=== PATIENT | female | born 1935 | race Caucasian/White ===

== ENCOUNTER → 2016-07-19 | Outpatient (CLI) | payer OTHER ==
[~2016-07-19] MED LIST: ACET-1311 PO; APIX1TAB3 PO; CARV12.52 PO; CARV6.252 PO; CRG625 PO; DIAZ-165 PO; DTRSR4 PO; FLUO0.01 TOP; GABA-112 PO; LEVO50TA PO; LEVO50TA6 PO; NITR1CAP16 PO; TOLT1CAP3 PO; TRML160 TOP
--- NOTE | 2016-07-20 13:14 | MAMMOGRAPHY REPORT ---
BILATERAL DIGITAL SCREENING MAMMOGRAM WITH CAD: 07/19/2016 CLINICAL HISTORY: Routine screening examination. TECHNIQUE: Bilateral CC and MLO views were obtained. Current study was also evaluated with a Compute r Aided Detection (CAD) system. COMPARISON: Comparison is made to exams dated: 07/17/2015 mammogram, 07/15/2014 mammogram, 07/10/2013 shaye mogram, 06/25/2012 mammogram, 07/08/2011 mammogram, and 06/24/2011 mammogram - [facility]. BREAST COMPOSITION: The tissue of both breasts is heterogeneously dense, which may obscure small mas ses. FINDINGS: There are moderate vascular calcifications in the breasts. Scattered bilateral benign rou nd and coarse calcifications. No developing mass, architectural distortion or cluster of suspicious m icrocalcifications is seen in either breast. IMPRESSION: ACR BI-RADS CATEGORY 2: BENIGN There is no mammographic evidence of malignancy. A 1 year screening mammogram is recommended. The pa tient will receive written notification of the results. Approximately 10% of breast cancers are not detected with mammography. A negative mammographic report should not delay biopsy if a clinically suggestive mass is present. Leda Chavira M.D. ay/:07/19/2016 16:21:51 Development Consultant: Gabriella TRUJILLO(R)(M), [facility] letter sent: Normal 1/2 BI-RADS Code: ACR BI-RADS Category 2: Benign
== END | disposition home or self-care (01) ==
LOC: C.MAMM 10:58
PROVIDERS: ATTEND Internal Medicine
DX: Z12.31 Encounter for screening mammogram for malignant neoplasm of breast (principal)

== ENCOUNTER → 2016-10-31 | Outpatient (CLI) | payer OTHER ==
[~2016-10-31] MED LIST changes: -CARV12.52 PO; -CARV6.252 PO; -DIAZ-165 PO; -DTRSR4 PO; -FLUO0.01 TOP; -GABA-112 PO; -LEVO50TA6 PO; -NITR1CAP16 PO; -TRML160 TOP
[2016-10-31 17:14] LABS: URINE APPEARANCE TURBID (CLEAR); URINE BILIRUBIN NEG (NEG); URINE COLOR YELLOW; URINE NITRITE POS (NEG); URINE PH 6.5 (4.5-7.5); URINE SPECIFIC GRAVITY 1.013 (1.000-1.030); UROBILINOGEN NEG (NEG)
[2016-10-31 17:16] LABS: MANUAL MICROSCOPIC REQUIRED? NO; REVIEW REQ? YES
== END | disposition home or self-care (01) ==
LOC: C.LAB 16:23
PROVIDERS: ATTEND Internal Medicine
DX: R35.0 Frequency of micturition (principal); R39.15 Urgency of urination

== ENCOUNTER → 2016-11-18 | Outpatient (CLI) | payer OTHER ==
[2016-11-18 17:17] LABS: BLOOD UREA NITROGEN 15 mg/dl (7-18)
== END | disposition home or self-care (01) ==
LOC: C.LABBC 14:20
PROVIDERS: ATTEND Physician Assistant Medical
DX: M54.16 Radiculopathy, lumbar region (principal); Z98.1 Arthrodesis status

== ENCOUNTER → 2016-11-25 | Outpatient (CLI) | payer OTHER ==
[~2016-11-25] MED LIST changes: +GADAVIST IV PRN
--- NOTE | 2016-11-25 11:59 | DIAGNOSTIC IMAGING REPORT ---
LUMBAR SPINE MRI WITH AND WITHOUT CONTRAST HISTORY: LUMBAR RADICULOPATHY TECHNIQUE: Multiplanar multisequence MRI of the lumbar spine was performed both before and after the intravenous administration of contrast. COMPARISON: Lumbar spine MRI 07/23/2010. FINDINGS: For the purpose of the report the L5-S1 disc space will be located on axial image 23 of 25. 2 mm of anterolisthesis of L3 on L4 which has developed in the interval. Stable grade I anterolisthesis of L4 and L5. The L4-L5 and L5-S1 disc spaces are partially fused. The patient is status post L4-S1 posterior decompression and fusion with pedicle screws and rods. Moderate disc space narrowing at L3-L4 has progressed. Mild disc space narrowing at L2-L3 remains unchanged. The conus terminates at the L1-L2 disc space level. No fractures within the lumbar spine. Increased T2 signal within the L4-5 disc space without enhancement. This could be due to postoperative/degenerative change. Paraspinal soft tissues are unremarkable. The central disc protrusions at T11-T12 and T12-L1 remains unchanged. The T11-T12 disc protrusion results in mild central canal narrowing. No abnormal enhancement. Expected areas of enhancement at the laminectomy site. L1-L2: Tiny broad-based posterior disc bulge with facet hypertrophy. No significant central canal narrowing. Mild bilateral neural foraminal narrowing. L2-L3: Broad-based posterior disc bulge with facet hypertrophy resulting in mild central canal and mild bilateral neural foraminal narrowing. L3-L4: Broad-based posterior disc bulge with advanced facet hypertrophy resulting in severe central canal narrowing. The central canal measures 5 mm in diameter. There is severe left and moderate right neural foraminal narrowing. L4-L5: Prior posterior decompression with mild central canal and mild bilateral neural foraminal narrowing remaining. L5-S1: Prior posterior decompression. No significant central canal narrowing. Mild bilateral neural foraminal narrowing. IMPRESSION: 1. Progressive disc bulge and facet hypertrophy at L3-L4 resulting in severe central canal narrowing. 2. Interval posterior decompression and fusion from L4 through S1 with pedicle screws and rods. 3. Multilevel bilateral neural foraminal narrowing as described above. 4. Small broad-based posterior disc bulge with facet hypertrophy at L2-L3 resulting in mild central canal narrowing. Electronically signed by: Michelet Snowden M.D. 11/25/2016 11:58 AM Dictated Date/Time: 11/25/2016 11:48 AM
== END | disposition home or self-care (01) ==
LOC: C.MRIBC 10:11
PROVIDERS: ATTEND Physician Assistant Medical
DX: M54.16 Radiculopathy, lumbar region (principal)

== ENCOUNTER 2017-01-18 09:48 | Inpatient (IN) | payer OTHER ==
[~2017-01-18] VITALS: Ht 162.6 cm; Wt 68.7 kg
[~2017-01-18 09:48] MED LIST changes: -GADAVIST IV PRN
--- NOTE | 2017-01-18 10:21 | DIAGNOSTIC IMAGING REPORT ---
HEAD WITHOUT CONTRAST (CT) CLINICAL HISTORY: 81 years-old Female with AMS. Acute altered mental status TECHNIQUE: Multiple axial CT images of the head were obtained without contrast. A dose lowering technique was utilized adhering to the principles of ALARA. CT DOSE: 537.48 mGy.cm COMPARISON: Head CT 02/06/2016. FINDINGS: No acute intracranial hemorrhage, midline shift, intracranial mass, hydrocephalus, territorial ischemia or abnormal extra-axial collection. There is moderate brain atrophy. Moderate to extensive chronic microvascular ischemic changes redemonstrated. Remote lacunar infarction of the left thalamus redemonstrated. Vascular calcifications are seen at the level of the skull base. The calvarium is intact. The paranasal sinuses, mastoid air cells, and middle ear cavities are clear. There are postsurgical changes of the bilateral globes. IMPRESSION: No acute intracranial abnormality. The above report was generated using voice recognition software. It may contain grammatical, syntax or spelling errors. Electronically signed by: Ed Canales M.D. 01/18/2017 10:20 AM Dictated Date/Time: 01/18/2017 10:17 AM
--- NOTE | 2017-01-18 10:28 | DIAGNOSTIC IMAGING REPORT ---
CHEST ONE VIEW PORTABLE HISTORY: 81 years-old Female AMS acute altered mental status COMPARISON: Chest radiograph 02/06/2016 TECHNIQUE: Portable upright AP view of the chest FINDINGS: Cardiomediastinal and hilar silhouettes are within normal limits. There is atherosclerosis of the aorta. Mild biapical pleural-parenchymal scarring and pleural thickening without pneumothorax, pleural effusion or focal airspace consolidation. There is a 1.1 cm nodular opacity projecting over the left heart. No overt pulmonary edema. Bones of the chest appear grossly intact. IMPRESSION: 1. No acute cardiopulmonary process. 2. 1.1 cm nodular opacity projects over the heart which may reflect composite density artifact or pulmonary nodule. The above report was generated using voice recognition software. It may contain grammatical, syntax or spelling errors. Electronically signed by: Ed Canales M.D. 01/18/2017 10:27 AM Dictated Date/Time: 01/18/2017 10:22 AM
[2017-01-18 10:42] LABS: BASO % 0.3 %; BASO ABS # 0.02 K/uL (0-0.2); EOS % 1.1 %; EOS ABS # 0.08 K/uL (0-0.5); HEMATOCRIT 33.4 % (37-47); HEMOGLOBIN 11.6 g/dL (12.0-16.0); IG# 0.02 K/uL (0.00-0.02); LYMPH % 18.4 %; LYMPH ABS # 1.35 K/uL (1.2-3.4); MEAN CORPUSCULAR HGB CONC 34.7 g/dl (32-36); MONO % 9.4 %; MONO ABS # 0.69 K/uL (0.11-0.59); NEUT % 70.5 %; NEUT ABS # 5.17 K/uL (1.4-6.5); PLATELET COUNT 263 K/uL (130-400); RED CELL DISTRIBUTION WIDTH CV 12.7 % (11.5-14.5); RED CELL DISTRIBUTION WIDTH SD 42.8 fL (36.4-46.3); WHITE BLOOD COUNT 7.33 K/uL (4.8-10.8)
[2017-01-18 10:53] LABS: PTT PATIENT 27.8 SECONDS (21.0-31.0)
[2017-01-18] MEDS ORDERED: DTRSR4 PO (11:02)
[2017-01-18] MEDS ORDERED: CARV12.52 PO (11:02)
[2017-01-18] MEDS ORDERED: GABA-112 PO (11:02)
[2017-01-18] MEDS ORDERED: APIX1TAB3 PO (11:02)
[2017-01-18] MEDS ORDERED: FLUO0.01 TOP (11:02)
[2017-01-18] MEDS ORDERED: DIAZ-165 PO (11:02)
[2017-01-18] MEDS ORDERED: NITR1CAP16 PO (11:02)
[2017-01-18] MEDS ORDERED: TRML160 TOP (11:02)
[2017-01-18] MEDS ORDERED: LEVO50TA6 PO (11:02)
[2017-01-18] MEDS ORDERED: CARV6.252 PO (11:02)
[2017-01-18 11:06] LABS: ALBUMIN 3.6 gm/dl (3.4-5.0); ALT/SGPT 19 U/L (12-78); AST/SGOT 17 U/L (15-37); BLOOD UREA NITROGEN 17 mg/dl (7-18); CALCIUM 8.7 mg/dl (8.5-10.1); CARBON DIOXIDE 24 mmol/L (21-32); CREATININE 0.94 mg/dl (0.60-1.20); GLUCOSE 97 mg/dl (70-99); POTASSIUM 4.1 mmol/L (3.5-5.1); SODIUM 126 mmol/L (136-145)
[2017-01-18 11:11] LABS: ALKALINE PHOSPHATASE 55 U/L (45-117); TOTAL PROTEIN 7.5 gm/dl (6.4-8.2)
[2017-01-18] MEDS ORDERED: SODIUM CHLORIDE 0.9% 500ML 500 ML IV STA (12:35)
[2017-01-18] MEDS ORDERED: SODIUM CHLORIDE 0.9% 1000ML 1,000 ML IV SCH (12:51)
[2017-01-18] MEDS ORDERED: PHARMACIST DISCHARGE MED REC CONSULT PRN (13:00)
[2017-01-18] MEDS ORDERED: ALUMINUM/MAGNESIUM/SIMETH (MAALOX MAX) 30 ML UDC PO PRN (13:00)
[2017-01-18 13:09] VITALS: O2SAT 98; Ht 162.6 cm; Wt 68.7 kg
--- NOTE | 2017-01-18 13:21 | History and Physical ---
History & Physical Date & Time of Service: Jan 18, 2017 at 12:26 Chief Complaint: [facility] Primary Care Physician: Aleksandar Beckman M.D. History of Present Illness Ms. Mace passed out this morning around 0800. She did not feel symptoms before hand and had some confusion after but overall does not remember the event. She doesn't know if she lost control of bowel or bladder. She was with her at the time who is not bedside. They live at home with just the two of them in the house. She had a similar episode a few years ago which was called a TIA at the hospital but her primary care did not think was accurate. She had a stomach ache last night so she didn't eat dinner but before that she had been eating and drinking normally. No diarrhea, no vomiting. She doesn't know if she had any slurred speech or vision changes at the time, but she hasn' t had any since. 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 Past Medical/Surgical History Medical Problems: (1) History of - hypertension Status: Chronic Social History Smoking Status: Former Smoker (quit 22 years ago) Smokeless Tobacco Use: No Alcohol Use: one glass or two at the most every day Marital Status: Housing status: lives with significant other Occupational Status: retired (nursing secretary) Immunizations History of Influenza Vaccine: Yes History of Tetanus Vaccine?: Unknown Tetanus Immunization Date: Dec 30, 2009 History of Pneumococcal: Yes Pneumococcal Date: Dec 30, 2006 History of Hepatitis B Vaccine: Unknown Multi-Drug Resistant Organisms History of MDRO: No Allergies Coded Allergies: Amoxicillin (Verified Allergy, Intermediate, VERY SICK TO HER STOMACH, 01/18/17) Atorvastatin (Verified Allergy, Intermediate, RASH, 01/18/17) and rash Clavulanic Acid (Verified Allergy, Intermediate, VERY SICK TO HER STOMACH , 01/18/17) Tetracycline (Verified Allergy, Intermediate, ARMS SWELLED UP, 01/18/17) Tramadol (Verified Allergy, Intermediate, MAKES HER DIZZY AND CRAZEY, 01/18) SHANTEL Inhibitors (Verified Allergy, Mild, NOT SURE OF REACTIONS, 01/18/17) Rivaroxaban (Verified Allergy, Unknown, RASH, 01/18/17) Zolpidem (Verified Allergy, Unknown, ., 01/18/17) Uncoded Allergies: ERYTHROMYCN (Allergy, Intermediate, SICK TO HER STOMACH, 11/22/12) Home Medications Scheduled Apixaban (Eliquis), 5 MG PO BID Carvedilol (Coreg), 12.5 MG PO QAM Carvedilol (Coreg), 6.25 MG PO QPM Fluocinolone Acetonide (Fluocinolone Acetonide), 1 APPLN TOP BID Gabapentin (Neurontin), 100 MG PO TID Levothyroxine Sodium (Levothyroxine Sodium), 75 MCG PO DAILY Tolterodine Tartrate (Detrol LA), 4 MG PO DAILY Triamcinolone (Triamcinolone Acetonide), 1 APPLN TOP QPM Review of Systems Constitutional: No fever, No chills Respiratory: No cough, No shortness of breath Cardiovascular: No chest pain Abdomen: + pain (see HPI), No nausea, No vomiting, No diarrhea Genitourinary - Female: No dysuria Neurologic: + memory loss (a little foggy with some recall difficulty), + weakness Integumentary: + rash (itchy skin back of head for many years) Allergic / Immunologic: + seasonal allergies Physical Exam Vital Signs Date Time Temp Pulse Resp B/P (MAP) Pulse Ox O2 Delivery O2 Flow Rate FiO2 01/18/17 11:31 77 20 106/68 93 Room Air 01/18/17 10:19 81 01/18/17 10:00 36.5 87 20 142/67 97 Room Air General: no distress Eyes: normal inspection, PERLL Respiratory: chest non tender, clear to auscultation, normal breath sounds, no respiratory distress, no accessory muscle use Cardiac: regular rate and rhythm, no rub or gallop, no murmur, no edema, no jvd GI/: active bowel sounds, no abd pain or tenderness, soft, non distended Extremities: left leg too weak to lift off of bed which patient states is chronic, decreased sensation in left leg which patient states is chronic Neuro/Psych: alert and oriented x 3, normal mood and affect, some forgetfulness , Cranial nerves intact Skin: normal color, dry, rash upper right back/shoulder with small scabs from scratching Diagnostics Laboratory Results Results Past 24 Hours Test 01/18/17 10:28 01/18/17 10:37 Range/Units White Blood Count 7.33 4.8-10.8 K/uL Red Blood Count 3.63 4.2-5.4 M/uL Hemoglobin 11.6 12.0-16.0 g/dL Hematocrit 33.4 37-47 % Mean Corpuscular Volume 92.0 80-100 fL Mean Corpuscular Hemoglobin 32.0 25-34 pg Mean Corpuscular Hemoglobin Concent 34.7 32-36 g/dl Platelet Count 263 130-400 K/uL Mean Platelet Volume 8.0 7.4-10.4 fL Neutrophils (%) (Auto) 70.5 % Lymphocytes (%) (Auto) 18.4 % Monocytes (%) (Auto) 9.4 % Eosinophils (%) (Auto) 1.1 % Basophils (%) (Auto) 0.3 % Neutrophils # (Auto) 5.17 1.4-6.5 K/uL Lymphocytes # (Auto) 1.35 1.2-3.4 K/uL Monocytes # (Auto) 0.69 0.11-0.59 K/uL Eosinophils # (Auto) 0.08 0-0.5 K/uL Basophils # (Auto) 0.02 0-0.2 K/uL RDW Standard Deviation 42.8 36.4-46.3 fL RDW Coefficient of Variation 12.7 11.5-14.5 % Immature Granulocyte % (Auto) 0.3 % Immature Granulocyte # (Auto) 0.02 0.00-0.02 K/uL Prothrombin Time 10.8 9.0-12.0 SECONDS Prothromb Time International Ratio 1.0 0.9-1.1 Activated Partial Thromboplast Time 27.8 21.0-31.0 SECONDS Partial Thromboplastin Ratio 1.1 Sodium Level 126 136-145 mmol/L Potassium Level 4.1 3.5-5.1 mmol/L Chloride Level 96 98-107 mmol/L Carbon Dioxide Level 24 21-32 mmol/L Anion Gap 6.0 3-11 mmol/L Blood Urea Nitrogen 17 7-18 mg/dl Creatinine 0.94 0.60-1.20 mg/dl Estimated GFR () 65.0 Estimated GFR (Non- 56.1 BUN/Creatinine Ratio 18.5 10-20 Random Glucose 97 70-99 mg/dl Calcium Level 8.7 8.5-10.1 mg/dl Total Bilirubin 0.8 0.2-1 mg/dl Direct Bilirubin 0.2 0-0.2 mg/dl Aspartate Amino Transf (AST/SGOT) 17 15-37 U/L Alanine Aminotransferase (ALT/SGPT) 19 12-78 U/L Alkaline Phosphatase 55 45-117 U/L Troponin I < 0.015 0-0.045 ng/ml Total Protein 7.5 6.4-8.2 gm/dl Albumin 3.6 3.4-5.0 gm/dl Urine Color YELLOW Urine Appearance CLOUDY CLEAR Urine pH 7.0 4.5-7.5 Urine Specific Bandy 1.018 1.000-1.030 Urine Protein 2+ NEG Urine Glucose (UA) NEG NEG Urine Ketones NEG NEG Urine Occult Blood NEG NEG Urine Nitrite NEG NEG Urine Bilirubin NEG NEG Urine Urobilinogen NEG NEG Urine Leukocyte Esterase NEG NEG Urine WBC (Auto) 1-5 0-5 /hpf Urine RBC (Auto) 0-4 0-4 /hpf Urine Hyaline Casts (Auto) 5-10 0-5 /lpf Urine Epithelial Cells (Auto) >30 0-5 /lpf Urine Bacteria (Auto) NEG NEG Urine Renal Epithelial Cells 0-5 /lpf Impression Assessment and Plan Ms. Mace is an 81 year old woman here for syncope and collapse. 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 Discussed with Nighat Beckman NP and agree with findings and plan as documented in the note. Any exceptions or clarifications are listed here: None Patient arrives with an apparent syncopal episode at home the story does vary. Her states that she had syncope while sitting in a chair her having a typical normal morning for her. The patient notes some presyncopal symptoms but not many. The patient recently has been cared for for significant back pain she does have spinal stenosis at the L3 level just above her previous L4- S1 decompression and fusion. The patient has a history of A. fib, is currently in sinus rhythm, and is back to her normal state. The patient's vital signs at this point time are normal her exam is regular with a systolic murmur at the left upper sternal border her lungs are clear neurologically although slightly forgetful is alert and oriented and cranial nerves are intact although she has significant leg weakness just barely able to lift her legs off the bed and I cannot evoke patellar reflexes although they may be extinguished. Syncopal episode at home with a history of the same, this patient most recently underwent a tilt table test in 2016. This patient having symptoms at rest makes me can be concern for arrhythmia. We'll observe the patient on telemetry unit check an echocardiogram image her brain and carotids and follow up in the morning based upon results of the same next We discussed her back pain she wishes not to have any significant medications for this and is planning on following through with pain management although may wish a second opinion from Dr. Hancock as he did her previous surgery Documented By: Vladislav Jimenez Advanced Directives Existing Advance Directive: Yes Existing Living Will: Yes Existing Power of Vending Machine Attendant: Yes Existing Health Care Proxy: No (daughter Yashira Harrison) Resuscitation Status DO NOT RESUSCITATE
[2017-01-18 13:45] LABS: HEMOGLOBIN A1C 5.1 % (4.5-5.6)
--- NOTE | 2017-01-18 15:01 | DIAGNOSTIC IMAGING REPORT ---
MRI OF THE BRAIN WITHOUT CONTRAST CLINICAL HISTORY: Stroke SYNCOPE, HEADACHE. COMPARISON STUDY: Noncontrast head CT dated 01/18/2017, MRI the brain dated 07/01/2013 FINDINGS: Sagittal T1, axial diffusion, proton density and T2 weighted axial, coronal FLAIR, and axial T1-weighted images were acquired. No intra or extra-axial mass lesions are visualized Axial diffusion-weighted images reveal no evidence of acute or subacute infarction. There is stable ventricular dilatation, likely secondary to volume loss. Proton density T2-weighted and FLAIR images reveal there are extensive foci of increased T2 and FLAIR signal within the white matter, likely on a small vessel basis. These remain similar to the preceding examination. There are no abnormal flow voids. There are foci of increased T2 signal within the mastoids, likely inflammatory. IMPRESSION: 1. No evidence of acute or subacute infarction 2. No evidence of intracranial mass in this noncontrast study 3. Extensive foci of increased T2 signal within the white matter likely a small vessel basis 4. Stable ventricular prominence likely secondary to volume loss 5. Foci of increased T2 signal within the mastoids, likely inflammatory Electronically signed by: Art Rizzo M.D. 01/18/2017 3:00 PM Dictated Date/Time: 01/18/2017 2:56 PM
[2017-01-18 16:00] VITALS: BP 158/81; PULSE 82; TEMP 36.5; O2SAT 97
--- NOTE | 2017-01-18 16:06 | EMERGENCY ROOM VISIT NOTE ---
History Report prepared by Galo: Sheldon Jauregui Under the Supervision of: Dr. Kelvin Espinoza D.O. First contact with patient: 09:53 Stated Complaint: AMS History of Present Illness The patient is a 81 year old female who presents to the Emergency Room with complaints of persistent altered mental status since this morning around 0830. Per the EMS, the patient was last known to be awake, alert, and oriented around 0830. Prior to arrival, the patient was found unresponsive, and she was having a left sided facial droop while unresponsive which is resolving while awake. The patient has a history of TIAs in the past. The patient does not have any known open wounds or sores. Source of History: patient Onset: 0830 Position: other (global) Quality: other (altered mental status) Timing: other (persistent) Note: Associated symptoms: Left sided facial droop and unresponsive Review of Systems See HPI for pertinent positives & negatives. A total of 10 systems reviewed and were otherwise negative. Past Medical & Surgical Medical Problems: (1) History of - hypertension Social History Smoking Status: Former Smoker Marital Status: Housing Status: lives with family Occupation Status: retired Current/Historical Medications Scheduled Apixaban (Eliquis), 5 MG PO BID Carvedilol (Coreg), 12.5 MG PO QAM Carvedilol (Coreg), 6.25 MG PO QPM Fluocinolone Acetonide (Fluocinolone Acetonide), 1 APPLN TOP BID Gabapentin (Neurontin), 100 MG PO TID Levothyroxine Sodium (Levothyroxine Sodium), 75 MCG PO DAILY Tolterodine Tartrate (Detrol LA), 4 MG PO DAILY Triamcinolone (Triamcinolone Acetonide), 1 APPLN TOP QPM Allergies Coded Allergies: Amoxicillin (Verified Allergy, Intermediate, VERY SICK TO HER STOMACH, 01/18/17) Atorvastatin (Verified Allergy, Intermediate, RASH, 01/18/17) and rash Clavulanic Acid (Verified Allergy, Intermediate, VERY SICK TO HER STOMACH , 01/18/17) Tetracycline (Verified Allergy, Intermediate, ARMS SWELLED UP, 01/18/17) Tramadol (Verified Allergy, Intermediate, MAKES HER DIZZY AND CRAZEY, 01/18) SHANTEL Inhibitors (Verified Allergy, Mild, NOT SURE OF REACTIONS, 01/18/17) Rivaroxaban (Verified Allergy, Unknown, RASH, 01/18/17) Zolpidem (Verified Allergy, Unknown, ., 01/18/17) Uncoded Allergies: ERYTHROMYCN (Allergy, Intermediate, SICK TO HER STOMACH, 11/22/12) Physical Exam Vital Signs Date Time Temp Pulse Resp B/P (MAP) Pulse Ox O2 Delivery O2 Flow Rate FiO2 01/18/17 13:11 77 01/18/17 13:09 98 Room Air 01/18/17 12:59 87 18 136/70 98 Room Air 01/18/17 11:31 77 20 106/68 93 Room Air 01/18/17 10:19 81 01/18/17 10:00 36.5 87 20 142/67 97 Room Air Physical Exam GENERAL: Sitting up in bed, disheveled, non-toxic EYE EXAM: normal conjunctiva. PERRL and EOM's intact. OROPHARYNX: no exudate, no erythema, lips, buccal mucosa, and tongue normal and mucous membranes are moist NECK: supple, no nuchal rigidity, no adenopathy, non-tender LUNGS: Clear to auscultation. Normal chest wall mechanics HEART: no murmurs, S1 normal and S2 normal ABDOMEN: abdomen soft, non-tender, normo-active bowel sounds, no masses, no rebound or guarding. BACK: Back is symmetrical on inspection and there is no deformity, no midline tenderness, no CVA tenderness. SKIN: no rashes and no bruising UPPER EXTREMITIES: upper extremities are grossly normal. LOWER EXTREMITIES: No pitting edema. NEURO EXAM: Alert, not oriented to person, place, or time. Able to state words. No focal deficits in upper or lower extremities. No obvious drift. Unable to perform finger to nose. Medical Decision & Procedures ER Provider Diagnostic Interpretation: Radiology results as stated below per my review and the radiologist's interpretation: HEAD WITHOUT CONTRAST (CT) CLINICAL HISTORY: 81 years-old Female with AMS. Acute altered mental status TECHNIQUE: Multiple axial CT images of the head were obtained without contrast. A dose lowering technique was utilized adhering to the principles of ALARA. CT DOSE: 537.48 mGy.cm COMPARISON: Head CT 02/06/2016. FINDINGS: No acute intracranial hemorrhage, midline shift, intracranial mass, hydrocephalus, territorial ischemia or abnormal extra-axial collection. There is moderate brain atrophy. Moderate to extensive chronic microvascular ischemic changes redemonstrated. Remote lacunar infarction of the left thalamus redemonstrated. Vascular calcifications are seen at the level of the skull base. The calvarium is intact. The paranasal sinuses, mastoid air cells, and middle ear cavities are clear. There are postsurgical changes of the bilateral globes. IMPRESSION: No acute intracranial abnormality. The above report was generated using voice recognition software. It may contain grammatical, syntax or spelling errors. Electronically signed by: Ed Canales M.D. 01/18/2017 10:20 AM Dictated Date/Time: 01/18/2017 10:17 AM CHEST ONE VIEW PORTABLE HISTORY: 81 years-old Female AMS acute altered mental status COMPARISON: Chest radiograph 02/06/2016 TECHNIQUE: Portable upright AP view of the chest FINDINGS: Cardiomediastinal and hilar silhouettes are within normal limits. There is atherosclerosis of the aorta. Mild biapical pleural-parenchymal scarring and pleural thickening without pneumothorax, pleural effusion or focal airspace consolidation. There is a 1.1 cm nodular opacity projecting over the left heart. No overt pulmonary edema. Bones of the chest appear grossly intact. IMPRESSION: 1. No acute cardiopulmonary process. 2. 1.1 cm nodular opacity projects over the heart which may reflect composite density artifact or pulmonary nodule. The above report was generated using voice recognition software. It may contain grammatical, syntax or spelling errors. Electronically signed by: Ed Canales M.D. 01/18/2017 10:27 AM Dictated Date/Time: 01/18/2017 10:22 AM Laboratory Results 01/18/17 10:28 Red Blood Count 3.63, Mean Corpuscular Volume 92.0, Mean Corpuscular Hemoglobin 32.0, Mean Corpuscular Hemoglobin Concent 34.7, Mean Platelet Volume 8.0, Neutrophils (%) (Auto) 70.5, Lymphocytes (%) (Auto) 18.4, Monocytes (%) (Auto) 9.4, Eosinophils (%) (Auto) 1.1, Basophils (%) (Auto) 0.3, Neutrophils # (Auto) 5.17, Lymphocytes # (Auto) 1.35, Monocytes # (Auto) 0.69, Eosinophils # (Auto) 0.08, Basophils # (Auto) 0.02 01/18/17 10:28 Test 01/18/17 10:28 01/18/17 10:37 White Blood Count 7.33 K/uL (4.8-10.8) Red Blood Count 3.63 M/uL (4.2-5.4) Hemoglobin 11.6 g/dL (12.0-16.0) Hematocrit 33.4 % (37-47) Mean Corpuscular Volume 92.0 fL (80-100) Mean Corpuscular Hemoglobin 32.0 pg (25-34) Mean Corpuscular Hemoglobin Concent 34.7 g/dl (32-36) Platelet Count 263 K/uL (130-400) Mean Platelet Volume 8.0 fL (7.4-10.4) Neutrophils (%) (Auto) 70.5 % Lymphocytes (%) (Auto) 18.4 % Monocytes (%) (Auto) 9.4 % Eosinophils (%) (Auto) 1.1 % Basophils (%) (Auto) 0.3 % Neutrophils # (Auto) 5.17 K/uL (1.4-6.5) Lymphocytes # (Auto) 1.35 K/uL (1.2-3.4) Monocytes # (Auto) 0.69 K/uL (0.11-0.59) Eosinophils # (Auto) 0.08 K/uL (0-0.5) Basophils # (Auto) 0.02 K/uL (0-0.2) RDW Standard Deviation 42.8 fL (36.4-46.3) RDW Coefficient of Variation 12.7 % (11.5-14.5) Immature Granulocyte % (Auto) 0.3 % Immature Granulocyte # (Auto) 0.02 K/uL (0.00-0.02) Prothrombin Time 10.8 SECONDS (9.0-12.0) Prothromb Time International Ratio 1.0 (0.9-1.1) Activated Partial Thromboplast Time 27.8 SECONDS (21.0-31.0) Partial Thromboplastin Ratio 1.1 Anion Gap 6.0 mmol/L (3-11) Estimated GFR () 65.0 Estimated GFR (Non- 56.1 BUN/Creatinine Ratio 18.5 (10-20) Estimated Average Glucose 100 mg/dl Hemoglobin A1c 5.1 % (4.5-5.6) Calcium Level 8.7 mg/dl (8.5-10.1) Total Bilirubin 0.8 mg/dl (0.2-1) Direct Bilirubin 0.2 mg/dl (0-0.2) Aspartate Amino Transf (AST/SGOT) 17 U/L (15-37) Alanine Aminotransferase (ALT/SGPT) 19 U/L (12-78) Alkaline Phosphatase 55 U/L (45-117) Troponin I < 0.015 ng/ml (0-0.045) Total Protein 7.5 gm/dl (6.4-8.2) Albumin 3.6 gm/dl (3.4-5.0) Thyroid Stimulating Hormone (TSH) 3.210 uIu/ml (0.300-4.500) Urine Color YELLOW Urine Appearance CLOUDY (CLEAR) Urine pH 7.0 (4.5-7.5) Urine Specific Allen 1.018 (1.000-1.030) Urine Protein 2+ (NEG) Urine Glucose (UA) NEG (NEG) Urine Ketones NEG (NEG) Urine Occult Blood NEG (NEG) Urine Nitrite NEG (NEG) Urine Bilirubin NEG (NEG) Urine Urobilinogen NEG (NEG) Urine Leukocyte Esterase NEG (NEG) Urine WBC (Auto) 1-5 /hpf (0-5) Urine RBC (Auto) 0-4 /hpf (0-4) Urine Hyaline Casts (Auto) 5-10 /lpf (0-5) Urine Epithelial Cells (Auto) >30 /lpf (0-5) Urine Bacteria (Auto) NEG (NEG) Urine Renal Epithelial Cells /lpf (0-5) Laboratory results per my review. Medications Administered Medications (Trade) Dose Ordered Sig/Dereje Route Start Time Stop Time Status Last Admin Dose Admin Sodium Chloride 500 ml @ 999 mls/hr Q31M STAT IV 01/18/17 12:35 01/18/17 13:05 DC 01/18/17 13:02 999 MLS/HR ECG Indication: altered mental status Rate (beats per minute): 84 Rhythm: sinus rhythm Findings: Q waves (Septal), no ectopy, other (normal axis) Comparison ECG Date: 02/06/16 Change: no significant change ED Course ED COURSE: Vital signs were reviewed and showed hypertension The patients medical record was reviewed The above diagnostic studies were performed and reviewed. ED treatments and interventions as stated above. 0953: The patient was evaluated in room B4. A complete history and physical examination was performed. 1101: I reevaluated the patient, and she was completely oriented to person place and time. She is at baseline per her . I discussed my findings with the patient and she understands and agrees with the treatment plan. Based on the patients age, coexisting illnesses, exam and lab findings the decision to treat as an inpatient was made. The patient remained stable while under my care. The patient will be evaluated for further management. 1151: I reviewed the patient's case with LEI Norman. He will evaluate the patient for further management. 1235: Sodium Chloride 500 ml @ 999 mls/hr IV Medical Decision Differential diagnoses includes but is not limited to toxic, metabolic, infectious, traumatic, cardiac, neurologic, hematologic, psychiatric and inflammatory etiologies. Medication Reconcilliation Current Medication List: was personally reviewed by me Blood Pressure Screening Patient's blood pressure: Elevated blood pressure Monitored by the hospitalist Consults Time Called: 1127 Consulting Physician: SPIKE Norman Returned Call: 1151 I reviewed the patient's case with LEI Norman. He will evaluate the patient for further management. Impression Primary Impression: Altered mental status Additional Impression: Syncope Scribe Attestation The scribe's documentation has been prepared under my direction and personally reviewed by me in its entirety. I confirm that the note above accurately reflects all work, treatment, procedures, and medical decision making performed by me. Departure Information Dispostion Being Evaluated By Hospitalist Referrals Aleksandar Beckman M.D. (PCP) Stroke History Time Last Known Well 0830 Stroke t-PA Criteria Reviewed Does NOT meet criteria for t-PA Reason t-PA Not Given Treatment not indicated Problem Qualifiers
[2017-01-18 19:22] LABS: CKMB 2.9 ng/ml (0.5-3.6)
[2017-01-18 19:51] VITALS: BP 131/82; PULSE 84; TEMP 36.6; O2SAT 94
[2017-01-18 20:00] VITALS: O2SAT 94
[2017-01-18] MEDS: ACETAMINOPHEN 325 MG TAB PO PRN (20:05)
--- NOTE | 2017-01-18 21:13 | DIAGNOSTIC IMAGING REPORT ---
ULTRASOUND OF THE CAROTID ARTERIES CLINICAL HISTORY: Strokelike symptoms. Syncope. COMPARISON STUDY: Carotid artery ultrasound dated 06/23/2013. TECHNIQUE: Real-time, grayscale, and color Doppler sonography of the carotid arteries is performed. Images are reviewed in the transverse and longitudinal planes. FINDINGS: Blood pressure in the right arm measures 140/77 and blood pressure in the left arm measures 137/71. The carotid arteries are patent bilaterally and demonstrate antegrade flow. There is moderate to advanced echogenic shadowing atherosclerotic plaque seen in the carotid bulbs bilaterally. Normal doppler arterial waveforms are seen throughout. Velocity measurements are listed below. Common carotid peak systolic velocity (cm/sec): RIGHT: 123 LEFT: 62 ICA proximal peak systolic velocity (cm/sec): RIGHT: 123 LEFT: 178 ICA mid peak systolic velocity (cm/sec): RIGHT: 112 LEFT: 118 ICA distal peak systolic velocity (cm/sec): RIGHT: 87 LEFT: 58 ICA/CC peak systolic ratio: RIGHT: 1.0 LEFT: 2.9 Antegrade flow was shown in the vertebral arteries. The external carotid arteries are patent. The subclavian arteries are patent bilaterally. IMPRESSION: 1. Atherosclerotic plaque with evidence of 50-69% stenosis at the origin of the left internal carotid artery. This is similar to the 2013 examination. 2. There is no sonographic evidence of hemodynamically significant stenosis in the right carotid arterial system. 3. Antegrade flow is shown in the vertebral arteries. Electronically signed by: Sherif Groves M.D. 01/18/2017 9:12 PM Dictated Date/Time: 01/18/2017 9:09 PM
[2017-01-18] MEDS: GABAPENTIN 100 MG CAP PO SCH (21:17)
[2017-01-18] MEDS: APIXABAN 2.5 MG TAB PO SCH (21:17)
[2017-01-18] MEDS: ALPRAZOLAM 0.25 MG TAB PO PRN (21:17)
[2017-01-18] MEDS: CARVEDILOL 6.25 MG TAB PO SCH (21:17)
[2017-01-18 23:20] VITALS: BP 132/75; PULSE 87; TEMP 36.5; O2SAT 97
[2017-01-19] VITALS (9 sets, daily range): BP systolic 112–161; BP diastolic 67–92; PULSE 69–89; TEMP 36.4–36.9; O2SAT 93–96
[2017-01-19 02:58] LABS: BASO % 0.4 %; BASO ABS # 0.02 K/uL (0-0.2); EOS % 1.8 %; EOS ABS # 0.09 K/uL (0-0.5); HEMATOCRIT 29.6 % (37-47); HEMOGLOBIN 10.4 g/dL (12.0-16.0); IG# 0.01 K/uL (0.00-0.02); LYMPH % 31.3 %; LYMPH ABS # 1.55 K/uL (1.2-3.4); MEAN CELL VOLUME 91.4 fL (80-100); MEAN CORPUSCULAR HEMOGLOBIN 32.1 pg (25-34); MEAN CORPUSCULAR HGB CONC 35.1 g/dl (32-36); MEAN PLATELET VOLUME 7.9 fL (7.4-10.4); MONO % 11.9 %; MONO ABS # 0.59 K/uL (0.11-0.59); NEUT % 54.4 %; NEUT ABS # 2.69 K/uL (1.4-6.5); PLATELET COUNT 218 K/uL (130-400); RED CELL DISTRIBUTION WIDTH CV 12.5 % (11.5-14.5); RED CELL DISTRIBUTION WIDTH SD 42.2 fL (36.4-46.3); WHITE BLOOD COUNT 4.95 K/uL (4.8-10.8)
[2017-01-19 03:15] LABS: CALCIUM 8.1 mg/dl (8.5-10.1); CREATININE 0.72 mg/dl (0.60-1.20); POTASSIUM 3.5 mmol/L (3.5-5.1)
[2017-01-19 03:20] LABS: CKMB 2.6 ng/ml (0.5-3.6)
[2017-01-19] MEDS: LEVOTHYROXINE 75 MCG TAB PO SCH (05:50)
[2017-01-19] MEDS: TOLTERODINE TARTRATE LA 4 MG CAPCR PO SCH (08:06)
[2017-01-19] MEDS: APIXABAN 2.5 MG TAB PO SCH ×2 (08:06→21:39)
[2017-01-19] MEDS: ASPIRIN 81 MG ECTAB PO SCH (08:06)
[2017-01-19] MEDS: CARVEDILOL 12.5 MG TAB PO SCH (08:06)
[2017-01-19] MEDS: GABAPENTIN 100 MG CAP PO SCH ×3 (08:06→21:39)
--- NOTE | 2017-01-19 12:30 | Cardiology Consultation ---
Cardiology Consultation Date of Consultation: Jan 19, 2017. Requesting Physician: Nighat PALMER Attending Physician: Dr. Umana Reason for Consultation: Syncope at rest, 14 beat run of VT Pt evaluation today including: conversation w/ patient, physical exam, chart review, lab review, review of studies, review of inpatient medication list, conversation w/ attending History of Present Illness Mrs. Mace is an 81-year-old female with a past medical history significant for paroxysmal atrial fibrillation, hypertension, carotid artery stenosis, hx of possible TIA, and dementia who presented to the ED yesterday via EMS due to an episode of unresponsiveness. The patient does not recall the events surrounding her hospitalization, therefore, the majority of the history was provided by the patient's son-in-law who is present in her hospital room. The patient reportedly arose yesterday morning, and her found her confused standing in the middle of the room. He led her to her chair in the living room and got her a cup of coffee. He then was on the phone with their daughter, and when he walked back into the living room, the patient was unresponsive in the chair. She was drooling and slumped to her side. He noted a "vibration of her cheek." They are not sure as to how long she was unconscious, and the patient's called for EMS at that time. The patient has reportedly had a several year history of "syncopal" episodes, however, the exact details surrounding these events are unclear. Her events can occur when seated or standing. She has never sustained an injury due to the loss of consciousness. The patient denies any symptoms of palpitations, lightheadedness, dizziness, chest pain, or shortness of breath. She denies orthopnea, PND, or edema. She denies abnormal bleeding such as melena, hematochezia, or hematuria. She denies numbness/tingling, weakness, or change in vision. She denies fevers or chills. Review of Systems: As noted in HPI. All other ROS reviewed and otherwise negative. Past Medical/Surgical History 1. Paroxysmal atrial fibrillation 2. Hypertension 3. Carotid artery artery stenosis 4. Chronic SIADH 5. Hx Possible TIA 6. Hypothyroidism 7. Chronic back pain 8. Osteoarthritis 9. S/P Appendectomy 10. S/P Hysterectomy 11. S/P Lumbar laminectomy 12. Dementia Family History Mother of CHF age 64. Father in his 80s, but the cause of is unknown. Social History Smoking Status: Former Smoker History of Alcohol Use: Yes (1 to 2 glasses wine a day) She is with 3 daughters and 10 grandchildren. She lives at home with her . Her daughters live out of state. She has remote history of smoking but quit 20 years ago. She drinks 2 glasses wine daily. She denies illicit drug use. Allergies Coded Allergies: Amoxicillin (Verified Allergy, Intermediate, VERY SICK TO HER STOMACH, 01/18/17) Atorvastatin (Verified Allergy, Intermediate, RASH, 01/18/17) and rash Clavulanic Acid (Verified Allergy, Intermediate, VERY SICK TO HER STOMACH , 01/18/17) Tetracycline (Verified Allergy, Intermediate, ARMS SWELLED UP, 01/18/17) Tramadol (Verified Allergy, Intermediate, MAKES HER DIZZY AND CRAZEY, 01/18) SHANTEL Inhibitors (Verified Allergy, Mild, NOT SURE OF REACTIONS, 01/18/17) Rivaroxaban (Verified Allergy, Unknown, RASH, 01/18/17) Zolpidem (Verified Allergy, Unknown, ., 01/18/17) Uncoded Allergies: ERYTHROMYCN (Allergy, Intermediate, SICK TO HER STOMACH, 11/22/12) Medications Current Inpatient Medications Medications (Trade) Dose Ordered Sig/Dereje Route Start Time Stop Time Status Last Admin Dose Admin Acetaminophen (Tylenol Tab) 650 mg Q4H PRN PO 01/18/17 13:00 02/17/17 12:59 01/18/17 20:05 650 MG Al Hydrox/Mg Hydrox/Simethicone (Maalox Max Susp) 15 ml Q4H PRN PO 01/18/17 13:00 02/17/17 12:59 Aspirin (Ecotrin Tab) 81 mg QAM PO 01/19/17 09:00 02/18/17 08:59 01/19/17 08:06 81 MG Miscellaneous Information (Pharmacist Discharge Med Rec Consult) 1 ea UD PRN N/A 01/18/17 13:00 02/17/17 12:59 Carvedilol (Coreg Tab) 6.25 mg QPM PO 01/18/17 21:00 02/17/17 20:59 01/18/17 21:17 6.25 MG Carvedilol (Coreg Tab) 12.5 mg QAM PO 01/19/17 09:00 02/18/17 08:59 01/19/17 08:06 12.5 MG Gabapentin (Neurontin Cap) 100 mg TID PO 01/18/17 21:00 02/17/17 20:59 01/19/17 08:06 100 MG Levothyroxine Sodium (Synthroid Tab) 75 mcg DAILYBB PO 01/19/17 06:30 02/18/17 06:59 01/19/17 05:50 75 MCG Tolterodine Tartrate (Detrol LA Cap) 4 mg DAILY PO 01/19/17 09:00 02/18/17 08:59 01/19/17 08:06 4 MG Apixaban (Eliquis Tab) 5 mg BID PO 01/18/17 21:00 02/17/17 20:59 01/19/17 08:06 5 MG Miscellaneous Information (Order Awaiting Action) 1 ea QS N/A 01/18/17 16:00 02/17/17 15:59 Miscellaneous Information (Order Awaiting Action) 1 ea QS N/A 01/18/17 16:00 02/17/17 15:59 Alprazolam (Xanax Tab) 0.25 mg Q6H PRN PO 01/18/17 18:15 02/17/17 18:14 01/18/17 21:17 0.25 MG Physical Exam Vital Signs Past 12 Hours Date Time Temp Pulse Resp B/P (MAP) Pulse Ox O2 Delivery O2 Flow Rate FiO2 01/19/17 08:00 Room Air 01/19/17 07:32 36.7 69 18 147/92 (110) 93 Room Air 01/19/17 04:00 Room Air 01/19/17 03:45 36.7 77 18 126/77 (93) 96 Room Air 01/19/17 00:00 Room Air 01/18/17 23:20 36.5 87 18 132/75 (94) 97 Room Air Constitutional: Alert, in no acute distress HEENT: Head is atraumatic and normocephalic. EOMs intact. Sclera anicteric. Face is symmetric. No perioral cyanosis. Mucous membranes moist. Neck: Supple, no JVD Pulmonary: Normal respiratory effort, clear to auscultation bilaterally Cardiac: Regular rate and rhythm, normal S1 and S2, no gallops, no rubs, no murmurs Extremities: No clubbing, cyanosis, or edema. Pulses intact Abdomen: Normal bowel sounds, soft, non-tender, no abdominal mass palpated Skin: Normal skin color, turgor, and pigmentation, no rash, no skin lesions Neurological: Oriented to person, place, and time Data Laboratory Results: Last 24 Hours Test 01/18/17 10:28 01/18/17 10:37 01/18/17 18:40 01/19/17 02:41 White Blood Count 7.33 K/uL 4.95 K/uL Red Blood Count 3.63 M/uL 3.24 M/uL Hemoglobin 11.6 g/dL 10.4 g/dL Hematocrit 33.4 % 29.6 % Mean Corpuscular Volume 92.0 fL 91.4 fL Mean Corpuscular Hemoglobin 32.0 pg 32.1 pg Mean Corpuscular Hemoglobin Concent 34.7 g/dl 35.1 g/dl Platelet Count 263 K/uL 218 K/uL Mean Platelet Volume 8.0 fL 7.9 fL Neutrophils (%) (Auto) 70.5 % 54.4 % Lymphocytes (%) (Auto) 18.4 % 31.3 % Monocytes (%) (Auto) 9.4 % 11.9 % Eosinophils (%) (Auto) 1.1 % 1.8 % Basophils (%) (Auto) 0.3 % 0.4 % Neutrophils # (Auto) 5.17 K/uL 2.69 K/uL Lymphocytes # (Auto) 1.35 K/uL 1.55 K/uL Monocytes # (Auto) 0.69 K/uL 0.59 K/uL Eosinophils # (Auto) 0.08 K/uL 0.09 K/uL Basophils # (Auto) 0.02 K/uL 0.02 K/uL RDW Standard Deviation 42.8 fL 42.2 fL RDW Coefficient of Variation 12.7 % 12.5 % Immature Granulocyte % (Auto) 0.3 % 0.2 % Immature Granulocyte # (Auto) 0.02 K/uL 0.01 K/uL Prothrombin Time 10.8 SECONDS Prothromb Time International Ratio 1.0 Activated Partial Thromboplast Time 27.8 SECONDS Partial Thromboplastin Ratio 1.1 Sodium Level 126 mmol/L 127 mmol/L Potassium Level 4.1 mmol/L 3.5 mmol/L Chloride Level 96 mmol/L 97 mmol/L Carbon Dioxide Level 24 mmol/L 25 mmol/L Anion Gap 6.0 mmol/L 5.0 mmol/L Blood Urea Nitrogen 17 mg/dl 15 mg/dl Creatinine 0.94 mg/dl 0.72 mg/dl Estimated GFR () 65.0 89.8 Estimated GFR (Non- 56.1 77.4 BUN/Creatinine Ratio 18.5 21.4 Random Glucose 97 mg/dl 89 mg/dl Estimated Average Glucose 100 mg/dl Hemoglobin A1c 5.1 % Calcium Level 8.7 mg/dl 8.1 mg/dl Total Bilirubin 0.8 mg/dl Direct Bilirubin 0.2 mg/dl Aspartate Amino Transf (AST/SGOT) 17 U/L Alanine Aminotransferase (ALT/SGPT) 19 U/L Alkaline Phosphatase 55 U/L Troponin I < 0.015 ng/ml 0.056 ng/ml 0.036 ng/ml Total Protein 7.5 gm/dl Albumin 3.6 gm/dl Thyroid Stimulating Hormone (TSH) 3.210 uIu/ml Urine Color YELLOW Urine Appearance CLOUDY Urine pH 7.0 Urine Specific [place] 1.018 Urine Protein 2+ Urine Glucose (UA) NEG Urine Ketones NEG Urine Occult Blood NEG Urine Nitrite NEG Urine Bilirubin NEG Urine Urobilinogen NEG Urine Leukocyte Esterase NEG Urine WBC (Auto) 1-5 /hpf Urine RBC (Auto) 0-4 /hpf Urine Hyaline Casts (Auto) 5-10 /lpf Urine Epithelial Cells (Auto) >30 /lpf Urine Bacteria (Auto) NEG Urine Renal Epithelial Cells /lpf Total Creatine Kinase 165 U/L 156 U/L Creatine Kinase MB 2.9 ng/ml 2.6 ng/ml Creatine Kinase MB Ratio 1.8 1.7 Est Creatinine Clear Calc Drug Dose 56.5 ml/min Magnesium Level 2.1 mg/dl Triglycerides Level 94 mg/dl Cholesterol Level 165 mg/dl HDL Cholesterol 65 mg/dl LDL Cholesterol, Calculated 81 mg/dl VLDL Cholesterol, Calculated 19 mg/dl Cholesterol/HDL Ratio 2.[address]: No acute intracranial abnormality. CXR: 1. No acute cardiopulmonary process. 2. 1.1 cm nodular opacity projects over the heart which may reflect composite density artifact or pulmonary nodule. Carotid ultrasound: 1. Atherosclerotic plaque with evidence of 50-69% stenosis at the origin of the left internal carotid artery. This is similar to the 2014 examination. 2. There is no sonographic evidence of hemodynamically significant stenosis in the right carotid arterial system. 3. Antegrade flow is shown in the vertebral arteries. Brain MRI: 1. No evidence of acute or subacute infarction 2. No evidence of intracranial mass in this noncontrast study 3. Extensive foci of increased T2 signal within the white matter likely a small vessel basis 4. Stable ventricular prominence likely secondary to volume loss 5. Foci of increased T2 signal within the mastoids, likely inflammatory EKG done by EMS prior to arrival showed atrial fibrillation with a ventricular response rate of 82 bpm. ECG in the ED showed normal sinus rhythm at 84 bpm. Possible septal infarct. Telemetry reviewed: Sinus rhythm with a short run of ventricular arrhythmia ( 14 beats) overnight. Assessment & Plan ASSESSMENT/PLAN: 1. Syncope: The etiology of the syncope is unclear. It could possibly have been related to an arrhythmia given her paroxysms of atrial fibrillation as well as ventricular arrhythmia documented during this hospitalization. Further monitoring is therefore warranted. A loop recorder could potentially be placed for longer duration of monitoring since a 30 day event monitor may not be long enough to capture another event. Will tentatively plan device implantation tomorrow if the patient and her family are agreeable. The patient is also to have an echocardiogram to further the structure and function of her heart. 2. Paroxysmal atrial fibrillation: She has no complaints of palpitations, and her rate was well controlled when in atrial fibrillation. It is unclear if she has any significant pauses when spontaneously converting to sinus rhythm, which could potentially explain her syncope. Will consider loop recorder implantation as noted above. Continue beta carlyle at current dose. Continue anticoagulation therapy for thromboembolic prophylaxis. 3. Hypertension: Her blood pressure is adequately controlled. Thank you for allowing us to see this patient in consultation. The patient was discussed with Dr. Tyson who will also be in to see the patient later today. I reviewed the patient's chart and history, examined the patient and discussed things with her and her son-in-law who was present. I agree with above. I had talked to her earlier about a loop recorder to identify the cause of her symptoms, she was going to talk to her but has not as yet. I reviewed again the indications, procedure, risks and alternatives with her and her son-in -law and they are in agreement pending approval her . I have tentatively arranged to have the procedure performed on the morning of 01/20/2017 at around 8:30. I [address] orders the chart. Ronny Tyson MD
--- NOTE | 2017-01-19 12:53 | Hospitalist Progress Note ---
Hospitalist Progress Note Date of Service Jan 19, 2017. (Nighat Beckman CRNP) Subjective Pt evaluation today including: conversation w/ patient, physical exam, chart review, lab review, review of inpatient medication list Ms. Mace reports continued lower back pain. She has not had any chest pain or sob or palpitations. She did feel a bit dizzy when she stood up this morning but had taken a Xanax before bed which she is not used to. She had a 14 beat run of V tach over the night. ROS Constitutional: no chills, aches, sweats or fever Respiratory: no sob,cough, sputum, or wheezing Cardiac: no chest pain, palpitations, edema, orthopnea or lightheadedness GI: no abdominal pain, nausea, vomiting, diarrhea or constipation : no dysuria or hesitancy Extremities: see HPI Skin: no rash All Other Systems: Reviewed and Negative (Nighat Beckman CRNP) Medications Medications Administered Medications (Trade) Dose Ordered Sig/Dereje Route Start Time Stop Time Status Last Admin Dose Admin Sodium Chloride 500 ml @ 999 mls/hr Q31M STAT IV 01/18/17 12:35 01/18/17 13:05 DC 01/18/17 13:02 999 MLS/HR Acetaminophen (Tylenol Tab) 650 mg Q4H PRN PO 01/18/17 13:00 02/17/17 12:59 01/18/17 20:05 650 MG Aspirin (Ecotrin Tab) 81 mg QAM PO 01/19/17 09:00 02/18/17 08:59 01/19/17 08:06 81 MG Carvedilol (Coreg Tab) 6.25 mg QPM PO 01/18/17 21:00 02/17/17 20:59 01/18/17 21:17 6.25 MG Carvedilol (Coreg Tab) 12.5 mg QAM PO 01/19/17 09:00 02/18/17 08:59 01/19/17 08:06 12.5 MG Gabapentin (Neurontin Cap) 100 mg TID PO 01/18/17 21:00 02/17/17 20:59 01/19/17 08:06 100 MG Levothyroxine Sodium (Synthroid Tab) 75 mcg DAILYBB PO 01/19/17 06:30 02/18/17 06:59 01/19/17 05:50 75 MCG Tolterodine Tartrate (Detrol LA Cap) 4 mg DAILY PO 01/19/17 09:00 02/18/17 08:59 01/19/17 08:06 4 MG Apixaban (Eliquis Tab) 5 mg BID PO 01/18/17 21:00 02/17/17 20:59 01/19/17 08:06 5 MG Alprazolam (Xanax Tab) 0.25 mg Q6H PRN PO 01/18/17 18:15 02/17/17 18:14 01/18/17 21:17 0.25 MG (Nighat Beckman, MEMBERSHIP ADMINISTRATOR) Objective Vital Signs Date Time Temp Pulse Resp B/P (MAP) Pulse Ox O2 Delivery O2 Flow Rate FiO2 01/19/17 11:37 36.6 75 18 131/76 (94) 96 Room Air 01/19/17 08:00 Room Air 01/19/17 07:32 36.7 69 18 147/92 (110) 93 Room Air 01/19/17 04:00 Room Air 01/19/17 03:45 36.7 77 18 126/77 (93) 96 Room Air 01/19/17 00:00 Room Air 01/18/17 23:20 36.5 87 18 132/75 (94) 97 Room Air 01/18/17 20:00 94 Room Air 01/18/17 19:51 36.6 84 20 131/82 (98) 94 Room Air 01/18/17 16:00 97 Room Air 01/18/17 16:00 36.5 82 18 158/81 (106) 97 Room Air 01/18/17 13:11 77 01/18/17 13:09 98 Room Air 01/18/17 12:59 87 18 136/70 98 Room Air (Nighat Beckman, MEMBERSHIP ADMINISTRATOR) Physical Exam Notes: General: no distress Eyes: normal inspection, PERLL Respiratory: chest non tender, clear to auscultation, normal breath sounds, no respiratory distress, no accessory muscle use Cardiac: regular rate and rhythm, no rub or gallop, no murmur, no edema, no jvd GI/: active bowel sounds, no abd pain or tenderness, soft, non distended Extremities: normal range of motion, weak right leg, left leg numb below perez which patient states is baseline Neuro/Psych: alert and oriented x 3, normal mood and affect Skin: normal color, dry (Nighat Beckman CRNP) Laboratory Results Last 24 Hours Test 01/18/17 18:40 01/19/17 02:41 Total Creatine Kinase 165 U/L 156 U/L Creatine Kinase MB 2.9 ng/ml 2.6 ng/ml Creatine Kinase MB Ratio 1.8 1.7 Troponin I 0.056 ng/ml 0.036 ng/ml White Blood Count 4.95 K/uL Red Blood Count 3.24 M/uL Hemoglobin 10.4 g/dL Hematocrit 29.6 % Mean Corpuscular Volume 91.4 fL Mean Corpuscular Hemoglobin 32.1 pg Mean Corpuscular Hemoglobin Concent 35.1 g/dl Platelet Count 218 K/uL Mean Platelet Volume 7.9 fL Neutrophils (%) (Auto) 54.4 % Lymphocytes (%) (Auto) 31.3 % Monocytes (%) (Auto) 11.9 % Eosinophils (%) (Auto) 1.8 % Basophils (%) (Auto) 0.4 % Neutrophils # (Auto) 2.69 K/uL Lymphocytes # (Auto) 1.55 K/uL Monocytes # (Auto) 0.59 K/uL Eosinophils # (Auto) 0.09 K/uL Basophils # (Auto) 0.02 K/uL RDW Standard Deviation 42.2 fL RDW Coefficient of Variation 12.5 % Immature Granulocyte % (Auto) 0.2 % Immature Granulocyte # (Auto) 0.01 K/uL Sodium Level 127 mmol/L Potassium Level 3.5 mmol/L Chloride Level 97 mmol/L Carbon Dioxide Level 25 mmol/L Anion Gap 5.0 mmol/L Blood Urea Nitrogen 15 mg/dl Creatinine 0.72 mg/dl Est Creatinine Clear Calc Drug Dose 56.5 ml/min Estimated GFR () 89.8 Estimated GFR (Non- 77.4 BUN/Creatinine Ratio 21.4 Random Glucose 89 mg/dl Calcium Level 8.1 mg/dl Magnesium Level 2.1 mg/dl Triglycerides Level 94 mg/dl Cholesterol Level 165 mg/dl HDL Cholesterol 65 mg/dl LDL Cholesterol, Calculated 81 mg/dl VLDL Cholesterol, Calculated 19 mg/dl Cholesterol/HDL Ratio 2.5 (Nighat Beckman CRNP) Assessment and Plan Ms. Mace is an 81 year old woman here for syncope and collapse. 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 Syncope r/o TIA/CVA - admit tele - MRI brain and head CT negative for acute process - Echo - PT/OT - serial cardiac enzymes - initial trop normal, second had mild bump at .056 and then trended back down - ASA, patient allergic to statins - 14 run V-tach over the night - cardiology consulted - likely loop recorder placed tomorrow SIADH/hyponatremia - tsh, urine sodium normal, Na 127 today - continue 1500 ml fr A.fib/htn - continue home coreg - continue home Eliquis DNR DVT prophylaxis - SCDs, Eliquis (Nighat Beckman CRNP) SKOOG OPERATOR Physician Supervision Note: I interviewed and examined the patient. Discussed with Nighat Beckman NP and agree with findings and plan as documented in the note. Any exceptions or clarifications are listed here: None Ms. Mace presents with syncope while sitting but preceding really had a fall she fell is from tripping she does have a history of A.fib but was in sinus rhythm on presentation overnight 01/18- she had a short run of a wide-complex rhythm that was asymptomatic Vitals have been stable including blood pressure cardiac exam remains regular with a systolic murmur lungs are clear abdomen is benign neurologically she is intact and nonfocal Syncope - MRI brain and head CT negative for acute process carotid Dopplers without significant stenosis - Echo pending results Given aberrant rhythm electrophysiology consult was undertaken consideration for loop recorder since the patient has previously had a tilt table test and previous symptoms and admissions for syncope - ASA, patient allergic to statins SIADH/hyponatremia - tsh, urine sodium elevated suggesting lack of conservation slight improvement of Na to 127 01/19 - continue 1500 ml fr A.fib/htn coreg Eliquis DNR DVT prophylaxis - SCDs, Eliquis Son-in-law updated at bedside 01/19 Documented By: Vladislav Jimenez (Vladislav Jimenez M.D.)
[2017-01-19] MEDS ORDERED: PERFLUTREN LIPID MICROSPHERE (DEFINITY) IV ONE (13:23)
[2017-01-19] MEDS ORDERED: LACTATED RINGER'S 1000ML 1,000 ML IV ONE (17:10)
--- NOTE | 2017-01-19 17:11 | ECHOCARDIOGRAM REPORT ---
*NOTICE TO RECEIVING REPUBLICAN AGENCY This information is strictly Confidential and protected under [place] law. [place] law prohibits you from making any further disclosure of this information unless further disclosure is expressly permitted by the written consent of the person to whom it pertains or is authorized by law. A general authorization for the release of medical or other information is not sufficient for this purpose. Hospital accepts no responsibility if the information is made available to any other person, INCLUDING THE PATIENT. Interpretation Summary * Name: BALBIR MOTLEY Study Date: 01/19/2017 12:42 PM BP: 126/77 mmHg * Patient Location: [facility] HR: 77 * : 1935 (M/d/yyyy) Gender: Female Height: 63 in * Age: 81 yrs Ethnicity: [place] Weight: 152 lb * Ordering Physician: Nighat Beckman CRNP * Performed By: Tracie Young RDCS * * Reason For Study: Syncope * BSA: 1.7 m2 * -- Conclusions -- * 1. Small LV cavity. Borderline concentric LVH. * 2. Normal LV systolic function. LVEF 60-65%. No regional wall motion abnormalities. * 3. Normal RV size and function. * 4. No significant valvular pathology. * 5. Normal estimated PA and RA pressures. * 6. Compared with prior study on 06/23/2013: No significant changes noted. Procedure Details * A complete two-dimensional transthoracic echocardiogram was performed (2D, M-mode, Doppler and color flow Doppler). * The study was technically difficult. * The study was technically difficult, but visualization was adequate with the administration of Definity ultrasound contrast. * A contrast injection of Definity was performed to improve assessment of LV function. * Contrast was injected into an intravenous site in the right arm. * One vial of Definity ultrasound contrast was diluted in normal saline to a total volume of 10 ml. A total of '2' ml of solution was administered during imaging. * Lot # [id number] of Definity utilized for procedure. * Expiration date . * The attending nurse who injected the contrast agent was Angela Barrera RN. Left Ventricle * The left ventricular cavity is small. * The basal septum is thickened and angulated consistent with sigmoid septum. * There is borderline concentric left ventricular hypertrophy. * Ejection Fraction = 60-65%. * No regional wall motion abnormalities noted. Right Ventricle * The right ventricle is grossly normal size. * The right ventricular systolic function is normal as assessed by tricuspid annular plane systolic excursion (TAPSE) (normal >1.5 cm). Atria * The left atrial size is normal. * Borderline right atrial enlargement. * No ASD detected; PFO is not assessed. Mitral Valve * The mitral valve is grossly normal. * There is no mitral valve stenosis. * There is trace mitral regurgitation. Tricuspid Valve * The tricuspid valve is not well visualized, but is grossly normal. * There is trace tricuspid regurgitation. Aortic Valve * Aortic valve sclerosis mild, without significant aortic valvular stenosis. * No hemodynamically significant valvular aortic stenosis. * There is no significant aortic regurgitation. Pulmonic Valve * The pulmonary valve is inadequately visualized, but the Doppler data is adequate for interpretation. * Pulmonic stenosis is absent. * There is no significant pulmonary regurgitation. Great Vessels * The aortic root and proximal ascending aorta are normal sized. Pericardium/Pleural * There is no pericardial effusion. Great Vessels * There is no evidence of pulmonary hypertension. The PA systolic pressure is less than 36 mmHg. * Normal inferior vena cava size and collapsability with sniff indicates a normal right atrial pressure of 3 mmHg MMode 2D Measurements and Calculations IVSd 1.1 cm IVSs 1.1 cm LVIDd 3.6 cm LVIDs 2.0 cm LVPWd 0.84 cm LVPWs 1.3 cm IVS/LVPW 1.4 FS 43.1 % EDV(Teich) 53.0 ml ESV(Teich) 13.2 ml EF(Teich) 75.2 % EDV(cubed) 45.2 ml ESV(cubed) 8.3 ml EF(cubed) 81.6 % % IVS thick -0.78 % % LVPW thick 57.5 % LV mass(C)d 105.3 grams LV mass(C)dI 61.2 grams/m\S\2 LV mass(C)s 69.0 grams LV mass(C)sI 40.1 grams/m\S\2 SV(Teich) 39.9 ml SI(Teich) 23.2 ml/m\S\2 SV(cubed) 36.8 ml SI(cubed) 21.4 ml/m\S\2 Ao root diam 2.8 cm Ao root area 6.2 cm\S\2 ACS 1.7 cm LA dimension 2.8 cm LA/Ao 0.99 LVAd ap4 20.2 cm\S\2 LVLd ap4 6.9 cm EDV(MOD-sp4) 49.9 ml EDV(sp4-el) 50.2 ml LVAs ap4 11.8 cm\S\2 LVLs ap4 5.5 cm ESV(MOD-sp4) 23.1 ml ESV(sp4-el) 21.4 ml EF(MOD-sp4) 53.7 % EF(sp4-el) 57.3 % LVAd ap2 27.4 cm\S\2 LVLd ap2 7.7 cm EDV(MOD-sp2) 79.0 ml EDV(sp2-el) 82.9 ml LVAs ap2 14.1 cm\S\2 LVLs ap2 6.5 cm ESV(MOD-sp2) 26.5 ml ESV(sp2-el) 26.1 ml EF(MOD-sp2) 66.4 % EF(sp2-el) 68.5 % LVLd %diff 10.4 % EDV(MOD-bp) 65.7 ml LVLs %diff 15.2 % ESV(MOD-bp) 26.0 ml EF(MOD-bp) 60.5 % SV(MOD-sp4) 26.8 ml SI(MOD-sp4) 15.6 ml/m\S\2 SV(MOD-sp2) 52.4 ml SI(MOD-sp2) 30.5 ml/m\S\2 SV(MOD-bp) 39.7 ml SI(MOD-bp) 23.1 ml/m\S\2 SV(sp4-el) 28.8 ml SI(sp4-el) 16.7 ml/m\S\2 SV(sp2-el) 56.8 ml SI(sp2-el) 33.0 ml/m\S\2 Doppler Measurements and Calculations MV E max tamara 78.6 cm/sec MV A max tamara 101.4 cm/sec MV E/A 0.78 MV dec time 0.17 sec Ao V2 max 130.9 cm/sec Ao max PG 6.9 mmHg Ao max PG (full) 3.2 mmHg LV V1 max PG 3.7 mmHg LV V1 max 95.6 cm/sec PA V2 max 82.5 cm/sec PA max PG 2.7 mmHg TR max tamara 215.7 cm/sec
[2017-01-19] MEDS: ACETAMINOPHEN 325 MG TAB PO PRN (17:57)
[2017-01-19] MEDS: CARVEDILOL 6.25 MG TAB PO SCH (21:39)
[2017-01-20] VITALS (8 sets, daily range): BP systolic 98–171; BP diastolic 55–95; PULSE 70–85; TEMP 36.4–36.8; O2SAT 93–99
[2017-01-20 06:00] LABS: BASO % 0.6 %; BASO ABS # 0.03 K/uL (0-0.2); EOS % 2.8 %; EOS ABS # 0.14 K/uL (0-0.5); HEMATOCRIT 31.9 % (37-47); HEMOGLOBIN 10.6 g/dL (12.0-16.0); IG# 0.01 K/uL (0.00-0.02); LYMPH % 27.6 %; LYMPH ABS # 1.36 K/uL (1.2-3.4); MEAN CELL VOLUME 90.9 fL (80-100); MEAN CORPUSCULAR HEMOGLOBIN 30.2 pg (25-34); MEAN CORPUSCULAR HGB CONC 33.2 g/dl (32-36); MEAN PLATELET VOLUME 8.1 fL (7.4-10.4); MONO % 8.9 %; MONO ABS # 0.44 K/uL (0.11-0.59); NEUT % 59.9 %; NEUT ABS # 2.94 K/uL (1.4-6.5); PLATELET COUNT 249 K/uL (130-400); RED CELL DISTRIBUTION WIDTH CV 12.6 % (11.5-14.5); RED CELL DISTRIBUTION WIDTH SD 41.7 fL (36.4-46.3); WHITE BLOOD COUNT 4.92 K/uL (4.8-10.8)
[2017-01-20] MEDS: LEVOTHYROXINE 75 MCG TAB PO SCH (06:22)
[2017-01-20] MEDS: ACETAMINOPHEN 325 MG TAB PO PRN ×3 (06:23→20:05)
[2017-01-20 06:27] LABS: CALCIUM 8.4 mg/dl (8.5-10.1); CREATININE 0.69 mg/dl (0.60-1.20); POTASSIUM 3.7 mmol/L (3.5-5.1)
[2017-01-20] MEDS: GABAPENTIN 100 MG CAP PO SCH ×3 (07:25→19:59)
[2017-01-20] MEDS: TOLTERODINE TARTRATE LA 4 MG CAPCR PO SCH (07:25)
[2017-01-20] MEDS: ASPIRIN 81 MG ECTAB PO SCH ×2 (07:25→07:32)
[2017-01-20] MEDS: CARVEDILOL 12.5 MG TAB PO SCH (07:26)
[2017-01-20] MEDS: APIXABAN 2.5 MG TAB PO SCH ×2 (07:33→19:59)
--- NOTE | 2017-01-20 08:06 | Cardiology Follow-Up ---
Subjective Date of Service: Jan 20, 2017. Pt evaluation today including: conversation w/ patient, physical exam, lab review, review of studies, review of inpatient medication list History of Present Illness She feels well today, she has had no further lightheadedness or unresponsive spells. No cardiovascular complaints. Social History Smoking Status: Never Smoker History of Alcohol Use: Yes (1 to 2 glasses wine a day) Review of Systems Respiratory: No shortness of breath Cardiac: No chest pain Medications Cardiovascular: Item Value Date Time Aspirin 81 mg 01/19/17 0900 (Ecotrin Tab) QAM/PO Carvedilol 12.5 mg 01/19/17 0900 (Coreg Tab) QAM/PO 01/20/17 0726 Carvedilol 6.25 mg 01/18/17 2100 (Coreg Tab) QPM/PO 01/19/172138 Apixaban 5 mg 01/18/172099 (Eliquis Tab) BID/PO Objective Vital Signs Past 12 Hours Date Time Temp Pulse Resp B/P (MAP) Pulse Ox O2 Delivery O2 Flow Rate FiO2 01/20/17 07:48 36.4 85 18 153/83 (106) 93 01/20/17 07:37 Room Air 01/20/17 07:27 153/83 (106) 01/20/17 04:00 Room Air 01/20/17 03:51 36.8 81 18 162/80 (107) 98 Room Air 01/20/17 00:00 Room Air 01/19/17 23:57 36.6 79 20 112/74 (87) 95 Room Air 01/19/17 22:36 Room Air Last Recorded Weight-Kilograms: 69.100 Physical Exam Constitutional: General Apperance: heathly-appearing Level of Distress: NAD Lungs: Auscultation: breath sounds normal Cardiovascular: Heart Auscultation: irregular rate rhythm Extremities: no edema Constitutional: Alert, in no acute distress HEENT: Head is atraumatic and normocephalic. EOMs intact. Sclera anicteric. Face is symmetric. No perioral cyanosis. Mucous membranes moist. Neck: Supple, no JVD Pulmonary: Normal respiratory effort, clear to auscultation bilaterally Cardiac: Regular rate and rhythm, normal S1 and S2, no gallops, no rubs, no murmurs Extremities: No clubbing, cyanosis, or edema. Pulses intact Abdomen: Normal bowel sounds, soft, non-tender, no abdominal mass palpated Skin: Normal skin color, turgor, and pigmentation, no rash, no skin lesions Neurological: Oriented to person, place, and time Data Laboratory Results: Last 24 Hours Test 01/20/17 05:34 White Blood Count 4.92 K/uL Red Blood Count 3.51 M/uL Hemoglobin 10.6 g/dL Hematocrit 31.9 % Mean Corpuscular Volume 90.9 fL Mean Corpuscular Hemoglobin 30.2 pg Mean Corpuscular Hemoglobin Concent 33.2 g/dl Platelet Count 249 K/uL Mean Platelet Volume 8.1 fL Neutrophils (%) (Auto) 59.9 % Lymphocytes (%) (Auto) 27.6 % Monocytes (%) (Auto) 8.9 % Eosinophils (%) (Auto) 2.8 % Basophils (%) (Auto) 0.6 % Neutrophils # (Auto) 2.94 K/uL Lymphocytes # (Auto) 1.36 K/uL Monocytes # (Auto) 0.44 K/uL Eosinophils # (Auto) 0.14 K/uL Basophils # (Auto) 0.03 K/uL RDW Standard Deviation 41.7 fL RDW Coefficient of Variation 12.6 % Immature Granulocyte % (Auto) 0.2 % Immature Granulocyte # (Auto) 0.01 K/uL Sodium Level 130 mmol/L Potassium Level 3.7 mmol/L Chloride Level 97 mmol/L Carbon Dioxide Level 25 mmol/L Anion Gap 8.0 mmol/L Blood Urea Nitrogen 15 mg/dl Creatinine 0.69 mg/dl Est Creatinine Clear Calc Drug Dose 59.0 ml/min Estimated GFR () 93.3 Estimated GFR (Non- 80.5 BUN/Creatinine Ratio 20.9 Random Glucose 90 mg/dl Calcium Level 8.4 mg/dl Telemetry reviewed: Sinus rhythm with periods of paroxysmal atrial fibrillation , rate controlled. Assessment and Plan ASSESSMENT/PLAN: 1. Syncope: The cause of her unresponsiveness spells is uncertain therefore we will plan to implant a loop recorder this morning. They are probably hypotension but whether so she was an arrhythmia or not is not known. I discussed the indications, procedure, risks and alternatives of loop recorder implantation with her and she understands and agrees to proceed. Consent obtained. 2. Paroxysmal atrial fibrillation: She has no complaints of palpitations, and her rate is reasonably well controlled when in atrial fibrillation. It is unclear if she has any significant pauses when spontaneously converting to sinus rhythm, which could potentially explain her syncope. We have not observed that here however. Will plan loop recorder implantation as noted above. Continue beta carlyle at current dose. Continue anticoagulation therapy for thromboembolic prophylaxis. 3. Hypertension: Her blood pressure is adequately controlled. Thank you for allowing me to participate in her care.
[2017-01-20] MEDS ORDERED: LIDOCAINE HCL 1% 20 ML VIAL ONE (08:20)
[2017-01-20] MEDS ORDERED: BACITRACIN OINT 0.9 GM PKT ONE (08:44)
--- NOTE | 2017-01-20 08:50 | [facility] Operative Report ---
Operative Report Operative Date Jan 20, 2017. Pre-Operative Diagnosis Unresponsive spells Post-Operative Diagnosis same Procedure(s) Performed Loop recorder implantation Surgeon Dr. Tyson Polymer Specialist Surgeon(s) none Estimated Blood Loss 2 cc Findings Good position, good measurements Specimens None Anesthesia lidocaine local only Complication(s) None Disposition PCU Description of Procedure After obtaining informed consent for the procedure, the patient was brought to the laboratory having had nothing by mouth after midnight. The patient was prepped and draped in the standard sterile manner for a loop recorder implantation. An area at the fourth left intercostal space and 1 cm left of the left sternal border was infiltrated with 1% lidocaine local anesthetic and a 0.5 cm incision was made through the skin. Using the loop recorder insertion tool the loop recorder was inserted through the incision at a 45 downward and leftward angle. The incision was closed with a subcutaneous continuous closure of 4-0 Vicryl followed by a running subcuticular skin closure of 4-0 Vicryl. Steri- Strips were applied and bacitracin ointment was placed on the incision. A dressing was applied. I attest to the content of the Intraoperative Record and any orders documented therein. Any exceptions are noted below.
[2017-01-20] MEDS ORDERED: KETOROLAC TROMETHAMINE 10 MG TAB PO PRN (09:00)
--- NOTE | 2017-01-20 09:41 | Discharge Instructions ---
Discharge Instructions Date of Service Jan 20, 2017. Admission Reason for Admission: Syncope Discharge Discharge Diagnosis / Problem: Post loop recorder implantation Discharge Goals Goal(s): Diagnostic testing Activity Recommendations Activity Limitations: resume your previous activity . Instructions / Follow-Up Instructions / Follow-Up ACTIVITY RECOMMENDATIONS: * Do not raise affected arm over head for 2 weeks. SPECIAL CARE INSTRUCTIONS: * If bleeding occurs, apply direct pressure to area for 5 minutes. * Call your doctor if you have severe pain, fever, drainage or bleeding at site. * Keep dressing on and dry for 48 hours then remove. * Keep any scheduled doctor's appointment. * Implant Card - hand held device with website information given. SKIN IRRITATION: * You may experience some redness and/or swelling in the area where radiation was administered. If any skin irritation occurs, please contact your family physician. FOLLOW UP VISIT: Dr. Tyson at [address] [facility], Monday01/23/2017 10:00 AM Current Hospital Diet Patient's current hospital diet: AHA Diet (Heart Healthy) Discharge Diet Recommended Diet: N/A Pending Studies Studies pending at discharge: no Laboratory Results Hemoglobin A1c Test 01/18/17 10:28 Range/Units Estimated Average Glucose 100 mg/dl Hemoglobin A1c 5.1 4.5-5.6 % Lipid Panel Test 01/19/17 02:41 Range/Units Triglycerides Level 94 0-150 mg/dl Cholesterol Level 165 0-200 mg/dl HDL Cholesterol 65 mg/dl Cholesterol/HDL Ratio 2.5 LDL Cholesterol, Calculated 81 mg/dl Medical Emergencies . Who to Call and When: Medical Emergencies: If at any time you feel your situation is an emergency, please call 911 immediately. . Non-Emergent Contact Non-Emergency issues call your: Primary Care Provider . . "Provider Documentation" section prepared by Ronny Tyson. . VTE Core Measure Inpt VTE Proph given/why not?: Other Anticoagulation
--- NOTE | 2017-01-20 14:58 | Progress Note ---
Subjective Date of Service: Jan 20, 2017. Subjective pt feels well after loop recorder, she however has not done well with PT assessment needing contact guard and family cannot supply that level of supervision at home 24 hours a day. Pt and are willing to have further evaluation and consider snf if needed for subacute rehab. otherwise no issues with her stay at this time Problem List Medical Problems: (1) Altered mental status Status: Acute (2) Syncope Status: Acute Review of Systems Constitutional: + weakness, + fatigue, No fever, No chills Respiratory: + dyspnea on exertion, No cough, No shortness of breath Cardiac: No chest pain, No PND, No edema Abdomen: No pain, No nausea, No vomiting, No diarrhea Neurologic: + memory loss (minor), + weakness, + balance problems, No paralysis Objective Vital Signs Date Time Temp Pulse Resp B/P (MAP) Pulse Ox O2 Delivery O2 Flow Rate FiO2 01/20/17 11:10 36.6 77 18 98/55 (69) 96 01/20/17 09:00 36.5 80 18 154/86 (108) 98 Room Air 01/20/17 08:58 36.4 85 16 93 01/20/17 08:00 Room Air 01/20/17 07:48 36.4 85 18 153/83 (106) 93 01/20/17 07:37 Room Air 01/20/17 07:27 153/83 (106) 01/20/17 04:00 Room Air 01/20/17 03:51 36.8 81 18 162/80 (107) 98 Room Air 01/20/17 00:00 Room Air 01/19/17 23:57 36.6 79 20 112/74 (87) 95 Room Air 01/19/17 22:36 Room Air 01/19/17 20:00 96 Room Air 01/19/17 19:04 36.4 79 18 129/67 (87) 96 Room Air 01/19/17 16:10 36.9 82 16 161/86 (111) 95 Room Air 01/19/17 16:00 96 Room Air Physical Exam General Appearance: WD/WN, + mild distress Eyes: normal inspection, PERRL Neck: supple, no JVD Respiratory/Chest: chest non-tender, lungs clear, normal breath sounds Cardiovascular: no murmur, + normal peripheral pulses Abdomen: normal bowel sounds, non tender, soft Extremities: no pedal edema, no calf tenderness Neurologic/Psychiatric: alert, oriented x 3 Laboratory Results Last 24 Hours Test 01/20/17 05:34 White Blood Count 4.92 K/uL Red Blood Count 3.51 M/uL Hemoglobin 10.6 g/dL Hematocrit 31.9 % Mean Corpuscular Volume 90.9 fL Mean Corpuscular Hemoglobin 30.2 pg Mean Corpuscular Hemoglobin Concent 33.2 g/dl Platelet Count 249 K/uL Mean Platelet Volume 8.1 fL Neutrophils (%) (Auto) 59.9 % Lymphocytes (%) (Auto) 27.6 % Monocytes (%) (Auto) 8.9 % Eosinophils (%) (Auto) 2.8 % Basophils (%) (Auto) 0.6 % Neutrophils # (Auto) 2.94 K/uL Lymphocytes # (Auto) 1.36 K/uL Monocytes # (Auto) 0.44 K/uL Eosinophils # (Auto) 0.14 K/uL Basophils # (Auto) 0.03 K/uL RDW Standard Deviation 41.7 fL RDW Coefficient of Variation 12.6 % Immature Granulocyte % (Auto) 0.2 % Immature Granulocyte # (Auto) 0.01 K/uL Sodium Level 130 mmol/L Potassium Level 3.7 mmol/L Chloride Level 97 mmol/L Carbon Dioxide Level 25 mmol/L Anion Gap 8.0 mmol/L Blood Urea Nitrogen 15 mg/dl Creatinine 0.69 mg/dl Est Creatinine Clear Calc Drug Dose 59.0 ml/min Estimated GFR () 93.3 Estimated GFR (Non- 80.5 BUN/Creatinine Ratio 20.9 Random Glucose 90 mg/dl Calcium Level 8.4 mg/dl Assessment and Plan Syncope - MRI brain and head CT negative for acute process carotid Dopplers without significant stenosis - Echo normal except for LVH no further arrhythmia on monitor, guarded gait with fall risk high - ASA, patient allergic to statins SIADH/hyponatremia - tsh, urine sodium elevated suggesting lack of conservation slight improvement daily since restriction - continue 1500 ml fr A.fib/htn coreg Steve, loop recorder implanted 01/20 disposition PT continues to recommend contact guard, family wants to bring in her personal walker to see how she does, will re asses daily DNR DVT prophylaxis - Steve Deutsch Son-in-law updated at bedside 01/19, 01/20 Documented By: Vladislav Jimenez
[2017-01-20] MEDS: CARVEDILOL 6.25 MG TAB PO SCH (20:01)
[2017-01-21 03:11] VITALS: BP 137/82; PULSE 76; TEMP 36.3; O2SAT 97
[2017-01-21] MEDS: LEVOTHYROXINE 75 MCG TAB PO SCH (05:38)
[2017-01-21 06:55] LABS: BASO % 0.6 %; BASO ABS # 0.03 K/uL (0-0.2); EOS % 3.9 %; EOS ABS # 0.19 K/uL (0-0.5); HEMATOCRIT 31.7 % (37-47); HEMOGLOBIN 10.8 g/dL (12.0-16.0); IG# 0.01 K/uL (0.00-0.02); LYMPH % 21.8 %; LYMPH ABS # 1.05 K/uL (1.2-3.4); MEAN CELL VOLUME 91.1 fL (80-100); MEAN CORPUSCULAR HGB CONC 34.1 g/dl (32-36); MEAN PLATELET VOLUME 8.3 fL (7.4-10.4); MONO % 11.4 %; MONO ABS # 0.55 K/uL (0.11-0.59); NEUT % 62.1 %; NEUT ABS # 2.99 K/uL (1.4-6.5); PLATELET COUNT 238 K/uL (130-400); RED CELL DISTRIBUTION WIDTH CV 12.5 % (11.5-14.5); RED CELL DISTRIBUTION WIDTH SD 41.2 fL (36.4-46.3); WHITE BLOOD COUNT 4.82 K/uL (4.8-10.8)
[2017-01-21 07:23] VITALS: BP 167/85; PULSE 72; TEMP 36.8; O2SAT 94
[2017-01-21 07:28] LABS: CALCIUM 8.6 mg/dl (8.5-10.1); CREATININE 0.65 mg/dl (0.60-1.20); POTASSIUM 3.5 mmol/L (3.5-5.1)
[2017-01-21] MEDS: CARVEDILOL 12.5 MG TAB PO SCH ×2 (08:24→21:37)
[2017-01-21] MEDS: ASPIRIN 81 MG ECTAB PO SCH ×2 (08:24→09:00)
[2017-01-21] MEDS: APIXABAN 2.5 MG TAB PO SCH ×2 (08:25→21:37)
[2017-01-21] MEDS: GABAPENTIN 100 MG CAP PO SCH ×3 (08:25→21:36)
[2017-01-21] MEDS: TOLTERODINE TARTRATE LA 4 MG CAPCR PO SCH (08:25)
[2017-01-21] MEDS: ACETAMINOPHEN 325 MG TAB PO PRN ×2 (08:30→21:36)
[2017-01-21] MEDS ORDERED: METOPROLOL TARTRATE 1 MG/ML VIAL IV PRN (09:15)
[2017-01-21] MEDS ORDERED: CARVEDILOL 6.25 MG TAB PO ONE (09:45)
[2017-01-21] MEDS ORDERED: POTASSIUM CHLORIDE 10 MEQ TABCR PO ONE (10:15)
[2017-01-21 11:40] VITALS: BP 121/81; PULSE 79; TEMP 36.4; O2SAT 98
[2017-01-21 12:27] LABS: ALBUMIN 3.4 gm/dl (3.4-5.0); TOTAL PROTEIN 7.2 gm/dl (6.4-8.2)
--- NOTE | 2017-01-21 13:44 | Hospitalist Progress Note ---
Hospitalist Progress Note Date of Service Jan 21, 2017. (Nighat Beckman .ESTELA) Subjective Pt evaluation today including: conversation w/ patient, physical exam, chart review, lab review, review of inpatient medication list Ms. Mace is in and out of a fib/flutter this morning with a rate in the 1 teens. She does not feel any palpitations or chest pain. She did have some confusion overnight and pulled off her monitor and dressing. Her back continues to be painful which it is chronically. ROS Constitutional: no chills, aches, sweats or fever Respiratory: no sob,cough, sputum, or wheezing Cardiac: no chest pain, palpitations, edema, orthopnea or lightheadedness GI: no abdominal pain, nausea, vomiting, diarrhea or constipation : no dysuria or hesitancy Extremities: see HPI Skin: no rash All Other Systems: Reviewed and Negative (Nighat Beckman .ESTELA) Medications Medications Administered Medications (Trade) Dose Ordered Sig/Dereje Route Start Time Stop Time Status Last Admin Dose Admin Sodium Chloride 500 ml @ 999 mls/hr Q31M STAT IV 01/18/17 12:35 01/18/17 13:05 DC 01/18/17 13:02 999 MLS/HR Acetaminophen (Tylenol Tab) 650 mg Q4H PRN PO 01/18/17 13:00 01/21/17 08:50 DC 01/21/17 08:30 650 MG Aspirin (Ecotrin Tab) 81 mg QAM PO 01/19/17 09:00 02/18/17 08:59 01/19/17 08:06 81 MG Carvedilol (Coreg Tab) 6.25 mg QPM PO 01/18/17 21:00 01/21/17 08:40 DC 01/20/17 20:01 6.25 MG Carvedilol (Coreg Tab) 12.5 mg QAM PO 01/19/17 09:00 01/21/17 08:40 DC 01/21/17 08:24 12.5 MG Gabapentin (Neurontin Cap) 100 mg TID PO 01/18/17 21:00 02/17/17 20:59 01/21/17 08:25 100 MG Levothyroxine Sodium (Synthroid Tab) 75 mcg DAILYBB PO 01/19/17 06:30 02/18/17 06:59 01/21/17 05:38 75 MCG Tolterodine Tartrate (Detrol LA Cap) 4 mg DAILY PO 01/19/17 09:00 02/18/17 08:59 01/21/17 08:25 4 MG Apixaban (Eliquis Tab) 5 mg BID PO 01/18/17 21:00 02/17/17 20:59 01/21/17 08:25 5 MG Alprazolam (Xanax Tab) 0.25 mg Q6H PRN PO 01/18/17 18:15 02/17/17 18:14 01/18/17 21:17 0.25 MG Perflutren Lipid Microsphere (Definity) 2 ml ONE ONCE IV 01/19/17 13:23 01/19/17 13:24 DC 01/19/17 13:24 2 ML Lactated Ringer's 1,000 ml @ 15 mls/hr Q24H ONCE IV 01/19/17 17:10 01/20/17 17:09 DC 01/19/17 17:56 15 MLS/HR Carvedilol (Coreg Tab) 6.25 mg ONE ONCE PO 01/21/17 09:45 01/21/17 09:46 DC 01/21/17 10:00 6.25 MG Potassium Chloride (Klor-Con M10) 40 meq NOW ONCE PO 01/21/17 10:15 01/21/17 10:18 DC 01/21/17 10:42 40 MEQ (Nighat Beckman, ESTELA) Objective Vital Signs Date Time Temp Pulse Resp B/P (MAP) Pulse Ox O2 Delivery O2 Flow Rate FiO2 01/21/17 12:00 Room Air 01/21/17 11:40 36.4 79 16 121/81 (94) 98 Room Air 01/21/17 08:00 Room Air 01/21/17 07:23 36.8 72 22 167/85 (112) 94 Room Air 01/21/17 04:00 Room Air 01/21/17 03:11 36.3 76 17 137/82 (100) 97 Room Air 01/20/17 23:59 Room Air 01/20/17 20:00 Room Air 01/20/17 19:38 36.6 70 18 169/95 (119) 94 Room Air 12/8/17 16:00 Room Air 01/20/17 15:39 36.8 71 16 171/88 (115) 99 Room Air (Nighat Beckman CRNP) Physical Exam Notes: General: no distress Eyes: normal inspection, PERLL Respiratory: chest non tender, clear to auscultation, normal breath sounds, no respiratory distress, no accessory muscle use Cardiac: irregular rate and rhythm, no rub or gallop, no murmur, no edema, no jvd GI/: active bowel sounds, no abd pain or tenderness, soft, non distended Extremities: normal range of motion, normal strength, non tender Neuro/Psych: alert and oriented x 3, normal mood and affect, some forgetfulness Skin: sallow color, dry (Nighat Beckman CRNP) Laboratory Results Last 24 Hours Test 01/21/17 06:29 01/21/17 06:30 Sodium Level 127 mmol/L Potassium Level 3.5 mmol/L Chloride Level 96 mmol/L Carbon Dioxide Level 23 mmol/L Anion Gap 8.0 mmol/L Blood Urea Nitrogen 13 mg/dl Creatinine 0.65 mg/dl Est Creatinine Clear Calc Drug Dose 62.6 ml/min Estimated GFR () 95.2 Estimated GFR (Non- 82.1 BUN/Creatinine Ratio 19.9 Random Glucose 85 mg/dl Calcium Level 8.6 mg/dl Magnesium Level 2.1 mg/dl Total Bilirubin 0.8 mg/dl Direct Bilirubin 0.2 mg/dl Aspartate Amino Transf (AST/SGOT) 21 U/L Alanine Aminotransferase (ALT/SGPT) 19 U/L Alkaline Phosphatase 56 U/L Total Protein 7.2 gm/dl Albumin 3.4 gm/dl White Blood Count 4.82 K/uL Red Blood Count 3.48 M/uL Hemoglobin 10.8 g/dL Hematocrit 31.7 % Mean Corpuscular Volume 91.1 fL Mean Corpuscular Hemoglobin 31.0 pg Mean Corpuscular Hemoglobin Concent 34.1 g/dl Platelet Count 238 K/uL Mean Platelet Volume 8.3 fL Neutrophils (%) (Auto) 62.1 % Lymphocytes (%) (Auto) 21.8 % Monocytes (%) (Auto) 11.4 % Eosinophils (%) (Auto) 3.9 % Basophils (%) (Auto) 0.6 % Neutrophils # (Auto) 2.99 K/uL Lymphocytes # (Auto) 1.05 K/uL Monocytes # (Auto) 0.55 K/uL Eosinophils # (Auto) 0.19 K/uL Basophils # (Auto) 0.03 K/uL RDW Standard Deviation 41.2 fL RDW Coefficient of Variation 12.5 % Immature Granulocyte % (Auto) 0.2 % Immature Granulocyte # (Auto) 0.01 K/uL (Nighat Beckman CRNP) Assessment and Plan Ms. Mace is an 81 year old woman here for syncope and collapse. 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 Syncope secondary to dysrhythmia vs hypotension - MRI brain and head CT negative for acute process - Echo with no significant changes from the last and normal LV function - serial cardiac enzymes - initial trop normal, second had mild bump at .056 and then trended back down - ASA, patient allergic to statins - Cardiology consult - post loop recorder 01/20 SIADH/hyponatremia - tsh, urine sodium normal, Na 127 today - continue 1500 ml fr A.fib/htn - IV metoprolol prn, increased Coreg to 12.5 BID - continue home Eliquis PT/OT - patient contact guarding, reevaluate and may need rehab/snf DNR DVT prophylaxis - SCDs, Eliquis (Nighat Beckman CRNP) RN INTERN Physician Supervision Note: I interviewed and examined the patient. Discussed with Nighat Beckman RN INTERN and agree with findings and plan as documented in the note. Any exceptions or clarifications are listed here: None This patient had episodes of both A. fib RVR and likely hypertension subsequent to increased beta carlyle with decreased responsiveness throughout the day on . This they make it obvious that she's not quite ready to go home yet. Patient continues with physical therapy and occupational therapy. We however have increased her in a carlyle to Coreg 12.5 twice a day and are considering adding digoxin. She is on Eliquis for anticoagulation is Vitals are noted both tachycardia and some hypotension The patient was in A. fib in the morning and converted to sinus towards the early afternoon her lungs are clear Atrial fibrillation with likely symptomatic presyncope plan increase Coreg as mentioned consider digoxin if rate control his issue loop recorder has been implanted by Dr. hansen. Physical therapy evaluation for possible need for rehabilitation Documented By: Vladislav Jimenez (Vladislav Jimenez M.D.)
[2017-01-21 15:58] VITALS: BP 160/84; PULSE 74; TEMP 37; O2SAT 98
[2017-01-21 20:02] VITALS: BP 145/75; PULSE 84; TEMP 37.2; O2SAT 96
[2017-01-21] MEDS: ALPRAZOLAM 0.25 MG TAB PO PRN (21:35)
[2017-01-22] VITALS (9 sets, daily range): BP systolic 116–174; BP diastolic 64–85; PULSE 74–86; TEMP 36.4–36.8; O2SAT 93–97
[2017-01-22] MEDS: LEVOTHYROXINE 75 MCG TAB PO SCH (05:44)
[2017-01-22] MEDS: ASPIRIN 81 MG ECTAB PO SCH (09:00)
[2017-01-22 09:15] LABS: CALCIUM 8.7 mg/dl (8.5-10.1); CREATININE 0.8 mg/dl (0.60-1.20); POTASSIUM 4.1 mmol/L (3.5-5.1)
--- NOTE | 2017-01-22 09:39 | Hospitalist Progress Note ---
Hospitalist Progress Note Date of Service Jan 22, 2017. (Nighat Beckman .ESTELA) Subjective Pt evaluation today including: conversation w/ patient, physical exam, chart review, lab review, review of inpatient medication list Ms. Mace felt good this morning and was asking about going home. No chest pain, sob or dizziness at that time. However at 1300 she was found in the room slumped in her chair and obtunded with blood pressure unable to be read by the NIBP, she was diaphoretic and very pale. This incident was similar to the one yesterday and also what her described upon her presentation to the ED. She was put in bed and put into trendelenburg and her blood pressure came back up and she became more alert. No dysrhythmia on monitor, patient was in NSR in the 60s at the time. ROS Constitutional: no chills, aches, sweats or fever Respiratory: no sob,cough, sputum, or wheezing Cardiac: no chest pain, palpitations, edema, orthopnea or lightheadedness GI: no abdominal pain, nausea, vomiting, diarrhea or constipation : no dysuria or hesitancy Extremities: chronic back pain Skin: no rash All Other Systems: Reviewed and Negative (Nighat Beckman .ESTELA) Medications Medications Administered Medications (Trade) Dose Ordered Sig/Dereje Route Start Time Stop Time Status Last Admin Dose Admin Sodium Chloride 500 ml @ 999 mls/hr Q31M STAT IV 01/18/17 12:35 01/18/17 13:05 DC 01/18/17 13:02 999 MLS/HR Acetaminophen (Tylenol Tab) 650 mg Q4H PRN PO 01/18/17 13:00 01/21/17 08:50 DC 01/21/17 08:30 650 MG Aspirin (Ecotrin Tab) 81 mg QAM PO 01/19/17 09:00 02/18/17 08:59 01/19/17 08:06 81 MG Carvedilol (Coreg Tab) 6.25 mg QPM PO 01/18/17 21:00 01/21/17 08:40 DC 01/20/17 20:01 6.25 MG Carvedilol (Coreg Tab) 12.5 mg QAM PO 01/19/17 09:00 01/21/17 08:40 DC 01/21/17 08:24 12.5 MG Gabapentin (Neurontin Cap) 100 mg TID PO 01/18/17 21:00 02/17/17 20:59 01/21/17 21:36 100 MG Levothyroxine Sodium (Synthroid Tab) 75 mcg DAILYBB PO 01/19/17 06:30 18 06:59 01/22/17 05:44 75 MCG Tolterodine Tartrate (Detrol LA Cap) 4 mg DAILY PO 01/19/17 09:00 02/18/17 08:59 01/21/17 08:25 4 MG Apixaban (Eliquis Tab) 5 mg BID PO 01/18/17 21:00 02/17/17 20:59 01/21/17 21:37 5 MG Alprazolam (Xanax Tab) 0.25 mg Q6H PRN PO 01/18/17 18:15 02/17/17 18:14 01/21/17 21:35 0.25 MG Perflutren Lipid Microsphere (Definity) 2 ml ONE ONCE IV 01/19/17 13:23 01/19/17 13:24 DC 01/19/17 13:24 2 ML Lactated Ringer's 1,000 ml @ 15 mls/hr Q24H ONCE IV 01/19/17 17:10 01/20/17 17:09 DC 01/19/17 17:56 15 MLS/HR Acetaminophen (Tylenol Tab) 650 mg Q4H PRN PO 01/20/17 09:00 02/19/17 08:59 01/21/17 21:36 650 MG Carvedilol (Coreg Tab) 12.5 mg BID PO 01/21/17 21:00 02/18/17 20:59 01/21/17 21:37 12.5 MG Carvedilol (Coreg Tab) 6.25 mg ONE ONCE PO 01/21/17 09:45 01/21/17 09:46 DC 01/21/17 10:00 6.25 MG Potassium Chloride (Klor-Con M10) 40 meq NOW ONCE PO 01/21/17 10:15 01/21/17 10:18 DC 01/21/17 10:42 40 MEQ (Nighat Beckman, ESTELA) Objective Vital Signs Date Time Temp Pulse Resp B/P (MAP) Pulse Ox O2 Delivery O2 Flow Rate FiO2 01/22/17 08:20 36.7 85 18 116/73 (87) 97 Room Air 01/22/17 04:11 36.8 74 20 150/85 (106) 97 Room Air 01/22/17 04:00 Room Air 01/22/17 00:16 36.4 76 18 147/73 (97) 93 Room Air 01/21/17 23:59 Room Air 01/21/17 20:02 37.2 84 18 145/75 (98) 96 Room Air 01/21/17 20:00 Room Air 01/21/17 16:00 Room Air 01/21/17 15:58 37.0 74 18 160/84 (109) 98 Room Air 01/21/17 12:00 Room Air 01/21/17 11:40 36.4 79 16 121/81 (94) 98 Room Air (Nighat Beckman CRNP) Physical Exam Notes: General: no distress Eyes: normal inspection, PERLL Respiratory: chest non tender, clear to auscultation, normal breath sounds, no respiratory distress, no accessory muscle use Cardiac: regular rate and rhythm, no rub or gallop, no murmur, no edema, no jvd GI/: active bowel sounds, no abd pain or tenderness, soft, non distended Extremities: normal range of motion, normal strength, non tender Neuro/Psych: alert and oriented x 3, normal mood and affect Skin: normal color, dry (Nighat Beckman CRNP) Laboratory Results Last 24 Hours Test 01/22/17 08:31 Sodium Level 131 mmol/L Potassium Level 4.1 mmol/L Chloride Level 99 mmol/L Carbon Dioxide Level 25 mmol/L Anion Gap 7.0 mmol/L Blood Urea Nitrogen 15 mg/dl Creatinine 0.80 mg/dl Est Creatinine Clear Calc Drug Dose 50.9 ml/min Estimated GFR () 79.0 Estimated GFR (Non- 68.2 BUN/Creatinine Ratio 18.3 Random Glucose 100 mg/dl Calcium Level 8.7 mg/dl Vitamin B12 Level 260 pg/mL (Nighat Beckman CRNP) Assessment and Plan Ms. Mace is an 81 year old woman here for syncope and collapse. 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 Tilt table in 2016 did show some transient hypotension with sbp in the 80s. Will start midodrine, buzz hose , orthostatics qs. 500 ml Fluid bolus SIADH/hyponatremia - tsh, urine sodium normal, Na 131 today - discontinue fluid restriction - given hypotension and salt wasting, cortisol in am A.fib/htn - IV metoprolol prn, increased Coreg to 12.5 BID - patient had an episode of unresponsiveness due to hypotension yesterday that responded to fluid bolus. Will continue to monitor blood pressure now that heart rate is better controlled. Appreciate cardiology recommendations - continue home Steve PT/OT - patient contact guarding, reevaluate and may need rehab/snf - patient requests [facility] if rehab is needed. DNR DVT prophylaxis - Steve Deutsch (Nighat Beckman ., ESTELA) Attending Attestation: Pt seen/examined, chart reviewed, care plan d/w ESTELA Beckman. I agree w/ the webb components of her documentation. when I visited Ms. Mace on AM rounds today she was slumped to the right side and very lethargic. she opened her eyes and was trying to speak but her speech was garbled. she would quickly fall back asleep. she was sweaty. I attempted to get a BP w/ automatic cuff w/o success; the nurse and I lifted her into the bed and placed her in Trendelenburg her SBP was 110 with diastolic of 55 FSBS was > 100 her mentation quickly improved following Trendelenberg this event today was similar to yesterday and also her event at home after mentation improved she had no complaints she had no prodromal symptoms to her recollection tele - NO AV block, NO pause, NO trinh, NO tachy during the event Vitals o/w stable with labile BP at times gen - following the event and improvement in her mentation she was awake/alert face - no droop mouth - MM slightly dry neck - no JVD heart - RRR, s1, s2, no murmur lungs - CTA b/l abd - soft ext - no edema neuro - strength 06/17 x 4 exts A/P: recurrent syncope - EXTENSIVE w/u for this in the past including multiple EEGs, multiple MRI brains, vascular studies of carotids, echos, tilt table, etc clearly the events are postural in that they happen when she is sitting for long periods of time in the chair her BP was documented to be LOW yesterday and again today and mentation improved with fluids/trendelenburg, etc these events seem to be due to 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
[2017-01-22] MEDS: CARVEDILOL 12.5 MG TAB PO SCH ×2 (09:53→20:19)
[2017-01-22] MEDS: APIXABAN 2.5 MG TAB PO SCH ×2 (09:53→20:19)
[2017-01-22] MEDS: TOLTERODINE TARTRATE LA 4 MG CAPCR PO SCH (09:53)
[2017-01-22] MEDS: GABAPENTIN 100 MG CAP PO SCH ×3 (09:54→20:19)
[2017-01-22] MEDS ORDERED: MIDODRINE 2.5 MG TAB PO ONE (13:15)
--- NOTE | 2017-01-22 13:43 | Orthopedic Consultation ---
Orthopedic Consultation Date of Consultation: Jan 22, 2017. Attending Physician: Miki Hubbard MD Reason for Consultation: Back and leg pain History of Present Illness Very pleasant 81-year-old female admitted to the hospital for multiple medical issues but has concern with chronic back and bilateral leg pain. She's unable to describe which leg is more troublesome to her at this time. She does note that is been progressive in nature and significantly limiting. She's not undergone any recent epidural injections though has appointment scheduled for February. She is status post lumbar decompression fusion L4 5 L5-S1 proximal me 6 years ago. Past Medical/Surgical History Medical Problems: (1) Altered mental status Status: Acute (2) Syncope Status: Acute Social History Smoking Status: Never Smoker Smokeless Tobacco Use: No Alcohol Use: one glass or two at the most every day Marital Status: Housing Status: lives with family Occupation Status: retired Allergies Coded Allergies: Amoxicillin (Verified Allergy, Intermediate, VERY SICK TO HER STOMACH, 01/18/17) Atorvastatin (Verified Allergy, Intermediate, RASH, 01/18/17) and rash Clavulanic Acid (Verified Allergy, Intermediate, VERY SICK TO HER STOMACH , 01/18/17) Tetracycline (Verified Allergy, Intermediate, ARMS SWELLED UP, 01/18/17) Tramadol (Verified Allergy, Intermediate, MAKES HER DIZZY AND CRAZEY, 01/18) SHANTEL Inhibitors (Verified Allergy, Mild, NOT SURE OF REACTIONS, 01/18/17) Rivaroxaban (Verified Allergy, Unknown, RASH, 01/18/17) Zolpidem (Verified Allergy, Unknown, ., 01/18/17) Uncoded Allergies: [id number] (Allergy, Intermediate, SICK TO HER STOMACH, 11/22/12) Home Medications Scheduled Apixaban (Eliquis), 5 MG PO BID Carvedilol (Coreg), 12.5 MG PO QAM Carvedilol (Coreg), 6.25 MG PO QPM Fluocinolone Acetonide (Fluocinolone Acetonide), 1 APPLN TOP BID Gabapentin (Neurontin), 100 MG PO TID Levothyroxine Sodium (Levothyroxine Sodium), 75 MCG PO DAILY Tolterodine Tartrate (Detrol LA), 4 MG PO DAILY Triamcinolone (Triamcinolone Acetonide), 1 APPLN TOP QPM Current Inpatient Medications Current Inpatient Medications Medications (Trade) Dose Ordered Sig/Dereje Route Start Time Stop Time Status Last Admin Dose Admin Al Hydrox/Mg Hydrox/Simethicone (Maalox Max Susp) 15 ml Q4H PRN PO 01/18/17 13:00 02/17/17 12:59 Aspirin (Ecotrin Tab) 81 mg QAM PO 01/19/17 09:00 02/18/17 08:59 01/19/17 08:06 81 MG Miscellaneous Information (Pharmacist Discharge Med Rec Consult) 1 ea UD PRN N/A 01/18/17 13:00 02/17/17 12:59 Gabapentin (Neurontin Cap) 100 mg TID PO 01/18/17 21:00 02/17/17 20:59 01/22/17 09:54 100 MG Levothyroxine Sodium (Synthroid Tab) 75 mcg DAILYBB PO 01/19/17 06:30 02/18/17 06:59 01/22/17 05:44 75 MCG Tolterodine Tartrate (Detrol LA Cap) 4 mg DAILY PO 01/19/17 09:00 02/18/17 08:59 01/22/17 09:53 4 MG Apixaban (Eliquis Tab) 5 mg BID PO 01/18/17 21:00 02/17/17 20:59 01/22/17 09:53 5 MG Miscellaneous Information (Order Awaiting Action) 1 ea QS N/A 01/18/17 16:00 02/17/17 15:59 Miscellaneous Information (Order Awaiting Action) 1 ea QS N/A 01/18/17 16:00 02/17/17 15:59 Alprazolam (Xanax Tab) 0.25 mg Q6H PRN PO 01/18/17 18:15 02/17/17 18:14 01/21/17 21:35 0.25 MG Acetaminophen (Tylenol Tab) 650 mg Q4H PRN PO 01/20/17 09:00 02/19/17 08:59 01/21/17 21:36 650 MG Ketorolac Tromethamine (Toradol Tab) 10 mg Q6H PRN PO 01/20/17 09:00 01/25/17 08:59 Carvedilol (Coreg Tab) 12.5 mg BID PO 01/21/17 21:00 02/18/17 20:59 01/22/17 09:53 12.5 MG Metoprolol Tartrate (Lopressor Iv) 5 mg Q4H PRN IV 01/21/17 09:15 02/20/17 09:14 Midodrine (Proamatine Tab) 2.5 mg TID@08,12,17 PO 01/22/17 17:00 02/21/17 16:59 Cyanocobalamin (Vitamin B-12 Tab) 500 mcg QAM PO 01/23/17 09:00 02/22/17 08:59 Physical Exam Date Time Temp Pulse Resp B/P (MAP) Pulse Ox O2 Delivery O2 Flow Rate FiO2 01/22/17 13:26 79 20 152/80 (104) 94 Room Air 01/22/17 11:25 36.5 74 18 142/82 (102) 94 Room Air 01/22/17 08:20 36.7 85 18 116/73 (87) 97 Room Air 01/22/17 04:11 36.8 74 20 150/85 (106) 97 Room Air 01/22/17 04:00 Room Air 01/22/17 00:16 36.4 76 18 147/73 (97) 93 Room Air 01/21/17 23:59 Room Air 01/21/17 20:02 37.2 84 18 145/75 (98) 96 Room Air 01/21/17 20:00 Room Air 01/21/17 16:00 Room Air 01/21/17 15:58 37.0 74 18 160/84 (109) 98 Room Air Patient instruments reasonable strength testing bilateral extremity's. She has numbness to palpation of the left anterior thigh to below the left knee. Negative logroll bilaterally. Laboratory Results Last 24 Hours Test 01/22/17 08:31 01/22/17 12:48 Sodium Level 131 mmol/L Potassium Level 4.1 mmol/L Chloride Level 99 mmol/L Carbon Dioxide Level 25 mmol/L Anion Gap 7.0 mmol/L Blood Urea Nitrogen 15 mg/dl Creatinine 0.80 mg/dl Est Creatinine Clear Calc Drug Dose 50.9 ml/min Estimated GFR () 79.0 Estimated GFR (Non- 68.2 BUN/Creatinine Ratio 18.3 Random Glucose 100 mg/dl Calcium Level 8.7 mg/dl Vitamin B12 Level 260 pg/mL Bedside Glucose 152 mg/dl Assessment & Plan Assessment severe spinal stenosis with herniated was pulposus L3 4. Plan at this time she has evidence of significant advanced adjacent level disease at L3 4. This includes a concomitant spondylolisthesis. There is modest stenosis at L2-3. She would very much like to avoid surgery but understands that this may ultimately be her only option for improvement in her pain and leg symptoms. She will consider her options. We would also consider consultation with pain management for their input. Again she would require a lumbar decompression fusion L3 4 possible L2-3 with removal of instrumentation L4
[2017-01-22] MEDS ORDERED: SODIUM CHLORIDE 0.9% 500ML 500 ML IV SCH (14:15)
[2017-01-22] MEDS: MIDODRINE 2.5 MG TAB PO SCH (16:44)
[2017-01-22] MEDS: ACETAMINOPHEN 325 MG TAB PO PRN ×2 (16:46→20:19)
[2017-01-23] VITALS (8 sets, daily range): BP systolic 133–176; BP diastolic 67–99; PULSE 70–85; TEMP 36.2–37.1; O2SAT 93–97
[2017-01-23] MEDS: LEVOTHYROXINE 75 MCG TAB PO SCH (06:21)
[2017-01-23] MEDS: ASPIRIN 81 MG ECTAB PO SCH (08:08)
[2017-01-23] MEDS: GABAPENTIN 100 MG CAP PO SCH ×3 (08:08→20:59)
[2017-01-23] MEDS: APIXABAN 2.5 MG TAB PO SCH ×2 (08:09→20:59)
[2017-01-23] MEDS: TOLTERODINE TARTRATE LA 4 MG CAPCR PO SCH (08:09)
[2017-01-23] MEDS: CARVEDILOL 12.5 MG TAB PO SCH (08:09)
[2017-01-23] MEDS: MIDODRINE 2.5 MG TAB PO SCH ×3 (08:10→16:52)
[2017-01-23] MEDS: CYANOCOBALAMIN 500 MCG TAB (VIT B-12) PO SCH (08:10)
--- NOTE | 2017-01-23 10:20 | Progress Note ---
Progress Note Date of Service Jan 23, 2017. Progress Note Met this morning with the patient and her . We discussed in detail her spinal pathology and treatment options. At this time she would like to refrain from any epidural injections. She would like to consider surgical intervention when she is medically stable. I will await guidance from her medical doctors as to when we could possibly proceed with surgery. Again it would require a decompression fusion at L3 4.
--- NOTE | 2017-01-23 14:19 | Hospitalist Progress Note ---
Hospitalist Progress Note Date of Service Jan 23, 2017. (Nighat Beckman CRNP) Subjective Pt evaluation today including: conversation w/ patient, conversation w/ family , physical exam, chart review, lab review, review of inpatient medication list Voiding: no voiding problems Ms. Mace feels better today and understands she will need rehab after this and will go to [facility]. She continues to have back pain and is considering surgery with Dr. Hancock. She has not had any further syncopal episodes since yesterday. Her heart rate has been controlled ROS Constitutional: no chills, aches, sweats or fever Respiratory: no sob,cough, sputum, or wheezing Cardiac: no chest pain, palpitations, edema, orthopnea or lightheadedness GI: no abdominal pain, nausea, vomiting, diarrhea or constipation : no dysuria or hesitancy Extremities: no joint pain or weakness Skin: no rash All Other Systems: Reviewed and Negative (Nighat Beckman CRNP) Medications Medications Administered Medications (Trade) Dose Ordered Sig/Dereje Route Start Time Stop Time Status Last Admin Dose Admin Sodium Chloride 500 ml @ 999 mls/hr Q31M STAT IV 01/18/17 12:35 01/18/17 13:05 DC 01/18/17 13:02 999 MLS/HR Acetaminophen (Tylenol Tab) 650 mg Q4H PRN PO 01/18/17 13:00 01/21/17 08:50 DC 01/21/17 08:30 650 MG Aspirin (Ecotrin Tab) 81 mg QAM PO 01/19/17 09:00 02/18/17 08:59 01/23/17 08:08 81 MG Carvedilol (Coreg Tab) 6.25 mg QPM PO 01/18/17 21:00 01/21/17 08:40 DC 01/20/17 20:01 6.25 MG Carvedilol (Coreg Tab) 12.5 mg QAM PO 01/19/17 09:00 01/21/17 08:40 DC 01/21/17 08:24 12.5 MG Gabapentin (Neurontin Cap) 100 mg TID PO 01/18/17 21:00 02/17/17 20:59 01/23/17 13:09 100 MG Levothyroxine Sodium (Synthroid Tab) 75 mcg DAILYBB PO 01/19/17 06:30 18 06:59 01/23/17 06:21 75 MCG Tolterodine Tartrate (Detrol LA Cap) 4 mg DAILY PO 01/19/17 09:00 02/18/17 08:59 01/23/17 08:09 4 MG Apixaban (Eliquis Tab) 5 mg BID PO 01/18/17 21:00 02/17/17 20:59 01/23/17 08:09 5 MG Alprazolam (Xanax Tab) 0.25 mg Q6H PRN PO 01/18/17 18:15 02/17/17 18:14 01/21/17 21:35 0.25 MG Perflutren Lipid Microsphere (Definity) 2 ml ONE ONCE IV 01/19/17 13:23 01/19/17 13:24 DC 01/19/17 13:24 2 ML Lactated Ringer's 1,000 ml @ 15 mls/hr Q24H ONCE IV 01/19/17 17:10 01/20/17 17:09 DC 01/19/17 17:56 15 MLS/HR Acetaminophen (Tylenol Tab) 650 mg Q4H PRN PO 01/20/17 09:00 02/19/17 08:59 01/22/17 20:19 650 MG Carvedilol (Coreg Tab) 12.5 mg BID PO 01/21/17 21:00 02/18/17 20:59 01/23/17 08:09 12.5 MG Carvedilol (Coreg Tab) 6.25 mg ONE ONCE PO 01/21/17 09:45 01/21/17 09:46 DC 01/21/17 10:00 6.25 MG Potassium Chloride (Klor-Con M10) 40 meq NOW ONCE PO 01/21/17 10:15 01/21/17 10:18 DC 01/21/17 10:42 40 MEQ Midodrine (Proamatine Tab) 2.5 mg TID@08,12,17 PO 01/22/17 17:00 02/21/17 16:59 01/23/17 11:58 2.5 MG Midodrine (Proamatine Tab) 2.5 mg 1315 ONCE PO 01/22/17 13:15 01/22/17 13:16 DC 01/22/17 14:08 2.5 MG Cyanocobalamin (Vitamin B-12 Tab) 500 mcg QAM PO 01/23/17 09:00 02/22/17 08:59 01/23/17 08:10 500 MCG Sodium Chloride 500 ml @ 999 mls/hr Q31M IV 01/22/17 14:15 01/22/17 14:45 DC 01/22/17 14:41 999 MLS/HR (Nighat Beckman CRNP) Objective Vital Signs Date Time Temp Pulse Resp B/P (MAP) Pulse Ox O2 Delivery O2 Flow Rate FiO2 01/23/17 11:50 Room Air 01/23/17 11:30 36.6 85 16 153/88 (109) 94 Room Air 01/23/17 09:02 82 16 151/67 (95) 82 150/77 (101) 01/23/17 08:10 Room Air 01/23/17 07:48 36.5 70 16 168/78 (108) 94 Room Air 01/23/17 04:00 Room Air 01/23/17 03:21 36.4 70 17 149/74 (99) 95 Room Air 01/22/17 23:59 Room Air 01/22/17 23:39 36.5 75 17 131/64 (86) 94 Room Air 83 127/78 (94) 82 128/75 (92) 01/22/17 20:00 Room Air 01/22/17 19:10 36.5 86 18 160/74 (102) 95 Room Air 01/22/17 16:00 Room Air 01/22/17 15:02 36.5 79 18 148/76 (100) 96 Room Air (Nighat Beckman CRNP) Physical Exam Notes: General: no distress Eyes: normal inspection, PERLL Respiratory: chest non tender, clear to auscultation, normal breath sounds, no respiratory distress, no accessory muscle use Cardiac: regular rate and rhythm, no rub or gallop, no murmur, no edema, no jvd GI/: active bowel sounds, no abd pain or tenderness, soft, non distended Extremities: normal range of motion, normal strength, non tender Neuro/Psych: alert and oriented x 3, normal mood and affect Skin: normal color, dry (Nighat Beckman CRNP) Laboratory Results Last 24 Hours Test 01/23/17 07:29 Cortisol AM Sample 23.46 mcg/dl (Nighat Beckman CRNP) Assessment and Plan Ms. Mace is an 81 year old woman here for syncope and collapse. 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 Tilt table in 2016 did show some transient hypotension with sbp in the 80s. Continue midodrine, buzz hose, orthostatics qs - orthostatics have not had significant drops in pressure or change in heart rates thus far SIADH/hyponatremia - tsh, urine sodium normal, Na baseline - given hypotension and salt wasting, cortisol very mildly elevated at 23 - no further intervention A.fib/htn - IV metoprolol prn, dencreased Coreg back to 12.5 am and 6.25 pm due to hypotensive episode - continue home Eliquis PT/OT - patient contact [facility] for rehab DNR DVT prophylaxis - SCDs, Eliquis (Nighat Beckman CRNP) Attending Attestation: Pt seen/examined, chart reviewed, care plan d/w ESTELA Beckman. I agree w/ the webb components of her documentation. Pt feels much better today. Reports no dizziness. No further syncopal events. Tele stable overnight. Is considering lumbar back surgery by Dr. Hancock. gen - sitting in chair, eating, NAD mouth - MMM neck - no JVD heart - RRR, s1, s2 lungs - CTA b/l abd - soft ext - no edema neuro - strength 5/5 x 4 exts A/P: recurrent syncope - EXTENSIVE w/u for this in the past including multiple EEGs, multiple MRI brains, vascular studies of carotids, echos, tilt table, etc - all normal had tilt table test in 2013 showing transient hypotension but no change in HR her 2 events while hospitalized occurred while she was sitting in the chair and were associated with low BP cortisol level was normal this AM cont midodrine 2.5mg TID cont TEDS hose lower coreg dose cardiology aware of events of weekend cont orthostatic BPs qshift chronic lumbar back pain - elective surgery in future appreciate Dr. Hancock's consult dispo - [facility] updated at bedside Miki Hubbard MD (Miki Hubbard MD)
--- NOTE | 2017-01-23 17:29 | Cardiology Follow-Up ---
Subjective Date of Service: Jan 23, 2017. Pt evaluation today including: conversation w/ patient, conversation w/ family , physical exam, lab review, review of studies, review of inpatient medication list, conversation w/ attending History of Present Illness Events of the weekend noted, with an episode of hypotension without an arrhythmia reproducing her preadmission symptoms. Currently she has no complaints. Her was in the room at the time of my visit. Social History Smoking Status: Never Smoker History of Alcohol Use: Yes (1 to 2 glasses wine a day) Review of Systems Respiratory: No cough, No shortness of breath, No dyspnea on exertion Cardiac: No chest pain, No PND, No edema Medications Cardiovascular: Item Value Date Time Carvedilol 12.5 mg 01/24/17 0900 (Coreg Tab) QAM/PO Carvedilol 6.25 mg 01/23/17 2100 (Coreg Tab) HS/PO Midodrine 2.5 mg 01/22/17 1700 (Proamatine Tab) TID@08,,17/PO 01/23/17 1652 Aspirin 81 mg 01/19/17 0900 (Ecotrin Tab) QAM/PO 01/23/17 0808 Apixaban 5 mg 01/18/17 2100 (Eliquis Tab) BID/PO 01/23/17 0809 Objective Vital Signs Past 12 Hours Date Time Temp Pulse Resp B/P (MAP) Pulse Ox O2 Delivery O2 Flow Rate FiO2 01/23/17 16:47 37.1 81 18 159/99 (119) 95 Room Air 01/23/17 15:30 Room Air 01/23/17 11:50 Room Air 01/23/17 11:30 36.6 85 16 153/88 (109) 94 Room Air 01/23/17 09:02 82 16 151/67 (95) 82 150/77 (101) 01/23/17 08:10 Room Air 01/23/17 07:48 36.5 70 16 168/78 (108) 94 Room Air Last Recorded Weight-Kilograms: 69.100 Physical Exam Constitutional: General Apperance: heathly-appearing Level of Distress: NAD Lungs: Auscultation: breath sounds normal Cardiovascular: Heart Auscultation: RRR Extremities: no edema Constitutional: Alert, in no acute distress HEENT: Head is atraumatic and normocephalic. EOMs intact. Sclera anicteric. Face is symmetric. No perioral cyanosis. Mucous membranes moist. Neck: Supple, no JVD Pulmonary: Normal respiratory effort, clear to auscultation bilaterally Cardiac: Regular rate and rhythm, normal S1 and S2, no gallops, no rubs, no murmurs Extremities: No clubbing, cyanosis, or edema. Pulses intact Abdomen: Normal bowel sounds, soft, non-tender, no abdominal mass palpated Skin: Normal skin color, turgor, and pigmentation, no rash, no skin lesions Neurological: Oriented to person, place, and time Data Laboratory Results: Last 24 Hours Test 01/23/17 07:29 Cortisol AM Sample 23.46 mcg/dl Telemetry reviewed: Sinus rhythm and periods of atrial fibrillation, one in atrial fibrillation her heart rate is elevated. Assessment and Plan 1. Syncope: Her unresponsive spells have now been quite conclusively identified as being due to hypotension without a significant arrhythmia. Atrial fibrillation (despite high heart rates) have not reproduce her symptoms, however while sitting over the weekend she had one of her episodes without a significant heart rate change which responded to being placed in Trendelenburg. I agree with admitted green, and reduction in carvedilol although that may result in an increase in ventricular heart rate during atrial fibrillation. I discussed this with her , this may not be effective and we may have to withdraw medications which cause hypotension and we may have to live with some degree of hypertension. 2. Paroxysmal atrial fibrillation: While in atrial fibrillation she has no symptoms and this is not a cause of her episodes. She is however on carvedilol which could aggravate hypotension from another cause. I agree we need to decrease her carvedilol, if she has high heart rates during atrial fibrillation on reduce carvedilol we can consider antiarrhythmic therapy (perhaps amiodarone which will also help heart rate) to try to keep her out of atrial fibrillation. For now I think we should try digoxin to help heart rate without affecting blood pressure. 3. Hypertension: Her blood pressure is evidently quite labile and we may have difficulty keeping her from being hypotensive without having significant hypertension. Thank you for allowing me to participate in her care.
[2017-01-23] MEDS ORDERED: DIGOXIN IV 250 MCG in SYRINGE 9 ML IV ONE ×2 (18:00→20:00)
[2017-01-23] MEDS: ACETAMINOPHEN 325 MG TAB PO PRN (19:45)
[2017-01-23] MEDS ORDERED: COUGH DROP (SUGAR FREE) LOZ 24 LOZ/1 BOX PO PRN (20:15)
[2017-01-23] MEDS ORDERED: NURSING DECISION MEDICATION ORDER SCH (20:15)
[2017-01-23] MEDS ORDERED: CARVEDILOL 6.25 MG TAB PO SCH (21:00)
[2017-01-24 03:40] VITALS: BP 134/69; PULSE 74; TEMP 36.9; O2SAT 94
[2017-01-24] MEDS: LEVOTHYROXINE 75 MCG TAB PO SCH (05:57)
[2017-01-24 07:33] VITALS: BP_SYST 135; BP_SYST 148; BP_SYST 150; BP_DIAS 68; BP_DIAS 71; BP_DIAS 85; PULSE 77; PULSE 79; PULSE 84; TEMP 36.8; O2SAT 95
[2017-01-24] MEDS: MIDODRINE 2.5 MG TAB PO SCH ×2 (08:00→11:32)
[2017-01-24] MEDS: TOLTERODINE TARTRATE LA 4 MG CAPCR PO SCH (08:21)
[2017-01-24] MEDS: GABAPENTIN 100 MG CAP PO SCH (08:21)
[2017-01-24] MEDS: ASPIRIN 81 MG ECTAB PO SCH (08:22)
[2017-01-24] MEDS: APIXABAN 2.5 MG TAB PO SCH (08:22)
[2017-01-24] MEDS: CYANOCOBALAMIN 500 MCG TAB (VIT B-12) PO SCH (08:22)
[2017-01-24] MEDS ORDERED: CARVEDILOL 12.5 MG TAB PO SCH (09:00)
[2017-01-24 11:21] VITALS: BP 132/68; PULSE 70; TEMP 36.8; O2SAT 96
[2017-01-24] MEDS ORDERED: PRMT25 PO (12:37)
[2017-01-24] MEDS ORDERED: LNX125 PO (12:37)
[2017-01-24] MEDS ORDERED: VTMB12 PO (12:37)
--- NOTE | 2017-01-24 12:51 | Discharge Instructions ---
Discharge Instructions Date of Service Jan 24, 2017. Admission Reason for Admission: Syncope Discharge Discharge Diagnosis / Problem: syncope (passing out) due to episodes of severe hypotension (low BP) Discharge Goals Goal(s): Learn about illness, Diagnostic testing, Therapeutic intervention Activity Recommendations Activity Level: Assistance Required Therapies: Physical Therapy, Occupational Therapy LEFT ARM SHOULD NOT BE RAISED ABOVE THE LEVEL OF THE SHOULDER FOR 2 WEEKS DUE TO RECENT LOOP RECORDER IMPLANTATION. . Additional Information Patient informed of condition: Yes Advance Directives: Yes DNR: Yes Level of Care: Skilled Communicable Disease: No Prognosis: Stable Oxygen at (LPM): none [place] Catheter: No Instructions / Follow-Up Instructions / Follow-Up 1. See Dr. Ronny Tyson, [facility], in [address]. [address] Bar Hancock or his PA at [facility] in 1-2 weeks for lumbar spinal stenosis 3. reading efficiency course director of [facility] within 48 hours See additional instructions from Dr. Tyson for care of her loop recorder implantation site on the chest wall as well as other restrictions Current Hospital Diet Patient's current hospital diet: AHA Diet (Heart Healthy) Discharge Diet Recommended Diet: AHA Diet (Heart Healthy) Procedures Procedures Performed: 1. implantation of loop recorder - Dr. Ronny Tyson 2. echocardiogram with normal heart function 3. MRI brain - NO stroke 4. carotid artery ultrasound Pending Studies Studies pending at discharge: no Physician Orders On Transfer Special Precautions: fall precautions patient should NOT be allowed to sit for LENGTHY periods of time (example - hours at a time) in the chair as this is when she most commonly has episodes of passing out Dressing Changes: dressing as needed to the chest wall at site of loop recorder as needed THERE IS [address] - PLEASE LEAVE THIS ON UNTIL IT FALLS OFF SPONTANEOUSLY IN THE SHOWER. OK TO SHOWER AT THIS TIME. Vital Signs: per routine with orthostatic BPs as well Additional Orders: basic metabolic panel in 2 days for stability of electrolytes and kidney function POLST Discussion: Not Applicable Laboratory Results Hemoglobin A1c Test 01/18/17 10:28 Range/Units Estimated Average Glucose 100 mg/dl Hemoglobin A1c 5.1 4.5-5.6 % Lipid Panel Test 01/19/17 02:41 Range/Units Triglycerides Level 94 0-150 mg/dl Cholesterol Level 165 0-200 mg/dl HDL Cholesterol 65 mg/dl Cholesterol/HDL Ratio 2.5 LDL Cholesterol, Calculated 81 mg/dl Medical Emergencies . Who to Call and When: Medical Emergencies: If at any time you feel your situation is an emergency, please call 911 immediately. . Non-Emergent Contact Non-Emergency issues call your: Primary Care Provider (or emergency medical technician of SNF) Call Non-Emergent contact if: temperature is above 100.5, your pain is not controlled, your pain is worsening, your pain is unusual for you, your pain is concerning you, you have any medication questions . . "Provider Documentation" section prepared by Miki Hubbard. . Core Measure Problem Core Measures: None Stroke Core Measures Reason no statin at D/C: Drug Allergy
[2017-01-24 13:24] VITALS: BP 132/68; PULSE 70; TEMP 36.8; O2SAT 96
--- NOTE | 2017-01-24 13:36 | Cardiology Follow-Up ---
Subjective Date of Service: Jan 24, 2017. Pt evaluation today including: conversation w/ patient, physical exam, lab review, review of studies, review of inpatient medication list, conversation w/ attending History of Present Illness Today she feels well, she has had no further episodes. Digoxin was added yesterday for rate control to allow decreasing her beta blockade. She is tolerating it well. Social History Smoking Status: Never Smoker History of Alcohol Use: Yes (1 to 2 glasses wine a day) Review of Systems Respiratory: No cough, No shortness of breath, No dyspnea on exertion Cardiac: No chest pain, No PND, No edema Medications Cardiovascular: Item Value Date Time Digoxin 0.125 mg 01/24/17 1600 (Lanoxin Tab) DAILY@16/PO Carvedilol 12.5 mg 01/24/17 0900 (Coreg Tab) QAM/PO Carvedilol 6.25 mg 01/23/17 2100 (Coreg Tab) HS/PO 01/23/172058 Midodrine 2.5 mg 01/22/17 1700 (Proamatine Tab) TID@08,,17/PO 01/23/17 1652 Aspirin 81 mg 01/19/17 0900 (Ecotrin Tab) QAM/PO 01/23/17 0808 Apixaban 5 mg 01/18/17 2100 (Eliquis Tab) BID/PO 01/23/172058 Objective Vital Signs Past 12 Hours Date Time Temp Pulse Resp B/P (MAP) Pulse Ox O2 Delivery O2 Flow Rate FiO2 01/24/17 07:33 36.8 77 18 135/68 (90) 95 79 148/71 (96) 84 150/85 (106) 01/24/17 04:00 Room Air 01/24/17 03:40 36.9 74 16 134/69 (90) 94 Room Air 01/23/17 23:30 36.2 73 17 135/77 (96) 93 Room Air 80 133/77 (95) 78 158/81 (106) 01/23/17 23:14 Room Air 01/23/17 20:59 74 141/88 (105) 01/23/17 20:58 74 Last Recorded Weight-Kilograms: 68.700 Physical Exam Constitutional: General Apperance: heathly-appearing Level of Distress: NAD Lungs: Auscultation: breath sounds normal Cardiovascular: Heart Auscultation: RRR Extremities: no edema Constitutional: Alert, in no acute distress HEENT: Head is atraumatic and normocephalic. EOMs intact. Sclera anicteric. Face is symmetric. No perioral cyanosis. Mucous membranes moist. Neck: Supple, no JVD Pulmonary: Normal respiratory effort, clear to auscultation bilaterally Cardiac: Regular rate and rhythm, normal S1 and S2, no gallops, no rubs, no murmurs Extremities: No clubbing, cyanosis, or edema. Pulses intact Abdomen: Normal bowel sounds, soft, non-tender, no abdominal mass palpated Skin: Normal skin color, turgor, and pigmentation, no rash, no skin lesions Neurological: Oriented to person, place, and time Data Laboratory Results: Last 24 Hours Test 01/24/17 05:57 Digoxin Level 1.2 ng/ml Telemetry reviewed: Sinus rhythm, one brief episode of atrial fibrillation at a somewhat rapid heart rate yesterday evening. None today. Assessment and Plan 1. Syncope: Her unresponsive spells have now been quite conclusively identified as being due to hypotension without a significant arrhythmia. Atrial fibrillation (despite high heart rates) have not reproduce her symptoms. Treating her atrial fibrillation with beta-blockade to control heart rate may aggravate her hypotension. I would therefore recommend using digoxin to help with rate control and to decrease beta-blockade. We will need to see how she responds clinically, that may take some time. 2. Paroxysmal atrial fibrillation: She has had atrial fibrillation in the hospital and she has no symptoms and this is not a cause of her episodes. She is however on carvedilol which could aggravate hypotension from another cause. I agree we need to decrease her carvedilol, if she has high heart rates during atrial fibrillation on reduce carvedilol we can consider antiarrhythmic therapy (perhaps amiodarone which will also help heart rate) to try to keep her out of atrial fibrillation. For now I think we should continue digoxin and reduce Carvedilol. 3. Hypertension: Her blood pressure is evidently quite labile and we may have difficulty keeping her from being hypotensive without having significant hypertension. Thank you for allowing me to participate in her care.
--- NOTE | 2017-01-24 14:52 | Discharge Summary ---
Discharge Summary Date of Service Jan 24, 2017. Discharge Summary Admission Date: Jan 18, 2017 at 13:04 Discharge Date: Jan 24, 2017 Discharge Disposition: shelter facility ([facility] ) Principal Diagnosis: syncope - due to hypotension Problems/Secondary Diagnoses: 1. chronic SIADH 2. hypothyroidism 3. atrial fibrillation 4. lumbar spinal stenosis with radiculopathy 5. CKD stage 2 6. vitamin B12 deficiency 7. h/o mild dementia 8. frequent falls 9. HTN 10. positive troponin likely 2nd to myocardial demand ischemia Immunizations: Have You Had Influenza Vaccine: Yes History of Tetanus Vaccine?: Unknown Tetanus Immunization Date: Dec 30, 2009 History of Pneumococcal: Yes Pneumococcal Date: Dec 30, 2006 History of Hepatitis B Vaccine: Unknown Procedures: 1. echocardiogram: * -- Conclusions -- * 1. Small LV cavity. Borderline concentric LVH. * 2. Normal LV systolic function. LVEF 60-65%. No regional wall motion abnormalities. * 3. Normal RV size and function. * 4. No significant valvular pathology. * 5. Normal estimated PA and RA pressures. * 6. Compared with prior study on 06/23/2013: No significant changes noted. 2. CT head: No acute intracranial hemorrhage, midline shift, intracranial mass, hydrocephalus, territorial ischemia or abnormal extra-axial collection. There is moderate brain atrophy. Moderate to extensive chronic microvascular ischemic changes redemonstrated. Remote lacunar infarction of the left thalamus redemonstrated. Vascular calcifications are seen at the level of the skull base. The calvarium is intact. The paranasal sinuses, mastoid air cells, and middle ear cavities are clear. There are postsurgical changes of the bilateral globes. IMPRESSION: No acute intracranial abnormality. 3. carotid duplex exam: IMPRESSION: 1. Atherosclerotic plaque with evidence of 50-69% stenosis at the origin of the left internal carotid artery. This is similar to the 2013 examination. 2. There is no sonographic evidence of hemodynamically significant stenosis in the right carotid arterial system. 3. Antegrade flow is shown in the vertebral arteries. 4. MRI Brain: IMPRESSION: 1. No evidence of acute or subacute infarction 2. No evidence of intracranial mass in this noncontrast study 3. Extensive foci of increased T2 signal within the white matter likely a small vessel basis 4. Stable ventricular prominence likely secondary to volume loss 5. Foci of increased T2 signal within the mastoids, likely inflammatory 5. Implantation of loop recorder - Ronny Tyson MD Consultations: 1. cardiology - Ronny Tyson MD 2. orthopedics - Bar Hancock DO 3. PT, OT Medication Reconciliation New Medications: Cyanocobalamin (Vitamin B-12) 500 Mcg Tab 1000 MCG PO QAM, #60 TAB 5 Refills Digoxin (Digoxin) 0.125 Mg Tab 0.125 MG PO DAILY@16, #30 TAB 5 Refills Midodrine (Midodrine HCl) 2.5 Mg Tab 2.5 MG PO TID@08,12,17, #90 TAB 5 Refills Continued Medications: Apixaban (Eliquis) 5 Mg Tab 5 MG PO BID Carvedilol (Coreg) 12.5 Mg Tab 12.5 MG PO QAM Carvedilol (Coreg) 6.25 Mg Tab 6.25 MG PO QPM Fluocinolone Acetonide (Fluocinolone Acetonide) Unknown Strength Cre 1 APPLN TOP BID 0.05% CREAM Gabapentin (Neurontin) 100 Mg Cap 100 MG PO TID Levothyroxine Sodium (Levothyroxine Sodium) 50 Mcg Tab 75 MCG PO DAILY Tolterodine Tartrate (Detrol LA) 4 Mg Capcr 4 MG PO DAILY Triamcinolone (Triamcinolone Acetonide) 60 Appln/60 Ml Lotn 1 APPLN TOP QPM Discharge Exam Physical Exam: General Appearance: no apparent distress ENT: pharynx normal Neck: no JVD Respiratory/Chest: lungs clear, no respiratory distress, no accessory muscle use Cardiovascular: regular rate, rhythm, no gallop, normal peripheral pulses, + systolic murmur (1/6 EMILIANO LSB) Abdomen / GI: normal bowel sounds, non tender, soft, no organomegaly Extremities: no pedal edema Neurologic/Psychiatric: no motor/sensory deficits, alert, normal mood/affect , normal reflexes, oriented x 3 Hospital Course HISTORY OF PRESENT ILLNESS: Ms. Mace is an 81yo female with history of paroxysmal a. fib, HTN, and prior episodes of syncope who presented after having another episode of syncope about 0800 on the AM of admission. The patient was sitting in a chair at her home when the event occurred. She did not feel any prodromal symptoms before hand and had some confusion afterwards per her . She denied loss of bowel or bladder. The patient's was with her when the event occurred. She had a similar episode a few years ago which was felt to be a TIA and she underwent an extensive work-up at that time without any specific cause found. A review of her inpatient and outpatient records shows she has had several normal/ negative EEGs, normal imaging of the brain, as well as a tilt table test in 2013. The tilt table test showed transient hypotension during the study. The patient reported she had had a stomach ache the night prior to admission so she didn't eat dinner then but otherwise had been eating and drinking normally. Denied diarrhea or vomiting. She denied any focal motor weakness. There was no witnessed seizure activity either. HOSPITAL COURSE: Following admission the patient underwent MRI brain which was negative for any acute stroke or ICH. Carotid duplex showed left-sided ICA stenosis but unchanged from three years prior. ECHO was normal except for a small LV cavity. The patient was seen in consult by Dr. Ronny Tyson, cardiology. There was concern that the patient's recurrent syncope was due to arrhythmia in light of her a. fib history. He suggested implantation of a loop recorder to capture her rhythm during a future event. She underwent loop recorder implantation without complication on 01/20/[address] Tyson. On the AM of 01/21/17 the patient was found slumped in her chair by the bedside with alteration in her mentation. She had a documented BP of about 70/40 with NORMAL telemetry during the event. After she was placed back in the bed her systolic BP improved to >100 and after a fluid bolus her BP completely normalized. With improvement in her blood pressure her mentation returned to normal. She had a normal neurological exam following this event. Ms. Mace had a second syncopal event on the AM of 01/22/17 which was nearly identical to the prior day's event. Again she was found slumped in her chair, was pale and sweaty, and had altered mental status. Her BP was so low it could not register. After moving her to the bed and placing her in trendelenberg her BP was about 110/55. After a fluid bolus her BP returned to normal. Telemetry during this event was completely NORMAL. Thus, given the extensive negative work-up in the past & during this admission, along with documented LOW blood pressures during her syncopal event, it was felt that transient hypotension was causing her events. The exact reason for the transient hypotension is uncertain as her orthostatic BPs are actually normal. Perhaps she has venous pooling in the legs during prolonged episodes of sitting which leads to poor venous return with subsequent hypoperfusion to the brain. Her small LV cavity seen on echocardiogram could also lower the threshold for these events, especially in times of dehydration/volume depletion. At time of discharge the following are recommended to avoid these syncopal spells - 1. midodrine 2.5mg TID 2. use of knee-high compression stockings 3. avoidance of prolonged episodes of sitting 4. avoidance of dehydration 5. allowing her systolic BPs to be permissively higher (140-150 range) in order to avoid iatrogenic hypotension For the 48 hours prior to discharge the patient had no further syncopal events, no dizziness, and no pre-syncopal symptoms. Other issues addressed: 1. atrial fibrillation - the patient had paroxysmal a. fib throughout her stay but was never symptomatic during runs of it. She never had a. fib during the syncopal events either. She will remain on coreg for rate control; digoxin was also added by Dr. Tyson for additional rate control. Digoxin level on day of discharge was 1.2. She will continue eliquis for anticoagulation. 2. chronic SIADH - she carries a diagnosis of such. Exact etiology of the SIADH is unknown. Sodium ranged from 126-131 while here. A review of the EMR shows her hyponatremia dates back to at least 2002. Cortisol and TSH levels were normal this stay. 3. vitamin B12 deficiency - her level was 260. Recommend 1000mcg of vitamin b12 daily for at least 6-12 months. 4. lumbar spinal stenosis with radiculopathy - she was seen in consult by Dr. Bar Hancock who recommended elective decompression-fusion in the future when medically stable. She has some ambulatory dysfunction as a result of this condition. Total Time Spent: Greater than 30 minutes This includes examination of the patient, discharge planning, medication reconciliation, and communication with other providers. Discharge Instructions Please refer to the electronic Patient Visit Report (Discharge Instructions) for additional information. Follow-Up 1. see veterinary medical officer of SNF within [address] Bar Hancock, [facility], within 1-2 weeks for lumbar spinal stenosis 3. see Dr. Ronny Tyson, [facility] cardiology, in 1 month Additional Copies To Julian Hancock D.O.; Love Gonzalez; Aleksandar Beckman M.D.; Ronny Tyson M.D.
[2017-01-24] MEDS ORDERED: DIGOXIN 0.125 MG TAB PO SCH (16:00)
[2017-01-24] MEDS ORDERED: CARVEDILOL 6.25 MG TAB PO SCH (21:00)
== END 2017-01-24 14:22 | DRG 261 ==
LOC: EDBD 09:48 → C.EDB 09:50 → C.MED 13:04 → ENRESERV 14:14 → C.2T 01-20 08:59
PROVIDERS: ADMIT Internal Medicine; ATTEND Internal Medicine
PROC: 0JH632Z Insertion of Monitoring Device into Chest Subcutaneous Tissue and Fascia, Percutaneous Approach (ICD-10-PCS; principal; 2017-01-20 08:30)
DX: R55 Syncope and collapse (principal); E22.2 Syndrome of inappropriate secretion of antidiuretic hormone; Z66 Do not resuscitate; I95.9 Hypotension, unspecified; R41.82 Altered mental status, unspecified; I10 Essential (primary) hypertension; I48.91 Unspecified atrial fibrillation; E03.9 Hypothyroidism, unspecified; G89.29 Other chronic pain; M19.90 Unspecified osteoarthritis, unspecified site; Z90.710 Acquired absence of both cervix and uterus; Z87.891 Personal history of nicotine dependence

== ENCOUNTER → 2017-04-26 | Outpatient (CLI) | payer OTHER ==
[~2017-04-26] MED LIST changes: -ACET-1311 PO; +CARV12.52 PO; +CARV6.252 PO; -CRG625 PO; +DTRSR4 PO; +GABA-112 PO; -LEVO50TA PO; +LEVO50TA6 PO; +LNX125 PO; +PRMT25 PO; -TOLT1CAP3 PO; +TRML160 TOP
[2017-04-26 16:56] LABS: BASO % 0.5 %; BASO ABS # 0.03 K/uL (0-0.2); EOS % 0.9 %; EOS ABS # 0.06 K/uL (0-0.5); HEMATOCRIT 35.3 % (37-47); HEMOGLOBIN 11.3 g/dL (12.0-16.0); IG# 0.02 K/uL (0.00-0.02); LYMPH ABS # 1.25 K/uL (1.2-3.4); MEAN CELL VOLUME 89.1 fL (80-100); MEAN CORPUSCULAR HEMOGLOBIN 28.5 pg (25-34); MEAN PLATELET VOLUME 8.7 fL (7.4-10.4); MONO % 10.6 %; NEUT % 68.7 %; NEUT ABS # 4.52 K/uL (1.4-6.5); PLATELET COUNT 366 K/uL (130-400); RED CELL DISTRIBUTION WIDTH CV 14.1 % (11.5-14.5); RED CELL DISTRIBUTION WIDTH SD 46.1 fL (36.4-46.3); WHITE BLOOD COUNT 6.58 K/uL (4.8-10.8)
[2017-04-26 17:08] LABS: ALBUMIN 4.2 gm/dl (3.4-5.0); ALT/SGPT 32 U/L (12-78); BLOOD UREA NITROGEN 19 mg/dl (7-18); CALCIUM 9.4 mg/dl (8.5-10.1); CARBON DIOXIDE 26 mmol/L (21-32); CREATININE 0.92 mg/dl (0.60-1.20); GLUCOSE 115 mg/dl (70-99); LIPASE 310 U/L (73-393); POTASSIUM 4.1 mmol/L (3.5-5.1); SODIUM 131 mmol/L (136-145)
[2017-04-26 17:10] LABS: ALKALINE PHOSPHATASE 72 U/L (45-117); AST/SGOT 22 U/L (15-37); TOTAL PROTEIN 8.2 gm/dl (6.4-8.2)
== END | disposition home or self-care (01) ==
LOC: C.LABBC 15:30
PROVIDERS: ATTEND Internal Medicine
DX: I10 Essential (primary) hypertension (principal); E22.2 Syndrome of inappropriate secretion of antidiuretic hormone; I48.92 Unspecified atrial flutter; G90.9 Disorder of the autonomic nervous system, unspecified

== ENCOUNTER 2017-05-07 10:38 | Inpatient (IN) | payer OTHER ==
[~2017-05-07] VITALS: Ht 165.1 cm; Wt 68.2 kg
[2017-05-07] VITALS (7 sets, daily range): BP systolic 177–215; BP diastolic 68–96; PULSE 80–94; TEMP 36.5–36.8; O2SAT 94–98; Ht 165.1 cm; Wt 68.2 kg
[~2017-05-07 10:38] MED LIST changes: +SODIUM CHLORIDE 0.9% 1000ML 1,000 ML IV SCH
--- NOTE | 2017-05-07 10:50 | DIAGNOSTIC IMAGING REPORT ---
HEAD WITHOUT CONTRAST (CT) CLINICAL HISTORY: 81 years-old Female presenting with Stroke, unresponsive, unable to speak. TECHNIQUE: Multidetector CT imaging of the head was performed without the use of intravenous contrast. IV contrast: None. A dose lowering technique was used consistent with the principles of ALARA (as low as reasonably achievable). COMPARISON: 01/18/2017. CT DOSE (mGy.cm): The estimated cumulative dose is 691.05 mGy.cm. FINDINGS: Advertising Executive topogram: Unremarkable. Proportional ventricular and sulcal prominence, likely age-related parenchymal volume loss. Periventricular and subcortical white matter hypoattenuation, nonspecific but likely indicative of chronic small vessel ischemic change. No mass effect or midline shift. No hemorrhage or acute territorial infarct. No extra-axial fluid collection. Paranasal sinuses and mastoid air cells clear. Calvarium intact. Several tribal lenses are absent. IMPRESSION: 1. Chronic small vessel ischemic change. No acute intracranial abnormality. Electronically signed by: Aleksandar Roman M.D. 05/07/2017 10:48 AM Dictated Date/Time: 05/07/2017 10:46 AM
[2017-05-07 11:02] LABS: BASO % 0.5 %; BASO ABS # 0.03 K/uL (0-0.2); EOS % 2.5 %; EOS ABS # 0.15 K/uL (0-0.5); HEMATOCRIT 31.5 % (37-47); HEMOGLOBIN 10.7 g/dL (12.0-16.0); IG# 0.03 K/uL (0.00-0.02); LYMPH ABS # 1.36 K/uL (1.2-3.4); MEAN CELL VOLUME 86.3 fL (80-100); MEAN CORPUSCULAR HEMOGLOBIN 29.3 pg (25-34); MEAN PLATELET VOLUME 8.1 fL (7.4-10.4); MONO % 9.1 %; MONO ABS # 0.54 K/uL (0.11-0.59); NEUT % 64.4 %; PLATELET COUNT 292 K/uL (130-400); RED CELL DISTRIBUTION WIDTH CV 14.1 % (11.5-14.5); RED CELL DISTRIBUTION WIDTH SD 44.5 fL (36.4-46.3); WHITE BLOOD COUNT 5.91 K/uL (4.8-10.8)
--- NOTE | 2017-05-07 11:02 | DIAGNOSTIC IMAGING REPORT ---
CHEST ONE VIEW PORTABLE CLINICAL HISTORY: 81 years-old Female presenting with Stroke. TECHNIQUE: Portable upright AP view of the chest was obtained. COMPARISON: 01/18/2017. FINDINGS: Atherosclerosis of the aortic arch. Cardiac silhouette normal in size. External device projects over the left heart border. No focal opacity. No large effusion or pneumothorax. Osseous structures normal. Upper abdomen normal. IMPRESSION: 1. No acute cardiopulmonary disease. Electronically signed by: Aleksandar Roman M.D. 05/07/2017 11:01 AM Dictated Date/Time: 05/07/2017 11:00 AM
[2017-05-07 11:11] LABS: PTT PATIENT 24.9 SECONDS (21.0-31.0)
[2017-05-07] MEDS ORDERED: ASPIRIN 81 MG CHEW PO STA (11:11)
[2017-05-07 11:18] LABS: BLOOD UREA NITROGEN 15 mg/dl (7-18); CALCIUM 8.9 mg/dl (8.5-10.1); CARBON DIOXIDE 25 mmol/L (21-32); CREATININE 0.95 mg/dl (0.60-1.20); GLUCOSE 104 mg/dl (70-99); POTASSIUM 3.9 mmol/L (3.5-5.1); SODIUM 130 mmol/L (136-145)
[2017-05-07 11:23] LABS: CKMB 3.3 ng/ml (0.5-3.6)
[2017-05-07] MEDS ORDERED: POLYETHYLENE (MIRALAX) 17 GM PACK PO PRN (12:45)
[2017-05-07] MEDS ORDERED: MAGNESIUM HYDROXIDE SUSP 30 ML UDC PO PRN (12:45)
[2017-05-07] MEDS ORDERED: ALUMINUM/MAGNESIUM/SIMETH (MAALOX MAX) 30 ML UDC PO PRN (12:45)
[2017-05-07] MEDS ORDERED: ONDANSETRON INJ 2 MG/ML 2 ML VIAL IV PRN (12:45)
[2017-05-07] MEDS ORDERED: PHARMACIST DISCHARGE MED REC CONSULT PRN (12:45)
[2017-05-07] MEDS ORDERED: IV FLUIDS COMPLETED PRN (13:30)
--- NOTE | 2017-05-07 13:34 | History and Physical ---
History & Physical Date & Time of Service: May 07, 2017 at 13:07 Chief Complaint: Stroke Alert Primary Care Physician: Aleksandar Beckman M.D. History of Present Illness Source: patient, family 81 years old lady with PMHx of A fib on Eliquis, HTN, hypothyroidism, hyperactive bladder, B12 deficiency and spinal DJD disease. patient had previous admissions for syncope and currently has a loop recorder placed by Dr. Tyson. today she was reading the news paper in the morning. her went to the bathroom and when he came out he found her slumped in the chair unresponsive. she was flaccid all limbs as per . non verbal, eyes closed. drooling from her mouth. she has taked her BP meds earlier. he took her BP and it was 66/45 and heart rate was 64. he called paramedics that came and took her to the hospital. as per ED physician when paramedics took her. her right side was flacid and she was nonverbal. by the time she arrived to the hospital she was fully responsive and following commands. code stroke was called by ED physician. last admission she had an echo that showed that was normal excep for a small LV avity 01/29 * -- Conclusions -- * 1. Small LV cavity. Borderline concentric LVH. * 2. Normal LV systolic function. LVEF 60-65%. No regional wall motion abnormalities. * 3. Normal RV size and function. * 4. No significant valvular pathology. * 5. Normal estimated PA and RA pressures. * 6. Compared with prior study on 06/23/2013: No significant changes noted. Past Medical/Surgical History Medical Problems: (1) Altered mental status (2) Atrial fibrillation (3) History of - hypertension (4) Stroke-like episode (5) Syncope (6) TIA (transient ischemic attack) (7) TIA (transient ischemic attack) Family History Patient reports no known family medical history. Social History Smoking Status: Former Smoker Marital Status: Housing status: lives with significant other Occupational Status: retired Immunizations History of Influenza Vaccine: Yes History of Tetanus Vaccine?: Unknown Tetanus Immunization Date: Dec 30, 2009 History of Pneumococcal: Yes Pneumococcal Date: Dec 30, 2006 History of Hepatitis B Vaccine: Unknown Allergies Coded Allergies: Amoxicillin (Verified Allergy, Intermediate, VERY SICK TO HER STOMACH, 01/18/17) Atorvastatin (Verified Allergy, Intermediate, RASH, 01/18/17) and rash Clavulanic Acid (Verified Allergy, Intermediate, VERY SICK TO HER STOMACH , 01/18/17) Tetracycline (Verified Allergy, Intermediate, ARMS SWELLED UP, 01/18/17) Tramadol (Verified Allergy, Intermediate, MAKES HER DIZZY AND CRAZEY, 01/18) SHANTEL Inhibitors (Verified Allergy, Mild, NOT SURE OF REACTIONS, 01/18/17) Rivaroxaban (Verified Allergy, Unknown, RASH, 01/18/17) Zolpidem (Verified Allergy, Unknown, ., 01/18/17) Uncoded Allergies: ERYTHROMYCN (Allergy, Intermediate, SICK TO HER STOMACH, 11/22/12) Home Medications Scheduled Apixaban (Eliquis), 5 MG PO BID Carvedilol (Coreg), 12.5 MG PO QAM Carvedilol (Coreg), 6.25 MG PO QPM Digoxin (Digoxin), 0.125 MG PO DAILY@16 Gabapentin (Neurontin), 100 MG PO BID Levothyroxine Sodium (Levothyroxine Sodium), 75 MCG PO DAILY Midodrine (Midodrine HCl), 2.5 MG PO TID@08,12,17 Tolterodine Tartrate (Detrol LA), 4 MG PO DAILY Triamcinolone (Triamcinolone Acetonide), 1 APPLN TOP QPM Review of Systems Review of system prior to her syncope she had no complaint whatsoever, does not remember what happened, Constitutional: No fever / no chills / no sweats / no weakness / no fatigue Eyes: no blurring of vision / no eye pain / no discharge / no redness ENT: no hearing loss / no epistaxis /no swallowing problems Respiratory: no cough / no wheezing / no SOB / no hemoptysis Cardiovascular: no Chest pain / no lower extremity edema / no palpitation Abdomen: no pain / no nausea / no vomiting / no constipation Musculoskeletal: no joint pain / no muscle pain / no joint swelling Genitourinary: no dysuria / no incontinence / no urinary retention Neurologic: no focal weakness / no numbness/tingling / no ataxia Psychiatric: no depression symptoms / no anxiety / no insomnia Endocrine: no excessive thirst / no excessive urination Hematologic: no abnormal bleeding / no bruising / no LN swelling Skin: No rash / no pallor Physical Exam Vital Signs Date Time Temp Pulse Resp B/P (MAP) Pulse Ox O2 Delivery O2 Flow Rate FiO2 05/07/17 12:30 75 05/07/17 11:39 98 Room Air 05/07/17 10:55 98 Room Air 05/07/17 10:52 75 05/07/17 10:46 36.5 78 16 148/80 Room Air Physical examination General patient appears to be comfortable, not in acute distress HEENT: Atraumatic , normocephalic /no jaundice /no pallor /anicteric /no dry mucous membrane /normal external ear inspection Neck: Supple /no swelling /central trach Heart: S1/S2 normal/regular rate and rhythm/no gallop /no rub /no murmur Lungs: Clear to auscultation bilaterally/normal chest with expansion/no rhonchi/ no rales/no wheezing/no use of accessory muscles of respiration Abdomen: Soft/nontender/no guarding/no rebound/no organomegaly/no pulsatile mass Musculoskeletal: No swelling/no edema/no tenderness/normal range of motion Neuro exam: Awake alert oriented 3/cranial nerves II through XII appear to be intact/sensation intact/moves all extremities/no abnormal movements Psychiatric evaluation: No depressed mood/normal affect Skin: No rash on exposed skin area/no erythema Extremity: Normal pulse/no pitting edema/no clubbing or cyanosis Endocrine/lymphatic: No obvious lymphadenopathy /no lymphedema Diagnostics Laboratory Results Results Past 24 Hours Test 05/07/17 10:49 05/07/17 12:45 Range/Units White Blood Count 5.91 4.8-10.8 K/uL Red Blood Count 3.65 4.2-5.4 M/uL Hemoglobin 10.7 12.0-16.0 g/dL Hematocrit 31.5 37-47 % Mean Corpuscular Volume 86.3 80-100 fL Mean Corpuscular Hemoglobin 29.3 25-34 pg Mean Corpuscular Hemoglobin Concent 34.0 32-36 g/dl Platelet Count 292 130-400 K/uL Mean Platelet Volume 8.1 7.4-10.4 fL Neutrophils (%) (Auto) 64.4 % Lymphocytes (%) (Auto) 23.0 % Monocytes (%) (Auto) 9.1 % Eosinophils (%) (Auto) 2.5 % Basophils (%) (Auto) 0.5 % Neutrophils # (Auto) 3.80 1.4-6.5 K/uL Lymphocytes # (Auto) 1.36 1.2-3.4 K/uL Monocytes # (Auto) 0.54 0.11-0.59 K/uL Eosinophils # (Auto) 0.15 0-0.5 K/uL Basophils # (Auto) 0.03 0-0.2 K/uL RDW Standard Deviation 44.5 36.4-46.3 fL RDW Coefficient of Variation 14.1 11.5-14.5 % Immature Granulocyte % (Auto) 0.5 % Immature Granulocyte # (Auto) 0.03 0.00-0.02 K/uL Prothrombin Time 10.7 9.0-12.0 SECONDS Prothromb Time International Ratio 1.0 0.9-1.1 Activated Partial Thromboplast Time 24.9 21.0-31.0 SECONDS Partial Thromboplastin Ratio 1.0 Sodium Level 130 136-145 mmol/L Potassium Level 3.9 3.5-5.1 mmol/L Chloride Level 95 98-107 mmol/L Carbon Dioxide Level 25 21-32 mmol/L Anion Gap 10.0 3-11 mmol/L Blood Urea Nitrogen 15 7-18 mg/dl Creatinine 0.95 0.60-1.20 mg/dl Est Creatinine Clear Calc Drug Dose 40.4 ml/min Estimated GFR () 64.2 Estimated GFR (Non- 55.4 BUN/Creatinine Ratio 15.3 10-20 Bedside Glucose 118 70-90 mg/dl Random Glucose 104 70-99 mg/dl Calcium Level 8.9 8.5-10.1 mg/dl Magnesium Level 2.1 1.8-2.4 mg/dl Total Creatine Kinase 167 26-192 U/L Creatine Kinase MB 3.3 0.5-3.6 ng/ml Creatine Kinase MB Ratio 2.0 0-3.0 Troponin I < 0.015 0-0.045 ng/ml Impression Assessment and Plan 81 years old lady with PMHx of A fib on Eliquis, HTN, hypothyroidism, hyperactive bladder, B12 deficiency and spinal DJD disease. Presented with recurrent episodes of hypotension and syncope. patient had previous admissions for syncope and currently has a loop recorder placed by Dr. Tyson. Assessment Recurrent syncope associated with transient hypotension reported by her paramedics focal weakness in the right side with aphasia, I think it is just the stages of her coming back to consciousness as she was completely flaccid at home A fib on Eliquis HTN hypothyroidism hyperactive bladder B12 deficiency spinal DJD disease Plan observe patient in telemetry held BP meds and started IVF order to interrogate loop recorder placed in nursing others highway truck driver consult placed Continue home meds except blood pressure medications for permissive hypertension , hold blood pressure medications MRA carotid (last admission US carotid showed up to 69% stenosis) 2D echo was done 01/29, will not repeat this admission unless highway truck driver wants to Empiric aspirin was given in ED, will hold it for now since she is on Eliquis and storry appears secondary to hypotension allergy to statin MRI/MRA of the brain Consult neurologist is not needed at this point as her syncope and neurological event was associated with hypotension and completely recovered after blood pressure improved PT/OT LDL was 81 on 01/29 check hemoglobin A1c to stratify patient's risk factors already on Eliquis for DVT prophylaxis Advanced Directives Existing Living Will: Yes Existing Power of Living Nurse: Yes Resuscitation Status VTE Prophylaxis Will order VTE Prophylaxis: Yes
--- NOTE | 2017-05-07 15:08 | DIAGNOSTIC IMAGING REPORT ---
BRAIN WITHOUT CONTRAST CLINICAL HISTORY: 81 years-old Female presenting with Stroke, syncope. TECHNIQUE: Multisequence, multiplanar MR imaging of the brain was performed without the use of intravenous contrast. IV contrast: None. COMPARISON: Noncontrast CT from earlier the same day. FINDINGS: Image quality is significantly degraded by motion artifact, which limits diagnostic sensitivity the exam. Proportional ventricular and sulcal prominence, likely age-related parenchymal volume loss. Periventricular and subcortical white matter T2/FLAIR hyperintensity, nonspecific but likely indicative of chronic small vessel ischemic change. No mass effect or midline shift. Limited focus of restricted diffusion in the subcortical white matter of the right frontal lobe. No extra-axial fluid collection. T2 skull base flow voids preserved. Bone marrow signal intensity within the calvarium within normal limits. Bilateral mastoid air cells. IMPRESSION: Image quality is significantly degraded by motion artifact, which limits diagnostic sensitivity the exam. 1. Findings suggest limited acute lacunar infarct in the subcortical white matter of the right frontal lobe. 2. Chronic small vessel ischemic change. Electronically signed by: Aleksandar Roman M.D. 05/07/2017 3:07 PM Dictated Date/Time: 05/07/2017 3:04 PM
--- NOTE | 2017-05-07 15:25 | DIAGNOSTIC IMAGING REPORT ---
MRA HEAD WITHOUT CONTRAST CLINICAL HISTORY: 81 years-old Female presenting with syncope, stroke. TECHNIQUE: MR angiography of the head was performed without the use of intravenous contrast using 3-D [id number] technique. 3-D volumetric and/or maximum intensity projection (MIP) images were subsequently reconstructed for review. IV contrast: None. COMPARISON: 01/03/2012. 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 Internal carotid arteries otherwise normal. Anterior and middle cerebral arteries patent. Anterior communicating artery hypoplastic or aplastic. Posterior circulation: Left dominant vertebral artery. Poor visualization of of the right vertebral artery possibly due to atherosclerotic plaque, slow flow, or diminutive caliber. Left posterior inferior cerebellar artery appears to supply both hemispheres in the PICA distribution. Basilar artery patent. Anterior inferior cerebellar arteries poorly visualized. Superior cerebellar and posterior cerebral arteries patent. Right posterior commuting artery patent. Left posterior communicating artery likely aplastic. IMPRESSION: 1. 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 No other significant stenosis, aneurysm, or focal vessel occlusion. Electronically signed by: Aleksandar Roman M.D. 05/07/2017 3:24 PM Dictated Date/Time: 05/07/2017 3:20 PM
[2017-05-07] MEDS ORDERED: GADAVIST IV PRN (15:30)
--- NOTE | 2017-05-07 15:54 | DIAGNOSTIC IMAGING REPORT ---
MRA NECK COMBO CLINICAL HISTORY: 81 years-old Female presenting with stroke alert, syncope this morning. TECHNIQUE: MR angiography of the neck was performed before and after the administration of intravenous contrast. 3-D volumetric and/or maximum intensity projection (MIP) images were subsequently reconstructed for review. IV contrast: 6.5 mL of Gadavist. Stenosis measurements were based on NASCET-like criteria. COMPARISON: Carotid Doppler ultrasound from 01/18/2017 and MRA neck from 2013. FINDINGS: Evaluation markedly degraded by motion artifact on all sequences significantly limiting the diagnostic sensitivity the exam. Localizer images: Unremarkable. Aortic arch: Normal three-vessel aortic arch. Innominate artery: Patent. Right common carotid artery: Patent. Right internal and external carotid arteries: Right carotid bifurcation patent. Right internal and external carotid arteries widely patent. Left common carotid artery: Atherosclerotic plaque results and irregularity at the carotid bulb. Left internal and external carotid arteries: Mild irregularity of the origin of the left internal carotid artery though the remainder of the artery remains widely patent. Less than 50% stenosis at the proximal left ICA. Left ECA patent. Left subclavian artery: Patent. Vertebral arteries: Left dominant vertebral artery. Origin of the left vertebral artery not included within the [id number]. Origin of the right vertebral artery either stenotic, with slow flow, or diminutive. Remainder of the courses of the vertebral arteries grossly patent. Other: Limited intracranial evaluation within normal limits. Soft tissues of the neck normal allowing for the phase of contrast. IMPRESSION: Evaluation markedly degraded by motion artifact on all sequences significantly limiting the diagnostic sensitivity the exam. 1. No hemodynamically significant stenosis, dissection, or focal vessel occlusion. 2. Atherosclerotic plaque results in mild irregularity of the origin and proximal left internal carotid artery with less than 50% stenosis. 3. Additional limitations of the examination is above. Electronically signed by: Aleksandar Roman M.D. 05/07/2017 3:52 PM Dictated Date/Time: 05/07/2017 3:47 PM
[2017-05-07] MEDS: SODIUM CHLORIDE 0.9% 1000ML 1,000 ML IV SCH (15:55)
[2017-05-07] MEDS: DIGOXIN 0.125 MG TAB PO SCH (16:21)
--- NOTE | 2017-05-07 16:54 | EMERGENCY ROOM VISIT NOTE ---
History Report prepared by Galo: Natty Guzman Under the Supervision of: Dr. Kelvin Espinoza D.O. First contact with patient: 10:34 Stated Complaint: STROKE ALERT History of Present Illness The patient is a 81 year old female who presents to the Emergency Room with complaints of an episode of a possible stroke beginning at 930 am this morning. Per EMS, the patient became unresponsive around 9:30 am. When EMS arrived, the patient was not able to speak and her right upper extremity was flaccid. Presently, the patient has no complaints and is following commands. She denies any weakness in her arms or legs. Patient does note that she has had multiple syncopal episodes before in the past. She is unsure if the weakness in the right lower extremity is new or old. Pt denies headache, change in vision, fevers, chest pain, shortness of breath, nausea, vomiting, diarrhea, pain with urination, and melena. The patient is on Eliquis. She reports taking her blood thinner yesterday. She is unsure of what she is on a blood thinner for. History is limited secondary to mentation. Source of History: patient Onset: 930 Position: other (generalized) Quality: other (possible stroke) Associated Symptoms: No chest pain, No SOB, No nausea, No vomiting, No weakness Review of Systems See HPI for pertinent positives & negatives. A total of 10 systems reviewed and were otherwise negative. Past Medical & Surgical Medical Problems: (1) History of - hypertension (2) Hypotension Family History Patient reports no known family medical history. Social History Smoking Status: Former Smoker Marital Status: Housing Status: lives with family Occupation Status: retired Current/Historical Medications Scheduled Apixaban (Eliquis), 5 MG PO BID Carvedilol (Coreg), 12.5 MG PO QAM Carvedilol (Coreg), 6.25 MG PO QPM Digoxin (Digoxin), 0.125 MG PO DAILY@16 Gabapentin (Neurontin), 100 MG PO BID Levothyroxine Sodium (Levothyroxine Sodium), 75 MCG PO DAILY Midodrine (Midodrine HCl), 2.5 MG PO TID@08,12,17 Tolterodine Tartrate (Detrol LA), 4 MG PO DAILY Triamcinolone (Triamcinolone Acetonide), 1 APPLN TOP QPM Allergies Coded Allergies: Amoxicillin (Verified Allergy, Intermediate, VERY SICK TO HER STOMACH, 01/18/17) Atorvastatin (Verified Allergy, Intermediate, RASH, 01/18/17) and rash Clavulanic Acid (Verified Allergy, Intermediate, VERY SICK TO HER STOMACH , 01/18/17) Tetracycline (Verified Allergy, Intermediate, ARMS SWELLED UP, 01/18/17) Tramadol (Verified Allergy, Intermediate, MAKES HER DIZZY AND CRAZEY, 01/18) SHANTEL Inhibitors (Verified Allergy, Mild, NOT SURE OF REACTIONS, 01/18/17) Erythromycin (Verified Allergy, Unknown, UPSET STOMACH, 05/07/17) Rivaroxaban (Verified Allergy, Unknown, RASH, 01/18/17) Zolpidem (Verified Allergy, Unknown, ., 01/18/17) Physical Exam Vital Signs Date Time Temp Pulse Resp B/P (MAP) Pulse Ox O2 Delivery O2 Flow Rate FiO2 05/07/17 13:06 77 15 185/92 96 Room Air 05/07/17 12:30 75 05/07/17 11:39 98 Room Air 05/07/17 10:55 98 Room Air 05/07/17 10:52 75 05/07/17 10:46 36.5 78 16 148/80 Room Air Physical Exam GENERAL: Laying on stretcher, alert, ill appearing, no acute distress. EYE EXAM: normal conjunctiva. PERRL and EOM's intact. OROPHARYNX: no exudate, no erythema, lips, buccal mucosa, and tongue normal and mucous membranes are moist NECK: supple, no nuchal rigidity, no adenopathy, non-tender LUNGS: Clear to auscultation. Normal chest wall mechanics HEART: no murmurs, S1 normal and S2 normal ABDOMEN: abdomen soft, non-tender, normo-active bowel sounds, no masses, no rebound or guarding. BACK: Back is symmetrical on inspection and there is no deformity, no midline tenderness, no CVA tenderness. SKIN: no rashes and no bruising UPPER EXTREMITIES: upper extremities are grossly normal. LOWER EXTREMITIES: No pitting edema. NEURO EXAM: Awake, alert, oriented to person and place, but not year. Following commands, normal speech, no weakness of upper, 3/5 weakness in right lower leg with flexion of hips, no weakness in left lower externally. no drift. Medical Decision & Procedures ER Provider Diagnostic Interpretation: Radiology results as stated below per my review and the radiologist's interpretation: CHEST ONE VIEW PORTABLE FINDINGS: Atherosclerosis of the aortic arch. Cardiac silhouette normal in size. External device projects over the left heart border. No focal opacity. No large effusion or pneumothorax. Osseous structures normal. Upper abdomen normal. IMPRESSION: 1. No acute cardiopulmonary disease. Electronically signed by: Aleksandar Roman M.D. HEAD WITHOUT CONTRAST (CT) FINDINGS: Construction Checker topogram: Unremarkable. Proportional ventricular and sulcal prominence, likely age-related parenchymal volume loss. Periventricular and subcortical white matter hypoattenuation, nonspecific but likely indicative of chronic small vessel ischemic change. No mass effect or midline shift. No hemorrhage or acute territorial infarct. No extra-axial fluid collection. Paranasal sinuses and mastoid air cells clear. Calvarium intact. Several makah lenses are absent. IMPRESSION: 1. Chronic small vessel ischemic change. No acute intracranial abnormality. Electronically signed by: Aleksandar Roman M.D. Laboratory Results 05/07/17 10:49 Red Blood Count 3.65, Mean Corpuscular Volume 86.3, Mean Corpuscular Hemoglobin 29.3, Mean Corpuscular Hemoglobin Concent 34.0, Mean Platelet Volume 8.1, Neutrophils (%) (Auto) 64.4, Lymphocytes (%) (Auto) 23.0, Monocytes (%) (Auto) 9.1, Eosinophils (%) (Auto) 2.5, Basophils (%) (Auto) 0.5, Neutrophils # (Auto) 3.80, Lymphocytes # (Auto) 1.36, Monocytes # (Auto) 0.54, Eosinophils # (Auto) 0.15, Basophils # (Auto) 0.03 05/07/17 10:49 Test 05/07/17 10:49 05/07/17 10:50 White Blood Count 5.91 K/uL (4.8-10.8) Red Blood Count 3.65 M/uL (4.2-5.4) Hemoglobin 10.7 g/dL (12.0-16.0) Hematocrit 31.5 % (37-47) Mean Corpuscular Volume 86.3 fL (80-100) Mean Corpuscular Hemoglobin 29.3 pg (25-34) Mean Corpuscular Hemoglobin Concent 34.0 g/dl (32-36) Platelet Count 292 K/uL (130-400) Mean Platelet Volume 8.1 fL (7.4-10.4) Neutrophils (%) (Auto) 64.4 % Lymphocytes (%) (Auto) 23.0 % Monocytes (%) (Auto) 9.1 % Eosinophils (%) (Auto) 2.5 % Basophils (%) (Auto) 0.5 % Neutrophils # (Auto) 3.80 K/uL (1.4-6.5) Lymphocytes # (Auto) 1.36 K/uL (1.2-3.4) Monocytes # (Auto) 0.54 K/uL (0.11-0.59) Eosinophils # (Auto) 0.15 K/uL (0-0.5) Basophils # (Auto) 0.03 K/uL (0-0.2) RDW Standard Deviation 44.5 fL (36.4-46.3) RDW Coefficient of Variation 14.1 % (11.5-14.5) Immature Granulocyte % (Auto) 0.5 % Immature Granulocyte # (Auto) 0.03 K/uL (0.00-0.02) Erythrocyte Sedimentation Rate 16 mm/hr (0-21) Prothrombin Time 10.7 SECONDS (9.0-12.0) Prothromb Time International Ratio 1.0 (0.9-1.1) Activated Partial Thromboplast Time 24.9 SECONDS (21.0-31.0) Partial Thromboplastin Ratio 1.0 Anion Gap 10.0 mmol/L (3-11) Est Creatinine Clear Calc Drug Dose 40.4 ml/min Estimated GFR () 64.2 Estimated GFR (Non- 55.4 BUN/Creatinine Ratio 15.3 (10-20) Bedside Glucose 118 mg/dl (70-90) Calcium Level 8.9 mg/dl (8.5-10.1) Magnesium Level 2.1 mg/dl (1.8-2.4) Total Creatine Kinase 167 U/L (26-192) Creatine Kinase MB 3.3 ng/ml (0.5-3.6) Creatine Kinase MB Ratio 2.0 (0-3.0) Troponin I < 0.015 ng/ml (0-0.045) Bedside Prothrombin Time INR 1.3 (0.9-1.1) Laboratory results per my review. Medications Administered Medications (Trade) Dose Ordered Sig/Dereje Route Start Time Stop Time Status Last Admin Dose Admin Sodium Chloride 1,000 ml @ 50 mls/hr Q20H IV 05/07/17 10:38 05/07/17 14:56 DC 05/07/17 11:15 50 MLS/HR Aspirin (Aspirin Chew) 81 mg NOW STAT PO 05/07/17 11:11 05/07/17 11:12 DC 05/07/17 12:01 81 MG ECG Per My Interpretation Indication: weakness Rate (beats per minute): 77 Rhythm: sinus rhythm Findings: Q waves (Septal), other (No PVC) ED Course ED COURSE: Vital signs were reviewed and showed hypertensive The patients medical record was reviewed The above diagnostic studies were performed and reviewed. ED treatments and interventions as stated above. 1038: The patient was evaluated in room B1. A complete history and physical examination was performed. Ordered Sodium Chloride 1000 ml @ 50 mls/hr IV. 1051: I reviewed the patient's case with Dr. Ball-Neurology. 1111: Ordered Aspirin 81 mg PO. 1150: at bedside. He reports the patient became unresponsive this morning at 0930. The states when EMS arrived she was following commands but still unable to speak. The patient's states the patient has had episodes of unresponsiveness in the past. He reports at baseline the patient has normal and equal strength in her lower and upper extremities. The patient's is agreeable to have her come in overnight for evaluation. 1221: I reviewed the patient's case [place] Sussy [place] [place] He will evaluate the patient for further management. 1226: Upon reevaluation, the patient is resting comfortably.I discussed my findings with the patient and her . She understands and agrees with the treatment plan. Based on the patients age, coexisting illnesses, exam and lab findings the decision to treat as an inpatient was made.The patient remained stable while under my care. The patient will be evaluated for further management. Medical Decision Differential Diagnosis includes but is not limited to ischemic Stroke, hemorrhagic stroke, bells palsy, mass, neoplasm, migraine headache, seizure, subarachnoid hemorrhage, TIA, and transient global amnesia. Patient is an 81-year-old female who presents to ER. I received medical command call on her and she was having weakness and a fascia prior to presentation which started at 9 AM this morning. Medics note that this is improving significantly. Upon presentation she is able to follow commands although slightly confused and only has minimal weakness in the right lower extremity. Patient does take Eliquis. Stroke alert was called and she was taken immediately to CT. I did discuss with Dr. Kale Webster from [place] tele- stroke and since the patient is not a candidate for TPA we elected to not perform electronic evaluation. CT head was negative. Patient symptoms improved significantly throughout the stay in the ER. She was given aspirin and fluids. Discussed with patient was agreeable to admission eventually after multiple conversations. CBC was unremarkable. BMP with mild hyponatremia. Troponin was negative. At the time of admission I do favor this likely secondary to her stroke as does not believe that she normally has a focal deficit on the right lower extremity. Medication Reconcilliation Current Medication List: was personally reviewed by me Blood Pressure Screening Patient's blood pressure: Elevated blood pressure Blood pressure disposition: Elevated BP felt to be situational Consults Time Called: 1045 Consulting Physician: Dr. Ball-Ne Returned Call: 1051 I reviewed the patient's case with Dr. Gmaez. Additional Consults: Time Called: 1230 Consulted Physician: Dr. Sussy Jackson Returned Call: 1241 Additional Comments: I reviewed the patient's case with Dr. Sussy Jackson. He will evaluate the patient for further management. Impression Primary Impression: CVA (cerebral vascular accident) Scribe Attestation The scribe's documentation has been prepared under my direction and personally reviewed by me in its entirety. I confirm that the note above accurately reflects all work, treatment, procedures, and medical decision making performed by me. Departure Information Dispostion Being Evaluated By Hospitalist Referrals Aleksandar Beckman M.D. (PCP) Stroke History Time Last Known Well 929 Stroke t-PA Criteria Reviewed Does NOT meet criteria for t-PA Reason t-PA Not Given Treatment not indicated (secondary to anticoagualtion) Problem Qualifiers Primary Impression: CVA (cerebral vascular accident) CVA mechanism: unspecified Qualified Codes: I63.9 - Cerebral infarction, unspecified
[2017-05-07] MEDS ORDERED: MIDODRINE 2.5 MG TAB PO SCH (17:00)
[2017-05-07] MEDS ORDERED: NURSING VERBAL MED ORDER ONE (17:30)
--- NOTE | 2017-05-07 19:04 | Cardiology Consultation ---
Cardiology Consultation Date of Consultation: May 07, 2017. Requesting Physician: Keon Reason for Consultation: Syncope Pt evaluation today including: conversation w/ patient, conversation w/ family , physical exam, chart review, lab review, review of studies, review of inpatient medication list History of Present Illness The patient is an 81-year-old woman with a history of syncope. She was admitted in January of 2017 with an episode of syncope and was witnessed to have a similar episode in the hospital. At that time she had undergone implantation of loop recorder but later was noted to have syncope with normal rhythm on telemetry. She was felt to be hypotensive and started on midodrine therapy. She was sent home without events until this morning. According to the patient and her family she was feeling well. She apparently was reading the paper in a seated position it was noted by her to be him unresponsive and flaccid. He measured her blood pressure with an automated cuff and it was low with systolics in the 60s. He waited for period of time to see if she recover. Visiting nurse came by and they decided to contact EMS which brought her to [facility]. There was some concern regarding focal weakness which eventually resolved. Patient had no definite recollection of the event. She cannot recall any prodrome leading up to the event. She denies any sense of dizziness or lightheadedness. She did not describe symptoms of nausea or diaphoresis. Afterwards she felt normal. She did not seem to have undue fatigue. She appeared to be aware of her surroundings. According to her by the time she reached the emergency room she was her usual self. The patient suffers from spinal stenosis and has some difficulty with ambulation. She generally gets around with a walker. She generally does not have dizziness or lightheadedness. She otherwise been feeling well recently. Past Medical/Surgical History Vasodepressor syncope Paroxysmal atrial fibrillation Spinal stenosis Hypertension Hypothyroidism Mild dementia Subclavian artery stenosis SIADH Past surgical history Appendectomy Breast surgery Hysterectomy Lumbar laminectomy Implantation of [employer] loop recorder Family History Patient reports no known family medical history. Noncontributory given her advanced age Social History Smoking Status: Former Smoker History of Alcohol Use: Yes (1 to 2 glasses wine a day) Currently lives with her Review of Systems Per HPI. No change in her eating habits. Urinating quite frequently. No diarrhea. No recent constitutional symptoms such as fevers or chills. Minimal swelling in her lower extremities with use of compression stockings. Her ambulation is limited by her back pain for which she receives injections. All Other Systems: Reviewed and Negative Allergies Coded Allergies: Amoxicillin (Verified Allergy, Intermediate, VERY SICK TO HER STOMACH, 01/18/17) Atorvastatin (Verified Allergy, Intermediate, RASH, 01/18/17) and rash Clavulanic Acid (Verified Allergy, Intermediate, VERY SICK TO HER STOMACH , 01/18/17) Tetracycline (Verified Allergy, Intermediate, ARMS SWELLED UP, 01/18/17) Tramadol (Verified Allergy, Intermediate, MAKES HER DIZZY AND CRAZEY, 01/18) SHANTEL Inhibitors (Verified Allergy, Mild, NOT SURE OF REACTIONS, 01/18/17) Erythromycin (Verified Allergy, Unknown, UPSET STOMACH, 05/07/17) Rivaroxaban (Verified Allergy, Unknown, RASH, 01/18/17) Zolpidem (Verified Allergy, Unknown, ., 01/18/17) Medications Current Inpatient Medications Medications (Trade) Dose Ordered Sig/Dereje Route Start Time Stop Time Status Last Admin Dose Admin Digoxin (Lanoxin Tab) 0.125 mg DAILY@16 PO 05/07/17 16:00 06/06/17 15:59 05/07/17 16:21 0.125 MG Gabapentin (Neurontin Cap) 100 mg BID PO 05/07/17 21:00 06/06/17 20:59 Levothyroxine Sodium (Synthroid Tab) 75 mcg DAILYBB PO 05/08/17 06:00 06/07/17 05:59 Tolterodine Tartrate (Detrol LA Cap) 4 mg DAILY PO 05/08/17 09:00 06/07/17 08:59 Apixaban (Eliquis Tab) 5 mg BID PO 05/07/17 21:00 06/06/17 20:59 Miscellaneous Information (Order Awaiting Action) 1 ea QS N/A 05/07/17 16:00 06/06/17 15:59 Sodium Chloride 1,000 ml @ 75 mls/hr [id number] IV 05/07/17 15:00 06/06/17 14:59 05/07/17 15:55 75 MLS/HR Acetaminophen (Tylenol Tab) 650 mg Q4H PRN PO 05/07/17 12:45 06/06/17 12:44 Al Hydrox/Mg Hydrox/Simethicone (Maalox Max Susp) 15 ml Q4H PRN PO 05/07/17 12:45 06/06/17 12:44 Magnesium Hydroxide (Milk Of Magnesia Susp) 30 ml Q12H PRN PO 05/07/17 12:45 06/06/17 12:44 Ondansetron HCl (Zofran Inj) 4 mg Q6H PRN IV 05/07/17 12:45 06/06/17 12:44 Polyethylene (Miralax Powder Packet) 17 gm DAILY PRN PO 05/07/17 12:45 06/06/17 12:44 Miscellaneous Information (Pharmacist Discharge Med Rec Consult) 1 ea UD PRN N/A 05/07/17 12:45 06/06/17 12:44 Miscellaneous (Iv Fluids Completed) 1 ea PRN PRN N/A 05/07/17 13:30 05/07/18 13:29 Cyanocobalamin (Vitamin B-12 Tab) 1,000 mcg QAM PO 05/08/17 09:00 06/07/17 08:59 Gadobutrol (Gadavist) 6.5 mmol UD PRN IV 05/07/17 15:30 05/11/17 15:29 Physical Exam Vital Signs Past 12 Hours Date Time Temp Pulse Resp B/P (MAP) Pulse Ox O2 Delivery O2 Flow Rate FiO2 05/07/17 16:21 84 05/07/17 16:00 Room Air 05/07/17 14:06 36.5 81 19 194/96 (128) 95 Room Air 05/07/17 13:06 77 15 185/92 96 Room Air 05/07/17 12:30 75 05/07/17 11:39 98 Room Air 05/07/17 10:55 98 Room Air 05/07/17 10:52 75 05/07/17 10:46 36.5 78 16 148/80 Room Air She is alert and oriented x3. Mood affect appear normal. She answered all questions appropriately. HEENT: Sclerae are anicteric. Pupils are equal and reactive to light and accommodation. Extraocular movements were intact. Neuro: Cranial nerves intact Neck: Examination of the submandibular region did not reveal any significant lymphadenopathy. Carotids are palpable bilaterally and free of bruits on auscultation. There was no evidence of jugular venous distention. The thyroid was not enlarged. Lungs: Lungs are clear to auscultation bilaterally. There are no rales wheezes or rhonchi. She has normal respiratory effort without use of accessory muscles. There is normal pulmonary excursion. Cardiac: The rhythm was regular. S1 and S2 were normal. There are no murmurs on examination. The PMI was not markedly displaced on palpation. Abdomen: The abdomen was soft and nontender. Extremities: Patient has bilateral radial pulses that are equal in intensity. There is no evidence cyanosis or clubbing. There was no evidence of significant peripheral edema bilaterally. Skin: There are no rashes noted on examination today. Data Laboratory Results: Last 24 Hours Test 05/07/17 10:49 05/07/17 10:50 05/07/17 18:47 White Blood Count 5.91 K/uL Red Blood Count 3.65 M/uL Hemoglobin 10.7 g/dL Hematocrit 31.5 % Mean Corpuscular Volume 86.3 fL Mean Corpuscular Hemoglobin 29.3 pg Mean Corpuscular Hemoglobin Concent 34.0 g/dl Platelet Count 292 K/uL Mean Platelet Volume 8.1 fL Neutrophils (%) (Auto) 64.4 % Lymphocytes (%) (Auto) 23.0 % Monocytes (%) (Auto) 9.1 % Eosinophils (%) (Auto) 2.5 % Basophils (%) (Auto) 0.5 % Neutrophils # (Auto) 3.80 K/uL Lymphocytes # (Auto) 1.36 K/uL Monocytes # (Auto) 0.54 K/uL Eosinophils # (Auto) 0.15 K/uL Basophils # (Auto) 0.03 K/uL RDW Standard Deviation 44.5 fL RDW Coefficient of Variation 14.1 % Immature Granulocyte % (Auto) 0.5 % Immature Granulocyte # (Auto) 0.03 K/uL Erythrocyte Sedimentation Rate 16 mm/hr Prothrombin Time 10.7 SECONDS Prothromb Time International Ratio 1.0 Activated Partial Thromboplast Time 24.9 SECONDS Partial Thromboplastin Ratio 1.0 Sodium Level 130 mmol/L Potassium Level 3.9 mmol/L Chloride Level 95 mmol/L Carbon Dioxide Level 25 mmol/L Anion Gap 10.0 mmol/L Blood Urea Nitrogen 15 mg/dl Creatinine 0.95 mg/dl Est Creatinine Clear Calc Drug Dose 40.4 ml/min Estimated GFR () 64.2 Estimated GFR (Non- 55.4 BUN/Creatinine Ratio 15.3 Bedside Glucose 118 mg/dl Random Glucose 104 mg/dl Calcium Level 8.9 mg/dl Magnesium Level 2.1 mg/dl Total Creatine Kinase 167 U/L Creatine Kinase MB 3.3 ng/ml Creatine Kinase MB Ratio 2.0 Troponin I < 0.015 ng/ml Bedside Prothrombin Time INR 1.3 Imaging: MRI suggested a acute lacunar infarct. Normal MRA. Normal head CT. Normal chest x-ray. EKG: Normal sinus rhythm Telemetry reviewed: Normal sinus rhythm I performed interrogation of loop recorder. She did have 1 episode of atrial fibrillation lasting over 6 hours in March. No recent events. Echocardiogram performed 02/20/2016. Preserved LV systolic function. No significant valvular heart disease Assessment & Plan 1. Syncope: Patient had a fairly extended period of unresponsiveness. This appears to be associated with hypotension and is consistent with her other recorded episodes. There does not appear to be any relationship to arrhythmia. She is currently admitted dream but has elevated blood pressures here in the hospital. On an outpatient basis her blood pressures appear to be more reasonably controlled. She is currently on carvedilol for rate control of her atrial fibrillation which appears to be adequate given the rate histograms recorded through her loop recorder. I do not think eliminating the carvedilol will be beneficial. I am not confident that the midodrine has been effective in controlling her episodes but does seem to produce an element of hypertension. She may be better served with a switch to fludrocortisone. She should continue to wear compression stockings even thigh-high stockings or bicycle short. She should liberalize her sodium intake. The presumed mechanism of her syncope is vasodepressor. She is not appear to have any prodrome or warning which is unfortunate. I do not see an other approximate cause or necessary trigger for these episodes. 2. Atrial fibrillation: Paroxysmal. No symptoms. Continuing on anticoagulation. Eliquis appears to be dosed appropriately at this time.
[2017-05-07 19:25] LABS: CKMB 3.4 ng/ml (0.5-3.6)
[2017-05-07] MEDS: ACETAMINOPHEN 325 MG TAB PO PRN (20:11)
[2017-05-07] MEDS: GABAPENTIN 100 MG CAP PO SCH (20:11)
[2017-05-07] MEDS: APIXABAN 2.5 MG TAB PO SCH (20:12)
[2017-05-07] MEDS ORDERED: METOPROLOL TARTRATE 1 MG/ML VIAL IV PRN (20:30)
[2017-05-08] VITALS (10 sets, daily range): BP systolic 95–188; BP diastolic 71–120; PULSE 85–106; TEMP 36.4–37.1; O2SAT 92–99
[2017-05-08 03:04] LABS: BASO % 0.3 %; BASO ABS # 0.02 K/uL (0-0.2); EOS % 2.6 %; EOS ABS # 0.16 K/uL (0-0.5); HEMATOCRIT 31.9 % (37-47); HEMOGLOBIN 10.4 g/dL (12.0-16.0); IG# 0.02 K/uL (0.00-0.02); LYMPH % 24.2 %; LYMPH ABS # 1.46 K/uL (1.2-3.4); MEAN CELL VOLUME 86.4 fL (80-100); MEAN CORPUSCULAR HEMOGLOBIN 28.2 pg (25-34); MEAN CORPUSCULAR HGB CONC 32.6 g/dl (32-36); MEAN PLATELET VOLUME 7.9 fL (7.4-10.4); MONO % 9.6 %; MONO ABS # 0.58 K/uL (0.11-0.59); PLATELET COUNT 281 K/uL (130-400); RED CELL DISTRIBUTION WIDTH CV 14.2 % (11.5-14.5); RED CELL DISTRIBUTION WIDTH SD 44.7 fL (36.4-46.3); WHITE BLOOD COUNT 6.04 K/uL (4.8-10.8)
[2017-05-08 03:32] LABS: ALBUMIN 3.5 gm/dl (3.4-5.0); ALKALINE PHOSPHATASE 54 U/L (45-117); ALT/SGPT 22 U/L (12-78); AST/SGOT 18 U/L (15-37); BLOOD UREA NITROGEN 9 mg/dl (7-18); CALCIUM 8.5 mg/dl (8.5-10.1); CARBON DIOXIDE 24 mmol/L (21-32); CKMB 3.7 ng/ml (0.5-3.6); CREATININE 0.69 mg/dl (0.60-1.20); GLUCOSE 95 mg/dl (70-99); POTASSIUM 3.6 mmol/L (3.5-5.1); SODIUM 132 mmol/L (136-145); TOTAL PROTEIN 7.1 gm/dl (6.4-8.2)
[2017-05-08] MEDS: SODIUM CHLORIDE 0.9% 1000ML 1,000 ML IV SCH ×2 (04:19→16:32)
[2017-05-08] MEDS: LEVOTHYROXINE 75 MCG TAB PO SCH (05:15)
[2017-05-08 07:42] LABS: HEMOGLOBIN A1C 5.4 % (4.5-5.6)
[2017-05-08] MEDS: APIXABAN 2.5 MG TAB PO SCH ×3 (08:13→21:06)
[2017-05-08] MEDS: TOLTERODINE TARTRATE LA 4 MG CAPCR PO SCH (08:13)
[2017-05-08] MEDS: ASPIRIN 81 MG ECTAB PO SCH (08:13)
[2017-05-08] MEDS: GABAPENTIN 100 MG CAP PO SCH ×3 (08:13→21:06)
[2017-05-08] MEDS: CYANOCOBALAMIN 500 MCG TAB (VIT B-12) PO SCH (08:14)
--- NOTE | 2017-05-08 09:08 | Hospitalist Progress Note ---
Hospitalist Progress Note Date of Service May 08, 2017. (Macie Noe PA-C) Subjective Pt evaluation today including: conversation w/ patient, physical exam, chart review, lab review, review of studies Pain: None PO Intake: Good Voiding: no voiding problems The patient was seen and examined this morning. Pt reports doing ok today. (Macie Noe PA-C) Objective Vital Signs Date Time Temp Pulse Resp B/P (MAP) Pulse Ox O2 Delivery O2 Flow Rate FiO2 05/08/17 08:14 105 127/72 (90) 96 05/08/17 08:10 97 132/78 (96) 95 05/08/17 08:07 36.4 94 18 158/73 (101) 94 05/08/17 08:00 Room Air 05/08/17 03:15 Room Air 05/08/17 03:14 36.5 87 20 176/84 (114) 92 Room Air 05/08/17 00:44 136/81 (99) 05/07/17 23:55 Room Air 05/07/17 23:15 94 215/79 (124) 05/07/17 23:12 88 191/68 (109) 05/07/17 23:10 36.8 86 22 184/73 (110) 97 Room Air 05/07/17 20:00 Room Air 05/07/17 19:05 36.7 80 20 177/85 (115) 94 Room Air 05/07/17 16:21 84 05/07/17 16:00 Room Air 05/07/17 14:06 36.5 81 19 194/96 (128) 95 Room Air 05/07/17 13:06 77 15 185/92 96 Room Air 05/07/17 12:30 75 05/07/17 11:39 98 Room Air 05/07/17 10:55 98 Room Air 05/07/17 10:52 75 05/07/17 10:46 36.5 78 16 148/80 Room Air (Macie Noe PA-C) Physical Exam General Appearance: WD/WN, no apparent distress Eyes: PERRL, EOMI ENT: hearing grossly normal, pharynx normal, + pertinent finding (MMM) Neck: supple, no JVD Respiratory/Chest: no respiratory distress, no accessory muscle use, + pertinent finding (on room air, faint crackles in the LLL) Cardiovascular: regular rate, rhythm, no murmur Abdomen: normal bowel sounds, non tender, soft Extremities: non-tender, no pedal edema, no calf tenderness Neurologic/Psychiatric: alert, oriented x 3, + pertinent finding (+ weakness in the R hip flexor, rated 4/5 on exam compared to the L. ) Skin: normal color, warm/dry, + pertinent finding (few ecchymotic regions over the L ant tibial region) (Macie Noe, MORIAH) Laboratory Results Last 24 Hours Test 05/07/17 10:49 05/07/17 10:50 05/07/17 18:47 05/07/17 23:55 White Blood Count 5.91 K/uL Red Blood Count 3.65 M/uL Hemoglobin 10.7 g/dL Hematocrit 31.5 % Mean Corpuscular Volume 86.3 fL Mean Corpuscular Hemoglobin 29.3 pg Mean Corpuscular Hemoglobin Concent 34.0 g/dl Platelet Count 292 K/uL Mean Platelet Volume 8.1 fL Neutrophils (%) (Auto) 64.4 % Lymphocytes (%) (Auto) 23.0 % Monocytes (%) (Auto) 9.1 % Eosinophils (%) (Auto) 2.5 % Basophils (%) (Auto) 0.5 % Neutrophils # (Auto) 3.80 K/uL Lymphocytes # (Auto) 1.36 K/uL Monocytes # (Auto) 0.54 K/uL Eosinophils # (Auto) 0.15 K/uL Basophils # (Auto) 0.03 K/uL RDW Standard Deviation 44.5 fL RDW Coefficient of Variation 14.1 % Immature Granulocyte % (Auto) 0.5 % Immature Granulocyte # (Auto) 0.03 K/uL Erythrocyte Sedimentation Rate 16 mm/hr Prothrombin Time 10.7 SECONDS Prothromb Time International Ratio 1.0 Activated Partial Thromboplast Time 24.9 SECONDS Partial Thromboplastin Ratio 1.0 Sodium Level 130 mmol/L Potassium Level 3.9 mmol/L Chloride Level 95 mmol/L Carbon Dioxide Level 25 mmol/L Anion Gap 10.0 mmol/L Blood Urea Nitrogen 15 mg/dl Creatinine 0.95 mg/dl Est Creatinine Clear Calc Drug Dose 40.4 ml/min Estimated GFR () 64.2 Estimated GFR (Non- 55.4 BUN/Creatinine Ratio 15.3 Bedside Glucose 118 mg/dl Random Glucose 104 mg/dl Calcium Level 8.9 mg/dl Magnesium Level 2.1 mg/dl Total Creatine Kinase 167 U/L Creatine Kinase MB 3.3 ng/ml 3.4 ng/ml Creatine Kinase MB Ratio 2.0 Troponin I < 0.015 ng/ml < 0.015 ng/ml Bedside Prothrombin Time INR 1.3 Urine Color YELLOW Urine Appearance CLEAR Urine pH 7.0 Urine Specific [place] 1.009 Urine Protein TRACE Urine Glucose (UA) NEG Urine Ketones NEG Urine Occult Blood NEG Urine Nitrite NEG Urine Bilirubin NEG Urine Urobilinogen NEG Urine Leukocyte Esterase TRACE Urine WBC (Auto) 10-30 /hpf Urine RBC (Auto) 0-4 /hpf Urine Hyaline Casts (Auto) 0 /lpf Urine Epithelial Cells (Auto) 5-10 /lpf Urine Bacteria (Auto) NEG Test 05/08/17 02:45 05/08/17 02:53 Creatine Kinase MB Ratio White Blood Count 6.04 K/uL Red Blood Count 3.69 M/uL Hemoglobin 10.4 g/dL Hematocrit 31.9 % Mean Corpuscular Volume 86.4 fL Mean Corpuscular Hemoglobin 28.2 pg Mean Corpuscular Hemoglobin Concent 32.6 g/dl Platelet Count 281 K/uL Mean Platelet Volume 7.9 fL Neutrophils (%) (Auto) 63.0 % Lymphocytes (%) (Auto) 24.2 % Monocytes (%) (Auto) 9.6 % Eosinophils (%) (Auto) 2.6 % Basophils (%) (Auto) 0.3 % Neutrophils # (Auto) 3.80 K/uL Lymphocytes # (Auto) 1.46 K/uL Monocytes # (Auto) 0.58 K/uL Eosinophils # (Auto) 0.16 K/uL Basophils # (Auto) 0.02 K/uL RDW Standard Deviation 44.7 fL RDW Coefficient of Variation 14.2 % Immature Granulocyte % (Auto) 0.3 % Immature Granulocyte # (Auto) 0.02 K/uL Sodium Level 132 mmol/L Potassium Level 3.6 mmol/L Chloride Level 100 mmol/L Carbon Dioxide Level 24 mmol/L Anion Gap 8.0 mmol/L Blood Urea Nitrogen 9 mg/dl Creatinine 0.69 mg/dl Est Creatinine Clear Calc Drug Dose 55.6 ml/min Estimated GFR () 93.3 Estimated GFR (Non- 80.5 BUN/Creatinine Ratio 13.1 Random Glucose 95 mg/dl Estimated Average Glucose 108 mg/dl Hemoglobin A1c 5.4 % Calcium Level 8.5 mg/dl Magnesium Level 2.0 mg/dl Total Bilirubin 0.6 mg/dl Aspartate Amino Transf (AST/SGOT) 18 U/L Alanine Aminotransferase (ALT/SGPT) 22 U/L Alkaline Phosphatase 54 U/L Creatine Kinase MB 3.7 ng/ml Troponin I < 0.015 ng/ml Total Protein 7.1 gm/dl Albumin 3.5 gm/dl Globulin 3.6 gm/dl Albumin/Globulin Ratio 1.0 (Macie Noe, MORIAH) Assessment and Plan 81 years old lady with PMHx of A fib on Eliquis, HTN, hypothyroidism, hyperactive bladder, B12 deficiency and spinal DJD disease. Presented with recurrent episodes of hypotension and syncope. patient had previous admissions for syncope and currently has a loop recorder placed by Dr. Tyson. Recurrent syncope associated with transient hypotension HTN - reported by her paramedics focal weakness in the right side with aphasia, I think it is just the stages of her coming back to consciousness as she was completely flaccid at home - Cardiology on board: Continue carvedilol, consider switch from midodrine to fludrocortisone - Loop recorder done in January and was negative. - Hold blood pressure medications for permissive hypertension- continue digoxin 0.125 daily, baby asa - statin intolerant Acute lacunar infarct in the R frontal lobe - MRI/MRA brain : 1. Findings suggest limited acute lacunar infarct in the subcortical white matter of the right frontal lobe. 1. 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 No other significant stenosis, aneurysm, or focal vessel occlusion. 2. Chronic small vessel ischemic change. - Consulted neurology - Obtain echocardiogram, lipid profile, and speech therapy to complete stroke evaluation. - no recommended medication changes at this time. Can follow-up with cardiology regarding episodes of syncope and hypotension. - Follow-up PT/OT and speech therapies for discharge planning. - Blood pressure recommendations while in hospital 175/95-150/80 (MAPS 90-110 ) Blood pressure recommendations for the first month post hospital discharge 150/90-130/80, and after that blood pressure recommendations 130/80- 110/70 - f/u neurology clinic in 1 month - Continue Eliquis Paroxysmal A fib - on Eliquis 5 mg BID Hypothyroidism - Continue home levothyroxine 75 mcg daily Hyperactive bladder Spinal DJD disease - continue gabapentin 100 mg BID DVT ppx: eliquis CODE STATUS: FULL Code Disposition: From home, lives with , PT/OT BA [facility] to assist with dc planning. Likely will need some rehab or at least home health services. (Macie Noe, MORIAH) Supervising Note Dr. Olivares I performed a history and physical examination on the patient. I reviewed above note and agree with it. I discussed plan with APC and patient. During my face to face encounter with the patient, I answered all of the patient's questions. Awaiting echocardiogram to complete workup. (Antwan Olivares M.D.)
--- NOTE | 2017-05-08 11:32 | Neurology Consultation ---
Neurology Consultation Date of Consultation: May 08, 2017. Attending Physician: Henry Wolfe MD Primary Care Physician: Aleksandar Beckman M.D. Reason for Consultation: Consultation for lacunar stroke History of Present Illness Source: patient, hospital records This is a 81-year-old right-handed female who presents with episode of syncope and unresponsiveness. EMS reported. Time of being nonverbal and right-sided weakness per ER reports. Stroke alert was called in the emergency room but the patient had recovered. At the time symptoms were believed to be secondary to hyperperfusion. One had measured her blood pressure with an automated cuff at home her systolic blood pressure was 66/45 with heart rate of 64. This morning patient reports that she is at her baseline. She denies any deficits. She reports some baseline numbness and tingling in her distal extremities but no new numbness or tingling. No new weakness. She denies having any warning before the episode. Denies any chest pain or heart palpitations. No shortness of breath. Denies any focal weakness. No loss of vision. No loss of speech or difficulty swallowing. Denies any lightheadedness. MRI of the brain report and images were reviewed by myself. There was noted to be small acute lacunar infarct in the right frontal subcortical area which appeared to likely be a watershed area. MRA of the head and neck was limited by motion artifact. No did have a 1-2 mm aneurysm in the left ICA and some atherosclerotic plaque with less than 50% stenosis of the left ICA. Labs are reviewed. Hemoglobin A1c 5.4. Past Medical/Surgical History Medical Problems: (1) Altered mental status Status: Acute (2) CVA (cerebral vascular accident) Status: Acute A. fib on Eliquis Hypertension Hypothyroid B12 deficiency Degenerative joint disease of the spine Previous history of syncope (believed by cardiology likely to be due to hypotension), hypotension, and implantable loop recorder Family History Reports mother with cardiac disease. Otherwise denies any significant family history. Social History Patient is . Patient reports that she is normally independent her activities of daily living. No tobacco use. Smoking Status: Never smoker Marital Status: Housing Status: lives with family Occupation Status: retired Allergies Coded Allergies: Amoxicillin (Verified Allergy, Intermediate, VERY SICK TO HER STOMACH, 01/18/17) Atorvastatin (Verified Allergy, Intermediate, RASH, 01/18/17) and rash Clavulanic Acid (Verified Allergy, Intermediate, VERY SICK TO HER STOMACH , 01/18/17) Tetracycline (Verified Allergy, Intermediate, ARMS SWELLED UP, 01/18/17) Tramadol (Verified Allergy, Intermediate, MAKES HER DIZZY AND CRAZEY, 01/18) SHANTEL Inhibitors (Verified Allergy, Mild, NOT SURE OF REACTIONS, 01/18/17) Erythromycin (Verified Allergy, Unknown, UPSET STOMACH, 05/07/17) Rivaroxaban (Verified Allergy, Unknown, RASH, 01/18/17) Zolpidem (Verified Allergy, Unknown, ., 01/18/17) Current Inpatient Medications Current Inpatient Medications Medications (Trade) Dose Ordered Sig/Dereje Route Start Time Stop Time Status Last Admin Dose Admin Digoxin (Lanoxin Tab) 0.125 mg DAILY@16 PO 05/07/17 16:00 06/06/17 15:59 05/07/17 16:21 0.125 MG Gabapentin (Neurontin Cap) 100 mg BID PO 05/07/17 21:00 06/06/17 20:59 05/08/17 08:13 100 MG Levothyroxine Sodium (Synthroid Tab) 75 mcg DAILYBB PO 05/08/17 06:00 06/07/17 05:59 05/08/17 05:15 75 MCG Tolterodine Tartrate (Detrol LA Cap) 4 mg DAILY PO 05/08/17 09:00 06/07/17 08:59 05/08/17 08:13 4 MG Apixaban (Eliquis Tab) 5 mg BID PO 05/07/17 21:00 06/06/17 20:59 05/08/17 08:13 5 MG Miscellaneous Information (Order Awaiting Action) 1 ea QS N/A 05/07/17 16:00 06/06/17 15:59 Sodium Chloride 1,000 ml @ 75 mls/hr [id number] IV 05/07/17 15:00 06/06/17 14:59 05/08/17 04:19 75 MLS/HR Acetaminophen (Tylenol Tab) 650 mg Q4H PRN PO 05/07/17 12:45 06/06/17 12:44 05/07/17 20:11 650 MG Al Hydrox/Mg Hydrox/Simethicone (Maalox Max Susp) 15 ml Q4H PRN PO 05/07/17 12:45 06/06/17 12:44 Magnesium Hydroxide (Milk Of Magnesia Susp) 30 ml Q12H PRN PO 05/07/17 12:45 06/06/17 12:44 Ondansetron HCl (Zofran Inj) 4 mg Q6H PRN IV 05/07/17 12:45 06/06/17 12:44 Polyethylene (Miralax Powder Packet) 17 gm DAILY PRN PO 05/07/17 12:45 06/06/17 12:44 Miscellaneous Information (Pharmacist Discharge Med Rec Consult) 1 ea UD PRN N/A 05/07/17 12:45 06/06/17 12:44 Miscellaneous (Iv Fluids Completed) 1 ea PRN PRN N/A 05/07/17 13:30 05/07/18 13:29 Cyanocobalamin (Vitamin B-12 Tab) 1,000 mcg QAM PO 05/08/17 09:00 06/07/17 08:59 05/08/17 08:14 1,000 MCG Gadobutrol (Gadavist) 6.5 mmol UD PRN IV 05/07/17 15:30 05/11/17 15:29 Aspirin (Ecotrin Tab) 81 mg QAM PO 05/08/17 09:00 06/07/17 08:59 05/08/17 08:13 81 MG Metoprolol Tartrate (Lopressor Iv) 5 mg Q4 PRN IV 05/07/17 20:30 06/06/17 20:29 Hydralazine HCl (HydrALAZINE INJ) 10 mg Q4H PRN IV. 05/07/17 20:30 06/06/17 20:29 Review of Systems Complete review of systems otherwise negative except for the above-noted in HPI. Physical Exam Vital Signs (Past 24 Hrs): Date Time Temp Pulse Resp B/P (MAP) Pulse Ox O2 Delivery O2 Flow Rate FiO2 05/08/17 09:50 Room Air 05/08/17 08:14 105 127/72 (90) 96 05/08/17 08:10 97 132/78 (96) 95 05/08/17 08:07 36.4 94 18 158/73 (101) 94 05/08/17 08:00 Room Air 05/08/17 03:15 Room Air 05/08/17 03:14 36.5 87 20 176/84 (114) 92 Room Air 05/08/17 00:44 136/81 (99) 05/07/17 23:55 Room Air 05/07/17 23:15 94 215/79 (124) 05/07/17 23:12 88 191/68 (109) 05/07/17 23:10 36.8 86 22 184/73 (110) 97 Room Air 05/07/17 20:00 Room Air 05/07/17 19:05 36.7 80 20 177/85 (115) 94 Room Air 05/07/17 16:21 84 05/07/17 16:00 Room Air 05/07/17 14:06 36.5 81 19 194/96 (128) 95 Room Air 05/07/17 13:06 77 15 185/92 96 Room Air 05/07/17 12:30 75 05/07/17 11:39 98 Room Air Gen.: Patient is alert and oriented in no acute distress sitting in bed Heart: Regular rate and rhythm Extremities: No gross deformities or rashes noted Neurological examination: Mental status: Patient is alert and oriented to person place and time. Able to give his own history. Attention concentration normal for the situation. Remote and recent memory seem intact Speech is fluent without any dysarthria or aphasia noted Cranial nerves: Visual aguilar intact counting. Funduscopic examination was difficult to visualize. Pupils equally round and reactive to light. Extraocular muscles intact without nystagmus. No facial asymmetry noted. Facial sensation intact. Tongue midline. Good palatal elevation. Good shoulder shrug bilaterally. Hearing grossly intact voice. Strength: 5/5 both proximal and distal in all extremities . No arm drift. Tone is normal. Sensation: Grossly intact to light touch in all extremities Deep tendon reflexes: +1 in bilateral biceps and patellar. Coordination: Patient has good finger to nose without dysmetria. Station within the chair is normal. Patient appeared stable standing also stands with slightly wide-based. Laboratory Results Past 24 Hours: 05/08/17 02:53 Red Blood Count 3.69, Mean Corpuscular Volume 86.4, Mean Corpuscular Hemoglobin 28.2, Mean Corpuscular Hemoglobin Concent 32.6, Mean Platelet Volume 7.9, Neutrophils (%) (Auto) 63.0, Lymphocytes (%) (Auto) 24.2, Monocytes (%) (Auto) 9.6, Eosinophils (%) (Auto) 2.6, Basophils (%) (Auto) 0.3, Neutrophils # (Auto) 3.80, Lymphocytes # (Auto) 1.46, Monocytes # (Auto) 0.58, Eosinophils # (Auto) 0.16, Basophils # (Auto) 0.02 05/08/17 02:53 Test 05/07/17 23:55 05/08/17 02:45 05/08/17 02:53 Urine Color YELLOW Urine Appearance CLEAR (CLEAR) Urine pH 7.0 (4.5-7.5) Urine Specific [place] 1.009 (1.000-1.030) Urine Protein TRACE (NEG) Urine Glucose (UA) NEG (NEG) Urine Ketones NEG (NEG) Urine Occult Blood NEG (NEG) Urine Nitrite NEG (NEG) Urine Bilirubin NEG (NEG) Urine Urobilinogen NEG (NEG) Urine Leukocyte Esterase TRACE (NEG) Urine WBC (Auto) 10-30 /hpf (0-5) Urine RBC (Auto) 0-4 /hpf (0-4) Urine Hyaline Casts (Auto) 0 /lpf (0-5) Urine Epithelial Cells (Auto) 5-10 /lpf (0-5) Urine Bacteria (Auto) NEG (NEG) Creatine Kinase MB Ratio (0-3.0) White Blood Count 6.04 K/uL (4.8-10.8) Red Blood Count 3.69 M/uL (4.2-5.4) Hemoglobin 10.4 g/dL (12.0-16.0) Hematocrit 31.9 % (37-47) Mean Corpuscular Volume 86.4 fL (80-100) Mean Corpuscular Hemoglobin 28.2 pg (25-34) Mean Corpuscular Hemoglobin Concent 32.6 g/dl (32-36) Platelet Count 281 K/uL (130-400) Mean Platelet Volume 7.9 fL (7.4-10.4) Neutrophils (%) (Auto) 63.0 % Lymphocytes (%) (Auto) 24.2 % Monocytes (%) (Auto) 9.6 % Eosinophils (%) (Auto) 2.6 % Basophils (%) (Auto) 0.3 % Neutrophils # (Auto) 3.80 K/uL (1.4-6.5) Lymphocytes # (Auto) 1.46 K/uL (1.2-3.4) Monocytes # (Auto) 0.58 K/uL (0.11-0.59) Eosinophils # (Auto) 0.16 K/uL (0-0.5) Basophils # (Auto) 0.02 K/uL (0-0.2) RDW Standard Deviation 44.7 fL (36.4-46.3) RDW Coefficient of Variation 14.2 % (11.5-14.5) Immature Granulocyte % (Auto) 0.3 % Immature Granulocyte # (Auto) 0.02 K/uL (0.00-0.02) Anion Gap 8.0 mmol/L (3-11) Est Creatinine Clear Calc Drug Dose 55.6 ml/min Estimated GFR () 93.3 Estimated GFR (Non- 80.5 BUN/Creatinine Ratio 13.1 (10-20) Estimated Average Glucose 108 mg/dl Hemoglobin A1c 5.4 % (4.5-5.6) Calcium Level 8.5 mg/dl (8.5-10.1) Magnesium Level 2.0 mg/dl (1.8-2.4) Total Bilirubin 0.6 mg/dl (0.2-1) Aspartate Amino Transf (AST/SGOT) 18 U/L (15-37) Alanine Aminotransferase (ALT/SGPT) 22 U/L (12-78) Alkaline Phosphatase 54 U/L (45-117) Creatine Kinase MB 3.7 ng/ml (0.5-3.6) Troponin I < 0.015 ng/ml (0-0.045) Total Protein 7.1 gm/dl (6.4-8.2) Albumin 3.5 gm/dl (3.4-5.0) Globulin 3.6 gm/dl (2.5-4.0) Albumin/Globulin Ratio 1.0 (0.9-2) Imaging As noted above in HPI Impression This is a 81-year-old right handed female with a small watershed acute lacunar stroke in the right subcortical frontal area. Likely etiology due to hypotension and hypoperfusion. No identifiable residual neurological deficits ( although could reasonably have some mild cognitive changes not well appreciated on today's exam). Modifiable stroke risk factors include A. fib already on Eliquis and hypertension. Plan I have ordered echocardiogram, lipid profile, and speech therapy to complete stroke evaluation. No recommended medication changes at this time. Can follow-up with cardiology regarding episodes of syncope and hypotension. Follow-up PT/OT and speech therapies for discharge planning. Blood pressure recommendations while in hospital 175/95-150/80 (MAPS 90-110) Avoid hypotension and dehydration Stroke risk factor modifications and recommendations: Blood pressure recommendations for the first month post hospital discharge 150/ 90-130/80, and after that blood pressure recommendations 130/80-110/70 Total cholesterol goal 100- 200 and LDL goal less than 100 Hemoglobin A1c goal less than 7 Encourage cardiovascular exercise at least 3 times a week for 30 minutes. May follow-up in neurology clinic in 1 month with our PA for post stroke hospital follow-up. Thank you for allowing me to participate in this patient's care. If there is any questions or concerns, feel free to call/page me.
[2017-05-08] MEDS: DIGOXIN 0.125 MG TAB PO SCH (16:28)
[2017-05-08] MEDS: ACETAMINOPHEN 325 MG TAB PO PRN (21:31)
[2017-05-08] MEDS ORDERED: KETOROLAC TROMETHAMINE 15 MG/ML VIAL IM ONE (22:00)
[2017-05-09] MEDS: ACETAMINOPHEN 325 MG TAB PO PRN ×2 (03:24→15:32)
[2017-05-09] MEDS: SODIUM CHLORIDE 0.9% 1000ML 1,000 ML IV SCH ×2 (05:05→17:45)
[2017-05-09] MEDS: LEVOTHYROXINE 75 MCG TAB PO SCH (06:02)
[2017-05-09 07:08] VITALS: BP 177/103; PULSE 87; TEMP 36.6; O2SAT 98
[2017-05-09 08:00] VITALS: O2SAT 98
[2017-05-09 08:04] LABS: CALCIUM 8.7 mg/dl (8.5-10.1); CREATININE 0.55 mg/dl (0.60-1.20); POTASSIUM 3.3 mmol/L (3.5-5.1)
[2017-05-09] MEDS: ASPIRIN 81 MG ECTAB PO SCH (08:49)
[2017-05-09] MEDS: GABAPENTIN 100 MG CAP PO SCH ×2 (08:49→19:32)
[2017-05-09] MEDS: CYANOCOBALAMIN 500 MCG TAB (VIT B-12) PO SCH ×2 (08:50→08:53)
[2017-05-09] MEDS: TOLTERODINE TARTRATE LA 4 MG CAPCR PO SCH (08:50)
[2017-05-09] MEDS: APIXABAN 2.5 MG TAB PO SCH ×2 (08:51→19:32)
[2017-05-09] MEDS ORDERED: POTASSIUM CHLORIDE 20 MEQ TABCR PO ONE (09:00)
--- NOTE | 2017-05-09 10:09 | Hospitalist Progress Note ---
Hospitalist Progress Note Date of Service May 09, 2017. (Macie Noe PA-C) Subjective Pt evaluation today including: conversation w/ patient, physical exam, chart review, lab review, review of studies Pain: None PO Intake: Good Voiding: no voiding problems The patient was seen and examined this morning. Pt reports feeling dizzy this morning. PT was in working with her and she was initially unable to sit up without feeling dizzy. She denies any changes in vision, shortness of breath, chest pain or feeling weakness in one extremity versus the other. Pt reports pain in her back and but is unable to specify where exactly. She also feels generalized weakness which is unchanged from yesterday. She was able to sit up in bed for me to listen to her lungs without any difficulty or dizziness. Pt was able to ambulate with PT after my examination without dizziness. She did not have positive orthostatics. Additional Comments: Constitutional: No fever, sweats or chills Eyes: No diplopia, no worsening or blurred vision ENT: normal hearing, no trouble swallowing Respiratory: No cough, sputum, dyspnea at rest or on exertion Cardiovascular: No chest pain, tightness or palpitations Abdomen: No pain, nausea, vomiting, diarrhea or constipation Musculoskeletal: No joint pain, calf pain, swelling + pain over the left anterior tibial region, some bruising there as well. Neurologic: Generalized weakness, no numbness/tingling, or balance problems Psychiatric: No anxiety or depression Skin: No rash or itch (Macie Noe PA-C) Objective Vital Signs Date Time Temp Pulse Resp B/P (MAP) Pulse Ox O2 Delivery O2 Flow Rate FiO2 05/09/17 07:08 36.6 87 18 177/103 (127) 98 Room Air 05/09/17 04:00 Room Air 05/09/17 00:00 Room Air 05/08/17 23:42 37.0 106 19 95/71 (79) 96 Room Air 177/120 (139) 182/99 (126) 05/08/17 20:00 Room Air 05/08/17 19:10 36.8 93 16 188/87 (120) 92 Room Air 05/08/17 16:28 85 05/08/17 16:03 37.0 85 16 187/84 (118) 99 Room Air 169/91 (117) 3/26/18 16:00 Room Air 05/08/17 12:19 37.1 93 18 150/87 (108) 98 05/08/17 12:00 Room Air (Macie Noe PA-C) Physical Exam Notes: General Appearance: WD/WN, no apparent distress Eyes: PERRL, EOMI ENT: hearing grossly normal, pharynx normal, + pertinent finding (MMM) Neck: supple, no JVD Respiratory/Chest: no respiratory distress, no accessory muscle use, + pertinent finding (on room air, no crackles) Cardiovascular: regular rate, rhythm, no murmur Abdomen: normal bowel sounds, non tender, soft Extremities: non-tender, no pedal edema, no calf tenderness Neurologic/Psychiatric: alert, oriented x 3, + pertinent finding (+ generalized weakness in bilateral hip flexors. Patient was seen ambulating in the hallway with PT without difficulty, using walker.) Skin: normal color, warm/dry, + pertinent finding (few ecchymotic regions over the L ant tibial region) (Macie Noe, MORIAH) Laboratory Results Last 24 Hours Test 05/09/17 06:51 Sodium Level 129 mmol/L Potassium Level 3.3 mmol/L Chloride Level 96 mmol/L Carbon Dioxide Level 26 mmol/L Anion Gap 8.0 mmol/L Blood Urea Nitrogen 8 mg/dl Creatinine 0.55 mg/dl Est Creatinine Clear Calc Drug Dose 69.7 ml/min Estimated GFR () 100.5 Estimated GFR (Non- 86.7 BUN/Creatinine Ratio 14.6 Random Glucose 98 mg/dl Calcium Level 8.7 mg/dl Triglycerides Level 155 mg/dl Cholesterol Level 195 mg/dl HDL Cholesterol 46 mg/dl LDL Cholesterol, Calculated 118 mg/dl VLDL Cholesterol, Calculated 31 mg/dl Cholesterol/HDL Ratio 4.2 (Macie Noe PA-C) Assessment and Plan 81 years old lady with PMHx of A fib on Eliquis, HTN, hypothyroidism, hyperactive bladder, B12 deficiency and spinal DJD disease. Presented with recurrent episodes of hypotension and syncope. patient had previous admissions for syncope and currently has a loop recorder placed by Dr. Tyson. Recurrent syncope associated with transient hypotension HTN - reported by her paramedics focal weakness in the right side with aphasia, -no other signs of focal weakness or aphasia at this point in time. - Cardiology on board: Continue carvedilol, consider switch from midodrine to fludrocortisone, for now holding midodrine - Checking orthostatics, these were negative this morning when the patient complained of dizziness with going from lying flat to sitting position - Continue PT/OT - Loop recorder done in January and was negative. - Hold blood pressure medications for permissive hypertension- continue digoxin 0.125 daily, baby asa - statin intolerant Acute lacunar infarct in the R frontal lobe - MRI/MRA brain : 1. Findings suggest limited acute lacunar infarct in the subcortical white matter of the right frontal lobe. 1. 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 No other significant stenosis, aneurysm, or focal vessel occlusion. 2. Chronic small vessel ischemic change. - Consulted neurology - Obtain echocardiogram -awaiting results - Triglycerides are borderline high at 155, LDL and HDL are within normal limits - speech therapy consulted-patient not showing any signs of dysphagia, aphasia, no - no recommended medication changes at this time. Can follow-up with cardiology regarding episodes of syncope and hypotension. - Follow-up PT/OT - Blood pressure recommendations while in hospital 175/95-150/80 (MAPS 90-110 ) Blood pressure recommendations for the first month post hospital discharge 150/90-130/80, and after that blood pressure recommendations 130/80- 110/70 - f/u neurology clinic in 1 month - Continue Eliquis Paroxysmal A fib - on Eliquis 5 mg BID Hypothyroidism - Continue home levothyroxine 75 mcg daily Hyperactive bladder Spinal DJD disease - continue gabapentin 100 mg BID DVT ppx: eliquis CODE STATUS: FULL Code Disposition: From home, lives with , PT/OT BA garnica to assist with dc planning. Referrals have been placed to [facility]. (Macie Noe, PAMonica) Supervising Note Dr. Olivares I performed a history and physical examination on the patient. I reviewed above note and agree with it. I discussed plan with APC and patient. During my face to face encounter with the patient, I answered all of the patient's questions. will continue to monitor BP. Patient is awaiting placement with discharge likely tomorrow. (Antwan Olivares M.D.)
[2017-05-09 12:00] VITALS: O2SAT 95
[2017-05-09 12:18] VITALS: BP 159/96; PULSE 80; TEMP 36.8; O2SAT 96
--- NOTE | 2017-05-09 12:40 | Clinical Documentation Query ---
CLINICAL DOCUMENTATION QUERY Ms. PALACIOS, In your clinical opinion is this patient being managed for: ( ) Urinary tract infection ( ) Not Agree ( ) Other explanation of clinical findings (Please Explain) ( ) Unable to determine (Please Define) ( ) Need to Discuss The medical record reflects the following clinical findings, treatment, and risk factors. Clinical Indicators: 81 yo female presenting with a syncopal episode, diagnosed with CVA. UA cx prelim showing enterococcus species, sensitivities to follow. Treatment: IV fluids, final Ua cx pending Risk Factors: gender, age, CVA Please clarify and document your clinical opinion in the progress notes and discharge summary. Terms such as "probable", "suspected", "likely", "questionable", "possible", or "still to be ruled out" are acceptable. IF IN AGREEMENT, YOU MUST DOCUMENT ABOVE DIAGNOSTIC STATEMENT IN DAILY PROGRESS NOTES AND DISCHARGE SUMMARY. This document is not part of the patient's record. Thank You, Stephanie Umana, RN [phone]
--- NOTE | 2017-05-09 14:48 | Cardiology Follow-Up ---
Subjective Date of Service: May 09, 2017. Pt evaluation today including: conversation w/ patient, physical exam, chart review, lab review, review of studies, review of inpatient medication list History of Present Illness This morning the patient claims to be feeling well. She was clearly confused overnight and has some and difficulty with cognition this morning. However, she seemed answer most questions appropriately. She denies significant breathing trouble. She had a good appetite. She has no specific complaints. Social History Smoking Status: Former Smoker History of Alcohol Use: Yes (1 to 2 glasses wine a day) Review of Systems Per HPI. No change in her eating habits. Urinating quite frequently. No diarrhea. No recent constitutional symptoms such as fevers or chills. Minimal swelling in her lower extremities with use of compression stockings. Her ambulation is limited by her back pain for which she receives injections. Objective Vital Signs Past 12 Hours Date Time Temp Pulse Resp B/P (MAP) Pulse Ox O2 Delivery O2 Flow Rate FiO2 05/09/17 12:18 36.8 80 18 159/96 (117) 96 05/09/17 12:00 95 Room Air 05/09/17 08:00 98 Room Air 05/09/17 07:08 36.6 87 18 177/103 (127) 98 Room Air 05/09/17 04:00 Room Air Last Recorded Weight-Kilograms: 68.200 Physical Exam She is alert and oriente to person and place Mood affect appear normal. She answered all questions appropriately. HEENT: Sclerae are anicteric. Pupils are equal and reactive to light and accommodation. Extraocular movements were intact. Neuro: Cranial nerves intact Neck: Examination of the submandibular region did not reveal any significant lymphadenopathy. Carotids are palpable bilaterally and free of bruits on auscultation. There was no evidence of jugular venous distention. The thyroid was not enlarged. Lungs: Lungs are clear to auscultation bilaterally. There are no rales wheezes or rhonchi. She has normal respiratory effort without use of accessory muscles. There is normal pulmonary excursion. Cardiac: The rhythm was regular. S1 and S2 were normal. There are no murmurs on examination. The PMI was not markedly displaced on palpation. Abdomen: The abdomen was soft and nontender. Extremities: Patient has bilateral radial pulses that are equal in intensity. There is no evidence cyanosis or clubbing. There was no evidence of significant peripheral edema bilaterally. Skin: There are no rashes noted on examination today. Data Laboratory Results: Last 24 Hours Test 05/09/17 06:51 Sodium Level 129 mmol/L Potassium Level 3.3 mmol/L Chloride Level 96 mmol/L Carbon Dioxide Level 26 mmol/L Anion Gap 8.0 mmol/L Blood Urea Nitrogen 8 mg/dl Creatinine 0.55 mg/dl Est Creatinine Clear Calc Drug Dose 69.7 ml/min Estimated GFR () 100.5 Estimated GFR (Non- 86.7 BUN/Creatinine Ratio 14.6 Random Glucose 98 mg/dl Calcium Level 8.7 mg/dl Triglycerides Level 155 mg/dl Cholesterol Level 195 mg/dl HDL Cholesterol 46 mg/dl LDL Cholesterol, Calculated 118 mg/dl VLDL Cholesterol, Calculated 31 mg/dl Cholesterol/HDL Ratio 4.2 Telemetry reviewed: No significant arrhythmia Assessment and Plan 1. Syncope: This appears to be related to a profound vasodepressor response. Midrin is being held. I would consider institution of fludrocortisone at some point. She should maintain good hydration and liberalize her salt intake. Compression stockings or a girdle could be considered. Traditionally recognition of the prodrome allows for sitting or lying down. However, she has had these episodes even sitting down. Her cognitive dysfunction may also impair her ability to recognize the symptoms. 2. Atrial fibrillation: Paroxysmal. No symptoms. Continuing on anticoagulation. Eliquis appears to be dosed appropriately at this time. 3. Implanted loop recorder: This is likely not providing any additional useful information. This could be removed at her convenience.
[2017-05-09 15:34] VITALS: BP 162/88; PULSE 90; TEMP 36.7; O2SAT 95
[2017-05-09 16:00] VITALS: O2SAT 96
[2017-05-09] MEDS: DIGOXIN 0.125 MG TAB PO SCH (16:33)
[2017-05-10] MEDS: SODIUM CHLORIDE 0.9% 1000ML 1,000 ML IV SCH ×2 (03:55→14:21)
[2017-05-10 05:25] VITALS: BP_SYST 184; BP_SYST 188; BP_SYST 196; BP_DIAS 78; BP_DIAS 93; BP_DIAS 94; PULSE 93; TEMP 36.7; O2SAT 97
[2017-05-10] MEDS: LEVOTHYROXINE 75 MCG TAB PO SCH (05:39)
[2017-05-10] MEDS: HydrALAZINE HCL 20 MG/ML VIAL IV. PRN (05:46)
[2017-05-10 06:25] LABS: CALCIUM 8.6 mg/dl (8.5-10.1); CREATININE 0.67 mg/dl (0.60-1.20); POTASSIUM 3.5 mmol/L (3.5-5.1)
[2017-05-10 06:40] VITALS: BP 172/96; PULSE 90
[2017-05-10 07:42] VITALS: BP 148/80; PULSE 85; TEMP 36.6; O2SAT 98
[2017-05-10] MEDS: GABAPENTIN 100 MG CAP PO SCH ×2 (07:57→20:00)
[2017-05-10] MEDS: ASPIRIN 81 MG ECTAB PO SCH (07:57)
[2017-05-10] MEDS: TOLTERODINE TARTRATE LA 4 MG CAPCR PO SCH (07:57)
[2017-05-10] MEDS: APIXABAN 2.5 MG TAB PO SCH ×2 (07:57→20:00)
[2017-05-10] MEDS: CYANOCOBALAMIN 500 MCG TAB (VIT B-12) PO SCH (07:57)
[2017-05-10 08:22] VITALS: O2SAT 98
--- NOTE | 2017-05-10 11:09 | Discharge Instructions ---
Discharge Instructions Date of Service May 10, 2017. Admission Reason for Admission: Right-Sided Lacunar Stroke Discharge Discharge Diagnosis / Problem: Right sided lacunar stroke Discharge Goals Goal(s): Decrease discomfort, Improve function, Increase independence, Improve disease control Activity Recommendations Activity Level: Up Ad Priyanka, Assistance Required Therapies: Physical Therapy, Occupational Therapy Lifting Limitations: no more than 10 pounds, gradually increase as tolerated Exercise/Sports Limitations: as tolerated, gradually increase as tolerated Shower/Bathe: no limitations (with assistance) . Additional Information Patient informed of condition: Yes Advance Directives: Yes DNR: No Level of Care: Acute Rehab Communicable Disease: No Prognosis: Stable [place] Catheter: No Instructions / Follow-Up Instructions / Follow-Up You were admitted to [facility] with syncopal event and diagnosed with R sided lacunar stroke. During your stay here you were treated with supportive care, including physical and occupational therapy. You were evaluated by neurology Stroke risk factor modifications and recommendations: Blood pressure recommendations for the first month post hospital discharge 150/90-130/80, and after that blood pressure recommendations 130/80-110/70 Total cholesterol goal 100- 200 and LDL goal less than 100 Hemoglobin A1c goal less than 7 Encourage cardiovascular exercise at least 3 times a week for 30 minutes. You were evaluated by cardiology who checked your pacemaker and determined this could be removed in the near future. Please discuss this with cardiology upon follow up evaluation. Medications: Continue taking your medications as prescribed. You were started on fludrocortisone - for recurrent syncopal episodes per Cardiology recommendations - please continue this as directed. Appointments: Follow up with PCP within 1 week. Follow up with neurology clinic in 1 month for post stroke hospital follow-up. Follow up with Cardiology within 2 weeks. Current Hospital Diet Patient's current hospital diet: Regular Diet Discharge Diet Recommended Diet: Regular Diet Pending Studies Studies pending at discharge: no Laboratory Results Hemoglobin A1c Test 05/08/17 02:53 Range/Units Estimated Average Glucose 108 mg/dl Hemoglobin A1c 5.4 4.5-5.6 % Lipid Panel Test 05/09/17 06:51 Range/Units Triglycerides Level 155 H 0-150 mg/dl Cholesterol Level 195 0-200 mg/dl HDL Cholesterol 46 mg/dl Cholesterol/HDL Ratio 4.2 LDL Cholesterol, Calculated 118 mg/dl Medical Emergencies . Who to Call and When: Medical Emergencies: If at any time you feel your situation is an emergency, please call 911 immediately. . Non-Emergent Contact Non-Emergency issues call your: Primary Care Provider . . "Provider Documentation" section prepared by Fabiana Noe. .
--- NOTE | 2017-05-10 11:10 | Discharge Instructions ---
Discharge Instructions Date of Service May 10, 2017. Admission Reason for Admission: Right-Sided Lacunar Stroke Discharge Discharge Diagnosis / Problem: Right sided lacunar Stroke Discharge Goals Goal(s): Decrease discomfort, Improve function, Increase independence, Improve disease control Activity Recommendations Activity Limitations: per Instructions/Follow-up section Lifting Limitations: no more than 10 pounds, gradually increase as tolerated Exercise/Sports Limitations: rest today, gradually increase as tolerated Shower/Bathe: no limitations (with assistance) Driving or Machine Use: Do NOT Drive . Instructions / Follow-Up Instructions / Follow-Up You were admitted to [facility] with syncopal event and diagnosed with R sided lacunar stroke. During your stay here you were treated with supportive care, including physical and occupational therapy. You were evaluated by neurology Stroke risk factor modifications and recommendations: Blood pressure recommendations for the first month post hospital discharge 150/90-130/80, and after that blood pressure recommendations 130/80-110/70 Total cholesterol goal 100- 200 and LDL goal less than 100 Hemoglobin A1c goal less than 7 Encourage cardiovascular exercise at least 3 times a week for 30 minutes. You were evaluated by cardiology who checked your pacemaker and determined this could be removed in the near future. Please discuss this with cardiology upon follow up evaluation. Medications: Continue taking your medications as prescribed. You were started on fludrocortisone - for recurrent syncopal episodes per Cardiology recommendations - please continue this as directed. Appointments: Follow up with PCP within 1 week. Follow up with neurology clinic in 1 month for post stroke hospital follow-up. Follow up with Cardiology within 2 weeks. Risk Factors for Stroke: You can reduce your chances of stroke by working with your medical provider to adopt a healthy lifestyle. Some specific ways to lower your chance of stroke are: * If you are a smoker, now is the time to stop smoking cigarettes * If you are diabetic, improve the control of your blood sugars * Avoid excessive amounts of alcohol * Control high blood pressure * Lose weight if you are overweight * Be sure to lead an active lifestyle * Eat a healthy diet low in salt, cholesterol and fat You should know about other risk factors for stroke that you are unable to control. These include: * Age 55 years or older * Male gender * Certain racial groups: , or / * Family History of Stroke, Mini stroke or Heart Attack * Sickle Cell Disease Follow Up: It is important for you to keep your follow up appointments with your medical provider. Current Hospital Diet Patient's current hospital diet: Regular Diet Discharge Diet Recommended Diet: Regular Diet Pending Studies Studies pending at discharge: no Laboratory Results Hemoglobin A1c Test 05/08/17 02:53 Range/Units Estimated Average Glucose 108 mg/dl Hemoglobin A1c 5.4 4.5-5.6 % Lipid Panel Test 05/09/17 06:51 Range/Units Triglycerides Level 155 H 0-150 mg/dl Cholesterol Level 195 0-200 mg/dl HDL Cholesterol 46 mg/dl Cholesterol/HDL Ratio 4.2 LDL Cholesterol, Calculated 118 mg/dl Medical Emergencies . Who to Call and When: Medical Emergencies: Call 911 immediately if you experience any of the following warning signs and symptoms of Stroke: * Sudden numbness or weakness of the face, arm or leg, especially on one side of the body * Sudden confusion, trouble speaking or understanding * Sudden trouble seeing in one or both eyes * Sudden trouble walking, dizziness, loss of balance or coordination * Sudden severe headache with no cause Do not delay calling 911 if you experience any warning signs or symptoms of a stroke. Delay in seeking medical attention may affect what treatments can be given to you. . Non-Emergent Contact Non-Emergency issues call your: Primary Care Provider Call Non-Emergent contact if: you have a fever, temperature is above 100.5, your pain is not controlled, your pain is worsening, your pain is unusual for you, your pain is concerning you, you have any medication questions other concerns with your health. Call 911 or go directly to the Emergency Department if you experience any of the following: Chest pain, chest tightness, shortness of breath, abdominal pain , lightheadedness, dizziness, gastrointestinal bleeding, or have any other concerns regarding your health. . Past History Medical & Surgical History: (1) Right-sided lacunar stroke (2) Syncope (3) History of - hypertension (4) Atrial fibrillation (5) Hypotension . "Provider Documentation" section prepared by Fabiana Noe. . Stroke Core Measures Reason no t-PA for Stroke: Treatment not indicated Reason no antithrom by day 2: Treatment provided - N/A Reason no antithrom at D/C: Treatment provided - N/A Reason no statin at D/C: Contraindicated (patient intolerant of statin ) Reason no anticoag w/a fib: Treatment provided - N/A [place] Drug Monitoring Program Search Results: no issues identified
[2017-05-10] MEDS ORDERED: FLR/1 PO (11:18)
[2017-05-10] MEDS ORDERED: MRLP17X PO (11:18)
[2017-05-10] MEDS ORDERED: ASPI-320 PO (11:18)
--- NOTE | 2017-05-10 11:46 | Hospitalist Progress Note ---
Hospitalist Progress Note Date of Service May 10, 2017. (Macie Noe PA-C) Subjective Pt evaluation today including: conversation w/ patient, conversation w/ family , physical exam, chart review, lab review, review of studies, conversation w/ medical economics consultant Pain: none PO Intake: Good Voiding: no voiding problems The patient was seen and examined this morning. Pt reports doing well today. She denies any lightheadedness or dizziness at all. Pt has been ambulating about the kelly without difficulty. She is hoping to be discharged from the hospital soon. Discussion was held with Dr. Arias regarding her medications- we started fludrocortisone this morning. Pt was also advised to not take midodrine anymore. She understands and is in agreement with this. Her was updated at bedside and all his questions and concerns were addressed. We are awaiting placement per today. No beds available [facility], so await determination from [facility]. Constitutional: No fever, No chills, No sweats Eyes: No worsening of vision, No redness ENT: No nasal symptoms, No sore throat Respiratory: No cough, No sputum, No wheezing, No shortness of breath Cardiovascular: No chest pain, No orthopnea, No edema, No palpitations Abdomen: No pain, No nausea, No vomiting, No diarrhea, No constipation Musculoskeletal: No joint pain, No muscle pain, No swelling Neurologic: + weakness (generalized- but is improving), No numbness/tingling Psychiatric: No depression symptoms, No anxiety Endo: No fatigue Skin: No rash, No itch (Macie Noe, MORIAH) Objective Vital Signs Date Time Temp Pulse Resp B/P (MAP) Pulse Ox O2 Delivery O2 Flow Rate FiO2 05/10/17 08:22 98 Room Air 05/10/17 07:42 36.6 85 18 148/80 (102) 98 Room Air 05/10/17 06:40 90 172/96 (121) 05/10/17 05:25 36.7 93 20 196/94 (128) 97 Room Air 184/93 (123) 188/78 (114) 05/10/17 01:55 Room Air 05/09/17 16:33 70 05/09/17 16:00 96 Room Air 05/09/17 15:34 36.7 90 18 162/88 (112) 95 Room Air 05/09/17 12:18 36.8 80 18 159/96 (117) 96 05/09/17 12:00 95 Room Air (Macie Noe PA-C) Physical Exam Notes: General Appearance: WD/WN, no apparent distress Eyes: PERRL, EOMI ENT: hearing grossly normal, pharynx normal, + pertinent finding (MMM) Neck: supple, no JVD Respiratory/Chest: no respiratory distress, no accessory muscle use, + pertinent finding (on room air, no crackles) Cardiovascular: regular rate, rhythm, no murmur Abdomen: normal bowel sounds, non tender, soft Extremities: non-tender, no pedal edema, no calf tenderness Neurologic/Psychiatric: alert, oriented x 3, + pertinent finding (no weakness, much improved.) Skin: normal color, warm/dry, + pertinent finding (few ecchymotic regions over the L ant tibial region) (Macie Noe PA-C) Laboratory Results Last 24 Hours Test 05/10/17 05:35 Sodium Level 130 mmol/L Potassium Level 3.5 mmol/L Chloride Level 99 mmol/L Carbon Dioxide Level 22 mmol/L Anion Gap 9.0 mmol/L Blood Urea Nitrogen 9 mg/dl Creatinine 0.67 mg/dl Est Creatinine Clear Calc Drug Dose 57.2 ml/min Estimated GFR () 94.2 Estimated GFR (Non- 81.3 BUN/Creatinine Ratio 13.1 Random Glucose 90 mg/dl Calcium Level 8.6 mg/dl (Macie Noe PA-C) Assessment and Plan 81 years old lady with PMHx of A fib on Eliquis, HTN, hypothyroidism, hyperactive bladder, B12 deficiency and spinal DJD disease. Presented with recurrent episodes of hypotension and syncope. patient had previous admissions for syncope and currently has a loop recorder placed by Dr. Tyson. Recurrent syncope associated with transient hypotension HTN - reported by her paramedics focal weakness in the right side with aphasia, -no other signs of focal weakness or aphasia at this point in time. - Cardiology on board: Continue carvedilol, started fludrocortisone, dc midodrine entirely and do not resume upon discharge. Discussed with Dr. arias this morning - can discuss removal of pacemaker at follow up appt in 4 weeks. - Checking orthostatics, these were negative for past 24 hours. No c/o dizziness today - Continue PT/OT - Loop recorder done in January and was negative. - Continue digoxin 0.125 daily, baby asa, statin intolerant Acute lacunar infarct in the R frontal lobe - MRI/MRA brain : 1. Findings suggest limited acute lacunar infarct in the subcortical white matter of the right frontal lobe. 1. 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 No other significant stenosis, aneurysm, or focal vessel occlusion. 2. Chronic small vessel ischemic change. - Consulted neurology - Obtain echocardiogram -awaiting results - Triglycerides are borderline high at 155, LDL and HDL are within normal limits - speech therapy consulted-patient not showing any signs of dysphagia, aphasia, no - no recommended medication changes at this time. Can follow-up with cardiology regarding episodes of syncope and hypotension. - Follow-up PT/OT - Blood pressure recommendations while in hospital 175/95-150/80 (MAPS 90-110 ) Blood pressure recommendations for the first month post hospital discharge 150/90-130/80, and after that blood pressure recommendations 130/80- 110/70 - f/u neurology clinic in 1 month - Continue Eliquis Paroxysmal A fib - on Eliquis 5 mg BID Hypothyroidism - Continue home levothyroxine 75 mcg daily Hyperactive bladder Spinal DJD disease - continue gabapentin 100 mg BID DVT ppx: eliquis CODE STATUS: FULL Code Disposition: From home, lives with who has care givers forepart reducer, PT/OT BA garnica to assist with dc planning. No beds available at the [facility], await call from [facility]. Medically stable, DC today if placement available. (Macie Noe, PAMonica) Supervising Note Dr. Olivares I performed a history and physical examination on the patient. I reviewed above note and agree with it. I discussed plan with APC and patient. During my face to face encounter with the patient, I answered all of the patient's questions. As noted above, will continue Eliquis. Patient is awaiting placement for rehab. (Antwan Olivares M.D.)
[2017-05-10 12:12] VITALS: BP 142/86; PULSE 95
[2017-05-10] MEDS: FLUDROCORTISONE ACETATE 0.1 MG TAB PO SCH (12:12)
[2017-05-10] MEDS: CARVEDILOL 12.5 MG TAB PO SCH (12:12)
[2017-05-10] MEDS: DIGOXIN 0.125 MG TAB PO SCH (15:53)
--- NOTE | 2017-05-10 16:01 | Discharge Summary ---
Discharge Summary Date of Service May 10, 2017. Discharge Summary Admission Date: May 07, 2017 at 13:55 Discharge Date: May 11, 2017 Discharge Disposition: Rehab Principal Diagnosis: R lacunar Stroke, syncope Problems/Secondary Diagnoses: Medical Problems: (1) History of - hypertension (2) Hypotension (3) Right-sided lacunar stroke A fib on Eliquis HTN hypothyroidism hyperactive bladder B12 deficiency spinal DJD disease Immunizations: Have You Had Influenza Vaccine: Yes History of Tetanus Vaccine?: Unknown Tetanus Immunization Date: Dec 30, 2009 History of Pneumococcal: Yes Pneumococcal Date: Dec 30, 2006 History of Hepatitis B Vaccine: Unknown Procedures: HEAD WITHOUT CONTRAST (CT)05/07/17 IMPRESSION: 1. Chronic small vessel ischemic change. No acute intracranial abnormality. MRA NECK COMBO 05/07/17 IMPRESSION: Evaluation markedly degraded by motion artifact on all sequences significantly limiting the diagnostic sensitivity the exam. 1. No hemodynamically significant stenosis, dissection, or focal vessel occlusion. 2. Atherosclerotic plaque results in mild irregularity of the origin and proximal left internal carotid artery with less than 50% stenosis. 3. Additional limitations of the examination is above. 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 Internal carotid arteries otherwise normal. Anterior and middle cerebral arteries patent. Anterior communicating artery hypoplastic or aplastic. Posterior circulation: Left dominant vertebral artery. Poor visualization of of the right vertebral artery possibly due to atherosclerotic plaque, slow flow, or diminutive caliber. Left posterior inferior cerebellar artery appears to supply both hemispheres in the PICA distribution. Basilar artery patent. Anterior inferior cerebellar arteries poorly visualized. Superior cerebellar and posterior cerebral arteries patent. Right posterior commuting artery patent. Left posterior communicating artery likely aplastic. IMPRESSION: 1. 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 No other significant stenosis, aneurysm, or focal vessel occlusion. Consultations: Cardiology Neurology Medication Reconciliation New Medications: Aspirin (Aspirin EC Low Dose) 81 Mg Ectab 81 MG PO QAM for 30 Days, #30 TAB Fludrocortisone Acetate (Florinef) 0.1 Mg Tab 0.1 MG PO QAM for 30 Days, #30 TAB Polyethylene (Miralax) 17 Gm Pow 17 GM PO DAILY PRN for Constipation for 30 Days, #30 DOSE Continued Medications: Apixaban (Eliquis) 5 Mg Tab 5 MG PO BID Carvedilol (Coreg) 12.5 Mg Tab 12.5 MG PO QAM Carvedilol (Coreg) 6.25 Mg Tab 6.25 MG PO QPM Digoxin (Digoxin) 0.125 Mg Tab 0.125 MG PO DAILY@16, #30 TAB 5 Refills Gabapentin (Neurontin) 100 Mg Cap 100 MG PO BID Levothyroxine Sodium (Levothyroxine Sodium) 50 Mcg Tab 75 MCG PO DAILY Tolterodine Tartrate (Detrol LA) 4 Mg Capcr 4 MG PO DAILY Triamcinolone (Triamcinolone Acetonide) 60 Appln/60 Ml Lotn 1 APPLN TOP QPM Discontinued Medications: Midodrine (Midodrine HCl) 2.5 Mg Tab 2.5 MG PO TID@08,12,17, #90 TAB 5 Refills Discharge Exam Subjective Pt evaluation today including: conversation w/ patient, conversation w/ family , physical exam, chart review, lab review, review of studies, conversation w/ web consultant Pain: none PO Intake: Good Voiding: no voiding problems The patient was seen and examined this morning. Pt reports doing well today. She denies any lightheadedness or dizziness at all. Pt has been ambulating about the kelly without difficulty. She is hoping to be discharged from the hospital soon. PT/OT has walked with her in the halls this morning. was updated at bedside and all their questions and concerns were addressed. Pt accepted to [facility]. Constitutional: No fever, No chills, No sweats Eyes: No worsening of vision, No redness ENT: No nasal symptoms, No sore throat Respiratory: No cough, No sputum, No wheezing, No shortness of breath Cardiovascular: No chest pain, No orthopnea, No edema, No palpitations Abdomen: No pain, No nausea, No vomiting, No diarrhea, No constipation Musculoskeletal: No joint pain, No muscle pain, No swelling Neurologic: + weakness (much improved), No numbness/tingling Psychiatric: No depression symptoms, No anxiety Endo: No fatigue Skin: No rash, No itch PE: General Appearance: WD/WN, no apparent distress Eyes: PERRL, EOMI ENT: hearing grossly normal, pharynx normal, + pertinent finding (MMM) Neck: supple, no JVD Respiratory/Chest: no respiratory distress, no accessory muscle use, + pertinent finding (on room air, no crackles) Cardiovascular: regular rate, rhythm, no murmur Abdomen: normal bowel sounds, non tender, soft Extremities: non-tender, no pedal edema, no calf tenderness Neurologic/Psychiatric: alert, oriented x 3, + pertinent finding (no weakness, much improved.) Skin: normal color, warm/dry, + pertinent finding (few ecchymotic regions over the L ant tibial region) Hospital Course 81 years old lady with PMHx of A fib on Eliquis, HTN, hypothyroidism, hyperactive bladder, B12 deficiency and spinal DJD disease. Presented with recurrent episodes of hypotension and syncope. patient had previous admissions for syncope and currently has a loop recorder placed by Dr. Tyson. Recurrent syncope associated with transient hypotension HTN - reported by her paramedics focal weakness in the right side with aphasia, -no other signs of focal weakness or aphasia at this point in time. - Cardiology on board: Continue carvedilol, started fludrocortisone, dc midodrine entirely and do not resume upon discharge. Discussed with Dr. jones this morning - can discuss removal of pacemaker at follow up appt in 4 weeks. - Checking orthostatics, these were negative for past 24 hours. No c/o dizziness today - Continue PT/OT - Loop recorder done in January and was negative. - Continue digoxin 0.125 daily, baby asa, statin intolerant Acute lacunar infarct in the R frontal lobe - MRI/MRA brain : 1. Findings suggest limited acute lacunar infarct in the subcortical white matter of the right frontal lobe. 1. 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 No other significant stenosis, aneurysm, or focal vessel occlusion. 2. Chronic small vessel ischemic change. - Consulted neurology - Obtain echocardiogram -awaiting results - Triglycerides are borderline high at 155, LDL and HDL are within normal limits - speech therapy consulted-patient not showing any signs of dysphagia, aphasia, no - no recommended medication changes at this time. Can follow-up with cardiology regarding episodes of syncope and hypotension. - Follow-up PT/OT - Blood pressure recommendations while in hospital 175/95-150/80 (MAPS 90-110 ) Blood pressure recommendations for the first month post hospital discharge 150/90-130/80, and after that blood pressure recommendations 130/80- 110/70 - f/u neurology clinic in 1 month - Continue Eliquis Paroxysmal A fib - on Eliquis 5 mg BID Hypothyroidism - Continue home levothyroxine 75 mcg daily Hyperactive bladder Spinal DJD disease - continue gabapentin 100 mg BID DVT ppx: eliquis CODE STATUS: FULL Code Disposition: From home, lives with who has care givers order department supervisor, PT/OT BA garnica to assist with dc planning. No beds [facility], [facility]. Medically stable, DC today. Supervising Note Dr. Olivares I performed a history and physical examination on the patient. I reviewed above note and agree with it. I discussed discharge plan with APC and patient. During my face to face encounter with the patient, I answered all of the patient's questions. Patient will be going to rehab. Total Time Spent: Greater than 30 minutes This includes examination of the patient, discharge planning, medication reconciliation, and communication with other providers. Discharge Instructions Please refer to the electronic Patient Visit Report (Discharge Instructions) for additional information. Follow-Up Follow up with your Primary Care Provider within 1 week. Follow up with neurology within 4 weeks. Follow up with cardiology within 4 weeks. Additional Copies To Aleksandar Beckman M.D.
[2017-05-10] MEDS: ACETAMINOPHEN 325 MG TAB PO PRN (16:07)
[2017-05-10 16:21] VITALS: BP_SYST 136; BP_SYST 93; BP_DIAS 60; BP_DIAS 62; PULSE 86; TEMP 36.8; O2SAT 94
[2017-05-10] MEDS ORDERED: CARVEDILOL 6.25 MG TAB PO SCH (21:00)
[2017-05-11] MEDS: SODIUM CHLORIDE 0.9% 1000ML 1,000 ML IV SCH (00:13)
[2017-05-11 00:31] VITALS: BP 162/78; PULSE 96; TEMP 36.7; O2SAT 96
[2017-05-11] MEDS: ACETAMINOPHEN 325 MG TAB PO PRN (04:35)
[2017-05-11] MEDS: LEVOTHYROXINE 75 MCG TAB PO SCH (06:30)
[2017-05-11 07:40] VITALS: BP_SYST 168; BP_SYST 177; BP_SYST 187; BP_DIAS 78; BP_DIAS 83; BP_DIAS 90; PULSE 76; TEMP 36.6; O2SAT 95
[2017-05-11] MEDS: CARVEDILOL 12.5 MG TAB PO SCH (08:23)
[2017-05-11] MEDS: GABAPENTIN 100 MG CAP PO SCH (08:23)
[2017-05-11] MEDS: FLUDROCORTISONE ACETATE 0.1 MG TAB PO SCH (08:23)
[2017-05-11] MEDS: TOLTERODINE TARTRATE LA 4 MG CAPCR PO SCH (08:24)
[2017-05-11] MEDS: APIXABAN 2.5 MG TAB PO SCH (08:24)
[2017-05-11] MEDS: ASPIRIN 81 MG ECTAB PO SCH (08:24)
[2017-05-11] MEDS: CYANOCOBALAMIN 500 MCG TAB (VIT B-12) PO SCH ×2 (08:24→08:31)
[2017-05-11 08:31] VITALS: BP 188/81
[2017-05-11] MEDS: HydrALAZINE HCL 20 MG/ML VIAL IV. PRN (08:31)
[2017-05-11 09:36] VITALS: BP 96/60; PULSE 82
[2017-05-11 10:28] VITALS: BP 126/66; PULSE 80
[2017-05-11 12:30] VITALS: BP 126/66; PULSE 80; TEMP 36.6; O2SAT 95
== END 2017-05-11 14:31 | DRG 65 ==
LOC: C.EDB 10:38 → ENRESERV 13:14 → C.2T 13:55 → EDBEDREQ 05-09 17:56 → ENRESERV 05-09 18:05 → EDBEDREQ 05-09 18:11 → C.4E 05-09 19:05
PROVIDERS: ADMIT Internal Medicine; ATTEND Internal Medicine
DX: I63.8 Other cerebral infarction (principal); G81.91 Hemiplegia, unspecified affecting right dominant side; I10 Essential (primary) hypertension; I48.0 Paroxysmal atrial fibrillation; Z79.01 Long term (current) use of anticoagulants; E03.9 Hypothyroidism, unspecified; E53.8 Deficiency of other specified B group vitamins; M47.9 Spondylosis, unspecified; I95.89 Other hypotension; R47.01 Aphasia; M48.00 Spinal stenosis, site unspecified; Z88.1 Allergy status to other antibiotic agents; Z88.8 Allergy status to other drugs, medicaments and biological substances; Z87.891 Personal history of nicotine dependence; Z86.73 Personal history of transient ischemic attack (TIA), and cerebral infarction without residual deficits

== ENCOUNTER 2017-06-22 09:55 | Inpatient (IN) | payer OTHER ==
[2017-06-22] VITALS (16 sets, daily range): BP systolic 136–195; BP diastolic 67–105; PULSE 76–97; TEMP 36.5–36.8; O2SAT 93–99; Ht 160 cm; Wt 60.7 kg
[~2017-06-22] VITALS: Ht 160 cm; Wt 60.7 kg
[~2017-06-22 09:55] MED LIST changes: +ASPI-320 PO; +FLR/1 PO; +MRLP17X PO; -PRMT25 PO; -SODIUM CHLORIDE 0.9% 1000ML 1,000 ML IV SCH
[2017-06-22] MEDS ORDERED: SODIUM CHLORIDE 0.9% 1000ML 1,000 ML IV STA (10:07)
[2017-06-22] MEDS ORDERED: ACET-1222 PO (10:15)
[2017-06-22] MEDS ORDERED: LEVO75TA PO (10:15)
[2017-06-22] MEDS ORDERED: ACET-1311 PO (10:15)
[2017-06-22] MEDS ORDERED: POTA10CA28 PO (10:15)
[2017-06-22] MEDS ORDERED: FLUD0.1T10 PO (10:16)
--- NOTE | 2017-06-22 10:28 | DIAGNOSTIC IMAGING REPORT ---
CHEST ONE VIEW PORTABLE CLINICAL HISTORY: Acute change in mental status COMPARISON STUDY: 05/07/2017 FINDINGS: The heart is at the upper limits of normal in size. There is persistent aortic tortuosity/ectasia. There is mild chronic interstitial thickening. There is no acute parenchymal consolidation. There are no pleural effusions. There is no overt failure.[ I device projects over the left chest, likely representing an event recorder. IMPRESSION: No active disease in the chest. Electronically signed by: Art Rizzo M.D. 06/22/2017 10:26 AM Dictated Date/Time: 06/22/2017 10:25 AM
[2017-06-22 10:31] LABS: PTT PATIENT 22.8 SECONDS (21.0-31.0)
--- NOTE | 2017-06-22 10:37 | DIAGNOSTIC IMAGING REPORT ---
CT HEAD WITHOUT CONTRAST (CT) CLINICAL HISTORY: Acute change in mental status COMPARISON STUDY: 05/07/2017 TECHNIQUE: Axial CT of the brain is performed from the vertex to the skull base. IV contrast was not administered for this examination. A dose lowering technique was utilized adhering to the principles of ALARA. CT DOSE: 537.48 mGy.cm FINDINGS: No intra or extra-axial mass lesions are visualized. There is no CT evidence of acute cortical infarction. There is no evidence of midline shift. There is no acute hemorrhage. No calvarial fractures are visualized. There are moderate white matter hypodensities likely on a small vessel basis. There is no evidence of pathologic ventricular dilatation. There is no evidence of acute sinusitis IMPRESSION: No acute intracranial findings Electronically signed by: Art Rizzo M.D. 06/22/2017 10:36 AM Dictated Date/Time: 06/22/2017 10:34 AM
[2017-06-22 10:43] LABS: ALBUMIN 2.9 gm/dl (3.4-5.0); CREATININE 1.03 mg/dl (0.60-1.20); POTASSIUM 2.6 mmol/L (3.5-5.1)
[2017-06-22 10:44] LABS: HEMATOCRIT 21.5 % (37-47); HEMOGLOBIN 6.8 g/dL (12.0-16.0); MEAN CELL VOLUME 82.1 fL (80-100); MEAN CORPUSCULAR HGB CONC 31.6 g/dl (32-36); MEAN PLATELET VOLUME 7.9 fL (7.4-10.4); PLATELET COUNT 254 K/uL (130-400); RED CELL DISTRIBUTION WIDTH SD 45.2 fL (36.4-46.3); WHITE BLOOD COUNT 5.75 K/uL (4.8-10.8)
[2017-06-22 10:47] LABS: BASO % 0.3 %; BASO ABS # 0.02 K/uL (0-0.2); EOS % 3.5 %; IG# 0.02 K/uL (0.00-0.02); LYMPH % 19.8 %; LYMPH ABS # 1.14 K/uL (1.2-3.4); MONO % 10.4 %; NEUT % 65.7 %; NEUT ABS # 3.77 K/uL (1.4-6.5); TOTAL PROTEIN 6.2 gm/dl (6.4-8.2)
[2017-06-22] MEDS ORDERED: POTASSIUM CHLORIDE 10 MEQ TABCR PO STA (10:49)
--- NOTE | 2017-06-22 11:11 | EMERGENCY ROOM VISIT NOTE ---
History Report prepared by Ameliaibmike: Vasyl Padilla Under the Supervision of: Dr. Kelvin Espinoza D.O. First contact with patient: 09:57 Chief Complaint: HYPOTENSION Stated Complaint: HYPOTENSION History of Present Illness The patient is a 81 year old female who presents to the Emergency Room by EMS with complaints of an unresponsive episode occurring just prior to arrival. She is a resident at [facility]. Per EMS, the patient was found unresponsive by staff in the dining room after eating breakfast. She was reported to have had two episodes of generalized shaking, thought to be seizure-like activity vs tremors. EMS notes that the patient would not respond to them at all on scene. They states that she became completely responsive en route. The patient's blood pressure was 70 on scene systolically. Her BSG was 140. She has no known history of seizures. The patient denies recent falls or head injuries. She last remembers eating breakfast. She has a history of frequent syncope/hypotension. Pt denies headache, change in vision, fevers, chest pain, shortness of breath, nausea, vomiting, diarrhea, pain with urination, and melena. Patient is also taking Eliquis for her A. fib. Source of History: patient, EMS Onset: Just prior to arrival Quality: other (unresponsive) Timing: other (episode) Associated Symptoms: + LOC, No headache, No chest pain, No SOB, No vomiting , No melena, No diarrhea, No urinary symptoms Review of Systems See HPI for pertinent positives & negatives. A total of 10 systems reviewed and were otherwise negative. Past Medical & Surgical Medical Problems: (1) GI bleed (2) History of - hypertension (3) Hypotension (4) Right-sided lacunar stroke Family History Patient reports no known family medical history. Social History Smoking Status: Former Smoker Marital Status: Housing Status: lives with family Occupation Status: retired Current/Historical Medications Scheduled Acetaminophen (Acetaminophen Extra Stren), 2 TAB PO QPM Apixaban (Eliquis), 5 MG PO BID Aspirin (Aspirin EC Low Dose), 81 MG PO QAM Carvedilol (Coreg), 12.5 MG PO QAM Carvedilol (Coreg), 6.25 MG PO QPM Digoxin (Digoxin), 0.125 MG PO DAILY@16 Fludrocortisone Acetate (Florinef), 2 TAB PO BID Gabapentin (Neurontin), 100 MG PO BID Levothyroxine Sodium (Synthroid), 75 MCG PO DAILY Potassium Chloride (Micro-K Ext Rel), 10 MEQ PO QAM Tolterodine Tartrate (Detrol LA), 4 MG PO DAILY Triamcinolone (Triamcinolone Acetonide), 1 APPLN TOP QPM Scheduled PRN Acetaminophen (Tylenol), 650 MG PO DIRECTED PRN for Pain or Fever Polyethylene (Miralax), 17 GM PO DAILY PRN for Constipation Allergies Coded Allergies: Amoxicillin (Verified Allergy, Intermediate, VERY SICK TO HER STOMACH, 11/30) Atorvastatin (Verified Allergy, Intermediate, RASH, 06/22/17) and rash Clavulanic Acid (Verified Allergy, Intermediate, VERY SICK TO HER STOMACH , 06/22/17) Tetracycline (Verified Allergy, Intermediate, ARMS SWELLED UP, 06/22/17) Tramadol (Verified Allergy, Intermediate, MAKES HER DIZZY AND CRAZEY, 06/22) SHANTEL Inhibitors (Verified Allergy, Mild, NOT SURE OF REACTIONS, 06/22/17) Erythromycin (Verified Allergy, Unknown, UPSET STOMACH, 06/22/17) Rivaroxaban (Verified Allergy, Unknown, RASH, 06/22/17) Zolpidem (Verified Allergy, Unknown, ., 06/22/17) Physical Exam Vital Signs Date Time Temp Pulse Resp B/P (MAP) Pulse Ox O2 Delivery O2 Flow Rate FiO2 06/22/17 11:55 75 15 97 06/22/17 11:49 150/55 06/22/17 11:44 Room Air 06/22/17 11:25 74 12 06/22/17 10:55 81 13 98 06/22/17 10:41 102/56 06/22/17 10:22 96 Room Air 06/22/17 10:11 75 06/22/17 10:02 36.7 79 18 104/49 96 Room Air 06/22/17 09:59 104/49 Physical Exam GENERAL: Sitting up in bed, alert, well appearing, well nourished, no distress, non-toxic EYE EXAM: normal conjunctiva. PERRL and EOM's intact. OROPHARYNX: no exudate, no erythema, lips, buccal mucosa, and tongue normal and mucous membranes are moist NECK: supple, no nuchal rigidity, no adenopathy, non-tender LUNGS: Clear to auscultation. Normal chest wall mechanics HEART: no murmurs, S1 normal and S2 normal ABDOMEN: abdomen soft, non-tender, normo-active bowel sounds, no masses, no rebound or guarding. BACK: Back is symmetrical on inspection and there is no deformity, no midline tenderness, no CVA tenderness. RECTAL: Heme-negative stool. SKIN: no rashes and no bruising UPPER EXTREMITIES: upper extremities are grossly normal. LOWER EXTREMITIES: No pitting edema. NEURO EXAM: Normal sensorium, cranial nerves II-XII intact, normal speech, no weakness of arms, no weakness of legs. No drift. Finger to nose intact. Gross sensation intact. Medical Decision & Procedures ER Provider Diagnostic Interpretation: Radiology results as stated below per my review and the radiologist's interpretation: CT HEAD WITHOUT CONTRAST (CT) FINDINGS: No intra or extra-axial mass lesions are visualized. There is no CT evidence of acute cortical infarction. There is no evidence of midline shift. There is no acute hemorrhage. No calvarial fractures are visualized. There are moderate white matter hypodensities likely on a small vessel basis. There is no evidence of pathologic ventricular dilatation. There is no evidence of acute sinusitis IMPRESSION: No acute intracranial findings Electronically signed by: Art Rizzo M.D. 06/22/2017 10:36 AM CHEST ONE VIEW PORTABLE FINDINGS: The heart is at the upper limits of normal in size. There is persistent aortic tortuosity/ectasia. There is mild chronic interstitial thickening. There is no acute parenchymal consolidation. There are no pleural effusions. There is no overt failure.[ I device projects over the left chest, likely representing an event recorder. IMPRESSION: No active disease in the chest. Electronically signed by: Art Rizzo M.D. 06/22/2017 10:26 AM Laboratory Results 06/22/17 10:13 Red Blood Count 2.62, Mean Corpuscular Volume 82.1, Mean Corpuscular Hemoglobin 26.0, Mean Corpuscular Hemoglobin Concent 31.6, Mean Platelet Volume 7.9, Neutrophils (%) (Auto) 65.7, Lymphocytes (%) (Auto) 19.8, Monocytes (%) (Auto) 10.4, Eosinophils (%) (Auto) 3.5, Basophils (%) (Auto) 0.3, Neutrophils # (Auto ) 3.77, Lymphocytes # (Auto) 1.14, Monocytes # (Auto) 0.60, Eosinophils # (Auto ) 0.20, Basophils # (Auto) 0.02 06/22/17 10:13 Test 06/22/17 10:13 06/22/17 10:20 White Blood Count 5.75 K/uL (4.8-10.8) Red Blood Count 2.62 M/uL (4.2-5.4) Hemoglobin 6.8 g/dL (12.0-16.0) Hematocrit 21.5 % (37-47) Mean Corpuscular Volume 82.1 fL (80-100) Mean Corpuscular Hemoglobin 26.0 pg (25-34) Mean Corpuscular Hemoglobin Concent 31.6 g/dl (32-36) Platelet Count 254 K/uL (130-400) Mean Platelet Volume 7.9 fL (7.4-10.4) Neutrophils (%) (Auto) 65.7 % Lymphocytes (%) (Auto) 19.8 % Monocytes (%) (Auto) 10.4 % Eosinophils (%) (Auto) 3.5 % Basophils (%) (Auto) 0.3 % Neutrophils # (Auto) 3.77 K/uL (1.4-6.5) Lymphocytes # (Auto) 1.14 K/uL (1.2-3.4) Monocytes # (Auto) 0.60 K/uL (0.11-0.59) Eosinophils # (Auto) 0.20 K/uL (0-0.5) Basophils # (Auto) 0.02 K/uL (0-0.2) RDW Standard Deviation 45.2 fL (36.4-46.3) RDW Coefficient of Variation 15.0 % (11.5-14.5) Immature Granulocyte % (Auto) 0.3 % Immature Granulocyte # (Auto) 0.02 K/uL (0.00-0.02) Hypersegmented Polys 1+ Hypochromasia PRESENT Prothrombin Time 10.7 SECONDS (9.0-12.0) Prothromb Time International Ratio 1.0 (0.9-1.1) Activated Partial Thromboplast Time 22.8 SECONDS (21.0-31.0) Partial Thromboplastin Ratio 0.9 Anion Gap 10.0 mmol/L (3-11) Est Creatinine Clear Calc Drug Dose 38.8 ml/min Estimated GFR () 58.2 Estimated GFR (Non- 50.2 BUN/Creatinine Ratio 12.0 (10-20) Calcium Level 8.0 mg/dl (8.5-10.1) Magnesium Level 1.8 mg/dl (1.8-2.4) Total Bilirubin 0.5 mg/dl (0.2-1) Direct Bilirubin 0.1 mg/dl (0-0.2) Aspartate Amino Transf (AST/SGOT) 20 U/L (15-37) Alanine Aminotransferase (ALT/SGPT) 19 U/L (12-78) Alkaline Phosphatase 54 U/L (45-117) Troponin I 0.021 ng/ml (0-0.045) Total Protein 6.2 gm/dl (6.4-8.2) Albumin 2.9 gm/dl (3.4-5.0) Digoxin Level 1.2 ng/ml (0.8-2.0) Urine Color YELLOW Urine Appearance CLEAR (CLEAR) Urine pH 7.0 (4.5-7.5) Urine Specific [place] 1.011 (1.000-1.030) Urine Protein 1+ (NEG) Urine Glucose (UA) NEG (NEG) Urine Ketones NEG (NEG) Urine Occult Blood NEG (NEG) Urine Nitrite NEG (NEG) Urine Bilirubin NEG (NEG) Urine Urobilinogen NEG (NEG) Urine Leukocyte Esterase TRACE (NEG) Urine WBC (Auto) 1-5 /hpf (0-5) Urine RBC (Auto) 0-4 /hpf (0-4) Urine Hyaline Casts (Auto) 1-5 /lpf (0-5) Urine Epithelial Cells (Auto) >30 /lpf (0-5) Urine Bacteria (Auto) 1+ (NEG) Laboratory results per my review. Medications Administered Medications (Trade) Dose Ordered Sig/Dereje Route Start Time Stop Time Status Last Admin Dose Admin Sodium Chloride 1,000 ml @ 999 mls/hr Q1H1M STAT IV 06/22/17 10:07 06/22/17 11:07 DC 06/22/17 10:25 999 MLS/HR Potassium Chloride (Klor-Con M10) 40 meq NOW STAT PO 06/22/17 10:49 06/22/17 10:50 DC 06/22/17 12:20 40 MEQ Magnesium Sulfate 100 ml @ 100 mls/hr NOW STAT IV 06/22/17 11:48 06/22/17 12:47 DC 06/22/17 12:24 100 MLS/HR ECG Per My Interpretation Indication: other (unresponsive) Rate (beats per minute): 78 Rhythm: sinus rhythm Findings: Q waves (Septal), ST depression (inferior, anterior and lateral), other (Normal axis. ) Comparison ECG Date: May 07, 2017 Change: ST depressions in the lateral, inferior and anterior leads are worse. ED Course ED COURSE: Vital signs were reviewed and showed normal vitals. The patients medical record was reviewed The above diagnostic studies were performed and reviewed. ED treatments and interventions as stated above. 0956: The patient was evaluated in room B11B. A complete history and physical examination was performed. 1007: Ordered Sodium Chloride 1000 ml @ 999 mls/hr IV. 1049: Ordered Klor-Con M10 40 meq PO. 1100: Upon reevaluation, the patient is resting comfortably. I discussed my findings with the patient and she understands and agrees with the treatment plan. Based on the patients age, coexisting illnesses, exam and lab findings the decision to treat as an inpatient was made. The patient remained stable while under my care. The patient will be evaluated for further management. Medical Decision Differential diagnosis includes etiologies such as infection, hypoglycemia, electrolyte abnormalities, cardiac sources, intracerebral event, trauma, toxicologic, neurologic, as well as others were entertained. Patient is an 81-year-old female who presents the ER for syncopal episode with shaking. She notes she had 2 days wall at breakfast. On my initial exam she is completely back to baseline. She was hypotensive. Labs were obtained and show a hemoglobin in the mid 6s. EKG does show new and worsening ST depressions in the anterior and lateral leads. Patient denies any chest pain or shortness of breath. Potassium was low at 2.6. She is taking Eliquis. Heme -negative stool. Bilirubin, LFTs, and troponin were negative. UA was contaminated. Hemoglobin was repleted with transfusion in the ER. She was given oral potassium. Internal medicine was notified for further evaluation. Cardiology did interrogate the loop recorder and this was unremarkable. Patient was given PRBCs as stated above while in the ER. Medication Reconcilliation Current Medication List: was personally reviewed by me Blood Pressure Screening Patient's blood pressure: Normal blood pressure Blood pressure disposition: Did not require urgent referral Consults Time Called: 1059 Consulting Physician: Dr. Rocha - [facility] [place] Returned Call: 1101 Dr. Rocha was made aware of the patient's case. MALIKAG will evaluate the patient for further management. Additional Consults: Time Called: 1228 Consulted Physician: Dr. Arias - Cardiology Returned Call: 1231 Additional Comments: I reviewed the patient's case with Dr. Arias. He will come evaluate the patient 's loop recorder. Impression Primary Impression: Symptomatic anemia Additional Impressions: Acute electrocardiogram changes Syncope Hypokalemia Critical Care I have personally spent 35 minutes of critical care time in the direct management of this patient. This includes bedside care, interpretation of diagnostic studies, and testing, discussion with consultants, patient, and family members, and other required patient management activities. This 35 minutes is in excess of all separately billable procedures. Scribe Attestation The scribe's documentation has been prepared under my direction and personally reviewed by me in its entirety. I confirm that the note above accurately reflects all work, treatment, procedures, and medical decision making performed by me. Departure Information Dispostion Being Evaluated By Hospitalist Referrals Aleksandar Beckman M.D. (PCP) Patient Instructions My [facility] Problem Qualifiers Additional Impressions: Syncope Syncope type: unspecified Qualified Codes: R55 - Syncope and collapse
[2017-06-22] MEDS ORDERED: MAGNESIUM SULFATE 1GM / D5W 100 ML IV STA (11:48)
[2017-06-22] MEDS ORDERED: ONDANSETRON INJ 2 MG/ML 2 ML VIAL IV PRN (12:00)
[2017-06-22] MEDS ORDERED: D5NSS + 20MEQ KCL 1,000 ML IV SCH (13:30)
--- NOTE | 2017-06-22 14:03 | History and Physical ---
History & Physical Date & Time of Service: June 22, 2017 at 13:13 Chief Complaint: Gi Bleed Syncope Primary Care Physician: Aleksandar Beckman M.D. History of Present Illness Source: patient, hospital records, other 81 y/o F Hx paroxysmal AF, HTN, hypothyroidism, multiple syncopal episodes - currently with an implanted loop recorder. She resides in an assisted living facility and suffered 2 syncopal or unresponsive episodes this AM. Upper extremity shaking was described possibly indicating a seizure, however, she did not suffer tongue biting or incontinence. There was no significant post-ictal sate described. She was reportedly hypotensive following these episodes with a systolic pressure in the low 70s. The pt's loop recorder did not relay any significant arrhythmias which would explain her symptoms. Initial labs in the ER are notable for a hemoglobin of 6.8 which was 10.4 6 weeks earlier and hypokalemia with a K of 2.6. Interestingly, a guaiac test was negative. An EKG was notable for ST depressions in all leads. The pt does not recall her syncopal episodes. She is oriented and denies any specific symptoms at the time of admission. Past Medical/Surgical History 1) HTN 2) Hypothyroidism 3) Paroxysmal atrial fibrillation 4) Recurrent syncopal episodes - implanted loop recorder 5) TIA 6) Transient hypotensive episodes Family History Patient reports no known family medical history. Social History Smoking Status: Former Smoker Marital Status: Housing status: lives with significant other Occupational Status: retired Immunizations History of Influenza Vaccine: Yes History of Tetanus Vaccine?: Unknown Tetanus Immunization Date: Dec 30, 2009 History of Pneumococcal: Yes Pneumococcal Date: Dec 30, 2006 History of Hepatitis B Vaccine: Unknown Allergies Coded Allergies: Amoxicillin (Verified Allergy, Intermediate, VERY SICK TO HER STOMACH, 11/30) Atorvastatin (Verified Allergy, Intermediate, RASH, 06/22/17) and rash Clavulanic Acid (Verified Allergy, Intermediate, VERY SICK TO HER STOMACH , 06/22/17) Tetracycline (Verified Allergy, Intermediate, ARMS SWELLED UP, 06/22/17) Tramadol (Verified Allergy, Intermediate, MAKES HER DIZZY AND CRAZEY, 06/22) SHANTEL Inhibitors (Verified Allergy, Mild, NOT SURE OF REACTIONS, 06/22/17) Erythromycin (Verified Allergy, Unknown, UPSET STOMACH, 06/22/17) Rivaroxaban (Verified Allergy, Unknown, RASH, 06/22/17) Zolpidem (Verified Allergy, Unknown, ., 06/22/17) Home Medications Scheduled Acetaminophen (Acetaminophen Extra Stren), 2 TAB PO QPM Apixaban (Eliquis), 5 MG PO BID Aspirin (Aspirin EC Low Dose), 81 MG PO QAM Carvedilol (Coreg), 12.5 MG PO QAM Carvedilol (Coreg), 6.25 MG PO QPM Digoxin (Digoxin), 0.125 MG PO DAILY@16 Fludrocortisone Acetate (Florinef), 2 TAB PO BID Gabapentin (Neurontin), 100 MG PO BID Levothyroxine Sodium (Synthroid), 75 MCG PO DAILY Potassium Chloride (Micro-K Ext Rel), 10 MEQ PO QAM Tolterodine Tartrate (Detrol LA), 4 MG PO DAILY Triamcinolone (Triamcinolone Acetonide), 1 APPLN TOP QPM Scheduled PRN Acetaminophen (Tylenol), 650 MG PO DIRECTED PRN for Pain or Fever Polyethylene (Miralax), 17 GM PO DAILY PRN for Constipation Review of Systems Constitutional: No fever, No chills, No sweats Eyes: No worsening of vision ENT: No hearing loss, No unusual epistaxis, No nasal symptoms Respiratory: No cough, No wheezing Cardiovascular: No chest pain, No PND Abdomen: No pain, No vomiting Musculoskeletal: No joint pain Genitourinary - Female: No dysuria, No hematuria Neurologic: + problem reported (Does not recall above syncope episodes), No memory loss, No paralysis Psychiatric: No depression symptoms Endocrine: No fatigue Hematologic / Lymphatic: No abnormal bleeding/bruising Integumentary: No rash Allergic / Immunologic: No environmental allergies Physical Exam Vital Signs Date Time Temp Pulse Resp B/P (MAP) Pulse Ox O2 Delivery O2 Flow Rate FiO2 06/22/17 13:05 36.7 78 16 140/77 96 06/22/17 12:22 78 16 140/77 96 Room Air 06/22/17 12:00 140/77 06/22/17 11:55 75 15 97 06/22/17 11:49 150/55 06/22/17 11:44 Room Air 06/22/17 11:25 74 12 06/22/17 10:55 81 13 98 06/22/17 10:41 102/56 06/22/17 10:22 96 Room Air 06/22/17 10:11 75 06/22/17 10:02 36.7 79 18 104/49 96 Room Air 06/22/17 09:59 104/49 General Appearance: WD/WN, no apparent distress Head: normocephalic Eyes: normal inspection ENT: normal ENT inspection, pharynx normal Neck: supple, no JVD Respiratory/Chest: chest non-tender, lungs clear, normal breath sounds Cardiovascular: regular rate, rhythm, no edema Abdomen/GI: normal bowel sounds, non tender, soft Back: normal inspection, no CVA tenderness Extremities/Musculoskelatal: normal inspection, no calf tenderness, normal capillary refill Neurologic/Psych: aprn II-XII nml as tested, no motor/sensory deficits, alert Skin: normal color Diagnostics Laboratory Results Results Past 24 Hours Test 06/22/17 10:13 06/22/17 10:20 Range/Units White Blood Count 5.75 4.8-10.8 K/uL Red Blood Count 2.62 4.2-5.4 M/uL Hemoglobin 6.8 12.0-16.0 g/dL Hematocrit 21.5 37-47 % Mean Corpuscular Volume 82.1 80-100 fL Mean Corpuscular Hemoglobin 26.0 25-34 pg Mean Corpuscular Hemoglobin Concent 31.6 32-36 g/dl Platelet Count 254 130-400 K/uL Mean Platelet Volume 7.9 7.4-10.4 fL Neutrophils (%) (Auto) 65.7 % Lymphocytes (%) (Auto) 19.8 % Monocytes (%) (Auto) 10.4 % Eosinophils (%) (Auto) 3.5 % Basophils (%) (Auto) 0.3 % Neutrophils # (Auto) 3.77 1.4-6.5 K/uL Lymphocytes # (Auto) 1.14 1.2-3.4 K/uL Monocytes # (Auto) 0.60 0.11-0.59 K/uL Eosinophils # (Auto) 0.20 0-0.5 K/uL Basophils # (Auto) 0.02 0-0.2 K/uL RDW Standard Deviation 45.2 36.4-46.3 fL RDW Coefficient of Variation 15.0 11.5-14.5 % Immature Granulocyte % (Auto) 0.3 % Immature Granulocyte # (Auto) 0.02 0.00-0.02 K/uL Hypersegmented Polys 1+ Hypochromasia PRESENT Prothrombin Time 10.7 9.0-12.0 SECONDS Prothromb Time International Ratio 1.0 0.9-1.1 Activated Partial Thromboplast Time 22.8 21.0-31.0 SECONDS Partial Thromboplastin Ratio 0.9 Sodium Level 135 136-145 mmol/L Potassium Level 2.6 3.5-5.1 mmol/L Chloride Level 98 98-107 mmol/L Carbon Dioxide Level 27 21-32 mmol/L Anion Gap 10.0 3-11 mmol/L Blood Urea Nitrogen 12 7-18 mg/dl Creatinine 1.03 0.60-1.20 mg/dl Est Creatinine Clear Calc Drug Dose 38.8 ml/min Estimated GFR () 58.2 Estimated GFR (Non- 50.2 BUN/Creatinine Ratio 12.0 10-20 Random Glucose 137 70-99 mg/dl Calcium Level 8.0 8.5-10.1 mg/dl Magnesium Level 1.8 1.8-2.4 mg/dl Total Bilirubin 0.5 0.2-1 mg/dl Direct Bilirubin 0.1 0-0.2 mg/dl Aspartate Amino Transf (AST/SGOT) 20 15-37 U/L Alanine Aminotransferase (ALT/SGPT) 19 12-78 U/L Alkaline Phosphatase 54 45-117 U/L Troponin I 0.021 0-0.045 ng/ml Total Protein 6.2 6.4-8.2 gm/dl Albumin 2.9 3.4-5.0 gm/dl Digoxin Level 1.2 0.8-2.0 ng/ml Urine Color YELLOW Urine Appearance CLEAR CLEAR Urine pH 7.0 4.5-7.5 Urine Specific [place] 1.011 1.000-1.030 Urine Protein 1+ NEG Urine Glucose (UA) NEG NEG Urine Ketones NEG NEG Urine Occult Blood NEG NEG Urine Nitrite NEG NEG Urine Bilirubin NEG NEG Urine Urobilinogen NEG NEG Urine Leukocyte Esterase TRACE NEG Urine WBC (Auto) 1-5 0-5 /hpf Urine RBC (Auto) 0-4 0-4 /hpf Urine Hyaline Casts (Auto) 1-5 0-5 /lpf Urine Epithelial Cells (Auto) >30 0-5 /lpf Urine Bacteria (Auto) 1+ NEG Microbiology Results 06/22/17 Urine Culture, Received Pending EKG Sinus - ST depressions in majority of leads Impression Assessment and Plan 81 y/o F Hx paroxysmal AF, HTN, hypothyroidism, multiple syncopal episodes - currently with an implanted loop recorder. She resides in an assisted living facility and suffered 2 syncopal or unresponsive episodes this AM. Upper extremity shaking was described possibly indicating a seizure, however, she did not suffer tongue biting or incontinence. There was no significant post-ictal sate described. She was reportedly hypotensive following these episodes with a systolic pressure in the low 70s. The pt's loop recorder did not relay any significant arrhythmias. Initial labs in the ER are notable for a hemoglobin of 6.8 which was 10.4 6 weeks earlier and hypokalemia with a K of 2.6. Interestingly, a guaiac test was negative. An EKG was notable for ST depressions in all leads. 1) Syncopal episodes - possible seizure activity. The loop recorder did not register any abnormalities. She was hypotensive following and is anemic, however, these episodes occurred while she was sitting and she was reportedly hypotensive with previous episodes and a baseline hemoglobin. We will obtain a prolactin level and consult neurology. She will be monitored on telemetry. 2) Anemia - She takes Eliquis daily. Her MCV is WNL and a guaiac as mentioned is negative. She will receive 3 units PRBCs and we will guaiac all additional stools. An iron profile is ordered. If blood loss is ruled out as the cause of her anemia, she should likely be referred to hematology as an outpt. 3) EKG changes - there is no evidence of ACS and the chages may be related to hypokalemia - we will repeat a trop, monitor on telemetry and repeat an EKG when electrolytes have been corrected. 4) Hypokalemia - K repleted - Mag provided empirically - should likely increase outpt dose upon DC. 3) AF - Sinus on admission - cont Coreg and Dig - We will resume Eliquis if blood loss is ruled out. 4) HTN - Her BP stabilized following a saline bolus - we can continue her Coreg with parameters 5) Hypothyroidism - cont Synthroid - will check TSH Full code - SCDs Total time for this admit including review of labs, meds, imaging, records - discussion with pt and ER attending - 45 min Advanced Directives Existing Living Will: Yes Existing Power of Systems Program Manager: Yes Resuscitation Status VTE Prophylaxis Will order VTE Prophylaxis: Yes Reason for no VTE drug order: Contraindicated Reason no Mechanical VTE Order: Treatment not tolerated
[2017-06-22] MEDS: POTASSIUM CHLR 10 MEQ / WTR 100 ML IV SCH ×2 (14:51→15:33)
[2017-06-22] MEDS: DIGOXIN 0.125 MG TAB PO SCH (15:19)
[2017-06-22] MEDS: ACETAMINOPHEN 325 MG TAB PO PRN ×2 (15:24→20:02)
[2017-06-22] MEDS: CARVEDILOL 6.25 MG TAB PO SCH (19:49)
[2017-06-22] MEDS: HydrALAZINE HCL 20 MG/ML VIAL IV. PRN (19:59)
[2017-06-22] MEDS: GABAPENTIN 100 MG CAP PO SCH (20:04)
[2017-06-22] MEDS: FLUDROCORTISONE ACETATE 0.1 MG TAB PO SCH (20:05)
[2017-06-22 23:54] LABS: CALCIUM 8.1 mg/dl (8.5-10.1); CREATININE 0.63 mg/dl (0.60-1.20); POTASSIUM 2.9 mmol/L (3.5-5.1)
[2017-06-23] VITALS (9 sets, daily range): BP systolic 130–197; BP diastolic 72–140; PULSE 76–86; TEMP 36.6–36.9; O2SAT 92–96
[2017-06-23] MEDS ORDERED: POTASSIUM CHLORIDE 20 MEQ TABCR PO STA ×2 (00:29→07:58)
[2017-06-23 05:41] LABS: CALCIUM 7.8 mg/dl (8.5-10.1); CREATININE 0.71 mg/dl (0.60-1.20); POTASSIUM 3.3 mmol/L (3.5-5.1)
[2017-06-23] MEDS: LEVOTHYROXINE 75 MCG TAB PO SCH (06:17)
[2017-06-23] MEDS: POTASSIUM CHLORIDE 10 MEQ TABCR PO SCH (07:48)
[2017-06-23] MEDS: CARVEDILOL 12.5 MG TAB PO SCH (07:48)
[2017-06-23] MEDS: FLUDROCORTISONE ACETATE 0.1 MG TAB PO SCH ×2 (07:49→21:47)
[2017-06-23] MEDS: GABAPENTIN 100 MG CAP PO SCH ×2 (07:49→21:45)
--- NOTE | 2017-06-23 08:14 | Neurology Consultation ---
Neurology Consultation Date of Consultation: June 23, 2017. Attending Physician: Jhony Rocha M.D. Primary Care Physician: Aleksandar Beckman M.D. Reason for Consultation: Syncopal episodes - ?seizure History of Present Illness Source: patient Dot Mace is an 81 yo F with atrial flutter, stroke (04/30), recurrent syncopal events w/hypotension, who presented to the ED 06/22/17 after another syncopal event. She reports she remembers being at [facility] and eating breakfast with her friends. She had loco, a muffin, and some eggs, and did not have any difficulty chewing or swallowing. bThe attendent at [facility] remembers her slumping over and snoring loudly. The next thing she remembers is waking up in the ambulance, and then getting many tests. She denies any further syncopal events since she has been here. Per EMS records, her systolic BP was 70 at the time, and her BSG was 140. She became completely responsive in the ambulance. She reports her first event happened a few years ago when she was in [place] on vacation, at [place]. She reports she has never been told a cause for these events, and she does have a loop recorder placed by Dr Arias, which has apparently not found any cardiac origin to the events. Her reports this has occurred about 10 times total in the last few years, and he has witnessed a few of these episodes. He reports there is no warning to the episodes, she will just pass out and slump over, and take a few minutes to recover. He denies any abnormal limb or eye movements at that time. In the ED, she was found to be anemic with a hemoglobin of 6.8. She is on Eliquis. She was given packed red blood cell transfusion and reports feeling well. She denies any pain, weakness, or numbness in either limb at this time. EEG was completed this morning, is pending read. She denies a hx of seizures. Past Medical/Surgical History Medical Problems: (1) Acute electrocardiogram changes Status: Acute (2) Altered mental status Status: Acute (3) CVA (cerebral vascular accident) Status: Acute (4) Hypokalemia Status: Acute (5) Symptomatic anemia Status: Acute (6) Syncope Status: Acute Family History Non-contributory family hx. Denies any hx of stroke, CAD, syncope. Social History Smoking Status: Never smoker Alcohol Use: none Marital Status: Housing Status: long-term ([facility]) Occupation Status: retired Allergies Coded Allergies: Amoxicillin (Verified Allergy, Intermediate, VERY SICK TO HER STOMACH, 11/30) Atorvastatin (Verified Allergy, Intermediate, RASH, 06/22/17) and rash Clavulanic Acid (Verified Allergy, Intermediate, VERY SICK TO HER STOMACH , 06/22/17) Tetracycline (Verified Allergy, Intermediate, ARMS SWELLED UP, 06/22/17) Tramadol (Verified Allergy, Intermediate, MAKES HER DIZZY AND CRAZEY, 06/22) SHANTEL Inhibitors (Verified Allergy, Mild, NOT SURE OF REACTIONS, 06/22/17) Erythromycin (Verified Allergy, Unknown, UPSET STOMACH, 06/22/17) Rivaroxaban (Verified Allergy, Unknown, RASH, 06/22/17) Zolpidem (Verified Allergy, Unknown, ., 06/22/17) Current Inpatient Medications Current Inpatient Medications Medications (Trade) Dose Ordered Sig/Dereje Route Start Time Stop Time Status Last Admin Dose Admin Acetaminophen (Tylenol Tab) 650 mg Q4H PRN PO 06/22/17 12:00 07/22/17 11:59 06/22/17 20:02 650 MG Ondansetron HCl (Zofran Inj) 4 mg Q6H PRN IV 06/22/17 12:00 07/22/17 11:59 Carvedilol (Coreg Tab) 6.25 mg QPM PO 06/22/17 21:00 07/22/17 20:59 06/22/17 19:49 6.25 MG Carvedilol (Coreg Tab) 12.5 mg QAM PO 06/23/17 09:00 07/23/17 08:59 06/23/17 07:48 12.5 MG Digoxin (Lanoxin Tab) 0.125 mg DAILY@16 PO 06/22/17 16:00 07/22/17 15:59 06/22/17 15:19 0.125 MG Fludrocortisone Acetate (Florinef Tab) 0.2 mg BID PO 06/22/17 21:00 07/22/17 20:59 06/23/17 07:49 0.2 MG Gabapentin (Neurontin Cap) 100 mg BID PO 06/22/17 21:00 07/22/17 20:59 06/23/17 07:49 100 MG Levothyroxine Sodium (Synthroid Tab) 75 mcg DAILYBB PO 06/23/17 06:00 07/23/17 05:59 06/23/17 06:17 75 MCG Potassium Chloride (Klor-Con M10) 10 meq QAM PO 06/23/17 09:00 07/23/17 08:59 06/23/17 07:48 10 MEQ Tolterodine Tartrate (Detrol LA Cap) 4 mg DAILY PO 06/23/17 09:00 07/23/17 08:59 06/23/17 07:49 4 MG Hydralazine HCl (HydrALAZINE INJ) 2.5 mg Q6H PRN IV. 06/22/17 20:00 07/22/17 19:59 06/22/17 19:59 2.5 MG Potassium Chloride (Klor-Con Tab) 20 meq ONE PO 06/23/17 12:00 07/23/17 11:59 UNV Review of Systems See HPI for pertinent positives & negatives. A total of 10 systems reviewed and were otherwise negative. Physical Exam Vital Signs (Past 24 Hrs): Date Time Temp Pulse Resp B/P (MAP) Pulse Ox O2 Delivery O2 Flow Rate FiO2 06/23/17 07:34 36.9 81 18 155/77 (103) 95 06/23/17 04:00 Room Air 06/23/17 03:27 36.9 84 18 155/94 (114) 94 Room Air 06/23/17 00:00 36.8 86 20 130/72 (91) 96 Room Air 06/23/17 00:00 Room Air 06/22/17 22:31 36.7 89 18 136/89 97 06/22/17 21:45 36.7 90 18 149/67 95 06/22/17 20:45 36.8 94 16 171/80 94 06/22/17 20:12 36.7 90 16 170/92 (118) 93 Room Air 06/22/17 20:00 Room Air 06/22/17 19:45 36.7 80 21 182/102 96 06/22/17 19:15 36.8 81 16 195/104 97 06/22/17 18:48 36.8 78 14 170/98 94 06/22/17 17:55 36.6 82 18 181/105 97 06/22/17 16:55 36.6 92 16 184/94 96 06/22/17 16:25 36.7 97 16 176/102 98 06/22/17 16:10 36.6 76 18 187/95 95 06/22/17 16:00 Room Air 06/22/17 15:36 36.5 78 16 194/86 97 06/22/17 15:19 80 06/22/17 14:36 36.5 84 16 195/74 95 06/22/17 14:06 36.5 77 13 168/89 99 06/22/17 13:48 36.8 79 17 183/84 99 06/22/17 13:40 36.8 79 18 150/95 (113) 96 06/22/17 13:05 36.7 78 16 140/77 96 06/22/17 12:22 78 16 140/77 96 Room Air 06/22/17 12:00 140/77 06/22/17 11:55 75 15 97 06/22/17 11:49 150/55 06/22/17 11:44 Room Air 06/22/17 11:25 74 12 06/22/17 10:55 81 13 98 06/22/17 10:41 102/56 06/22/17 10:22 96 Room Air 06/22/17 10:11 75 06/22/17 10:02 36.7 79 18 104/49 96 Room Air 06/22/17 09:59 104/49 GENERAL: Awake, alert, well appearing, no distress HENT: Normocephalic, atraumatic. TM's normal. Oropharynx unremarkable. EYES: PERRL. Normal conjunctiva. Sclera non-icteric. Fundi normal. EOMI NECK: Supple. No nuchal rigidity. FROM. RESPIRATORY: CTA CARDIAC: RRR. Extremities warm and well perfused. ABDOMEN: Soft, non distended. No tenderness to palpation. No rebound or guarding. No masses. MUSCULOSKELETAL: Unremarkable. EXTREMITIES: No edema. No discoloration. Gross motor strength 4/5 on left, 5/5 on right. NEURO: Normal sensorium. No sensory or motor deficits noted. Speech normal. Cranial nerves two through 12 intact. No pronator drift. Normal coordination of upper extremity. Reflexes 2+. SKIN: No rash or jaundice noted. LYMPH: No adenopathy. Laboratory Results Past 24 Hours: 06/22/17 10:13 Red Blood Count 2.62, Mean Corpuscular Volume 82.1, Mean Corpuscular Hemoglobin 26.0, Mean Corpuscular Hemoglobin Concent 31.6, Mean Platelet Volume 7.9, Neutrophils (%) (Auto) 65.7, Lymphocytes (%) (Auto) 19.8, Monocytes (%) (Auto) 10.4, Eosinophils (%) (Auto) 3.5, Basophils (%) (Auto) 0.3, Neutrophils # (Auto ) 3.77, Lymphocytes # (Auto) 1.14, Monocytes # (Auto) 0.60, Eosinophils # (Auto ) 0.20, Basophils # (Auto) 0.02 06/23/17 05:10 06/23/17 05:10 Test 06/22/17 10:13 06/22/17 10:20 06/22/17 13:29 06/22/17 23:22 White Blood Count 5.75 K/uL (4.8-10.8) Red Blood Count 2.62 M/uL (4.2-5.4) Hemoglobin 6.8 g/dL (12.0-16.0) Hematocrit 21.5 % (37-47) Mean Corpuscular Volume 82.1 fL (80-100) Mean Corpuscular Hemoglobin 26.0 pg (25-34) Mean Corpuscular Hemoglobin Concent 31.6 g/dl (32-36) Platelet Count 254 K/uL (130-400) Mean Platelet Volume 7.9 fL (7.4-10.4) Neutrophils (%) (Auto) 65.7 % Lymphocytes (%) (Auto) 19.8 % Monocytes (%) (Auto) 10.4 % Eosinophils (%) (Auto) 3.5 % Basophils (%) (Auto) 0.3 % Neutrophils # (Auto) 3.77 K/uL (1.4-6.5) Lymphocytes # (Auto) 1.14 K/uL (1.2-3.4) Monocytes # (Auto) 0.60 K/uL (0.11-0.59) Eosinophils # (Auto) 0.20 K/uL (0-0.5) Basophils # (Auto) 0.02 K/uL (0-0.2) RDW Standard Deviation 45.2 fL (36.4-46.3) RDW Coefficient of Variation 15.0 % (11.5-14.5) Immature Granulocyte % (Auto) 0.3 % Immature Granulocyte # (Auto) 0.02 K/uL (0.00-0.02) Hypersegmented Polys 1+ Hypochromasia PRESENT Prothrombin Time 10.7 SECONDS (9.0-12.0) Prothromb Time International Ratio 1.0 (0.9-1.1) Activated Partial Thromboplast Time 22.8 SECONDS (21.0-31.0) Partial Thromboplastin Ratio 0.9 Magnesium Level 1.8 mg/dl (1.8-2.4) Total Bilirubin 0.5 mg/dl (0.2-1) Direct Bilirubin 0.1 mg/dl (0-0.2) Aspartate Amino Transf (AST/SGOT) 20 U/L (15-37) Alanine Aminotransferase (ALT/SGPT) 19 U/L (12-78) Alkaline Phosphatase 54 U/L (45-117) Total Protein 6.2 gm/dl (6.4-8.2) Albumin 2.9 gm/dl (3.4-5.0) Digoxin Level 1.2 ng/ml (0.8-2.0) Urine Color YELLOW Urine Appearance CLEAR (CLEAR) Urine pH 7.0 (4.5-7.5) Urine Specific [place] 1.011 (1.000-1.030) Urine Protein 1+ (NEG) Urine Glucose (UA) NEG (NEG) Urine Ketones NEG (NEG) Urine Occult Blood NEG (NEG) Urine Nitrite NEG (NEG) Urine Bilirubin NEG (NEG) Urine Urobilinogen NEG (NEG) Urine Leukocyte Esterase TRACE (NEG) Urine WBC (Auto) 1-5 /hpf (0-5) Urine RBC (Auto) 0-4 /hpf (0-4) Urine Hyaline Casts (Auto) 1-5 /lpf (0-5) Urine Epithelial Cells (Auto) >30 /lpf (0-5) Urine Bacteria (Auto) 1+ (NEG) Total Iron Binding Capacity 392 mcg/dl (250-450) Prolactin 10.18 ng/mL Test 06/23/17 05:10 06/23/17 07:48 06/23/17 08:00 Anion Gap 6.0 mmol/L (3-11) Est Creatinine Clear Calc Drug Dose 56.2 ml/min Estimated GFR () 91.3 Estimated GFR (Non- 78.8 BUN/Creatinine Ratio 9.1 (10-20) Calcium Level 7.8 mg/dl (8.5-10.1) Transferrin % Saturation % (15-50) Imaging CT HEAD WITHOUT CONTRAST (CT) CLINICAL HISTORY: Acute change in mental status COMPARISON STUDY: 05/07/2017 TECHNIQUE: Axial CT of the brain is performed from the vertex to the skull base. IV contrast was not administered for this examination. A dose lowering technique was utilized adhering to the principles of ALARA. CT DOSE: 537.48 mGy.cm FINDINGS: No intra or extra-axial mass lesions are visualized. There is no CT evidence of acute cortical infarction. There is no evidence of midline shift. There is no acute hemorrhage. No calvarial fractures are visualized. There are moderate white matter hypodensities likely on a small vessel basis. There is no evidence of pathologic ventricular dilatation. There is no evidence of acute sinusitis IMPRESSION: No acute intracranial findings CXR IMPRESSION: No active disease in the chest. Impression 81 yo F with recurrent syncopal episodes - unlikely seizure-like activity, this instance was likely from anemia contributing to hypotension. Plan Recommendations: - No indication for prolonged EEG monitoring or antiseizure medications at this time. - Anemia and blood pressure workup per primary team. - No need to follow up in neurology clinic unless clinical course changes. Thank you for this consult. The above was discussed w/Dr Cardoso, attending Neurologist. Please do not hesitate to contact us with further questions or concerns. Neurology Attending Addendum: I personally interviewed, examined, and supervised care of patient with the resident. Agree with the above history, exam, and assessment and plan. This is an 81-year-old female with repeat syncopal episodes often with documented low systolic pressures. Most recently a systolic pressure was in the low 70s with this last episode of syncope. Unfortunately patient does not seem to have any warning before her syncopal episodes. Has been reports that for the most part there is typically no shaking, eye deviation, or head deviation associated with syncopal episodes. His last episode there was reports by long-term staff of some shaking nonspecifically. No tongue biting or urinary incontinence. Patient systolic blood pressure was in the low 70s. Upon evaluation of the emergency room she was also found to be anemic and have a low potassium. Has been reports that typically when she wakes up she does respond appropriately and there is no significant confusion. She will be unresponsive for several minutes when she passes out. reports though it is often difficult for him to get her in a completely supine position when she does pass out. Patient has been evaluated extensively by cardiology. She did have a loop recorder but no arrhythmias were ever associated with her events. She does have A. fib and is on anticoagulation. She was initially tried on Midrin but had some elevated blood pressure, so was switched to Florinef. Patient was evaluated by myself last month due to syncopal event, documented hypotension, and small ischemic stroke that was likely due to hyperperfusion due to hypotension. Patient has also had neurological evaluation for syncopal events in the past as well. Past EEG was reported as normal with no concerns for seizure epilepsy. Patient did have a repeat EEG this morning which was read by myself and unremarkable except for some mild background slowing which could be consistent with her age. CT of the head showed no acute process. Gen.: Patient is alert and oriented in no acute distress lying in bed Heart: Regular rate and rhythm Extremities: No gross deformities or rashes noted Neurological examination: Mental status: Patient is alert and oriented to person place and time. Able to give own history. Attention concentration normal for the situation. Remote and recent memory intact Speech is fluent without any dysarthria or aphasia noted Cranial nerves: Funduscopic examination was unremarkable with no signs of papilledema and vessels appear normal. Pupils equally round and reactive to light. Extraocular muscles intact without nystagmus. No facial asymmetry noted. Facial sensation intact. Tongue midline. Good palatal elevation. Good shoulder shrug bilaterally. Hearing grossly intact voice. Strength: 5/5 both proximal and distal in all extremities with the exception of giveaway weakness in the bilateral proximal lower extremities secondary to pain. No arm drift.Tone is normal. Sensation: Grossly intact to light touch in all extremities with the exception of a patch of numbness on her left lateral leg which is old Deep tendon reflexes: +1 in bilateral biceps and patellar. Toes are downgoing to plantar stimulation bilaterally Coordination: Patient has good finger to nose without dysmetria. Station within the bed is normal. Assessment and recommendations: Overall presentation appears to be consistent with convulsive syncope due to hypotension. It is not unusual in the setting of syncope and hypotension that there can be some presentation of convulsions due to poor cerebral blood flow. Suspicion for epileptic seizures is extremely low in this patient. I did order an EEG this morning for further workup which was unremarkable with the exception of some mild background slowing which is likely consistent with the patient's age. No additional neurological testing or medications recommended. Follow-up with hospitalist team regarding evaluation for anemia and hypotension. -Zari Cardoso,
[2017-06-23] MEDS: ACETAMINOPHEN 500 MG TAB PO PRN (08:38)
--- NOTE | 2017-06-23 08:42 | EEG Procedure Note ---
EEG Procedure Note Date of Service June 23, 2017. Start / End Times Start Time: 6:53 AM End Time: 7:13 AM Referring Physician Zari Cardoso History This is a 81-year-old female with recurrent syncope. EEG for further evaluation of possible seizure etiology Home Medication List Scheduled Acetaminophen (Acetaminophen Extra Stren), 2 TAB PO QPM Apixaban (Eliquis), 5 MG PO BID Aspirin (Aspirin EC Low Dose), 81 MG PO QAM Carvedilol (Coreg), 12.5 MG PO QAM Carvedilol (Coreg), 6.25 MG PO QPM Digoxin (Digoxin), 0.125 MG PO DAILY@16 Fludrocortisone Acetate (Florinef), 2 TAB PO BID Gabapentin (Neurontin), 100 MG PO BID Levothyroxine Sodium (Synthroid), 75 MCG PO DAILY Potassium Chloride (Micro-K Ext Rel), 10 MEQ PO QAM Tolterodine Tartrate (Detrol LA), 4 MG PO DAILY Triamcinolone (Triamcinolone Acetonide), 1 APPLN TOP QPM Scheduled PRN Acetaminophen (Tylenol), 650 MG PO DIRECTED PRN for Pain or Fever Polyethylene (Miralax), 17 GM PO DAILY PRN for Constipation Inpatient Medication List Current Inpatient Medications Medications (Trade) Dose Ordered Sig/Dereje Route Start Time Stop Time Status Last Admin Dose Admin Ondansetron HCl (Zofran Inj) 4 mg Q6H PRN IV 06/22/17 12:00 07/22/17 11:59 Carvedilol (Coreg Tab) 6.25 mg QPM PO 06/22/17 21:00 07/22/17 20:59 06/22/17 19:49 6.25 MG Carvedilol (Coreg Tab) 12.5 mg QAM PO 06/23/17 09:00 07/23/17 08:59 06/23/17 07:48 12.5 MG Digoxin (Lanoxin Tab) 0.125 mg DAILY@16 PO 06/22/17 16:00 07/22/17 15:59 06/22/17 15:19 0.125 MG Fludrocortisone Acetate (Florinef Tab) 0.2 mg BID PO 06/22/17 21:00 07/22/17 20:59 06/23/17 07:49 0.2 MG Gabapentin (Neurontin Cap) 100 mg BID PO 06/22/17 21:00 07/22/17 20:59 06/23/17 07:49 100 MG Levothyroxine Sodium (Synthroid Tab) 75 mcg DAILYBB PO 06/23/17 06:00 07/23/17 05:59 06/23/17 06:17 75 MCG Potassium Chloride (Klor-Con M10) 10 meq QAM PO 06/23/17 09:00 07/23/17 08:59 06/23/17 07:48 10 MEQ Tolterodine Tartrate (Detrol LA Cap) 4 mg DAILY PO 06/23/17 09:00 07/23/17 08:59 06/23/17 07:49 4 MG Hydralazine HCl (HydrALAZINE INJ) 2.5 mg Q6H PRN IV. 06/22/17 20:00 07/22/17 19:59 06/22/17 19:59 2.5 MG Potassium Chloride (Klor-Con Tab) 20 meq TODAY@1200 ONCE PO 06/23/17 12:00 06/23/17 12:01 Acetaminophen (Tylenol Tab) 1,000 mg Q8H PRN PO 06/23/17 08:30 07/23/17 08:29 Description This is a 21 electrode EEG with a single channel dedicated to limited EKG. The electrodes were placed in accordance with the International 10-20 system. At the start of this recording the patient was in an awake state. Background was well organized with a well-formed anterior posterior gradient. Background was composed of moderate amplitude symmetric mix of alpha and beta frequency with slightly excess theta frequencies and intermittent generalized delta slowing. There was a symmetric moderate amplitude well-formed posterior dominant rhythm of 7-8 Hz. Hyperventilation was not done. Photic stimulation at various frequencies did not produce any abnormalities. There was no state changes or sleep transients. Interpretation This is an abnormal routine EEG secondary to mild background slowing. There was no electrographic seizures or epileptiform discharges. Clinical Correlation This EEG indicates mild encephalopathy of nonspecific etiology.
[2017-06-23] MEDS ORDERED: TOLTERODINE TARTRATE LA 4 MG CAPCR PO SCH (09:00)
--- NOTE | 2017-06-23 09:45 | Clinical Documentation Query ---
CLINICAL DOCUMENTATION QUERY 81 yo female admitted with syncope. Initial hgb was 6.8 and patient received 3 units PRBCs. In your clinical opinion is this patient being managed for: ( x ) Acute blood loss anemia, resolved ( ) Not Agree ( ) Other explanation of clinical findings (No explanation is considered a No Response) ( ) Unable to determine ( ) Need to Discuss (Phone CDS or qliq) (No discussion is considered a No Response) The medical record reflects the following clinical findings, treatment, and risk factors. Clinical Indicators: As above Treatment: As above, serial H&Hs Risk Factors: Hypotension, syncope, ST depression Please clarify and document your clinical opinion in the progress notes and discharge summary. Terms such as "probable", "suspected", "likely", "questionable", "possible", or "still to be ruled out" are acceptable. IF IN AGREEMENT, YOU MUST DOCUMENT ABOVE DIAGNOSTIC STATEMENT IN DAILY PROGRESS NOTES AND DISCHARGE SUMMARY. This document is not part of the patient's record. Thank You, Liset Sapp RN [phone]
[2017-06-23] MEDS ORDERED: POTASSIUM CHLORIDE 20 MEQ TABCR PO ONE (12:00)
--- NOTE | 2017-06-23 12:19 | Cardiology Consultation ---
Cardiology Consultation Date of Consultation: June 23, 2017. Requesting Physician: Gt Reason for Consultation: syncope Pt evaluation today including: conversation w/ patient, conversation w/ family , physical exam, chart review, lab review, review of studies, review of inpatient medication list, conversation w/ attending History of Present Illness The patient is an 81-year-old woman with a longstanding history of syncope. She is currently at [facility] undergoing rehab for a recent lacunar stroke. She was admitted to [facility] in April of this year with similar symptoms. The episodes themselves appear to happen quite suddenly and involve hypotension. Patient does not have symptoms leading up to the event. The events can be fairly extended in duration. Afterwards she appears to be relatively normal without symptoms or cognitive deficits. I initially saw her in the emergency room yesterday at which point she was feeling fine. Hemodynamics were stable by the time she reached the emergency room at [facility]. Today she also feels well. She states that since her last admission she has not had symptoms of dizziness or lightheadedness. She denies symptoms of dyspnea or exercise intolerance. She has not had any significant chest discomfort or chest pressure. She has been participating in rehab and doing well. She is nearly ready to be discharged from [facility]. Past Medical/Surgical History Vasodepressor syncope Cerebral vascular accident including lacunar stroke Edema Hypertension Hypothyroidism Spinal stenosis Hypokalemia Carotid artery stenosis Paroxysmal atrial fibrillation and flutter Subclavian artery stenosis Past surgical history: Appendectomy Breast surgery Hysterectomy Lumbar laminectomy Family History Patient reports no known family medical history. Noncontributory given her advanced age Social History Smoking Status: Former Smoker History of Alcohol Use: No Currently a resident in [facility]. Generally lives with her Review of Systems Per HPI. No recent constitutional symptoms such as fevers or chills. All Other Systems: Reviewed and Negative Allergies Coded Allergies: Amoxicillin (Verified Allergy, Intermediate, VERY SICK TO HER STOMACH, 11/30) Atorvastatin (Verified Allergy, Intermediate, RASH, 06/22/17) and rash Clavulanic Acid (Verified Allergy, Intermediate, VERY SICK TO HER STOMACH , 06/22/17) Tetracycline (Verified Allergy, Intermediate, ARMS SWELLED UP, 06/22/17) Tramadol (Verified Allergy, Intermediate, MAKES HER DIZZY AND CRAZEY, 06/22) SHANTEL Inhibitors (Verified Allergy, Mild, NOT SURE OF REACTIONS, 06/22/17) Erythromycin (Verified Allergy, Unknown, UPSET STOMACH, 06/22/17) Rivaroxaban (Verified Allergy, Unknown, RASH, 06/22/17) Zolpidem (Verified Allergy, Unknown, ., 06/22/17) Medications Current Inpatient Medications Medications (Trade) Dose Ordered Sig/Dereje Route Start Time Stop Time Status Last Admin Dose Admin Ondansetron HCl (Zofran Inj) 4 mg Q6H PRN IV 06/22/17 12:00 07/22/17 11:59 Carvedilol (Coreg Tab) 6.25 mg QPM PO 06/22/17 21:00 07/22/17 20:59 06/22/17 19:49 6.25 MG Carvedilol (Coreg Tab) 12.5 mg QAM PO 06/23/17 09:00 07/23/17 08:59 06/23/17 07:48 12.5 MG Digoxin (Lanoxin Tab) 0.125 mg DAILY@16 PO 06/22/17 16:00 07/22/17 15:59 06/22/17 15:19 0.125 MG Fludrocortisone Acetate (Florinef Tab) 0.2 mg BID PO 06/22/17 21:00 07/22/17 20:59 06/23/17 07:49 0.2 MG Gabapentin (Neurontin Cap) 100 mg BID PO 06/22/17 21:00 07/22/17 20:59 06/23/17 07:49 100 MG Levothyroxine Sodium (Synthroid Tab) 75 mcg DAILYBB PO 06/23/17 06:00 07/23/17 05:59 06/23/17 06:17 75 MCG Potassium Chloride (Klor-Con M10) 10 meq QAM PO 06/23/17 09:00 07/23/17 08:59 06/23/17 07:48 10 MEQ Tolterodine Tartrate (Detrol LA Cap) 4 mg DAILY PO 06/23/17 09:00 07/23/17 08:59 06/23/17 07:49 4 MG Hydralazine HCl (HydrALAZINE INJ) 2.5 mg Q6H PRN IV. 06/22/17 20:00 07/22/17 19:59 06/22/17 19:59 2.5 MG Acetaminophen (Tylenol Tab) 1,000 mg Q8H PRN PO 06/23/17 08:30 07/23/17 08:29 06/23/17 08:38 1,000 MG Physical Exam Vital Signs Past 12 Hours Date Time Temp Pulse Resp B/P (MAP) Pulse Ox O2 Delivery O2 Flow Rate FiO2 06/23/17 11:29 36.6 76 18 153/76 (101) 92 06/23/17 08:00 Room Air 06/23/17 07:34 36.9 81 18 155/77 (103) 95 06/23/17 04:00 Room Air 06/23/17 03:27 36.9 84 18 155/94 (114) 94 Room Air She is alert and oriented x3. Mood affect appear normal. She answered all questions appropriately. HEENT: Sclerae are anicteric. Pupils are equal and reactive to light and accommodation. Extraocular movements were intact. Neuro: Cranial nerves intact Neck: Examination of the submandibular region did not reveal any significant lymphadenopathy. Carotids are palpable bilaterally and free of bruits on auscultation. There was no evidence of jugular venous distention. The thyroid was not enlarged. Lungs: Lungs are clear to auscultation bilaterally. There are no rales wheezes or rhonchi. She has normal respiratory effort without use of accessory muscles. There is normal pulmonary excursion. Cardiac: The rhythm was regular. S1 and S2 were normal. There are no murmurs on examination. The PMI was not markedly displaced on palpation. Abdomen: The abdomen was soft and nontender. Extremities: Patient has bilateral radial pulses that are equal in intensity. There is no evidence cyanosis or clubbing. There was no evidence of significant peripheral edema bilaterally. Skin: There are no rashes noted on examination today. Data Laboratory Results: Last 24 Hours Test 06/22/17 13:29 06/22/17 23:22 06/23/17 05:10 06/23/17 08:00 Iron Level 23 mcg/dl 39 mcg/dl Total Iron Binding Capacity 392 mcg/dl Hemoglobin 10.9 g/dL 10.9 g/dL Sodium Level 138 mmol/L 138 mmol/L Potassium Level 2.9 mmol/L 3.3 mmol/L Chloride Level 103 mmol/L 104 mmol/L Carbon Dioxide Level 27 mmol/L 28 mmol/L Anion Gap 8.0 mmol/L 6.0 mmol/L Blood Urea Nitrogen 8 mg/dl 6 mg/dl Creatinine 0.63 mg/dl 0.71 mg/dl Est Creatinine Clear Calc Drug Dose 63.4 ml/min 56.2 ml/min Estimated GFR () 96.1 91.3 Estimated GFR (Non- 82.9 78.8 BUN/Creatinine Ratio 12.9 9.1 Random Glucose 98 mg/dl 99 mg/dl Calcium Level 8.1 mg/dl 7.8 mg/dl Prolactin 10.18 ng/mL Transferrin 301 mg/dl Transferrin % Saturation 0 % Ferritin 17.5 ng/ml Troponin I 0.021 ng/ml Thyroid Stimulating Hormone (TSH) 2.470 uIu/ml Imaging: Head CT was unremarkable. Chest x-ray was unremarkable. EKG: Normal sinus rhythm with diffuse mild ST and T-wave depressions Telemetry reviewed: Sinus rhythm Echocardiogram performed 02/20/2016. Preserved LV systolic function. No significant valvular heart disease per I performed a device interrogation of her loop recorder yesterday. This demonstrated occasional episodes of atrial fibrillation. No at other arrhythmia was identified. Assessment & Plan 1. Vasodepressor syncope: The etiology of the patient's syncope has been well established. This is always been associated with a drop in her blood pressure. The episodes themselves are fairly discrete and do not have a significant prodrome. It is unclear what precipitates these episodes. So far efforts to attenuate the frequency or severity have not met with success. She has been maintained on a fairly high dose of fludrocortisone. Unclear if this is really made a difference. She does have hypertension as well. I think would be reasonable to reduce her dose of fludrocortisone in the hopes of reducing her high blood pressure. 2. Atrial fibrillation: Paroxysmal. No definite symptoms. She generally has been maintained on a anticoagulation. However, this is been held currently due to concerns over internal bleeding. Will continue carvedilol. 3. Loop recorder: The loop recorder has not documented any arrhythmia other than her known atrial fibrillation. No correlation between any arrhythmia in her events. Patient has requested removal. Hopefully we can accomplish this today.
[2017-06-23] MEDS ORDERED: LIDOCAINE HCL 1% 20 ML VIAL ONE (13:57)
[2017-06-23] MEDS ORDERED: OPTIRAY 320 IV PRN (15:15)
--- NOTE | 2017-06-23 15:26 | Hospitalist Progress Note ---
Hospitalist Progress Note Date of Service June 23, 2017. Subjective Pt evaluation today including: conversation w/ patient, conversation w/ family , conversation w/ work and family life consultant (Cardiology) Patient has not had any more episodes of syncope since admission. Telemetry shows normal sinus rhythm. She does report an increase in her lower back pain significantly in the last month. She denies hematochezia, nausea or vomiting, denies hematemesis, denies melena. She did have some hemorrhoids which only had a very small amount of bright red bleeding with wiping with toilet paper. No nosebleeds, no vaginal bleeding, no hematuria. There is no explanation for her large drop in hemoglobin over the last 6-7 weeks. She has been eating and drinking like normal. She is on Eliquis but it has been held. She also had urinary frequency last night but was only voiding small amounts of urine. She had a Clayton catheter placed which immediately drained 800 mL's of urine. She reports she has been on Detrol LA for many years and outpatient review of the chart reveals this is true-she has been on since 2012. She was placed on it for symptoms of urinary urgency. She has never been evaluated by urology or had cystometrics. She reports even on the medication, she still has urinary frequency and never feels like she gets all of her urine out. All Other Systems: Reviewed and Negative Objective Vital Signs Date Time Temp Pulse Resp B/P (MAP) Pulse Ox O2 Delivery O2 Flow Rate FiO2 06/23/17 14:50 36.7 84 16 165/85 (111) 93 Room Air 06/23/17 12:00 Room Air 06/23/17 11:29 36.6 76 18 153/76 (101) 92 06/23/17 08:00 Room Air 06/23/17 07:34 36.9 81 18 155/77 (103) 95 06/23/17 04:00 Room Air 06/23/17 03:27 36.9 84 18 155/94 (114) 94 Room Air 06/23/17 00:00 36.8 86 20 130/72 (91) 96 Room Air 06/23/17 00:00 Room Air 06/22/17 22:31 36.7 89 18 136/89 97 06/22/17 21:45 36.7 90 18 149/67 95 06/22/17 20:45 36.8 94 16 171/80 94 06/22/17 20:12 36.7 90 16 170/92 (118) 93 Room Air 06/22/17 20:00 Room Air 06/22/17 19:45 36.7 80 21 182/102 96 06/22/17 19:15 36.8 81 16 195/104 97 06/22/17 18:48 36.8 78 14 170/98 94 06/22/17 17:55 36.6 82 18 181/105 97 06/22/17 16:55 36.6 92 16 184/94 96 06/22/17 16:25 36.7 97 16 176/102 98 06/22/17 16:10 36.6 76 18 187/95 95 06/22/17 16:00 Room Air 06/22/17 15:36 36.5 78 16 194/86 97 Physical Exam General Appearance: WD/WN, no apparent distress Eyes: normal inspection, EOMI, sclerae normal ENT: hearing grossly normal Neck: trachea midline Respiratory/Chest: lungs clear, normal breath sounds, no respiratory distress, no accessory muscle use Cardiovascular: regular rate, rhythm, no edema, no gallop, no murmur Abdomen: normal bowel sounds, non tender, soft, no organomegaly, no pulsatile mass Extremities: non-tender, normal inspection, no pedal edema, no calf tenderness Neurologic/Psychiatric: no motor/sensory deficits, alert, normal mood/affect, oriented x 3 Skin: normal color, warm/dry, no rash Laboratory Results Last 24 Hours Test 06/22/17 23:22 06/23/17 05:10 06/23/17 08:00 Hemoglobin 10.9 g/dL 10.9 g/dL Sodium Level 138 mmol/L 138 mmol/L Potassium Level 2.9 mmol/L 3.3 mmol/L Chloride Level 103 mmol/L 104 mmol/L Carbon Dioxide Level 27 mmol/L 28 mmol/L Anion Gap 8.0 mmol/L 6.0 mmol/L Blood Urea Nitrogen 8 mg/dl 6 mg/dl Creatinine 0.63 mg/dl 0.71 mg/dl Est Creatinine Clear Calc Drug Dose 63.4 ml/min 56.2 ml/min Estimated GFR () 96.1 91.3 Estimated GFR (Non- 82.9 78.8 BUN/Creatinine Ratio 12.9 9.1 Random Glucose 98 mg/dl 99 mg/dl Calcium Level 8.1 mg/dl 7.8 mg/dl Prolactin 10.18 ng/mL Iron Level 39 mcg/dl Transferrin 301 mg/dl Transferrin % Saturation 0 % Ferritin 17.5 ng/ml Troponin I 0.021 ng/ml Thyroid Stimulating Hormone (TSH) 2.470 uIu/ml Assessment and Plan This patient is an 81 y/o F Hx paroxysmal AF on Eliquis, HTN, hypothyroidism, multiple syncopal episodes, chronic hyponatremia, history of lacunar CVA, urinary urgency and frequency, B12 deficiency, spinal DJD, 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 She presents with 2 episodes of syncope with documented hypotension. Initial labs in the ER are notable for a hemoglobin of 6.8 which was 10.4 six weeks earlier, and hypokalemia with a K of 2.6. Interestingly, a guaiac test in the ER was negative. An EKG was notable for ST depressions in all leads. 1) Syncopal episodes -recurrent approximately once per month for many years. The loop recorder was interrogated by cardiology and did not register any abnormalities. She was hypotensive following. A prolactin level was normal and consult neurology placed-EEG without seizure activity. Cardiology is calling it vasodepressor syncope. She has been on midodrine in the past which caused hypertension. She is currently on fludrocortisone and also has hypertension. -Unclear etiology for recurrent syncope-could be from severe urinary retention? Orthostasis? Also with LICA stenosis and small blister aneurysm of LICA but doubt that is causing an issue -Loop recorder was removed today by cardiology as she is clearly not having any documented arrhythmias with multiple episodes that occurred with the loop recorder in place -Cardiology recommended lowering the dose of fludrocortisone to 0.1 mg p.o. twice daily given her hypertension -The patient does not drive and has not for many years -I doubt that her acute blood loss anemia is contributing as she has had these same presentations in the past with her baseline hemoglobin 2) Acute blood loss anemia on top of chronic iron deficiency anemia. Previously had a chronic normocytic anemia, but now with MCV lower now than it has ever been in the past; has had a hemoglobin drop of 4 g in the last 6 weeks. No overt bleeding by history. Has had worsening increase in lower back pain and she takes Eliquis daily. She received 3 units PRBCs and had an appropriate response with an increase in hemoglobin to 10.9. Last colonoscopy was 2004 and showed only diverticulosis. Has never had an EGD. Iron studies clearly with iron deficiency with a ferritin of only 17.5 -Repeat Hemoccult here today is now positive -Checked CT abdomen/pelvis to rule out retroperitoneal bleed which was negative -Follow CBC in the morning -If hemoglobin stable and no overt bleeding, could be discharged home and follow -up as an outpatient with GI to consider EGD and colonoscopy. 3) EKG changes -with diffuse T-wave inversions and ST depression likely from her hypokalemia. Troponin 2 negative. Repeat ECG with improvement but still some residual ST/T-wave changes, however hypokalemia still present this morning. ACS ruled out 4) Hypokalemia - K+ replaced and Mag provided empirically - should likely increase outpt dose upon DC. Unclear etiology as to why this was so low. She is not on any diuretics -Follow BMP in the morning 3) PAF on anticoagulation with Eliquis-in a normal sinus rhythm on admission. -cont Coreg and Dig -Given Hemoccult-positive stool and recent blood loss, would recommend continuing to hold Eliquis until a source of bleeding has been found 4) HTN with hypertensive urgency-was hypotensive on admission after her syncopal episode which responded to IV fluids. Now hypertensive with urgency. -IV hydralazine low-dose as needed -Continue Coreg -Lowering the dose of the fludrocortisone 5) Hypothyroidism -TSH normal -cont Synthroid 6) chronic hyponatremia-for many years has had mildly low sodium. A TSH and a.m. cortisol level in 01/2017 were normal. Urine osmolality at that same time was 400. -Outpatient chart notes SIADH, however her sodium level actually improved to normal with receiving IV fluids here which argues against SIADH -Check urine Osm and urine sodium along with BMP in the morning 7) urinary retention-found to be retaining 800 mL's of urine with Clayton placement after was unable to void completely on admission. Suspect could be related to spinal issue although no other evidence of cauda equina (i.e. weakness, bowel issues), or related to Detrol LA use? CT abdomen/pelvis without evidence of hydronephrosis or abnormal bladder findings -hold Detrol -continue Clayton and consider trial of void prior to discharge versus keeping Clayton in with outpatient follow-up as per urology -consult Urology appreciated DVT prophylaxis-SCDs only due to GI bleeding Disposition-remain on telemetry and likely discharged home tomorrow if no further episodes of syncope or hypotension, and if hemoglobin remains stable without overt bleeding
--- NOTE | 2017-06-23 16:13 | DIAGNOSTIC IMAGING REPORT ---
ABDOMEN AND PELVIS CT WITH IV CONTRAST CT DOSE: 336.03 mGy.cm HISTORY: Acute anemia. acute blood loss anemia,unknown source,r/o retroperitoneal bleed TECHNIQUE: Multiaxial CT images of the abdomen and pelvis were performed following the use of intravenous contrast. A dose lowering technique was utilized adhering to the principles of ALARA. COMPARISON STUDY: None. FINDINGS: Mild bibasilar atelectasis. There is no pneumatosis or pneumoperitoneum. Imaged inferior cardiac chambers are unremarkable with coronary arterial calcifications noted. The liver, gallbladder, spleen, pancreas and adrenal glands are within normal limits. Cysts of the left kidney measure up to 1.2 cm. Minimal nonspecific left-sided perinephric stranding. Renal vascular calcifications are seen on the left. There is no ureteral calculi or hydronephrosis identified. Prior hysterectomy. Urinary bladder is partially decompressed with Clayton catheter in place. Tortuosity and moderate atherosclerosis of the aorta without aneurysm. The series unremarkable. There is no bulky adenopathy. No bowel obstruction or focal bowel wall thickening. No ascites or mesenteric inflammatory changes. Colonic diverticulosis without CT evidence of acute diverticulitis. Moderate stool volume suggests constipation. The appendix is not seen and is likely surgically absent. No retroperitoneal hematoma identified. No rectus sheath hematoma. The bones appear mildly demineralized. Prior decompression with posterior interbody reagan and screw fusion noted at the L4-S1 levels. 6 mm anterolisthesis L3 on L4 with 8 mm anterolisthesis L4 on L5. No evidence of hardware fracture or loosening. The screws at S1 extend past the anterior sacral cortex into the adjacent soft tissues. IMPRESSION: 1. No acute intra-abdominal or intrapelvic abnormality identified. No evidence of retroperitoneal hematoma. 2. Colonic diverticulosis without diverticulitis. 3. Suggested mild constipation. 4. Additional findings as above. Electronically signed by: Ed Canales M.D. 06/23/2017 4:12 PM Dictated Date/Time: 06/23/2017 4:04 PM
[2017-06-23] MEDS: DIGOXIN 0.125 MG TAB PO SCH (16:16)
--- NOTE | 2017-06-23 18:06 | [facility] Operative Report ---
Operative Report Date of Service June 23, 2017. Operative Report Procedure performed: Removal of patient activated loop recorder Staff door clamp operator:Edvin Arias MD Indication: Patient underwent implantation of loop recorder for diagnosis of syncope. Subsequent to the implant the patient had several additional episodes of syncope there were related to hypotension. No arrhythmia has been identified. At this point the patient wishes the device removed. Procedure in detail: The patient was informed of the risks benefits and alternatives to the intended procedure. She understood such and wished to proceed. She was taken to the electrophysiology suite where the area over the loop recorder was prepped and draped in usual sterile fashion. This area was anesthetized using subcutaneous administration of lidocaine solution. A small incision was made at this site and the device was removed using sharp dissection. The resulting incision was closed with a single 4 0 Vicryl suture followed by Steri-Strips and a sterile dressing. The patient tolerated procedure well. There were no immediate complications. Equipment: Removed loop recorder: Senior Principal Process Engineer [employer]. Model number [id number] serial number: [id number] Impression: Successful removal of patient activated loop recorder. I attest to the content of the Intraoperative Record and any orders documented therein. Any exceptions are noted below.
--- NOTE | 2017-06-23 18:31 | Urology Consultation ---
History General Date of Service: June 23, 2017. Chief Complaint: Urinary retention Primary Care Physician: Aleksandar Beckman M.D. Pt seen a urologist before?: No History of Present Illness Patient is a pleasant 81-year-old female, on the phone with her daughter today, who we are consulted to see for difficulties with urinary retention with a bladder volume of 800 cc on Thornton placement per nursing staff. Patient reports a long-standing history of difficulties with urinary incontinence for which she has been managed with tolterodine with some improvement. She reports that at baseline she uses 2 diapers per day and previously was using significantly more before initiation of therapy with anticholinergics per primary care physician. Her hospital records and admission yesterday for syncope as noted. Patient has had a question of acute anemia for which she has undergone unremarkable CT scan imaging of the abdomen and pelvis. Images are personally reviewed. Patient is currently resting comfortably in bed and conversant with slight confusion. She denies hematuria, recent changes in her urinary symptoms or other bother other than as noted above. Outpatient chart is also reviewed. HPI - Urinary Retention Sx Patient has: + urinary retention, + thornton Severity: moderate Imaging Imaging: CT Laboratory Last 24 Hours Test 06/22/17 23:22 06/23/17 00:00 06/23/17 05:10 06/23/17 08:00 Hemoglobin 10.9 g/dL 10.9 g/dL Sodium Level 138 mmol/L 138 mmol/L Potassium Level 2.9 mmol/L 3.3 mmol/L Chloride Level 103 mmol/L 104 mmol/L Carbon Dioxide Level 27 mmol/L 28 mmol/L Anion Gap 8.0 mmol/L 6.0 mmol/L Blood Urea Nitrogen 8 mg/dl 6 mg/dl Creatinine 0.63 mg/dl 0.71 mg/dl Est Creatinine Clear Calc Drug Dose 63.4 ml/min 56.2 ml/min Estimated GFR () 96.1 91.3 Estimated GFR (Non- 82.9 78.8 BUN/Creatinine Ratio 12.9 9.1 Random Glucose 98 mg/dl 99 mg/dl Calcium Level 8.1 mg/dl 7.8 mg/dl Prolactin 10.18 ng/mL Stool Occult Blood POSITIVE Iron Level 39 mcg/dl Transferrin 301 mg/dl Transferrin % Saturation 0 % Ferritin 17.5 ng/ml Troponin I 0.021 ng/ml Thyroid Stimulating Hormone (TSH) 2.470 uIu/ml Problem List Medical Problems: (1) Acute electrocardiogram changes Status: Acute (2) Altered mental status Status: Acute (3) CVA (cerebral vascular accident) Status: Acute (4) Hypokalemia Status: Acute (5) Symptomatic anemia Status: Acute (6) Syncope Status: Acute Past History arthritis, CVA/TIA/stroke, hypertension, hypothyroidism, urinary tract infection , other (carotid stenosis, spinal stenosis) Past Surgical History: appendectomy, colonoscopy, hysterectomy, orthopedic surgery, spinal surgery, other (breast surgery) Family History Patient reports no known family medical history. Social History Hx Tobacco Use In Past Year?: No Smoking: non-smoker Alcohol: socially Marital status: Housing status: lives with significant other Occupation status: retired Immunizations History of Influenza Vaccine: Yes History of Tetanus Vaccine?: Unknown Tetanus Immunization Date: Dec 30, 2009 History of Pneumococcal: Yes Pneumococcal Date: Dec 30, 2006 History of Hepatitis B Vaccine: Unknown History of MDRO No Allergies Coded Allergies: Amoxicillin (Verified Allergy, Intermediate, VERY SICK TO HER STOMACH, 11/30) Atorvastatin (Verified Allergy, Intermediate, RASH, 06/22/17) and rash Clavulanic Acid (Verified Allergy, Intermediate, VERY SICK TO HER STOMACH , 06/22/17) Tetracycline (Verified Allergy, Intermediate, ARMS SWELLED UP, 06/22/17) Tramadol (Verified Allergy, Intermediate, MAKES HER DIZZY AND CRAZEY, 06/22) SHANTEL Inhibitors (Verified Allergy, Mild, NOT SURE OF REACTIONS, 06/22/17) Erythromycin (Verified Allergy, Unknown, UPSET STOMACH, 06/22/17) Rivaroxaban (Verified Allergy, Unknown, RASH, 06/22/17) Zolpidem (Verified Allergy, Unknown, ., 06/22/17) Medications Home Medications: Home Meds and Scripts Medications Dose Route/Sig Max Daily Dose Days Date Category Florinef (Fludrocortisone Acetate) 0.1 Mg Tab 2 Tab PO BID 06/22/17 Reported Micro-K Ext Rel (Potassium Chloride) 10 Meq Capcr 10 Meq PO QAM 06/22/17 Reported Acetaminophen Extra Stren (Acetaminophen) 500 Mg Tab 2 Tab PO QPM 06/22/17 Reported Tylenol (Acetaminophen) 325 Mg Tab 650 Mg PO DIRECTED PRN 06/22/17 Reported Synthroid (Levothyroxine Sodium) 75 Mcg Tab 75 Mcg PO DAILY 06/22/17 Reported Miralax (Polyethylene) 17 Gm Pow 17 Gm PO DAILY PRN 30 05/10/17 Rx Aspirin EC Low Dose (Aspirin) 81 Mg Ectab 81 Mg PO QAM 30 05/10/17 Rx Digoxin 0.125 Mg Tab 0.125 Mg PO DAILY@16 01/24/17 Rx Triamcinolone Acetonide (Triamcinolone) 60 Appln/60 Ml Lotn 1 Appln TOP QPM 01/18/17 Reported Eliquis (Apixaban) 5 Mg Tab 5 Mg PO BID 01/18/17 Reported Coreg (Carvedilol) 6.25 Mg Tab 6.25 Mg PO QPM 01/18/17 Reported Coreg (Carvedilol) 12.5 Mg Tab 12.5 Mg PO QAM 01/18/17 Reported Detrol LA (Tolterodine Tartrate) 4 Mg Capcr 4 Mg PO DAILY 01/18/17 Reported Neurontin (Gabapentin) 100 Mg Cap 100 Mg PO BID 01/18/17 Reported Inpatient Medications: Current Inpatient Medications Medications (Trade) Dose Ordered Sig/Dereje Route Start Time Stop Time Status Last Admin Dose Admin Ondansetron HCl (Zofran Inj) 4 mg Q6H PRN IV 06/22/17 12:00 07/22/17 11:59 Carvedilol (Coreg Tab) 6.25 mg QPM PO 06/22/17 21:00 07/22/17 20:59 06/22/17 19:49 6.25 MG Carvedilol (Coreg Tab) 12.5 mg QAM PO 06/23/17 09:00 07/23/17 08:59 06/23/17 07:48 12.5 MG Digoxin (Lanoxin Tab) 0.125 mg DAILY@16 PO 06/22/17 16:00 07/22/17 15:59 06/23/17 16:16 0.125 MG Gabapentin (Neurontin Cap) 100 mg BID PO 06/22/17 21:00 07/22/17 20:59 06/23/17 07:49 100 MG Levothyroxine Sodium (Synthroid Tab) 75 mcg DAILYBB PO 06/23/17 06:00 07/23/17 05:59 06/23/17 06:17 75 MCG Potassium Chloride (Klor-Con M10) 10 meq QAM PO 06/23/17 09:00 07/23/17 08:59 06/23/17 07:48 10 MEQ Hydralazine HCl (HydrALAZINE INJ) 2.5 mg Q6H PRN IV. 06/22/17 20:00 07/22/17 19:59 06/22/17 19:59 2.5 MG Acetaminophen (Tylenol Tab) 1,000 mg Q8H PRN PO 06/23/17 08:30 07/23/17 08:29 06/23/17 08:38 1,000 MG Fludrocortisone Acetate (Florinef Tab) 0.1 mg BID PO 06/23/17 21:00 07/22/17 20:59 Ioversol (Optiray 320) 100 ml UD PRN IV 06/23/17 15:15 06/27/17 15:14 Review of Systems Review of Systems Constitutional: No fever, No chills Eyes: No double vision, No eye pain Neurological: + passing out Endocrine: No too hot, No too cold Gastrointestinal: No nausea, No vomiting Cardiovascular: No chest pain Respiratory: No shortness of breath, No coughing up blood Skin: No boils Musculoskeletal: No back pain Ears / Nose / Throat: No sinus, No hoarse voice Psychologic / Mental: + trouble remembering Female : + see HPI, + leaking urine, No blood in urine Physical Exam Vital Signs: Vital Signs Past 12 Hours Date Time Temp Pulse Resp B/P (MAP) Pulse Ox O2 Delivery O2 Flow Rate FiO2 06/23/17 16:16 95 06/23/17 16:00 94 Room Air 06/23/17 15:32 83 167/111 (129) 06/23/17 15:32 85 197/140 (159) 06/23/17 15:26 36.7 80 18 171/103 (125) 94 Room Air 06/23/17 14:50 36.7 84 16 165/85 (111) 93 Room Air 06/23/17 12:00 Room Air 06/23/17 11:29 36.6 76 18 153/76 (101) 92 06/23/17 08:00 Room Air 06/23/17 07:34 36.9 81 18 155/77 (103) 95 Physical Exam: General Appearance: WD/WN, no apparent distress ENT: normal ENT inspection Neck: supple, no adenopathy Respiratory/Chest: no respiratory distress, no accessory muscle use Cardiovascular: no JVD Gastrointestinal: Abdomen: normal abdomen Bladder: normal bladder Renal: normal renal Hernia: absent hernia Liver: normal liver Spleen: normal spleen Extremities: non-tender Neurologic/Psychiatric: alert Skin: normal color Assessment & Plan Assessment & Plan A/P 81-year-old female with incomplete bladder emptying. Would continue Thornton until closer to discharge from the hospital then proceed with trial of void. Bladder scan for postvoid residuals and consider replacing Thornton or CIC at the patient's outpatient facility at [facility] if she is unable to empty. Would hold tolterodine for now. It is possible that the patient's acute events as well as her anticholinergic use are contributing to her incomplete emptying. Hopefully, as she returns to her baseline health, her voiding will also improve. Will arrange for outpatient follow-up in a few weeks time to check for urinary incontinence and bladder emptying. We can restart her medications as an outpatient if she seems to be doing better. If the patient is completely unable to void she could also be discharged with Thornton catheter in place we can arrange for outpatient trial of void in our office. Care is discussed with the patient and the patient's daughter both of whom vocalize good understanding of the treatment plan. Thank you for allowing us to participate in this patient's care. Please contact our service with any further questions or concerns.
--- NOTE | 2017-06-23 19:38 | Medical Student: [facility] ---
Med Student Progress Note Date of Service June 23, 2017. Subjective This is an 81 year old female with hypertension, paroxysmal A fib, hypokalemia, and recurrent episodes of syncope who presented to [facility] with syncope. She states that shortly after eating her breakfast she "slumped over" and does not remember anything until she woke up in an ambulance. She denies any prodromal symptoms, lightheadedness, numbness, or tingling. She has no postictal confusion or incontinence, but she says she has generalized weakness. These episodes have happened many times over several years. She had a loop recorder placed in February of 2017, and no arrhythmias have been recorded during these events. She says that she can't think of any triggers, but she was eating before this episodes and two other episode. She recalls another episode that occurred while she was at the gym. Once she arrived at the ED it was found that her Hb was 6.8 and she was subsequently transfused with 3 units of pRBCs. She denies any history of blood in her stool, but having had hemorrhoids with small amounts of blood on the toilet paper. She's having no vaginal bleeding or hematuria. She does have worsening low back pain, which she attributes to her lumbar spinal stenosis, and plans to have another injection next week. She also had a potassium level of 2.[address] segment depression on EKG. Potassium and magnesium were repleted. Currently she feels well other than her usually state of "always tired." Review of Systems Constitutional: No fever, No chills Respiratory: No cough, No shortness of breath Cardiac: No chest pain, No palpitations Abdomen: No pain, No nausea, No vomiting, No diarrhea, No constipation, No GI bleeding (no gross blood, no melena to her knowledge) Female : + problem reported (difficulty emptying bladder), No dysuria Neurologic: No paralysis, No numbness/tingling Heme: No abnormal bleeding/bruising Skin: No rash Objective Vital Signs Date Time Temp Pulse Resp B/P (MAP) Pulse Ox O2 Delivery O2 Flow Rate FiO2 06/23/17 16:16 95 06/23/17 16:00 94 Room Air 06/23/17 15:32 83 167/111 (129) 06/23/17 15:32 85 197/140 (159) 5/11/18 15:26 36.7 80 18 171/103 (125) 94 Room Air 06/23/17 14:50 36.7 84 16 165/85 (111) 93 Room Air 06/23/17 12:00 Room Air 06/23/17 11:29 36.6 76 18 153/76 (101) 92 06/23/17 08:00 Room Air 06/23/17 07:34 36.9 81 18 155/77 (103) 95 06/23/17 04:00 Room Air 06/23/17 03:27 36.9 84 18 155/94 (114) 94 Room Air 06/23/17 00:00 36.8 86 20 130/72 (91) 96 Room Air 06/23/17 00:00 Room Air 06/22/17 22:31 36.7 89 18 136/89 97 06/22/17 21:45 36.7 90 18 149/67 95 06/22/17 20:45 36.8 94 16 171/80 94 06/22/17 20:12 36.7 90 16 170/92 (118) 93 Room Air 06/22/17 20:00 Room Air 06/22/17 19:45 36.7 80 21 182/102 96 Physical Exam General Appearance: WD/WN, no apparent distress Eyes: bilateral eyes normal inspection, bilateral eyes PERRL, bilateral eyes EOMI ENT: TMs normal, pharynx normal Respiratory/Chest: lungs clear, normal breath sounds, no accessory muscle use Cardiovascular: regular rate, rhythm, no gallop, no murmur Abdomen: normal bowel sounds, non tender Extremities: normal inspection, no pedal edema, no calf tenderness 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 No dysmetria on finger to nose testing. Gait was not assessed. ) Laboratory Results Last 24 Hours Test 06/22/17 23:22 06/23/17 00:00 06/23/17 05:10 06/23/17 08:00 Hemoglobin 10.9 g/dL 10.9 g/dL Sodium Level 138 mmol/L 138 mmol/L Potassium Level 2.9 mmol/L 3.3 mmol/L Chloride Level 103 mmol/L 104 mmol/L Carbon Dioxide Level 27 mmol/L 28 mmol/L Anion Gap 8.0 mmol/L 6.0 mmol/L Blood Urea Nitrogen 8 mg/dl 6 mg/dl Creatinine 0.63 mg/dl 0.71 mg/dl Est Creatinine Clear Calc Drug Dose 63.4 ml/min 56.2 ml/min Estimated GFR () 96.1 91.3 Estimated GFR (Non- 82.9 78.8 BUN/Creatinine Ratio 12.9 9.1 Random Glucose 98 mg/dl 99 mg/dl Calcium Level 8.1 mg/dl 7.8 mg/dl Prolactin 10.18 ng/mL Stool Occult Blood POSITIVE Iron Level 39 mcg/dl Transferrin 301 mg/dl Transferrin % Saturation 0 % Ferritin 17.5 ng/ml Troponin I 0.021 ng/ml Thyroid Stimulating Hormone (TSH) 2.470 uIu/ml Assessment and Plan Assessment and Plan: This is an 81 year old female with hypertension, paroxysmal A fib, hypokalemia, and recurrent episodes of syncope who presented to [facility] with syncope. VASODEPRESSOR SYNCOPE Pt has had episodes of of syncope with the most recent one having a SBP in the 70s and glucose level of 140. Loop recorder put in place in Feb 2017 has not shown any arrhythmia associated with the episodes. She has been in sinus rhythm on telemetry. There is no acute change on CT of the head. Per Dr. Flores, EEG shows diffuse slowing consistent with her age an does not show seizure activity. These findings make arrhythmia, seizure, and CVA less likely. With hypotension and often occurring after meals, there may be a component of autonomic dysfunction. She also has difficulty completely voiding her bladder and has urges to go. This may contribute to her autonomic dysfunction. - Her loop monitor was removed today as it has not revealed arrhythmia causing symptoms thus far. - She is currently on .1mg of fludrocortisone for blood pressure support as recommended by cardiology. - We will order orthostatic vital signs. ACUTE BLOOD LOSS ON CHRONIC IRON DEFICIENCY ANEMIA Hb is usually 10-11, but was 6.8 on admission and received 3 units of pRBCs. Hb was then 10.9. MCV is 82. No overt GI bleeding here and she does not recall episodes of hematochezia, melena, or bleeding anywhere else in her body. However, stool occult blood is positive. Her last colonoscopy was in 2004 where diverticuli were seen, and she was told that she no longer needed colonoscopies anymore. CT of the abdomen and pelvis do not show retroperitoneal bleed (as she is on apixaban) or colonic masses, but does show diverticulosis. She should be evaluated by GI for EGD and colonoscopy. We have added iron to her medications, ordered B12 and folate levels as well. INCOMPLETE BLADDER EMPTYING Was diagnosed with urinary frequency and urgency by Dr. Beckman in July of 2012 and was placed on a trial of tolterodine. She has been on this medication for several years but has felt that is difficult to empty her bladder completely. She will have sudden urge and only a small amount will come out. Catheterization today quickly produced 800 cc. It appears that the tolterodine is not allowing complete bladder emptying, and we have placed a Clayton. Urology consulted and recommended holding tolterodine and suggested a void trial as an outpatient. Also suggested potentially returning to [facility] with Clayton in place. HYPERTENSION She has been hypertensive with her systolic blood pressures have been in the 170s. We must balance hypertension with pressure support with her hypotensive episodes. We will add hydralazine 12.5 PRN if SBP is greater than 175. We will continue her carvedilol. HYPOKALEMIA - improving Potassium was 2.6 on admission. Has since received 110 meq of KCl tabs. Level is now 3.3. Trend BMP tomorrow AM. PAROXYSMAL ATRIAL FIBRILLATION - stable Continue carvidilol 12.5 mg qAM and 6.5 qHS, digoxin 0.125mg. Holding apixaban until hemoglobin stabilizes. HYPOTHYROIDISM stable. TSH of 2.470. Continue 75 mcg levothyroxine CHRONIC LOW BACK PAIN SECONDARY TO LUMBAR SPINAL STENOSIS Pt does complain of back pain. Continue to offer acetaminophen PRN. 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 On apixaban and aspirin, but holding until hemoglobin stabilizes. 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 In this stay after administration of fluids though, her sodium level improved which does not fit with SIADH (should correct with fluid restriction). Hyperglycemia is absent. TSH is normal as above. We will obtain plasma osmolality, urine osmolality, urine sodium, and AM cortisol. PPX SCDs, DONNY stockings. Holding apixaban in setting of acute anemia. DISPOSITION Discharge to [facility] from telemetry pending stabilization of her anemia.
[2017-06-23] MEDS: CARVEDILOL 6.25 MG TAB PO SCH (21:46)
[2017-06-24] VITALS (8 sets, daily range): BP systolic 136–193; BP diastolic 71–162; PULSE 76–84; TEMP 36.8–37; O2SAT 92–95
[2017-06-24 05:05] LABS: OSMOLALITY,URINE 498 mOms/kg (500-800)
[2017-06-24 05:08] LABS: SODIUM RANDOM URINE 88 mEq/L
[2017-06-24] MEDS: LEVOTHYROXINE 75 MCG TAB PO SCH (05:39)
[2017-06-24 06:01] LABS: BASO % 0.6 %; BASO ABS # 0.04 K/uL (0-0.2); EOS % 3.5 %; EOS ABS # 0.25 K/uL (0-0.5); HEMATOCRIT 34.7 % (37-47); HEMOGLOBIN 11.4 g/dL (12.0-16.0); IG# 0.02 K/uL (0.00-0.02); LYMPH % 22.3 %; MEAN CORPUSCULAR HEMOGLOBIN 27.3 pg (25-34); MEAN CORPUSCULAR HGB CONC 32.9 g/dl (32-36); MEAN PLATELET VOLUME 8.1 fL (7.4-10.4); MONO ABS # 0.72 K/uL (0.11-0.59); NEUT % 63.3 %; NEUT ABS # 4.56 K/uL (1.4-6.5); PLATELET COUNT 277 K/uL (130-400); RED CELL DISTRIBUTION WIDTH CV 14.7 % (11.5-14.5); RED CELL DISTRIBUTION WIDTH SD 44.9 fL (36.4-46.3); WHITE BLOOD COUNT 7.19 K/uL (4.8-10.8)
[2017-06-24 06:19] LABS: CALCIUM 8.5 mg/dl (8.5-10.1); CREATININE 0.74 mg/dl (0.60-1.20); POTASSIUM 3.1 mmol/L (3.5-5.1)
[2017-06-24] MEDS ORDERED: POTASSIUM CHLORIDE 20 MEQ TABCR PO ONE (07:45)
[2017-06-24] MEDS: FERROUS SULFATE 325 MG TAB PO SCH ×2 (07:55→16:49)
[2017-06-24] MEDS: CARVEDILOL 12.5 MG TAB PO SCH (07:56)
[2017-06-24] MEDS: GABAPENTIN 100 MG CAP PO SCH ×2 (07:56→20:10)
[2017-06-24] MEDS: POTASSIUM CHLORIDE 10 MEQ TABCR PO SCH (07:56)
[2017-06-24] MEDS: FLUDROCORTISONE ACETATE 0.1 MG TAB PO SCH ×2 (07:57→20:10)
--- NOTE | 2017-06-24 09:04 | Cardiology Follow-Up ---
Subjective Date of Service: June 24, 2017. Pt evaluation today including: conversation w/ patient, physical exam, chart review, lab review, review of studies, review of inpatient medication list History of Present Illness T this morning the patient is frustrated that she is still in the hospital. She wants to bathe and has an itchy scalp. She has no discomfort at at the site of her loop removal. She denies breathing difficulty. She is not reporting dizziness. She ate breakfast this morning. Social History Smoking Status: Former Smoker History of Alcohol Use: No Review of Systems Respiratory: No cough, No shortness of breath Cardiac: No chest pain, No palpitations Per HPI. No recent constitutional symptoms such as fevers or chills. Objective Vital Signs Past 12 Hours Date Time Temp Pulse Resp B/P (MAP) Pulse Ox O2 Delivery O2 Flow Rate FiO2 06/24/17 07:08 36.9 77 18 138/82 (100) 95 Room Air 06/24/17 04:00 Room Air 06/24/17 03:33 36.8 82 18 162/87 (112) 92 148/110 (123) 151/102 (118) 06/24/17 00:02 36.8 78 20 136/71 (92) 92 Room Air 06/24/17 00:00 Room Air Last Recorded Weight-Kilograms: 62.900 Physical Exam She is alert and oriented x3. Mood affect appear normal. She answered all questions appropriately. HEENT: Sclerae are anicteric. Pupils are equal and reactive to light and accommodation. Extraocular movements were intact. Neuro: Cranial nerves intact Chest: Loop explant site with only minor erythema. Apparently the bandage was removed. Data Laboratory Results: Last 24 Hours Test 06/24/17 04:05 06/24/17 05:42 Urine Osmolality 498 mOms/kg Urine Random Sodium 88 mEq/L White Blood Count 7.19 K/uL Red Blood Count 4.18 M/uL Hemoglobin 11.4 g/dL Hematocrit 34.7 % Mean Corpuscular Volume 83.0 fL Mean Corpuscular Hemoglobin 27.3 pg Mean Corpuscular Hemoglobin Concent 32.9 g/dl Platelet Count 277 K/uL Mean Platelet Volume 8.1 fL Neutrophils (%) (Auto) 63.3 % Lymphocytes (%) (Auto) 22.3 % Monocytes (%) (Auto) 10.0 % Eosinophils (%) (Auto) 3.5 % Basophils (%) (Auto) 0.6 % Neutrophils # (Auto) 4.56 K/uL Lymphocytes # (Auto) 1.60 K/uL Monocytes # (Auto) 0.72 K/uL Eosinophils # (Auto) 0.25 K/uL Basophils # (Auto) 0.04 K/uL RDW Standard Deviation 44.9 fL RDW Coefficient of Variation 14.7 % Immature Granulocyte % (Auto) 0.3 % Immature Granulocyte # (Auto) 0.02 K/uL Sodium Level 136 mmol/L Potassium Level 3.1 mmol/L Chloride Level 103 mmol/L Carbon Dioxide Level 27 mmol/L Anion Gap 6.0 mmol/L Blood Urea Nitrogen 8 mg/dl Creatinine 0.74 mg/dl Est Creatinine Clear Calc Drug Dose 51.5 ml/min Estimated GFR () 86.8 Estimated GFR (Non- 74.9 BUN/Creatinine Ratio 10.7 Random Glucose 96 mg/dl Osmolality 278 mOsm/kg Calcium Level 8.5 mg/dl Magnesium Level 2.0 mg/dl Vitamin B12 Level 347 pg/mL Folate 14.06 ng/mL Telemetry reviewed: No significant arrhythmia Assessment and Plan 1. Vasodepressor syncope: He is known to have low blood pressures at the time of her syncopal episodes. There is no obvious trigger for these episodes. She was discovered to have some urinary retention with certainly could play a role in triggering event. We lowered her fludrocortisone as result of hypertension and hypokalemia. It is unclear whether this ever attenuated her symptoms. 2. Atrial fibrillation: Paroxysmal. No definite symptoms. She generally has been maintained on a anticoagulation. However, this is been held currently due to concerns over internal bleeding. Obviously we should try to limit any period without anticoagulation. She did have strokes in the past but these were felt to be related to a watershed infarct and hypotension. I suppose this puts her at a lower risk of stroke when holding her anticoagulation relative to patients with embolic phenomenon. Also, from a cardiac standpoint she does not require both Eliquis and aspirin. If there is no other indication for aspirin I would discontinue this while she is taking Eliquis. Will continue carvedilol. 3. Loop recorder: Removed yesterday 4. Hypokalemia: Perhaps exacerbated by her fludrocortisone use. This was discontinued yesterday but she continues to have an element of hypokalemia. She may require some supplementation. Alternatively, we could discontinue the fludrocortisone altogether and simply monitor her symptoms.
[2017-06-24] MEDS ORDERED: CYANOCOBALAMIN 500 MCG TAB (VIT B-12) PO ONE (10:30)
--- NOTE | 2017-06-24 12:50 | Medical Student: [facility] ---
Med Student Progress Note Date of Service June 24, 2017. Subjective Pt evaluation today including: conversation w/ patient, physical exam, lab review, review of studies Pain: None PO Intake: Adequate Voiding: no voiding problems This is an 81 year old female with hypertension, paroxysmal A fib, hypokalemia, and recurrent episodes of syncope who is admitted for vasodepressor syncope, acute blood loss on chronic anemia, and incomplete bladder emptying. She currently feels "okay" and has no complaints other than wanting to be discharged from the hospital. She denies lightheadedness, chest pain, shortness of breath, nausea, diarrhea, constipation, or calf pain. She feels ready to return to [facility] to complete therapy. Review of Systems Notes: see HPI Objective Vital Signs Date Time Temp Pulse Resp B/P (MAP) Pulse Ox O2 Delivery O2 Flow Rate FiO2 06/24/17 12:07 95 Room Air 06/24/17 11:00 36.9 76 20 168/84 (112) 94 Room Air 193/162 (172) 06/24/17 08:00 Room Air 06/24/17 07:08 36.9 77 18 138/82 (100) 95 Room Air 06/24/17 04:00 Room Air 06/24/17 03:33 36.8 82 18 162/87 (112) 92 148/110 (123) 151/102 (118) 06/24/17 00:02 36.8 78 20 136/71 (92) 92 Room Air 06/24/17 00:00 Room Air 06/23/17 20:00 Room Air 06/23/17 19:45 36.9 80 18 171/73 (105) 92 Room Air 06/23/17 16:16 95 06/23/17 16:00 94 Room Air 06/23/17 15:32 83 167/111 (129) 06/23/17 15:32 85 197/140 (159) 06/23/17 15:26 36.7 80 18 171/103 (125) 94 Room Air 06/23/17 14:50 36.7 84 16 165/85 (111) 93 Room Air Physical Exam General Appearance: WD/WN, no apparent distress Eyes: bilateral eyes normal inspection ENT: TMs normal Respiratory/Chest: no respiratory distress, + crackles (fine crackles at bases) Cardiovascular: regular rate, rhythm, no gallop, + systolic murmur Abdomen: normal bowel sounds, non tender, soft Extremities: + calf tenderness (secondary to bruising, negative Reno's sign) Neurologic/Psychiatric: alert Laboratory Results Last 24 Hours Test 06/24/17 04:05 06/24/17 05:42 Urine Osmolality 498 mOms/kg Urine Random Sodium 88 mEq/L White Blood Count 7.19 K/uL Red Blood Count 4.18 M/uL Hemoglobin 11.4 g/dL Hematocrit 34.7 % Mean Corpuscular Volume 83.0 fL Mean Corpuscular Hemoglobin 27.3 pg Mean Corpuscular Hemoglobin Concent 32.9 g/dl Platelet Count 277 K/uL Mean Platelet Volume 8.1 fL Neutrophils (%) (Auto) 63.3 % Lymphocytes (%) (Auto) 22.3 % Monocytes (%) (Auto) 10.0 % Eosinophils (%) (Auto) 3.5 % Basophils (%) (Auto) 0.6 % Neutrophils # (Auto) 4.56 K/uL Lymphocytes # (Auto) 1.60 K/uL Monocytes # (Auto) 0.72 K/uL Eosinophils # (Auto) 0.25 K/uL Basophils # (Auto) 0.04 K/uL RDW Standard Deviation 44.9 fL RDW Coefficient of Variation 14.7 % Immature Granulocyte % (Auto) 0.3 % Immature Granulocyte # (Auto) 0.02 K/uL Sodium Level 136 mmol/L Potassium Level 3.1 mmol/L Chloride Level 103 mmol/L Carbon Dioxide Level 27 mmol/L Anion Gap 6.0 mmol/L Blood Urea Nitrogen 8 mg/dl Creatinine 0.74 mg/dl Est Creatinine Clear Calc Drug Dose 51.5 ml/min Estimated GFR () 86.8 Estimated GFR (Non- 74.9 BUN/Creatinine Ratio 10.7 Random Glucose 96 mg/dl Osmolality 278 mOsm/kg Calcium Level 8.5 mg/dl Magnesium Level 2.0 mg/dl Vitamin B12 Level 347 pg/mL Folate 14.06 ng/mL Assessment and Plan Assessment and Plan: This is an 81 year old female with hypertension, paroxysmal A fib, hypokalemia, and recurrent episodes of syncope who is admitted for vasodepressor syncope, acute blood loss on chronic anemia, and incomplete bladder emptying. VASODEPRESSOR SYNCOPE Course Pt has had episodes of of syncope with the most recent one having a SBP in the 70s and glucose level of 140. Loop recorder put in place in Feb 2017 has not shown any arrhythmia associated with the episodes. She has been in sinus rhythm on telemetry. There is no acute change on CT of the head. Per Dr. Flores, EEG shows diffuse slowing consistent with her age an does not show seizure activity. These findings make arrhythmia, seizure, and CVA less likely. With hypotension and often occurring after meals, there may be a component of autonomic dysfunction. She also has difficulty completely voiding her bladder and has urges to go. This may contribute to her autonomic dysfunction. Orthostatic vital signs do not reveal orthostasis. - Her loop monitor was removed today as it has not revealed arrhythmia causing symptoms thus far. - She is currently on .1mg of fludrocortisone for blood pressure support as recommended by cardiology. - She has not had any episodes while admitted. She was evaluated for PT and OT who have both recommended she continue physical therapy at [facility]. ACUTE BLOOD LOSS ON CHRONIC IRON DEFICIENCY ANEMIA - now stable Hb is usually 10-11, but was 6.8 on admission and received 3 units of pRBCs. Hb was then 10.9. MCV is 82. No overt GI bleeding here and she does not recall episodes of hematochezia, melena, or bleeding anywhere else in her body. However, stool occult blood is positive. Her last colonoscopy was in 2004 where diverticuli were seen, and she was told that she no longer needed colonoscopies anymore. CT of the abdomen and pelvis do not show retroperitoneal bleed (as she is on apixaban) or colonic masses, but does show diverticulosis. She should be evaluated by GI for EGD and colonoscopy. Hb today, 06/24, is stable at 11.3 We have added iron to her medications. B12 is also borderline low at 327. We will add B12 supplementation. Folate is normal at 14. INCOMPLETE BLADDER EMPTYING Was diagnosed with urinary frequency and urgency by Dr. Beckman in July of 2012 and was placed on a trial of tolterodine. She has been on this medication for several years but has felt that is difficult to empty her bladder completely. She will have sudden urge and only a small amount will come out. Catheterization on 06/23 quickly produced 800 cc. It appears that the tolterodine is not allowing complete bladder emptying, and we have placed a Clayton. Urology consulted and recommended holding tolterodine and suggested a void trial as an outpatient. Also suggested potentially returning to [facility] with Clayton in place. She will be discharged with Clayton in place. HYPERTENSION She has been hypertensive with her systolic blood pressures have been in the 160 -170s. We must balance hypertension with pressure support with her hypotensive episodes. We will add hydralazine 12.5 PRN if SBP is greater than 175. We will continue her carvedilol. HYPOKALEMIA - improving Potassium was 2.6 on admission and with replacement became 3.3. Level on 06/24 is 3.1. Was given additional 40 meq in addition to her daily 10meq. PAROXYSMAL ATRIAL FIBRILLATION - stable Continue carvidilol 12.5 mg qAM and 6.5 qHS, digoxin 0.125mg. We are continuing to hold apixaban as she anticipates a steroid injection to her back on Monday HYPOTHYROIDISM stable. TSH of 2.470. Continue 75 mcg levothyroxine CHRONIC LOW BACK PAIN SECONDARY TO LUMBAR SPINAL STENOSIS - stable Continue to offer acetaminophen PRN. 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 Holding apixaban and aspirin. 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 In this stay after administration of fluids though, her sodium level improved which does not fit with SIADH (should correct with fluid restriction). Hyperglycemia is absent. TSH is normal as above. Sodium of 136 today, 06/24. PPX SCDs, DONNY stockings. Holding apixaban. DISPOSITION Discharge to [facility] vs. SNF from telemetry.
[2017-06-24] MEDS: DIGOXIN 0.125 MG TAB PO SCH (16:49)
[2017-06-24] MEDS ORDERED: POTASSIUM CHLORIDE 20 MEQ TABCR PO STA (20:07)
[2017-06-24] MEDS: CARVEDILOL 6.25 MG TAB PO SCH (20:11)
--- NOTE | 2017-06-24 23:10 | Progress Note ---
Subjective Date of Service: June 24, 2017. Subjective Pt evaluation today including: conversation w/ patient, conversation w/ family ( at bedside), physical exam, chart review, lab review, review of studies , review of inpatient medication list Pain: none PO Intake: fair Voiding: thornton catheter in place tele stable overnight no further presyncope, syncope or dizziness orthostatic BPs negative denies cp, dyspnea, abd pain OT cleared her for her personal fci did poorly with PT; only walked 20 feet, then had incontinence of bowel Problem List Medical Problems: (1) Acute electrocardiogram changes Status: Acute (2) Altered mental status Status: Acute (3) CVA (cerebral vascular accident) Status: Acute (4) Hypokalemia Status: Acute (5) Symptomatic anemia Status: Acute (6) Syncope Status: Acute Review of Systems Constitutional: No fever Respiratory: No cough, No shortness of breath, No dyspnea on exertion Cardiac: No chest pain Abdomen: No pain Objective Vital Signs Date Time Temp Pulse Resp B/P (MAP) Pulse Ox O2 Delivery O2 Flow Rate FiO2 06/24/17 19:46 37.0 84 18 172/129 (143) 93 Room Air 06/24/17 16:49 88 06/24/17 16:19 95 Room Air 06/24/17 12:07 95 Room Air 06/24/17 11:00 36.9 76 20 168/84 (112) 94 Room Air 193/162 (172) 06/24/17 08:00 Room Air 06/24/17 07:08 36.9 77 18 138/82 (100) 95 Room Air 06/24/17 04:00 Room Air 06/24/17 03:33 36.8 82 18 162/87 (112) 92 148/110 (123) 151/102 (118) 06/24/17 00:02 36.8 78 20 136/71 (92) 92 Room Air 06/24/17 00:00 Room Air Physical Exam General Appearance: no apparent distress ENT: pharynx normal Neck: no JVD Respiratory/Chest: lungs clear, no respiratory distress, no accessory muscle use Cardiovascular: regular rate, rhythm, no gallop, no murmur Abdomen: normal bowel sounds, non tender, soft, no organomegaly Extremities: no pedal edema Neurologic/Psychiatric: no motor/sensory deficits (strength b/l legs 5/5; DTRs 1-2+ b/l knees), alert, oriented x 3 Skin: + pertinent finding (surgical incision, left chest, clean ) Laboratory Results Last 24 Hours Test 06/24/17 04:05 06/24/17 05:42 Urine Osmolality 498 mOms/kg Urine Random Sodium 88 mEq/L White Blood Count 7.19 K/uL Red Blood Count 4.18 M/uL Hemoglobin 11.4 g/dL Hematocrit 34.7 % Mean Corpuscular Volume 83.0 fL Mean Corpuscular Hemoglobin 27.3 pg Mean Corpuscular Hemoglobin Concent 32.9 g/dl Platelet Count 277 K/uL Mean Platelet Volume 8.1 fL Neutrophils (%) (Auto) 63.3 % Lymphocytes (%) (Auto) 22.3 % Monocytes (%) (Auto) 10.0 % Eosinophils (%) (Auto) 3.5 % Basophils (%) (Auto) 0.6 % Neutrophils # (Auto) 4.56 K/uL Lymphocytes # (Auto) 1.60 K/uL Monocytes # (Auto) 0.72 K/uL Eosinophils # (Auto) 0.25 K/uL Basophils # (Auto) 0.04 K/uL RDW Standard Deviation 44.9 fL RDW Coefficient of Variation 14.7 % Immature Granulocyte % (Auto) 0.3 % Immature Granulocyte # (Auto) 0.02 K/uL Sodium Level 136 mmol/L Potassium Level 3.1 mmol/L Chloride Level 103 mmol/L Carbon Dioxide Level 27 mmol/L Anion Gap 6.0 mmol/L Blood Urea Nitrogen 8 mg/dl Creatinine 0.74 mg/dl Est Creatinine Clear Calc Drug Dose 51.5 ml/min Estimated GFR () 86.8 Estimated GFR (Non- 74.9 BUN/Creatinine Ratio 10.7 Random Glucose 96 mg/dl Osmolality 278 mOsm/kg Calcium Level 8.5 mg/dl Magnesium Level 2.0 mg/dl Vitamin B12 Level 347 pg/mL Folate 14.06 ng/mL Assessment and Plan 81yo female - 1. syncope - long-standing, recurrent episodes - likely due to hypotension from orthostasis or autonomic dysfunction. Extensive w/u in the past & present without other etiology (cortisol wnl, EEG negative, CT head neg, etc). Loop recorder w/o dysrhythmia during the event(s). Cont florinef; agree with dose adjustment due to significantly elevated BPs. TEDs. Avoid volume depletion. 2. anemia, 2nd to iron deficiency - chronic - s/p 3 units PRBCs with excellent response/improvement in H/H. Stable CBC since the PRBCs. Outpatient GI w/u. Start ferrous sulfate 325 BID. 3. urinary retention - exact cause uncertain. Neurogenic from lumbar spinal stenosis? due to anticholinergic agents? other? s/p thornton; leave for 3-4 more days then spontaneous voiding trial. appreciate urology consult. no evidence of UTI. 4. Hypokalemia - replace, repeat BMP am. 2nd to mineralcorticoid (florinef)? 5. PAF on eliquis - cont coreg, cont dig. Eliquis on hold for upcoming lumbar spine injection as well as #2. 6. HTN - supine BPs quite high; florinef dose reduced. 7. hypothyroidism - TSH wnl; cont synthroid. 8. hyponatremia - chronic, actually normal this admission. Repeat BMP am. 9. CKD stage 2 - creatinine stable. 10. low-normal vitamin b12 level - replace w/ oral b12. 11. DVT proph - since eliquis is being held SCDs. PT, OT mikeals appreciated did poorly with PT today spoke with SW - plan is for SNF at [facility] at d/c rather than assisted living patient/ agreeable Discharge planning: detention facility
[2017-06-25] VITALS (12 sets, daily range): BP systolic 110–201; BP diastolic 60–103; PULSE 80–88; TEMP 36.7–37.1; O2SAT 92–98
[2017-06-25] MEDS: HydrALAZINE HCL 20 MG/ML VIAL IV. PRN (00:32)
[2017-06-25] MEDS: LEVOTHYROXINE 75 MCG TAB PO SCH (06:20)
[2017-06-25 06:30] LABS: CALCIUM 8.6 mg/dl (8.5-10.1); CREATININE 0.68 mg/dl (0.60-1.20); POTASSIUM 3.2 mmol/L (3.5-5.1)
[2017-06-25] MEDS: FERROUS SULFATE 325 MG TAB PO SCH ×2 (07:30→16:45)
[2017-06-25] MEDS: POTASSIUM CHLR 10 MEQ / WTR 100 ML IV SCH ×2 (08:56→10:45)
[2017-06-25] MEDS: POTASSIUM CHLORIDE 10 MEQ TABCR PO SCH ×3 (08:57→20:11)
[2017-06-25] MEDS: GABAPENTIN 100 MG CAP PO SCH ×2 (08:57→20:10)
[2017-06-25] MEDS: FLUDROCORTISONE ACETATE 0.1 MG TAB PO SCH ×2 (08:58→20:10)
[2017-06-25] MEDS: CYANOCOBALAMIN 500 MCG TAB (VIT B-12) PO SCH (08:58)
[2017-06-25] MEDS: CARVEDILOL 12.5 MG TAB PO SCH (08:59)
[2017-06-25] MEDS: ACETAMINOPHEN 500 MG TAB PO PRN (12:30)
--- NOTE | 2017-06-25 13:02 | DIAGNOSTIC IMAGING REPORT ---
KUB HISTORY: suprapubic pain; fecal impaction, stone? COMPARISON: Abdomen and pelvis CT 06/23/2017. FINDINGS: The bowel gas pattern is unremarkable. There are no dilated loops of small bowel to suggest an obstruction. No renal calculi. No ureteral calculi. Calcifications in the deep pelvis likely represent phleboliths. Lumbar spinal fusion hardware is noted. The lung bases are clear. No pneumoperitoneum or pneumatosis. No significant constipation or suggestion of fecal impaction. IMPRESSION: 1. No renal or ureteral calculi. 2. No evidence of bowel obstruction. Electronically signed by: Michelet Snowden M.D. 06/25/2017 1:01 PM Dictated Date/Time: 06/25/2017 12:59 PM
[2017-06-25] MEDS ORDERED: D5NSS + 20MEQ KCL 1,000 ML IV SCH (13:15)
[2017-06-25] MEDS ORDERED: CEFTRIAXONE SOD INJ 1 GM in DEXTROSE 5% ADD-VANTAGE 50ML 50 ML IV SCH (14:00)
--- NOTE | 2017-06-25 15:22 | Progress Note ---
Subjective Date of Service: June 25, 2017. Subjective Pt evaluation today including: conversation w/ patient, conversation w/ family ( at bedside), physical exam, chart review, lab review, review of studies (KUB x-ray), review of inpatient medication list Pain: suprapubic pain - started this am; blaming it on K pills PO Intake: poor today; afraid to eat (concerned she will have fecal incontinence) Voiding: thornton catheter in place tele stable overnight; no dysrhythmia she had confusion overnight she c/o suprapubic pain had normal stool earlier today per nursing staff c/o dry mouth denies dizziness or lightheadedness Problem List Medical Problems: (1) Acute electrocardiogram changes Status: Acute (2) Altered mental status Status: Acute (3) CVA (cerebral vascular accident) Status: Acute (4) Hypokalemia Status: Acute (5) Symptomatic anemia Status: Acute (6) Syncope Status: Acute Review of Systems Constitutional: No fever, No chills Respiratory: No cough, No shortness of breath Cardiac: No chest pain Abdomen: + pain, No nausea, No vomiting, No diarrhea, No GI bleeding Objective Vital Signs Date Time Temp Pulse Resp B/P (MAP) Pulse Ox O2 Delivery O2 Flow Rate FiO2 06/25/17 12:02 95 Room Air 06/25/17 10:25 36.8 84 20 125/65 (85) 95 Room Air 06/25/17 08:00 Room Air 06/25/17 07:16 37.1 83 18 123/60 (81) 93 Room Air 06/25/17 04:00 95 Room Air 06/25/17 02:56 168/73 (104) 06/25/17 02:45 37.0 88 18 98 Room Air 06/25/17 00:05 36.7 80 18 201/98 (132) 96 Room Air 06/25/17 00:00 95 Room Air 06/24/17 20:00 95 Room Air 06/24/17 19:46 37.0 84 18 172/129 (143) 93 Room Air 06/24/17 16:49 88 06/24/17 16:19 95 Room Air Physical Exam General Appearance: no apparent distress, + pertinent finding (anxious) ENT: + pertinent finding (MM dry) Neck: no JVD Respiratory/Chest: lungs clear, no respiratory distress, no accessory muscle use, + pertinent finding (incision, left lower chest - clean, no erythema or drainage) Cardiovascular: regular rate, rhythm, no gallop, no murmur Abdomen: normal bowel sounds, soft, no organomegaly, + tenderness (suprapubic region; no rebound or peritoneal signs) Extremities: no pedal edema Neurologic/Psychiatric: alert, + pertinent finding (minimal confusion during the visit; anxious ) Laboratory Results Last 24 Hours Test 06/25/17 05:37 06/25/17 12:30 Hemoglobin 12.0 g/dL Sodium Level 135 mmol/L Potassium Level 3.2 mmol/L Chloride Level 100 mmol/L Carbon Dioxide Level 26 mmol/L Anion Gap 8.0 mmol/L Blood Urea Nitrogen 10 mg/dl Creatinine 0.68 mg/dl Est Creatinine Clear Calc Drug Dose 56.0 ml/min Estimated GFR () 93.8 Estimated GFR (Non- 80.9 BUN/Creatinine Ratio 14.9 Random Glucose 98 mg/dl Calcium Level 8.6 mg/dl Urine Color NICK Urine Appearance SL CLOUDY Urine pH >= 9.0 Urine Specific [place] 1.015 Urine Protein 3+ Urine Glucose (UA) NEG Urine Ketones TRACE Urine Occult Blood 1+ Urine Nitrite POS Urine Bilirubin NEG Urine Urobilinogen NEG Urine Leukocyte Esterase MODERATE Assessment and Plan 81yo female - 1. syncope - long-standing, recurrent episodes - likely due to hypotension from orthostasis or autonomic dysfunction. Extensive w/u in the past & present without other etiology (cortisol wnl, EEG negative, CT head neg, etc). Loop recorder w/o dysrhythmia during the event(s). Cont florinef; agree with dose adjustment due to significantly elevated BPs. TEDs. Avoid volume depletion. 2. anemia, 2nd to iron deficiency - chronic - s/p 3 units PRBCs with excellent response/improvement in H/H. H/H stable today. Pt afraid to take the oral iron supplement. Will consider IV iron while hospitalized. 3. urinary retention - s/p thornton insertion. Urine cx at admission was negative for UTI. U/a repeated today due to suprapubic pain and is highly suspicious for UTI. It is possible the UTI was brewing about the time the thornton was placed and the initial culture was falsely negative. Or, alternatively, this could be a new UTI due to thornton (complicated UTI). Either way will start rocephin 1 gm daily and follow the culture. Leave thornton in. 4. Hypokalemia - ongoing despite aggressive replacement. Will give IV and PO K today. Repeat BMP am. 2nd to mineralcorticoid (florinef)? 5. PAF on eliquis - cont coreg, cont dig. Eliquis on hold for upcoming lumbar spine injection as well as #2. 6. HTN - supine BPs improved today with cutting back the florinef. 7. hypothyroidism - TSH wnl; cont synthroid. 8. hyponatremia - chronic, actually normal this admission. Repeat BMP am. 9. CKD stage 2 - creatinine stable. 10. low-normal vitamin b12 level - replace w/ oral b12. 11. DVT proph - since eliquis is being held SCDs. 12. metabolic encephalopathy - likely 2nd to UTI. Supportive care. 13. abdominal pain - KUB x-ray obtained today - no significant constipation or obvious kidney stones. 14. FEN - give 1 liter of fluid today due to poor oral intake. BMP in am. dispo - [facility] in SNF portion tomorrow? Continued [facility] stay due to: inadequate po fluid intake, voiding difficulties, ambulation difficulties, multiple IV medications needed Discharge planning: halfway facility
[2017-06-25] MEDS: DIGOXIN 0.125 MG TAB PO SCH (16:44)
[2017-06-25] MEDS: CARVEDILOL 6.25 MG TAB PO SCH (20:09)
[2017-06-26] VITALS (7 sets, daily range): BP systolic 115–144; BP diastolic 65–88; PULSE 85–86; TEMP 36.7–37.5; O2SAT 92–95
[2017-06-26] MEDS: LEVOTHYROXINE 75 MCG TAB PO SCH (05:45)
[2017-06-26 06:40] LABS: HEMATOCRIT 35.5 % (37-47); HEMOGLOBIN 11.4 g/dL (12.0-16.0); MEAN CELL VOLUME 85.1 fL (80-100); MEAN CORPUSCULAR HEMOGLOBIN 27.3 pg (25-34); MEAN CORPUSCULAR HGB CONC 32.1 g/dl (32-36); MEAN PLATELET VOLUME 8.2 fL (7.4-10.4); PLATELET COUNT 277 K/uL (130-400); RED CELL DISTRIBUTION WIDTH SD 46.7 fL (36.4-46.3); WHITE BLOOD COUNT 8.22 K/uL (4.8-10.8)
[2017-06-26 07:05] LABS: CALCIUM 8.6 mg/dl (8.5-10.1); CREATININE 0.85 mg/dl (0.60-1.20); POTASSIUM 4.3 mmol/L (3.5-5.1)
[2017-06-26] MEDS ORDERED: POTASSIUM CHLORIDE 20 MEQ TABCR PO SCH (09:00)
[2017-06-26] MEDS: FLUDROCORTISONE ACETATE 0.1 MG TAB PO SCH (09:16)
[2017-06-26] MEDS: GABAPENTIN 100 MG CAP PO SCH (09:16)
[2017-06-26] MEDS: CARVEDILOL 12.5 MG TAB PO SCH (09:17)
[2017-06-26] MEDS: FERROUS SULFATE 325 MG TAB PO SCH (09:18)
[2017-06-26] MEDS: CYANOCOBALAMIN 500 MCG TAB (VIT B-12) PO SCH (09:18)
[2017-06-26] MEDS ORDERED: FRRS300 PO (12:30)
[2017-06-26] MEDS ORDERED: FLUD0.1T10 PO (12:30)
[2017-06-26] MEDS ORDERED: VTMB12 PO (12:30)
[2017-06-26] MEDS ORDERED: CEPH500C PO (12:30)
[2017-06-26] MEDS ORDERED: CEFTRIAXONE SOD INJ 1 GM in DEXTROSE 5% ADD-VANTAGE 50ML 50 ML IV SCH (13:00)
--- NOTE | 2017-06-26 13:28 | Discharge Instructions ---
Discharge Instructions Date of Service June 26, 2017. Admission Reason for Admission: Gi Bleed Syncope Discharge Discharge Diagnosis / Problem: Syncope, anemia, urinary tract infection Discharge Goals Goal(s): Decrease discomfort, Improve function, Diagnostic testing, Therapeutic intervention Activity Recommendations Activity Level: Assistance Required Therapies: Physical Therapy, Occupational Therapy . Additional Information Patient informed of condition: Yes Advance Directives: Yes DNR: No Level of Care: Skilled Communicable Disease: No Prognosis: Stable Clayton Catheter: Yes (until outpatient urology follow up) Instructions / Follow-Up Instructions / Follow-Up The patient was admitted to the hospital following a syncopal episode, which she has a long history of secondary to hypotension. Due to some possible convulsing during this episode, there was concern for possible seizure. She was evaluated by neurology and had an unremarkable EEG for her age. Neurology believes this was a convulsive syncopal event secondary to hypotension, not a seizure. The patient was also evaluated by cardiology. Her loop recorder has not recorded any events, and the patient requested it to be removed. Cardiology also recommended a decrease in the patient's Florinef due to hypertension. The patient was found to be acutely anemic on admission, and her stool was heme positive. She received a total of 3 units blood and her hemoglobin has remained stable. She will, however, need outpatient GI follow up shortly for endoscopy. The patient developed urinary retention, and a Clayton was placed. The patient developed a urinary tract infection and related metabolic encephalopathy. The encephalopathy is now resolved since starting antibiotics. The patient is now medically stable for discharge. Medications: *Keflex 500 mg PO twice a day. The patient received 2 days Rocephin while inpatient, will continue antibiotics for total 7 day course due to complicated UTI. Please follow up on urine culture results, currently positive for Gram negative bacilli, awaiting further identification and sensitivities *Vitamin B12 1000 mcg PO daily. *Ferrous sulfate 325 mg PO twice daily with meals due to chronic iron deficiency anemia. *Florinef dose DECREASED to 0.1 mg twice a day. *HOLD Eliquis and aspirin for now, as pt will need endoscopy in the near future for further evaluation. *HOLD Detrol for now until patient follows up with urology as an outpatient per their recommendations. *Continue other home medications as prescribed. Follow up: *Patient will need follow up with gastroenterology [facility] due to heme positive stools and recent acute anemia (patient actually had negative guaiac on admission). *Follow up with urology in 5 to 7 days. Keep Clayton until outpatient urology follow up, will do trial of void in office. *Follow up with primary care provider within 1 week of discharge. Please seek medical attention if patient experiences fevers, chills, sweats, dizziness/lightheadedness, loss of consciousness, chest pain, shortness of breath, nausea, vomiting, numbness or tingling. Current Hospital Diet Patient's current hospital diet: AHA Diet (Heart Healthy) Discharge Diet Recommended Diet: AHA Diet (Heart Healthy) Procedures Procedures Performed: Loop recorder removed, EEG Pending Studies Studies pending at discharge: yes List of pending studies: Final urine culture results Physician Orders On Transfer Special Precautions: Fall precautions Vital Signs: Routine Laboratory Results Hemoglobin A1c Test 05/08/17 02:53 Range/Units Estimated Average Glucose 108 mg/dl Hemoglobin A1c 5.4 4.5-5.6 % Lipid Panel Test 05/09/17 06:51 Range/Units Triglycerides Level 155 H 0-150 mg/dl Cholesterol Level 195 0-200 mg/dl HDL Cholesterol 46 mg/dl Cholesterol/HDL Ratio 4.2 LDL Cholesterol, Calculated 118 mg/dl Medical Emergencies . Who to Call and When: Medical Emergencies: If at any time you feel your situation is an emergency, please call 911 immediately. . Non-Emergent Contact Non-Emergency issues call your: Primary Care Provider, Facilities Management Executive, Manager Freelance, Urologist . Past History Medical & Surgical History: (1) UTI (urinary tract infection) (2) Syncope (3) GI bleed . "Provider Documentation" section prepared by Catalina Posada. . Core Measure Problem Core Measures: None
--- NOTE | 2017-06-26 13:48 | Discharge Summary ---
Discharge Summary Date of Service June 26, 2017. 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 The electrodes were placed in accordance with the International 10-20 system. At the start of this recording the patient was in an awake state. Background was well organized with a well-formed anterior posterior gradient. Background was composed of moderate amplitude symmetric mix of alpha and beta frequency with slightly excess theta frequencies and intermittent generalized delta slowing. There was a symmetric moderate amplitude well-formed posterior dominant rhythm of 7-8 Hz. Hyperventilation was not done. Photic stimulation at various frequencies did not produce any abnormalities. There was no state changes or sleep transients. Interpretation This is an abnormal routine EEG secondary to mild background slowing. There was no electrographic seizures or epileptiform discharges. Clinical Correlation This EEG indicates mild encephalopathy of nonspecific etiology. Operative Report Date of Service June 23, 2017. Operative Report Procedure performed: Removal of patient activated loop recorder Staff nuclear process engineer:Edvin Arias MD Indication: Patient underwent implantation of loop recorder for diagnosis of syncope. Subsequent to the implant the patient had several additional episodes of syncope there were related to hypotension. No arrhythmia has been identified. At this point the patient wishes the device removed. Procedure in detail: The patient was informed of the risks benefits and alternatives to the intended procedure. She understood such and wished to proceed. She was taken to the electrophysiology suite where the area over the loop recorder was prepped and draped in usual sterile fashion. This area was anesthetized using subcutaneous administration of lidocaine solution. A small incision was made at this site and the device was removed using sharp dissection. The resulting incision was closed with a single 4 0 Vicryl suture followed by Steri-Strips and a sterile dressing. The patient tolerated procedure well. There were no immediate complications. Equipment: Removed loop recorder: Force Dispatcher [employer]. Model number LNQ11 serial number: [id number] Impression: Successful removal of patient activated loop recorder. I attest to the content of the Intraoperative Record and any orders documented therein. Any exceptions are noted below. Consultations: Neurology Cardiology Urology Medication Reconciliation New Medications: Cephalexin Monohydrate (Keflex) 500 Mg Cap 1 CAP PO BID for 5 Days, #10 CAP Cyanocobalamin (Vitamin B-12) 500 Mcg Tab 1000 MCG PO QAM for 30 Days, #60 TAB Ferrous Sulfate (Ferrous Sulfate) 325 Mg Tab 325 MG PO BIDM for 30 Days, #60 TAB Changed Medications: Fludrocortisone Acetate (Florinef) 0.1 Mg Tab 1 TAB PO BID for 30 Days, #60 TAB (Changed from: 2 TAB) Continued Medications: Acetaminophen (Tylenol) 325 Mg Tab 650 MG PO DIRECTED PRN for Pain or Fever, TAB Acetaminophen (Acetaminophen Extra Stren) 500 Mg Tab 2 TAB PO QPM Carvedilol (Coreg) 12.5 Mg Tab 12.5 MG PO QAM Carvedilol (Coreg) 6.25 Mg Tab 6.25 MG PO QPM Digoxin (Digoxin) 0.125 Mg Tab 0.125 MG PO DAILY@16, #30 TAB 5 Refills Gabapentin (Neurontin) 100 Mg Cap 100 MG PO BID Levothyroxine Sodium (Synthroid) 75 Mcg Tab 75 MCG PO DAILY, TAB Polyethylene (Miralax) 17 Gm Pow 17 GM PO DAILY PRN for Constipation for 30 Days, #30 DOSE Potassium Chloride (Micro-K Ext Rel) 10 Meq Capcr 10 MEQ PO QAM, CAP Triamcinolone (Triamcinolone Acetonide) 60 Appln/60 Ml Lotn 1 APPLN TOP QPM Discontinued Medications: Apixaban (Eliquis) 5 Mg Tab 5 MG PO BID Aspirin (Aspirin EC Low Dose) 81 Mg Ectab 81 MG PO QAM for 30 Days, #30 TAB Tolterodine Tartrate (Detrol LA) 4 Mg Capcr 4 MG PO DAILY Discharge Exam The patient reports feeling well. She was up walking today with physical therapy. She denies any acute complaints today and states her appetite is improving. She is alert and oriented. Clayton catheter in place. The patient denies fevers, chills, sweats, chest pain, palpitations, claudication, cough, wheezing, shortness of breath, nausea, vomiting, abdominal pain, dysuria, hematuria, urinary retention, paralysis, weakness, numbness and tingling. Constitutional: No fever, No chills, No sweats Eyes: No worsening of vision, No eye pain, No diplopia ENT: No hearing loss, No nasal symptoms, No trouble swallowing Respiratory: No cough, No wheezing, No shortness of breath Cardiovascular: No chest pain, No claudication, No palpitations Abdomen: No pain, No nausea, No vomiting Musculoskeletal: No joint pain, No muscle pain, No swelling Genitourinary - Female: No dysuria, No urinary retention, No hematuria Neurologic: No paralysis, No weakness, No numbness/tingling Integumentary: No rash, No itch, No color change General appearance: Well-developed, well-nourished, no apparent distress Head: Normocephalic, atraumatic Eyes: Normal inspection, PERRL, EOMI ENT: Normal ENT inspection, hearing grossly normal, pharynx normal Neck: Supple, no JVD, trachea midline Respiratory/Chest: Lungs clear to auscultation, normal breath sounds, no respiratory distress Cardiovascular: Regular rate & rhythm, no gallop, no murmur Abdomen/GI: Normal bowel sounds, non-tender, soft Extremities/Musculoskeletal: Normal inspection, no calf tenderness, no pedal edema Neurological/Psych: Alert, normal mood/affect, oriented x 3 Skin: Normal color, warm/dry, no rash Hospital Course 81 y/o female with a history of paroxysmal a-fib, HTN, hypothyroidism, multiple syncopal episodes, chronic hyponatremia, history of lacunar CVA, urinary urgency and frequency, B12 deficiency, spinal DJD, 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 Syncope, longstanding h/o recurrent syncope due to orthostatic hypotension-- stable, no further episodes -Admit to telemetry. No acute events overnight. Pt in sinus rhythm with HR 80s -90s -No events on loop recorder, removed by cardiology per pt request -Neurology consulted d/t possible seizure activity: EEG unremarkable, not likely seizure. Episode represents convulsive syncope secondary to hypotension. No further testing/intervention. -Cardiology consulted, recommends decreasing Florinef dose due to hypertension -Florinef decreased to 0.1 mg PO BID, BP improved -Continue TEDs - long-standing, recurrent episodes - likely due to hypotension from orthostasis or autonomic dysfunction. Acute on chronic iron deficiency anemia--stable -Guaiac negative on admission but later stool heme positive -Thought to have had recent GI bleed a few days prior to admission -Will need outpatient GI follow up and likely scope in the next few days -Hold Eliquis and ASA in the meantime -Hgb stable s/p 3 units PRBC -Continue ferrous sulfate 325 mg PO BID -B12 low normal, continue B12 1000 mcg PO qd Urinary retention, complicated UTI found during admission, metabolic encephalopathy--stable -Continue Clayton catheter until pt follows up with urology as outpatient in 5-7 days, can then try trial of voiding -Urine culture positive for GNR, sensitivities and further identification pending. [facility] will need to follow up -Received 2 days Rocephin while inpatient, continue with Keflex 500 mg PO BID x 5 more days as outpatient -Detrol on hold per urology recs, may be able to restart at urology follow up at their discretion Hypokalemia--resolved -Potassium 4.3 on 06/26, up from 3.2 -Continue KCl 10 mEq PO qd PAF--stable, in NSR -Continue Coreg 12.5 mg PO qam and 6.25 mg PO qpm, digoxin 0.125 mg PO qd -Eliquis on hold for possible scope in near future and recent bleed HTN--BP now improved w/decreased Florinef -Coreg as above Hypothyroidism -TSH WNL -Continue Synthroid 75 mcg PO qd CKD stage II-III--stable, creatinine at baseline DVT prophylaxis -Chemical ppx on hold -DONNY hose and SCDs Code Status -Level I, FULL RESUSCITATION STATUS Dispo -From assisted living at [facility] -PT/OT evaluate and treat, recommend SNF -To [facility] section Total Time Spent: Greater than 30 minutes This includes examination of the patient, discharge planning, medication reconciliation, and communication with other providers. Discharge Instructions Please refer to the electronic Patient Visit Report (Discharge Instructions) for additional information. Follow-Up GI first available appointment Urology 5-7 days PCP within 1 week Additional Copies To Aleksandar Beckman M.D.
== END 2017-06-26 14:30 | DRG 377 ==
LOC: EDBD 09:55 → C.EDB 09:57 → C.2E 11:56 → ENRESERV 12:04
PROVIDERS: ADMIT Internal Medicine; ATTEND Internal Medicine
PROC: 0JPT02Z Removal of Monitoring Device from Trunk Subcutaneous Tissue and Fascia, Open Approach (ICD-10-PCS; principal; 2017-06-23 14:01)
DX: K92.2 Gastrointestinal hemorrhage, unspecified (principal); G93.41 Metabolic encephalopathy; D62 Acute posthemorrhagic anemia; N39.0 Urinary tract infection, site not specified; E87.1 Hypo-osmolality and hyponatremia; I95.1 Orthostatic hypotension; B96.89 Other specified bacterial agents as the cause of diseases classified elsewhere; R33.9 Retention of urine, unspecified; E87.6 Hypokalemia; D50.9 Iron deficiency anemia, unspecified; E53.8 Deficiency of other specified B group vitamins; I48.0 Paroxysmal atrial fibrillation; I13.10 Hypertensive heart and chronic kidney disease without heart failure, with stage 1 through stage 4 chronic kidney disease, or unspecified chronic kidney disease; N18.3 Chronic kidney disease, stage 3 (moderate); I72.0 Aneurysm of carotid artery; I65.22 Occlusion and stenosis of left carotid artery; E03.9 Hypothyroidism, unspecified; Z79.899 Other long term (current) drug therapy; Z79.01 Long term (current) use of anticoagulants; Z79.82 Long term (current) use of aspirin; Z86.73 Personal history of transient ischemic attack (TIA), and cerebral infarction without residual deficits; Z87.891 Personal history of nicotine dependence; Z88.0 Allergy status to penicillin; Z88.8 Allergy status to other drugs, medicaments and biological substances; Z88.1 Allergy status to other antibiotic agents; Z88.5 Allergy status to narcotic agent

== ENCOUNTER 2018-08-15 20:45 | Inpatient (IN) ==
--- NOTE | 2018-08-15 20:57 | CT Scan Report ---
CT head/brain wo con CLINICAL HISTORY: Right-sided weakness. Possible acute stroke COMPARISON STUDY: 04/23/2018 TECHNIQUE: Axial CT of the brain is performed from the vertex to the skull base. IV contrast was not administered for this examination. A dose lowering technique was utilized adhering to the principles of ALARA. CT DOSE: 614.27 mGy.cm FINDINGS: No intra or extra-axial mass lesions are visualized. There is no CT evidence of acute cortical infarc tion. There is no evidence of midline shift. There is no acute hemorrhage. No calvarial fractures ar e visualized. There are extensive white matter hypodensities likely on a small vessel basis. There are scattered la cunar infarcts. There is an old left frontal cortical infarct There is no evidence of pathologic ventricular dilatation. There is no evidence of acute sinusitis. There is a focal area of right parietal scalp swelling, like ly representing the sequela of the patient's prior scalp hematoma. IMPRESSION: 1. No acute intracranial findings 2. Old ischemic changes of extensive white matter disease likely on a small vessel ischemic basis. 3. If symptoms persist, an MRI could be obtained in follow-up to exclude an acute infarct which is no t visible on CT scanning. Electronically signed by: Art Rizzo M.D. 08/15/2018 8:56 PM
[2018-08-15 21:14] LABS: Basophils # (auto) 0.07 K/uL (0-0.2); Basophils % (auto) 0.8 %; Eosinophils # (auto) 0.25 K/uL (0-0.5); Hematocrit (blood only) 29.3 % (37-47); Immature Granulocytes # (auto) 0.03 K/uL (0.00-0.02); Immature Granulocytes % (auto) 0.4 %; Lymphocytes # (auto) 1.81 K/uL (1.2-3.4); Lymphocytes % (auto) 21.6 %; Mean Corpuscular Hgb Conc 34.1 g/dL (32-36); Mean Corpuscular Volume 89.9 fL (80-100); Monocytes # (auto) 0.57 K/uL (0.11-0.59); Monocytes % (auto) 6.8 %; Neutrophils # (auto) 5.65 K/uL (1.4-6.5); Neutrophils % (auto) 67.4 %; Platelet Count 292 K/uL (130-400); Red Blood Count 3.26 M/uL (4.2-5.4); White Blood Count 8.38 K/uL (4.8-10.8)
--- NOTE | 2018-08-15 21:17 | XRay Report ---
XR chest 1V portable CLINICAL HISTORY: weakness COMPARISON STUDY: 03/06/2018 FINDINGS: The cardiac and mediastinal contours remain stable. The patient is hyperinflated. There are chronic prominent nodular apical opacities. There is no failure. There is no acute parenchymal conso lidation. There are no pleural effusions. A 4 mm density the right lung base, likely represents a pos tinflammatory nodule or summation[ IMPRESSION: No active disease in the chest. Electronically signed by: Art Rizzo M.D. 08/15/2018 9:15 PM
[2018-08-15 21:29] LABS: Partial Thromboplastin Time 26.2 Seconds (21.0-31.0); Prothrombin Time 10.1 Seconds (9.0-12.0)
[2018-08-15 21:30] LABS: Alanine Aminotransferase 20 U/L (12-78); Albumin Level 3.5 gm/dl (3.4-5.0); Aspartate Aminotransferase 16 U/L (15-37); BUN Creatinine Ratio 19.5 (10-20); Blood Urea Nitrogen 29 mg/dl (7-18); Calcium 8.6 mg/dl (8.5-10.1); Carbon Dioxide 21 mmol/L (21-32); Chloride 96 mmol/L (98-107); Creatinine Clr Calc Pharmacy 22.7 ml/min; Est GFR (African American) 36.4; Est GFR (Non-African American) 31.4; Glucose 107 mg/dl (70-99); Magnesium 2.5 mg/dl (1.8-2.4); Potassium 5.5 mmol/L (3.5-5.1); Sodium 124 mmol/L (136-145)
[2018-08-15 21:31] LABS: Appearance Urine Clear (Clear); Bacteria Urine Automated Negative (Negative); Bilirubin Urine Negative (Negative); Blood Urine Negative (Negative); Color Urine Yellow; Epithelial Cell Urine Auto 20-30 /lpf (0-5); Glucose Urine UA Negative (Negative); Ketones Urine Negative (Negative); Leukocyte Esterase Urine Negative (Negative); Nitrite Urine Negative (Negative); Protein Urine 1+ (Negative); RBC Urine Automated 0-4 /hpf (0-4); Specific Gravity Urine 1.022 (1.000-1.030); Urobilinogen Urine Negative (Negative)
[2018-08-15 21:35] LABS: Albumin Globulin Ratio 0.9 (0.9-2); Alkaline Phosphatase 61 U/L (45-117); Bilirubin,Total 0.2 mg/dl (0.2-1); Globulin 3.8 gm/dl (2.5-4.0); Total Protein 7.3 gm/dl (6.4-8.2); Troponin I < 0.015 ng/ml (0-0.045)
[2018-08-15] MEDS ORDERED: SODIUM CHLORIDE 0.9% 1000ML 1,000 ML IV SCH (22:00)
[2018-08-16] MEDS ORDERED: SODIUM CHLORIDE 0.9% 500 ML IV SCH (01:38)
[2018-08-16] MEDS ORDERED: PHARMACIST DISCHARGE MED REC CONSULT PRN (01:38)
[2018-08-16] MEDS ORDERED: POLYETHYLENE (MIRALAX) 17 GM PACK PO PRN (01:38)
[2018-08-16 05:30] LABS: Basophils # (auto) 0.05 K/uL (0-0.2); Basophils % (auto) 0.8 %; Eosinophils # (auto) 0.18 K/uL (0-0.5); Hematocrit (blood only) 28.5 % (37-47); Hemoglobin 9.6 g/dL (12.0-16.0); Immature Granulocytes # (auto) 0.01 K/uL (0.00-0.02); Immature Granulocytes % (auto) 0.2 %; Lymphocytes # (auto) 1.66 K/uL (1.2-3.4); Lymphocytes % (auto) 27.6 %; Mean Corpuscular Hgb Conc 33.7 g/dL (32-36); Mean Corpuscular Volume 89.9 fL (80-100); Mean Platelet Volume 7.9 fL (7.4-10.4); Monocytes # (auto) 0.57 K/uL (0.11-0.59); Monocytes % (auto) 9.5 %; Neutrophils # (auto) 3.55 K/uL (1.4-6.5); Neutrophils % (auto) 58.9 %; Platelet Count 271 K/uL (130-400); RDW Coefficient of Variation 12.9 % (11.5-14.5); RDW Standard Deviation 41.3 fL (36.4-46.3); Red Blood Count 3.17 M/uL (4.2-5.4); White Blood Count 6.02 K/uL (4.8-10.8)
[2018-08-16] MEDS: LEVOTHYROXINE SODIUM 75 MCG TABLET PO SCH (05:32)
[2018-08-16 05:48] LABS: BUN Creatinine Ratio 19.8 (10-20); Calcium 8.4 mg/dl (8.5-10.1); Creatinine Clr Calc Pharmacy 26.9 ml/min; Est GFR (Non-African American) 45.7; Potassium 4.7 mmol/L (3.5-5.1)
[2018-08-16 05:56] LABS: Phosphorus 3.7 mg/dl (2.5-4.9)
--- NOTE | 2018-08-16 07:08 | History & Physical Report ---
Date of Service August 16, 2018 Assessment & Plan (1) Stroke: Patient presents with stroke like symptoms, has history of prior CVA. Neuro exam has improved since arrival -Admit to PCU -Neuro checks per protocol -Check MRI brain, CTA head and neck -Check 2D echocardiogram -Check lipids and AIC -Dysphagia screen, aspiration precautions -Hold Carvedilol to allow for permissive hypertension -Change ASA to Plavix 75mg po daily -Neurology Consultation - appreciate assistance with this case (2) Hyponatremia: Gm=856, patient with history of prior SIADH -Monitor Na -Check urine Na, Cortisol -Hold PO K, mildly elevated at 5.5 Present on Admission?: Yes (3) Hypertension: Blood pressure stable -Hold Carvedilol for permissive HTN Present on Admission?: Yes (4) Arteriosclerotic heart disease: -Plavix -Check lipids (5) Paroxysmal atrial flutter: NSR at present -Continue Digoxin, check level -Holding Eliquis for now (6) Hypothyroid: Chronic. -Continue Synthroid History of Present Illness Chief Complaint: Code stroke Primary Care Provider: Juana Aleman at [facility] Rodri is an 83yo C female with history of AF on Eliquis, HTN, prior CVA presenting with stroke-like symptoms. Patient noted to have right sided weakness and left gaze preference on arrival. ER Course: NSS Allergies Allergy/AdvReac Type Severity Reaction Status Date / Time amoxicillin Allergy Intermediate VERY SICK Verified 08/08/18 10:59 TO HER STOMACH atorvastatin Allergy Intermediate RASH Verified 08/08/18 10:59 clavulanic acid Allergy Intermediate VERY SICK Verified 08/08/18 10:59 TO HER STOMACH tetracycline Allergy Intermediate ARMS Verified 08/08/18 10:59 SWELLED UP tramadol Allergy Intermediate MAKES HER Verified 08/08/18 10:59 DIZZY AND CRAZEY SHANTEL Inhibitors Allergy Mild NOT SURE Verified 08/08/18 10:59 OF REACTIONS erythromycin base Allergy Unknown UPSET Verified 08/08/18 10:59 STOMACH rivaroxaban Allergy Unknown RASH Verified 08/08/18 10:59 zolpidem Allergy Unknown Unknown Verified 08/08/18 10:59 simvastatin Allergy Verified 08/08/18 10:59 Tetracyclines Allergy Verified 08/08/18 10:59 gabapentin AdvReac Unknown Verified 08/08/18 10:59 Home Medications Home Medications Medication Instructions Recorded Confirmed Type acetaminophen [Tylenol Extra 1,000 mg PO TID MDD 3 gms APAP/24 12/25/17 08/15/18 History Strength] hrs ferrous sulfate 325 mg PO QAM 12/25/17 08/15/18 History gabapentin 100 mg PO HS 12/25/17 08/15/18 History levothyroxine 75 mcg PO QAM 12/25/17 08/15/18 History polyethylene glycol 3350 [Miralax] 17 g PO Q24H PRN 12/25/17 08/15/18 History potassium chloride 10 meq PO QAM 12/25/17 08/15/18 History apixaban [Eliquis] 2.5 mg PO BID #2 tab 12/30/17 08/15/18 Rx digoxin 125 mcg tablet 125 mcg PO DAILY tab 07/31/18 08/15/18 History ceramides 1,3,6-11 topical cream 1 appln TOP BID gm 08/01/18 08/15/18 History cyanocobalamin (vit B-12) 500 mcg 1,000 mcg PO DAILY tab 08/01/18 08/15/18 History tablet aspirin 81 mg tablet,delayed 81 mg PO QAM 08/08/18 08/15/18 History release carvedilol 12.5 mg tablet 12.5 mg PO BID 08/08/18 08/15/18 History Past Med/Surg History Medical History Hypertension (Chronic) Hypokalemia (Resolved) Right-sided lacunar stroke Symptomatic anemia (Resolved) Abnormal electrocardiogram (Resolved) Acute electrocardiogram changes (Resolved) GI bleed (Resolved) Stroke-like episode (Resolved) Syncope (Resolved) TIA (transient ischemic attack) (Resolved) UTI (urinary tract infection) (Resolved) Surgical History History of appendectomy Family History Unknown Migraine headache Arteriosclerotic cardiovascular disease (ASCVD) Colon cancer Father Acute myocardial infarction Mother Hypertension Cardiac disorder Social History Preferred Language: Lao Communication Ability: Effective Beliefs That Will Affect Care: None marital status: Current Living Situation: Care Home Current Living Situation Comment: [facility] Other Information That Helps Us Care for You: No Feels Safe at Home: Yes Safety Concerns: Feels Safe At This Time Smoking Status: Former smoker Do You Dip or Chew Tobacco: No Second Hand Exposure: No Tobacco Cessation Education Requested by Patient: No Hx Alcohol Use: No Hx Substance Use: No caffeine: Yes Review of Systems Review of Systems: All systems reviewed & are unremarkable except as noted in HPI & below Physical Exam Physical Exam: General: patient resting comfortably, NAD, non-toxic in appearance, AA&O to self and hospital Skin: warm, dry, intact, no rashes or lesions HEENT: NC/AT, PERRL, EOMI, anicteric sclera, conjunctiva without injection, external ear normal to inspection and nontender, nares patent, moist mucus membranes, dentition intact, no oropharyngeal lesions, neck supple, trachea midline, no LAD, no thyromegaly, no JVD Heart: +S1/S2, regular, no m/r/g Lungs: equal air entry bilaterally, no rales/rhonchi/wheezes Abd: +BS, soft, NT/ND, no masses/organomegaly/ascites Ext: warm, 2+ pulses in UE/LE bilaterally, no clubbing/cyanosis or edema Neuro: Patient AA&O x 2, speech clear and appropriate, CN II - XII grossly intact, sensation to light touch symmetric bilaterally, diminished sensation in bilateral legs equal, MS 5/5 in LUE and LLE, 4/5 in RUE and 3+/5 in RLE. Gait not assessed Results & Data Vital Signs (Past 12 Hours) Vital Signs Temp Pulse Pulse Resp BP BP Pulse Ox 08/16/18 00:00 71 20 157/87 H 96 08/15/18 23:30 68 18 151/103 H 94 08/15/18 22:05 67 20 155/74 H 94 08/15/18 21:09 65 20 164/85 H 97 08/15/18 20:55 36.4 C L 66 18 164/85 H 96 Laboratory Results Lab Results 08/15/18 08/15/18 08/15/18 Range/Units 21:04 21:04 21:04 WBC 8.38 (4.8-10.8) K/uL RBC 3.26 L (4.2-5.4) M/uL Hgb 10.0 L (12.0-16.0) g/dL Hct 29.3 L (37-47) % MCV 89.9 (80-100) fL MCH 30.7 (25-34) pg MCHC 34.1 (32-36) g/dL RDW Std Deviation 42.0 (36.4-46.3) fL RDW Coeff of Misael 13.0 (11.5-14.5) % Plt Count 292 (130-400) K/uL MPV 8.0 (7.4-10.4) fL Immature Gran % (Auto) 0.4 % Neut % (Auto) 67.4 % Lymph % (Auto) 21.6 % [place] % (Auto) 6.8 % Eos % (Auto) 3.0 % Baso % (Auto) 0.8 % Immature Gran # (Auto) 0.03 H (0.00-0.02) K/uL Neut # (Auto) 5.65 (1.4-6.5) K/uL Lymph # (Auto) 1.81 (1.2-3.4) K/uL [place] # (Auto) 0.57 (0.11-0.59) K/uL Eos # (Auto) 0.25 (0-0.5) K/uL Baso # (Auto) 0.07 (0-0.2) K/uL PT 10.1 (9.0-12.0) Seconds INR 1.0 (0.9-1.1) APTT 26.2 (21.0-31.0) Seconds PTT Ratio 1.0 Sodium 124 L (136-145) mmol/L Potassium 5.5 H (3.5-5.1) mmol/L Chloride 96 L (98-107) mmol/L Carbon Dioxide 21 (21-32) mmol/L Anion Gap 7.0 (3-11) BUN 29 H (7-18) mg/dl Creatinine 1.50 H (0.6-1.2) mg/dl Est Cr Clr Drug Dosing 22.7 ml/min Est GFR ( Amer) 36.4 Est GFR (Non-Af Amer) 31.4 BUN/Creatinine Ratio 19.5 (10-20) Glucose 107 H (70-99) mg/dl Osmolality (280-300) mOsm/kg Calcium 8.6 (8.5-10.1) mg/dl Phosphorus (2.5-4.9) mg/dl Magnesium 2.5 H (1.8-2.4) mg/dl Total Bilirubin 0.2 (0.2-1) mg/dl AST 16 (15-37) U/L ALT 20 (12-78) U/L Alkaline Phosphatase 61 (45-117) U/L Troponin I < 0.015 (0-0.045) ng/ml Total Protein 7.3 (6.4-8.2) gm/dl Albumin 3.5 (3.4-5.0) gm/dl Globulin 3.8 (2.5-4.0) gm/dl Albumin/Globulin Ratio 0.9 (0.9-2) Triglycerides (0-150) mg/dl Cholesterol (0-200) mg/dl LDL Cholesterol, Calc mg/dl VLDL Cholesterol, Calc mg/dl HDL Cholesterol mg/dl Cholesterol/HDL Ratio TSH (0.300-4.500) uIu/ml Urine Color Urine Appearance (Clear) Urine pH (4.5-7.5) Ur Specific [place] (1.000-1.030) Urine Protein (Negative) Urine Glucose (UA) (Negative) Urine Ketones (Negative) Urine Blood (Negative) Urine Nitrite (Negative) Urine Bilirubin (Negative) Urine Urobilinogen (Negative) Ur Leukocyte Esterase (Negative) Urine WBC (Auto) (0-5) /hpf Urine RBC (Auto) (0-4) /hpf U Hyaline Cast (Auto) (0-5) /lpf U Epithel Cells (Auto) (0-5) /lpf Urine Bacteria (Auto) (Negative) Urine Osmolality (500-800) mOsm/kg Nasal Screen MRSA (PCR) (Negative) Digoxin (0.8-2.0) ng/ml Blood Type Antibody Screen 08/15/18 08/15/18 08/15/18 Range/Units 21:04 21:07 21:17 WBC (4.8-10.8) K/uL RBC (4.2-5.4) M/uL Hgb (12.0-16.0) g/dL Hct (37-47) % MCV (80-100) fL MCH (25-34) pg MCHC (32-36) g/dL RDW Std Deviation (36.4-46.3) fL RDW Coeff of Misael (11.5-14.5) % Plt Count (130-400) K/uL MPV (7.4-10.4) fL Immature Gran % (Auto) % Neut % (Auto) % Lymph % (Auto) % [place] % (Auto) % Eos % (Auto) % Baso % (Auto) % Immature Gran # (Auto) (0.00-0.02) K/uL Neut # (Auto) (1.4-6.5) K/uL Lymph # (Auto) (1.2-3.4) K/uL [place] # (Auto) (0.11-0.59) K/uL Eos # (Auto) (0-0.5) K/uL Baso # (Auto) (0-0.2) K/uL PT (9.0-12.0) Seconds INR (0.9-1.1) APTT (21.0-31.0) Seconds PTT Ratio Sodium (136-145) mmol/L Potassium (3.5-5.1) mmol/L Chloride (98-107) mmol/L Carbon Dioxide (21-32) mmol/L Anion Gap (3-11) BUN (7-18) mg/dl Creatinine (0.6-1.2) mg/dl Est Cr Clr Drug Dosing ml/min Est GFR ( Amer) Est GFR (Non-Af Amer) BUN/Creatinine Ratio (10-20) Glucose (70-99) mg/dl Osmolality 267 L (280-300) mOsm/kg Calcium (8.5-10.1) mg/dl Phosphorus (2.5-4.9) mg/dl Magnesium (1.8-2.4) mg/dl Total Bilirubin (0.2-1) mg/dl AST (15-37) U/L ALT (12-78) U/L Alkaline Phosphatase (45-117) U/L Troponin I (0-0.045) ng/ml Total Protein (6.4-8.2) gm/dl Albumin (3.4-5.0) gm/dl Globulin (2.5-4.0) gm/dl Albumin/Globulin Ratio (0.9-2) Triglycerides (0-150) mg/dl Cholesterol (0-200) mg/dl LDL Cholesterol, Calc mg/dl VLDL Cholesterol, Calc mg/dl HDL Cholesterol mg/dl Cholesterol/HDL Ratio TSH (0.300-4.500) uIu/ml Urine Color Yellow Urine Appearance Clear (Clear) Urine pH 6.0 (4.5-7.5) Ur Specific [place] 1.022 (1.000-1.030) Urine Protein 1+ H (Negative) Urine Glucose (UA) Negative (Negative) Urine Ketones Negative (Negative) Urine Blood Negative (Negative) Urine Nitrite Negative (Negative) Urine Bilirubin Negative (Negative) Urine Urobilinogen Negative (Negative) Ur Leukocyte Esterase Negative (Negative) Urine WBC (Auto) 1-5 (0-5) /hpf Urine RBC (Auto) 0-4 (0-4) /hpf U Hyaline Cast (Auto) 5-10 H (0-5) /lpf U Epithel Cells (Auto) 20-30 H (0-5) /lpf Urine Bacteria (Auto) Negative (Negative) Urine Osmolality (500-800) mOsm/kg Nasal Screen MRSA (PCR) (Negative) Digoxin (0.8-2.0) ng/ml Blood Type O Positive Antibody Screen NEGATIVE 08/15/18 08/16/18 08/16/18 Range/Units 21:17 05:15 05:15 WBC (4.8-10.8) K/uL RBC (4.2-5.4) M/uL Hgb (12.0-16.0) g/dL Hct (37-47) % MCV (80-100) fL MCH (25-34) pg MCHC (32-36) g/dL RDW Std Deviation (36.4-46.3) fL RDW Coeff of Misael (11.5-14.5) % Plt Count (130-400) K/uL MPV (7.4-10.4) fL Immature Gran % (Auto) % Neut % (Auto) % Lymph % (Auto) % [place] % (Auto) % Eos % (Auto) % Baso % (Auto) % Immature Gran # (Auto) (0.00-0.02) K/uL Neut # (Auto) (1.4-6.5) K/uL Lymph # (Auto) (1.2-3.4) K/uL [place] # (Auto) (0.11-0.59) K/uL Eos # (Auto) (0-0.5) K/uL Baso # (Auto) (0-0.2) K/uL PT (9.0-12.0) Seconds INR (0.9-1.1) APTT (21.0-31.0) Seconds PTT Ratio Sodium (136-145) mmol/L Potassium (3.5-5.1) mmol/L Chloride (98-107) mmol/L Carbon Dioxide (21-32) mmol/L Anion Gap (3-11) BUN (7-18) mg/dl Creatinine (0.6-1.2) mg/dl Est Cr Clr Drug Dosing ml/min Est GFR ( Amer) Est GFR (Non-Af Amer) BUN/Creatinine Ratio (10-20) Glucose (70-99) mg/dl Osmolality (280-300) mOsm/kg Calcium (8.5-10.1) mg/dl Phosphorus 3.7 (2.5-4.9) mg/dl Magnesium (1.8-2.4) mg/dl Total Bilirubin (0.2-1) mg/dl AST (15-37) U/L ALT (12-78) U/L Alkaline Phosphatase (45-117) U/L Troponin I (0-0.045) ng/ml Total Protein (6.4-8.2) gm/dl Albumin (3.4-5.0) gm/dl Globulin (2.5-4.0) gm/dl Albumin/Globulin Ratio (0.9-2) Triglycerides (0-150) mg/dl Cholesterol (0-200) mg/dl LDL Cholesterol, Calc mg/dl VLDL Cholesterol, Calc mg/dl HDL Cholesterol mg/dl Cholesterol/HDL Ratio TSH 1.150 (0.300-4.500) uIu/ml Urine Color Urine Appearance (Clear) Urine pH (4.5-7.5) Ur Specific [place] (1.000-1.030) Urine Protein (Negative) Urine Glucose (UA) (Negative) Urine Ketones (Negative) Urine Blood (Negative) Urine Nitrite (Negative) Urine Bilirubin (Negative) Urine Urobilinogen (Negative) Ur Leukocyte Esterase (Negative) Urine WBC (Auto) (0-5) /hpf Urine RBC (Auto) (0-4) /hpf U Hyaline Cast (Auto) (0-5) /lpf U Epithel Cells (Auto) (0-5) /lpf Urine Bacteria (Auto) (Negative) Urine Osmolality 476 L (500-800) mOsm/kg Nasal Screen MRSA (PCR) (Negative) Digoxin 0.8 (0.8-2.0) ng/ml Blood Type Antibody Screen 08/16/18 08/16/18 08/16/18 Range/Units 05:15 05:15 05:35 WBC 6.02 (4.8-10.8) K/uL RBC 3.17 L (4.2-5.4) M/uL Hgb 9.6 L (12.0-16.0) g/dL Hct 28.5 L (37-47) % MCV 89.9 (80-100) fL MCH 30.3 (25-34) pg MCHC 33.7 (32-36) g/dL RDW Std Deviation 41.3 (36.4-46.3) fL RDW Coeff of Misael 12.9 (11.5-14.5) % Plt Count 271 (130-400) K/uL MPV 7.9 (7.4-10.4) fL Immature Gran % (Auto) 0.2 % Neut % (Auto) 58.9 % Lymph % (Auto) 27.6 % [place] % (Auto) 9.5 % Eos % (Auto) 3.0 % Baso % (Auto) 0.8 % Immature Gran # (Auto) 0.01 (0.00-0.02) K/uL Neut # (Auto) 3.55 (1.4-6.5) K/uL Lymph # (Auto) 1.66 (1.2-3.4) K/uL [place] # (Auto) 0.57 (0.11-0.59) K/uL Eos # (Auto) 0.18 (0-0.5) K/uL Baso # (Auto) 0.05 (0-0.2) K/uL PT (9.0-12.0) Seconds INR (0.9-1.1) APTT (21.0-31.0) Seconds PTT Ratio Sodium 129 L (136-145) mmol/L Potassium 4.7 (3.5-5.1) mmol/L Chloride 99 (98-107) mmol/L Carbon Dioxide 22 (21-32) mmol/L Anion Gap 8.0 (3-11) BUN 22 H (7-18) mg/dl Creatinine 1.10 D (0.6-1.2) mg/dl Est Cr Clr Drug Dosing 26.9 ml/min Est GFR ( Amer) 53.0 Est GFR (Non-Af Amer) 45.7 BUN/Creatinine Ratio 19.8 (10-20) Glucose 86 (70-99) mg/dl Osmolality (280-300) mOsm/kg Calcium 8.4 L (8.5-10.1) mg/dl Phosphorus (2.5-4.9) mg/dl Magnesium (1.8-2.4) mg/dl Total Bilirubin (0.2-1) mg/dl AST (15-37) U/L ALT (12-78) U/L Alkaline Phosphatase (45-117) U/L Troponin I (0-0.045) ng/ml Total Protein (6.4-8.2) gm/dl Albumin (3.4-5.0) gm/dl Globulin (2.5-4.0) gm/dl Albumin/Globulin Ratio (0.9-2) Triglycerides 155 H (0-150) mg/dl Cholesterol 167 (0-200) mg/dl LDL Cholesterol, Calc 87 mg/dl VLDL Cholesterol, Calc 31 mg/dl HDL Cholesterol 49 mg/dl Cholesterol/HDL Ratio 3 TSH (0.300-4.500) uIu/ml Urine Color Urine Appearance (Clear) Urine pH (4.5-7.5) Ur Specific [place] (1.000-1.030) Urine Protein (Negative) Urine Glucose (UA) (Negative) Urine Ketones (Negative) Urine Blood (Negative) Urine Nitrite (Negative) Urine Bilirubin (Negative) Urine Urobilinogen (Negative) Ur Leukocyte Esterase (Negative) Urine WBC (Auto) (0-5) /hpf Urine RBC (Auto) (0-4) /hpf U Hyaline Cast (Auto) (0-5) /lpf U Epithel Cells (Auto) (0-5) /lpf Urine Bacteria (Auto) (Negative) Urine Osmolality (500-800) mOsm/kg Nasal Screen MRSA (PCR) Negative (Negative) Digoxin (0.8-2.0) ng/ml Blood Type Antibody Screen Diagnostic Findings XR chest 1V portable CLINICAL HISTORY: weakness COMPARISON STUDY: 03/06/2018 FINDINGS: The cardiac and mediastinal contours remain stable. The patient is hyperinflated. There are chronic prominent nodular apical opacities. There is no failure. There is no acute parenchymal consolidation. There are no pleural effusions. A 4 mm density the right lung base, likely represents a postinflam matory nodule or summation[ IMPRESSION: No active disease in the chest. Electronically signed by: Art Rizzo M.D. 08/15/2018 9:15 PM Dictated: 08/[id number]/[id number] Transcribed: 08/15/182113 CT head/brain wo con CLINICAL HISTORY: Right-sided weakness. Possible acute stroke COMPARISON STUDY: 04/23/2018 TECHNIQUE: Axial CT of the brain is performed from the vertex to the skull base. IV contrast was not administered for this examination. A dose lowering technique was utilized adhering to the principles of ALARA. CT DOSE: 614.27 mGy.cm FINDINGS: No intra or extra-axial mass lesions are visualized. There is no CT evidence of acute cortical infarction. There is no evidence of midline shift. There is no acute hemorrhage. No calvarial fractures are visualized. There are extensive white matter hypodensities likely on a small vessel basis. There are scattered lacunar infarcts. There is an old left frontal cortical infarct There is no evidence of pathologic ventricular dilatation. There is no evidence of acute sinusitis. There is a focal area of right parietal scalp swelling, likely representing the sequela of the patient's prior scalp hematoma. IMPRESSION: 1. No acute intracranial findings 2. Old ischemic changes of extensive white matter disease likely on a small vessel ischemic basis. 3. If symptoms persist, an MRI could be obtained in follow-up to exclude an acute infarct which is not visible on CT scanning. Electronically signed by: Art Rizzo M.D. 08/15/2018 8:56 PM Dictated: [id number] Transcribed: 08/15/182050 ECG Additional Comments: The study shows NSR at 65, normal axis and intervals, no acute ischemic changes, suggestion of old septal infarct present on prior study from Oct 2017 Code Status & VTE Plan Code Status DNR/DNI VTE Prophylaxis Plan VTE Prophylaxis will be ordered: Yes PG Care Time/CCT Total # of Minutes Spent Total Time Spent with Patient: Total time spent is greater than 50% in coordination of care (as documented) at patient's floor/unit and/or counseling patient: (1) Hypertension Hypertension type: unspecified Qualified Code(s): I10 - Essential (primary) hypertension (2) Hypothyroid Hypothyroidism type: acquired Qualified Code(s): E03.9 - Hypothyroidism, unspecified (3) Stroke CVA mechanism: unspecified Qualified Code(s): I63.9 - Cerebral infarction, unspecified
[2018-08-16] MEDS: FERROUS SULFATE 325 MG TAB PO SCH (08:04)
[2018-08-16] MEDS: ACETAMINOPHEN 500 MG TAB PO SCH ×3 (08:04→20:02)
[2018-08-16] MEDS: CYANOCOBALAMIN 500 MCG TABLET (VITAMIN B-12) PO SCH (08:04)
[2018-08-16] MEDS: CLOPIDOGREL BISULFATE 75 MG TAB PO SCH (08:04)
--- NOTE | 2018-08-16 09:26 | Neurology Consultation ---
Date of Consultation August 16, 2018 Assessment & Plan (1) TIA (transient ischemic attack): I suspect this patient had a TIA localizing to the left cerebral hemisphere, presenting with a right hemiparesis and associated left gaze preference. The left gaze preference would imply transient ischemia to the anterior left frontal region (frontal eye aguilar). I do note that on her CAT scan she did have a more prominent focus of ischemic change in this region and an acute or subacute left frontal lobe infarct cannot be completely excluded. Atrial fibrillation and hypertension would be notable risk factors for this patient. CT angiography of her head and neck completed this past December re vealed moderate stenosis involving the proximal aspects of both internal carotid arteries. The significance of this finding in the context of her current presentation is uncertain but probably unlikely. I would recommend completion of the brain MRI to more fully exclude the possibility of an acute infarct. I would also recommend a carotid ultrasound to reevaluate the flow in her extracranial circulation. I agree with switching from aspirin to Plavix. As there is no evidence of REHAB THERAPY MANAGER hemorrhage this patient can probably continue with her Eliquis which is prescribed for her A. fib/a flutter. Systolic blood pressure goal 140 to 160 mmHg for the time being. I will make further recommendations if necessary after completion of the above testing. Please contact me if it may be of further assistance. History of Present Illness Reason for Consultation: TIA Requesting Physician: Apoorva Douglas DO Attending Physician: Antwan Olivares History of Present Illness The patient is an 83-year-old female with a chief complaint of right-sided weakness and an associated left gaze preference that was noted prior to arrival in the emergency department. The patient appears to have some baseline dementia and is an unreliable historian. She resides at [facility]. Her symptoms were felt to be improved at the time of arrival. Past medical history notable for atrial fibrillation for which she takes Eliquis and cardiovascular disease for which she has been prescribed aspirin. The aspirin has been discontinued in favor of Plavix in the context of this recent admission. Her Eliquis is also on hold. A CT of the head completed yesterday revealed chronic extensive small vessel ischemic disease and was negative for hemorrhage. Currently, the patient denies any particular or specific neurological symptoms. No headache, vision change, change in speech, focal weakness, or sensory loss. Additional details as below. Allergies Allergy/AdvReac Type Severity Reaction Status Date / Time amoxicillin Allergy Intermediate VERY SICK Verified 08/08/18 10:59 TO HER STOMACH atorvastatin Allergy Intermediate RASH Verified 08/08/18 10:59 clavulanic acid Allergy Intermediate VERY SICK Verified 08/08/18 10:59 TO HER STOMACH tetracycline Allergy Intermediate ARMS Verified 08/08/18 10:59 SWELLED UP tramadol Allergy Intermediate MAKES HER Verified 08/08/18 10:59 DIZZY AND CRAZEY SHANTEL Inhibitors Allergy Mild NOT SURE Verified 08/08/18 10:59 OF REACTIONS erythromycin base Allergy Unknown UPSET Verified 08/08/18 10:59 STOMACH rivaroxaban Allergy Unknown RASH Verified 08/08/18 10:59 zolpidem Allergy Unknown Unknown Verified 08/08/18 10:59 simvastatin Allergy Verified 08/08/18 10:59 Tetracyclines Allergy Verified 08/08/18 10:59 gabapentin AdvReac Unknown Verified 08/08/18 10:59 Home Medications Home Medications Medication Instructions Recorded Confirmed Type acetaminophen [Tylenol Extra 1,000 mg PO TID MDD 3 gms APAP/12/25/17 08/15/18 History Strength] hrs ferrous sulfate 325 mg PO QAM 12/25/17 08/15/18 History gabapentin 100 mg PO HS 12/25/17 08/15/18 History levothyroxine 75 mcg PO QAM 12/25/17 08/15/18 History polyethylene glycol 3350 [Miralax] 17 g PO Q24H PRN 12/25/17 08/15/18 History potassium chloride 10 meq PO QAM 12/25/17 08/15/18 History apixaban [Eliquis] 2.5 mg PO BID #2 tab 12/30/17 08/15/18 Rx digoxin 125 mcg tablet 125 mcg PO DAILY tab 07/31/18 08/15/18 History ceramides 1,3,6-11 topical cream 1 appln TOP BID gm 08/01/18 08/15/18 History cyanocobalamin (vit B-12) 500 mcg 1,000 mcg PO DAILY tab 08/01/18 08/15/18 History tablet aspirin 81 mg tablet,delayed 81 mg PO QAM 08/08/18 08/15/18 History release carvedilol 12.5 mg tablet 12.5 mg PO BID 08/08/18 08/15/18 History Patient History Medical History Hypertension (Chronic) Hypokalemia (Resolved) Right-sided lacunar stroke Symptomatic anemia (Resolved) Abnormal electrocardiogram (Resolved) Acute electrocardiogram changes (Resolved) GI bleed (Resolved) Stroke-like episode (Resolved) Syncope (Resolved) TIA (transient ischemic attack) (Resolved) UTI (urinary tract infection) (Resolved) Surgical History History of appendectomy Family History Unknown Migraine headache Arteriosclerotic cardiovascular disease (ASCVD) Colon cancer Father Acute myocardial infarction Mother Hypertension Cardiac disorder Social History Preferred Language: [place] Communication Ability: Effective Beliefs That Will Affect Care: None marital status: Current Living Situation: Prison Current Living Situation Comment: [facility] Other Information That Helps Us Care for You: No Feels Safe at Home: Yes Safety Concerns: Feels Safe At This Time Smoking Status: Former smoker Do You Dip or Chew Tobacco: No Second Hand Exposure: No Tobacco Cessation Education Requested by Patient: No Hx Alcohol Use: No Hx Substance Use: No caffeine: Yes Review of Systems Constitutional: no fever and no chills Eyes: no blind spots and no diplopia Ear, Nose, Mouth, Throat: no tinnitus and no hearing loss Respiratory: no cough and no dyspnea Cardiovascular: no chest pain and no palpitations Gastrointestinal: no nausea and no vomiting Genitourinary: no dysuria Musculoskeletal: no myalgia Integumentary: no rash and no lesions Neurologic: as per Subjective / HPI Psychiatric: no depression and no anxiety Hematologic / Lymphatic: no easy bleeding and no lymphadenopathy Physical Exam Physical Exam: The patient is a well-developed elderly female. She is lying comfortably in bed in no acute distress. She is alert and oriented to person, place, and "August 16." She otherwise is not oriented to hospital or day of the week. Recent memory impaired, 0 out of 3 objects with delayed recall. Remote memory seems to be intact. Attention normal. Concentration impaired. Patient is able to name objects and repeat phrases. Patient exhibits an age-appropriate fund of knowledge in terms of vocabulary. Visual aguilar full to confrontation. Visual acuity normal. Pupils equal round react to light and accommodation. Eye movements normal. There is no gaze preference or nystagmus. Facial sensation intact. There is no facial droop or weakness. Hearing intact. Palate elevates to midline. Shoulder shrug intact. Tongue protrudes to midline. Sensation intact to all modalities in all 4 limbs. Deep tendon reflexes 1+ for the arms and legs bilaterally. Plantar responses upgoing bilaterally. There is no dysdiadochokinesia or dysmetria [id number] or [id number] bilaterally. Ophthalmoscopic examination reveals normal-appearing optic disks and posterior segments. No papilledema or hemorrhages. Carotid pulses normal bilaterally, no bruits to auscultation. Gait and station not tested due to safety concerns. Patient exhibits normal muscle strength and tone for all 4 limbs proximally and distally. No atrophy. No abnormal movements observed. Results & Data Vital Signs (Past 12 Hours) Vital Signs Temp Pulse Resp BP BP Pulse Ox 08/16/18 08:06 37.1 C 72 17 186/83 H 96 08/16/18 02:35 36.7 C 65 16 157/92 H 96 08/16/18 01:17 36.7 C 73 18 171/82 H 98 08/16/18 00:30 68 20 162/74 H 94 08/16/18 00:00 71 20 157/87 H 96 08/15/18 23:30 68 18 151/103 H 94 08/15/18 22:05 67 20 155/74 H 94 08/15/18 21:09 65 20 164/85 H 97 Laboratory Results Recently completed labs reviewed. WBC 6.02, hemoglobin 9.6, hematocrit 28.5, platelet count 271, sodium 129, potassium 4.7, BUN 22, creatinine 1.10, glucose 86, calcium 8.4, triglycerides 155, cholesterol 167, LDL 87, VLDL 31, HDL 49, TSH 1.[address] of the head completed yesterday was negative for acute findings. No hemorrhage. There is chronic extensive small vessel ischemic change with the prominent area of hypodensity within the left frontal lobe. Images and report reviewed. A CT angiogram of the head completed December 25, 2017 was negative for aneurysm or significant intracranial stenosis. A CT angiogram of the neck completed December 25, 2017 revealed 50 to 60% stenosis within the proximal bilateral internal carotid arteries. High-grade stenosis of the origin of a hypoplastic appearing right vertebral artery. And focal high-grade stenosis at the takeoff of the right subclavian artery. Electrocardiogram completed yesterday revealed a normal sinus rhythm, 65 bpm. An echocardiogram completed December 26, 2017 revealed a normal ejection fraction without regional wall motion abnormalities, mild mitral regurgitation, and borderline pulmonary hypertension. No intra-arterial shunt identified.
[2018-08-16] MEDS: CARVEDILOL 12.5 MG TAB PO SCH ×3 (10:22→20:02)
[2018-08-16] MEDS ORDERED: GADOBUTROL 30ML VIAL IV PRN (15:12)
[2018-08-16] MEDS: DIGOXIN 0.125 MG TAB PO SCH (15:39)
--- NOTE | 2018-08-16 16:34 | Magnetic Resonance Report ---
MR brain wo/w con HISTORY: 83 years-old Female ?CVA acute strokelike symptoms CT head 08/15/2018 COMPARISON: , Brain MRI 12/25/2017 TECHNIQUE: Multiplanar multisequence MRI of the brain was obtained both with and without the use of 5 mL Gadavist FINDINGS: Railway Equipment Operator localizer images demonstrate no gross extracranial abnormality. 6 mm focus of resected diffusio n about the periventricular right parietal lobe with 2 additional subcentimeter foci of restricted di ffusion about the medial aspect of the right mid cerebellar hemisphere. No acute intracranial hemorrh age, midline shift, abnormal extra-axial collection, hydrocephalus or intra-axial mass. Age-related i nvolutional changes with ex vacuo ventriculomegaly. Extensive patchy and confluence T2/FLAIR hyperint ensities suggest chronic microvascular ischemic disease. Areas of multiple remote lacunar infarctions . No abnormal intra-axial or extra-axial enhancement identified. Degenerative changes noted about the imaged cervical spine. T1 and T2 hyperintense subcutaneous lesio n of the right scalp, 10 mm likely benign. Moderate bilateral mastoid effusions. Patent vessels. Bila teral cataract repair. The mastoid air cells. Skull and soft tissues are otherwise unremarkable. IMPRESSION: 1. Subcentimeter acute lacunar infarction of the periventricular right parietal lobe with two additio nal tiny subcentimeter areas of acute infarction noted about the right cerebellar hemisphere. Posteri or circulation embolic cause should be considered. 2. No acute intracranial hemorrhage, midline shift or abnormal extra-axial collection. 3. Age-related involutional changes with ex vacuo ventriculomegaly and extensive chronic microvascula r ischemic disease. 4. No abnormal enhancement. The above report was generated using voice recognition software. It may contain grammatical, syntax o r spelling errors. Electronically signed by: Ed Canales M.D. 08/16/2018 4:32 PM
--- NOTE | 2018-08-16 17:25 | Emergency Department Note ---
Entered by Sheryl Solis acting as a scribe for Yulisa Mak DO History of Present Illness General Chief complaint: Stroke Alert Time Seen by Provider: 08/15/18 20:47 Source: patient and EMS History of Present Illness Onset (ago): hour(s) (3.5) Location: left and right Pain Consistency: + other (episode ) Quality: + other (weakness) Associated symptoms: + other (negative speech changes; negative vision changes; negative lightheadedness currently; positive leftward gaze; positive right arm weakness; positive left leg weakness; negative facial droop; negative slurred speech); no chest pain, no headaches and no weakness (patient denies ) The patient is a 83 year old female who presents to the Emergency Room with complaints of an episode of weakness that began about 3.5 hours prior to arriv al. Per EMS, the patient was at her baseline at dinner at 1730 according to staff, and states that when she was checked on about 3 hours later they noticed right-sided weakness. EMS states that at that time the patient was found to be slouched to the left side in her chair with a leftward gaze, intermittently mumbling words. EMS states that at this time the patient had weakness in her right arm and was unable to squeeze with her right hand, but denies weakness on the left side. Per EMS, the patient is currently able to move her right arm and unable to move her left leg. EMS denies facial droop or slurred speech. Per EMS, the patient is currently on Eliquis for atrial fibrillation. The patient denies headache, chest pain, weakness, speech changes, and vision changes. The patient states that she was previously lightheaded, but denies this currently. The patient states that she has a history of a stroke. Patient states she does not feel weak. Denies nausea vomiting, abdominal pain. Denies any change in medications or recent illness. Home Medications Home Medications Medication Instructions Recorded Confirmed Type acetaminophen [Tylenol Extra 1,000 mg PO TID MDD 3 gms APAP/12/25/17 08/15/18 History Strength] hrs ferrous sulfate 325 mg PO QAM 12/25/17 08/15/18 History gabapentin 100 mg PO HS 12/25/17 08/15/18 History levothyroxine 75 mcg PO QAM 12/25/17 08/15/18 History polyethylene glycol 3350 [Miralax] 17 g PO Q24H PRN 12/25/17 08/15/18 History potassium chloride 10 meq PO QAM 12/25/17 08/15/18 History apixaban [Eliquis] 2.5 mg PO BID #2 tab 12/30/17 08/15/18 Rx digoxin 125 mcg tablet 125 mcg PO DAILY tab 07/31/18 08/15/18 History ceramides 1,3,6-11 topical cream 1 appln TOP BID gm 08/01/18 08/15/18 History cyanocobalamin (vit B-12) 500 mcg 1,000 mcg PO DAILY tab 08/01/18 08/15/18 History tablet aspirin 81 mg tablet,delayed 81 mg PO QAM 08/08/18 08/15/18 History release carvedilol 12.5 mg tablet 12.5 mg PO BID 08/08/18 08/15/18 History Allergies Allergy/AdvReac Type Severity Reaction Status Date / Time amoxicillin Allergy Intermediate VERY SICK Verified 08/08/18 10:59 TO HER STOMACH atorvastatin Allergy Intermediate RASH Verified 08/08/18 10:59 clavulanic acid Allergy Intermediate VERY SICK Verified 08/08/18 10:59 TO HER STOMACH tetracycline Allergy Intermediate ARMS Verified 08/08/18 10:59 SWELLED UP tramadol Allergy Intermediate MAKES HER Verified 08/08/18 10:59 DIZZY AND CRAZEY SHANTEL Inhibitors Allergy Mild NOT SURE Verified 08/08/18 10:59 OF REACTIONS erythromycin base Allergy Unknown UPSET Verified 08/08/18 10:59 STOMACH rivaroxaban Allergy Unknown RASH Verified 08/08/18 10:59 zolpidem Allergy Unknown Unknown Verified 08/08/18 10:59 simvastatin Allergy Verified 08/08/18 10:59 Tetracyclines Allergy Verified 08/08/18 10:59 gabapentin AdvReac Unknown Verified 08/08/18 10:59 Past Med/Surg History Medical History Hypertension (Chronic) Hypokalemia (Resolved) Right-sided lacunar stroke Symptomatic anemia (Resolved) Abnormal electrocardiogram (Resolved) Acute electrocardiogram changes (Resolved) GI bleed (Resolved) Stroke-like episode (Resolved) Syncope (Resolved) TIA (transient ischemic attack) (Resolved) UTI (urinary tract infection) (Resolved) Surgical History History of appendectomy Family History Unknown Migraine headache Arteriosclerotic cardiovascular disease (ASCVD) Colon cancer Father Acute myocardial infarction Mother Hypertension Cardiac disorder Social History Preferred Language: Wallisian Communication Ability: Effective Beliefs That Will Affect Care: None marital status: Current Living Situation: Residential [facility] Other Information That Helps Us Care for You: No Feels Safe at Home: Yes Safety Concerns: Feels Safe At This Time Smoking Status: Former smoker Do You Dip or Chew Tobacco: No Second Hand Exposure: No Tobacco Cessation Education Requested by Patient: No Hx Alcohol Use: No Hx Substance Use: No caffeine: Yes Review of Systems See HPI for pertinent positives & negatives. and A total of 10 systems reviewed and were otherwise negative Physical Exam Vital Signs Vital Signs - 24 hr 08/15/18 20:55 08/15/18 21:09 08/15/18 22:05 Temperature 36.4 C L Temperature Source Oral Sepsis Recent Fever Within 48 Hours No Sepsis Action Taken by Nursing No Action Required Pulse Rate 66 Pulse Rate [Right Finger] 65 67 Pulse Rhythm Regular Pulse Rhythm [Right Finger] Regular Regular Pulse Strength Normal Pulse Strength [Right Finger] Normal Normal Respiratory Rate 18 20 20 Respiratory Effort / Characteristics Non-Labored Spontaneous Non-Labored Spontaneous Non-Labored Spontaneous Respiratory Depth Normal Normal Normal Respiratory Pattern Regular Regular Regular Blood Pressure 164/85 H Blood Pressure [Right Arm] 164/85 H 155/74 H Blood Pressure Mean 111 Blood Pressure Mean [Right Arm] 111 101 Pulse Oximetry 96 97 94 Oxygen Delivery Method Room Air Room Air Room Air 08/15/18 23:30 08/16/18 00:00 08/16/18 00:30 Temperature Temperature Source Sepsis Recent Fever Within 48 Hours Sepsis Action Taken by Nursing Pulse Rate Pulse Rate [Right Finger] 68 71 68 Pulse Rhythm Pulse Rhythm [Right Finger] Regular Regular Regular Pulse Strength Pulse Strength [Right Finger] Normal Normal Normal Respiratory Rate 18 20 20 Respiratory Effort / Characteristics Non-Labored Spontaneous Non-Labored Spontaneous Non-Labored Spontaneous Respiratory Depth Normal Normal Normal Respiratory Pattern Regular Blood Pressure Blood Pressure [Right Arm] 151/103 H 157/87 H 162/74 H Blood Pressure Mean Blood Pressure Mean [Right Arm] 119 110 103 Pulse Oximetry 94 96 94 Oxygen Delivery Method Room Air Room Air Room Air GENERAL: alert, well appearing, well nourished, no distress, non-toxic EYE EXAM: normal conjunctiva, PERRL and EOM's grossly intact, no gaze deviation OROPHARYNX: no exudate, no erythema, lips, buccal mucosa, and tongue normal and mucous membranes are moist NECK: supple, no nuchal rigidity, no adenopathy, non-tender LUNGS: Clear to auscultation. Normal chest wall mechanics, no w/r/r HEART: no murmurs, S1 normal and S2 normal ABDOMEN: abdomen soft, non-tender, normo-active bowel sounds, no masses, no rebound or guarding. BACK: Back is symmetrical on inspection and there is no deformity, no midline tenderness, no CVA tenderness. SKIN: no rashes and no bruising UPPER EXTREMITIES: upper extremities are grossly normal. Full range of motion, normal pulses bilaterally, normal sensory exam bilaterally. LOWER EXTREMITIES: No pitting edema. Right lower extremity weakness. No effort against gravity. Nml pulses b/l. NEURO EXAM: Normal sensorium, cranial nerves II-XII grossly intact, normal speech, no gross weakness of arms. Right lower extremity weakness. No facial droop. NIH stroke score 3. Course 2052: Past medical records reviewed. The patient was evaluated in room B1. A complete history and physical exam was performed. 2103: I discussed the case with Dr. Jonatan Brown Stroke Neurology who states that the patient is not a tPA candidate for several reasons including current Eliquis use, and low NIH score. Does not feel patient would benefit from mechanical intervention at this time. She recommends continuing the workup and getting the patient further evaluated in the hospital. 2111: I updated the patient and her who is now at bedside. He states she has had strokelike episodes previously but has made full recovery's. 2202: I checked on and updated the patient and her . states she has previously had low sodium before as well, but he does not know why. Patient now beginning to move her right lower extremity, still weak compared to left. 2311: I discussed the case with Dr. Douglas -[facility] Hospitalist who accepts the patient for further evaluation. Consultations Consultation #1: I discussed the case with Dr. Jonatan Brown Stroke Neurology who states that the patient is not a tPA candidate for several reasons. He jemma mmends continuing the workup and getting the patient further evaluated in the hospital. Time: 21:04 Consultation #2: I [facility] the [facility] for further evaluation. Time: 23:12 Administered Medications Acetaminophen (Tylenol) 1,000 mg PO TID [facility] Stop: 09/15/18 08:59 Last Admin: 08/16/18 15:39 Dose: 1,000 mg Documented by: [id number] Admin: 08/16/18 08:04 Dose: 1,000 mg Documented by: [id number] Carvedilol (Coreg) 12.5 mg PO BID [facility] Stop: 09/15/18 08:59 Last Admin: 08/16/18 11:28 Dose: 12.5 mg Documented by: [id number] Clopidogrel Bisulfate (Plavix) 75 mg PO QAM [facility] Stop: 09/15/18 08:59 Last Admin: 08/16/18 08:04 Dose: 75 mg Documented by: [id number] Cyanocobalamin (Vitamin B-12) 1,000 mcg PO DAILY [facility] Stop: 09/15/18 08:59 Last Admin: 08/16/18 08:04 Dose: 1,000 mcg Documented by: [id number] Digoxin (Lanoxin) 0.125 mg PO DAILY@1600 [facility] Stop: 09/15/18 15:59 Last Admin: 08/16/18 15:39 Dose: 0.125 mg Documented by: [id number] Ferrous Sulfate (Feosol) 325 mg PO QAM [facility] Stop: 09/15/18 08:59 Last Admin: 08/16/18 08:04 Dose: 325 mg Documented by: [id number] Gadobutrol (Gadavist 30ml) 5 ml IV ONCE PRN PRN Reason: Interaction Checking Stop: 08/20/18 15:11 Last Admin: 08/16/18 15:12 Dose: 5 ml Documented by: [id number] Levothyroxine Sodium (Synthroid) 75 mcg PO DAILYBB [facility] Stop: 09/15/18 06:29 Last Admin: 08/16/18 05:32 Dose: 75 mcg Documented by: [id number] Discontinued Medications Sodium Chloride (Nss 1000ml) 1,000 mls @ 80 mls/hr IV .[id number] FILEMON Stop: 09/14/18 21:59 Last Infusion: 08/16/18 09:15 Dose: 0 mls/hr Documented by: [id number] Infusion: 08/16/18 08:17 Dose: 0 mls/hr Documented by: [id number] Admin: 08/15/18 22:08 Dose: 80 mls/hr Documented by: [id number] Sodium Chloride (Nss) 500 mls @ 80 mls/hr IV .[id number] FILEMON Stop: 08/16/18 07:52 Last Infusion: 08/16/18 08:17 Dose: 0 mls/hr Documented by: [id number] Admin: 08/16/18 03:11 Dose: 80 mls/hr Documented by: [id number] Medical Decision Making Differential Diagnosis Differential diagnosis: Etiologies such as metabolic, infection, hypo/hyperglycemia, electrolyte abnormalities, cardiac sources, intracerebral event, toxicologic, neurologic, as well as others were entertained. Medical Records Attestation: I reviewed the patient's medical records. Home Medications Current Medication List: was personally reviewed by me Laboratory Data Attestation: I reviewed the patient's lab results. Result diagrams: 08/16/18 05:15 08/16/18 05:15 Lab Results 08/15/18 08/15/18 08/15/18 Range/Units 21:04 21:04 21:04 WBC 8.38 (4.8-10.8) K/uL RBC 3.26 L (4.2-5.4) M/uL Hgb 10.0 L (12.0-16.0) g/dL Hct 29.3 L (37-47) % MCV 89.9 (80-100) fL MCH 30.7 (25-34) pg MCHC 34.1 (32-36) g/dL RDW Std Deviation 42.0 (36.4-46.3) fL RDW Coeff of Misael 13.0 (11.5-14.5) % Plt Count 292 (130-400) K/uL MPV 8.0 (7.4-10.4) fL Immature Gran % (Auto) 0.4 % Neut % (Auto) 67.4 % Lymph % (Auto) 21.6 % [place] % (Auto) 6.8 % Eos % (Auto) 3.0 % Baso % (Auto) 0.8 % Immature Gran # (Auto) 0.03 H (0.00-0.02) K/uL Neut # (Auto) 5.65 (1.4-6.5) K/uL Lymph # (Auto) 1.81 (1.2-3.4) K/uL [place] # (Auto) 0.57 (0.11-0.59) K/uL Eos # (Auto) 0.25 (0-0.5) K/uL Baso # (Auto) 0.07 (0-0.2) K/uL PT 10.1 (9.0-12.0) Seconds INR 1.0 (0.9-1.1) APTT 26.2 (21.0-31.0) Seconds PTT Ratio 1.0 Sodium 124 L (136-145) mmol/L Potassium 5.5 H (3.5-5.1) mmol/L Chloride 96 L (98-107) mmol/L Carbon Dioxide 21 (21-32) mmol/L Anion Gap 7.0 (3-11) BUN 29 H (7-18) mg/dl Creatinine 1.50 H (0.6-1.2) mg/dl Est Cr Clr Drug Dosing 22.7 ml/min Est GFR ( Amer) 36.4 Est GFR (Non-Af Amer) 31.4 BUN/Creatinine Ratio 19.5 (10-20) Glucose 107 H (70-99) mg/dl Osmolality (280-300) mOsm/kg Calcium 8.6 (8.5-10.1) mg/dl Magnesium 2.5 H (1.8-2.4) mg/dl Total Bilirubin 0.2 (0.2-1) mg/dl AST 16 (15-37) U/L ALT 20 (12-78) U/L Alkaline Phosphatase 61 (45-117) U/L Troponin I < 0.015 (0-0.045) ng/ml Total Protein 7.3 (6.4-8.2) gm/dl Albumin 3.5 (3.4-5.0) gm/dl Globulin 3.8 (2.5-4.0) gm/dl Albumin/Globulin Ratio 0.9 (0.9-2) Urine Color Urine Appearance (Clear) Urine pH (4.5-7.5) Ur Specific [place] (1.000-1.030) Urine Protein (Negative) Urine Glucose (UA) (Negative) Urine Ketones (Negative) Urine Blood (Negative) Urine Nitrite (Negative) Urine Bilirubin (Negative) Urine Urobilinogen (Negative) Ur Leukocyte Esterase (Negative) Urine WBC (Auto) (0-5) /hpf Urine RBC (Auto) (0-4) /hpf U Hyaline Cast (Auto) (0-5) /lpf U Epithel Cells (Auto) (0-5) /lpf Urine Bacteria (Auto) (Negative) Urine Osmolality (500-800) mOsm/kg Blood Type Antibody Screen 08/15/18 08/15/18 08/15/18 Range/Units 21:04 21:07 21:17 WBC (4.8-10.8) K/uL RBC (4.2-5.4) M/uL Hgb (12.0-16.0) g/dL Hct (37-47) % MCV (80-100) fL MCH (25-34) pg MCHC (32-36) g/dL RDW Std Deviation (36.4-46.3) fL RDW Coeff of Misael (11.5-14.5) % Plt Count (130-400) K/uL MPV (7.4-10.4) fL Immature Gran % (Auto) % Neut % (Auto) % Lymph % (Auto) % [place] % (Auto) % Eos % (Auto) % Baso % (Auto) % Immature Gran # (Auto) (0.00-0.02) K/uL Neut # (Auto) (1.4-6.5) K/uL Lymph # (Auto) (1.2-3.4) K/uL [place] # (Auto) (0.11-0.59) K/uL Eos # (Auto) (0-0.5) K/uL Baso # (Auto) (0-0.2) K/uL PT (9.0-12.0) Seconds INR (0.9-1.1) APTT (21.0-31.0) Seconds PTT Ratio Sodium (136-145) mmol/L Potassium (3.5-5.1) mmol/L Chloride (98-107) mmol/L Carbon Dioxide (21-32) mmol/L Anion Gap (3-11) BUN (7-18) mg/dl Creatinine (0.6-1.2) mg/dl Est Cr Clr Drug Dosing ml/min Est GFR ( Amer) Est GFR (Non-Af Amer) BUN/Creatinine Ratio (10-20) Glucose (70-99) mg/dl Osmolality 267 L (280-300) mOsm/kg Calcium (8.5-10.1) mg/dl Magnesium (1.8-2.4) mg/dl Total Bilirubin (0.2-1) mg/dl AST (15-37) U/L ALT (12-78) U/L Alkaline Phosphatase (45-117) U/L Troponin I (0-0.045) ng/ml Total Protein (6.4-8.2) gm/dl Albumin (3.4-5.0) gm/dl Globulin (2.5-4.0) gm/dl Albumin/Globulin Ratio (0.9-2) Urine Color Yellow Urine Appearance Clear (Clear) Urine pH 6.0 (4.5-7.5) Ur Specific [place] 1.022 (1.000-1.030) Urine Protein 1+ H (Negative) Urine Glucose (UA) Negative (Negative) Urine Ketones Negative (Negative) Urine Blood Negative (Negative) Urine Nitrite Negative (Negative) Urine Bilirubin Negative (Negative) Urine Urobilinogen Negative (Negative) Ur Leukocyte Esterase Negative (Negative) Urine WBC (Auto) 1-5 (0-5) /hpf Urine RBC (Auto) 0-4 (0-4) /hpf U Hyaline Cast (Auto) 5-10 H (0-5) /lpf U Epithel Cells (Auto) 20-30 H (0-5) /lpf Urine Bacteria (Auto) Negative (Negative) Urine Osmolality (500-800) mOsm/kg Blood Type O Positive Antibody Screen NEGATIVE 08/15/18 Range/Units 21:17 WBC (4.8-10.8) K/uL RBC (4.2-5.4) M/uL Hgb (12.0-16.0) g/dL Hct (37-47) % MCV (80-100) fL MCH (25-34) pg MCHC (32-36) g/dL RDW Std Deviation (36.4-46.3) fL RDW Coeff of Misael (11.5-14.5) % Plt Count (130-400) K/uL MPV (7.4-10.4) fL Immature Gran % (Auto) % Neut % (Auto) % Lymph % (Auto) % [place] % (Auto) % Eos % (Auto) % Baso % (Auto) % Immature Gran # (Auto) (0.00-0.02) K/uL Neut # (Auto) (1.4-6.5) K/uL Lymph # (Auto) (1.2-3.4) K/uL [place] # (Auto) (0.11-0.59) K/uL Eos # (Auto) (0-0.5) K/uL Baso # (Auto) (0-0.2) K/uL PT (9.0-12.0) Seconds INR (0.9-1.1) APTT (21.0-31.0) Seconds PTT Ratio Sodium (136-145) mmol/L Potassium (3.5-5.1) mmol/L Chloride (98-107) mmol/L Carbon Dioxide (21-32) mmol/L Anion Gap (3-11) BUN (7-18) mg/dl Creatinine (0.6-1.2) mg/dl Est Cr Clr Drug Dosing ml/min Est GFR ( Amer) Est GFR (Non-Af Amer) BUN/Creatinine Ratio (10-20) Glucose (70-99) mg/dl Osmolality (280-300) mOsm/kg Calcium (8.5-10.1) mg/dl Magnesium (1.8-2.4) mg/dl Total Bilirubin (0.2-1) mg/dl AST (15-37) U/L ALT (12-78) U/L Alkaline Phosphatase (45-117) U/L Troponin I (0-0.045) ng/ml Total Protein (6.4-8.2) gm/dl Albumin (3.4-5.0) gm/dl Globulin (2.5-4.0) gm/dl Albumin/Globulin Ratio (0.9-2) Urine Color Urine Appearance (Clear) Urine pH (4.5-7.5) Ur Specific [place] (1.000-1.030) Urine Protein (Negative) Urine Glucose (UA) (Negative) Urine Ketones (Negative) Urine Blood (Negative) Urine Nitrite (Negative) Urine Bilirubin (Negative) Urine Urobilinogen (Negative) Ur Leukocyte Esterase (Negative) Urine WBC (Auto) (0-5) /hpf Urine RBC (Auto) (0-4) /hpf U Hyaline Cast (Auto) (0-5) /lpf U Epithel Cells (Auto) (0-5) /lpf Urine Bacteria (Auto) (Negative) Urine Osmolality 476 L (500-800) mOsm/kg Blood Type Antibody Screen Imaging Data Radiologist's Impression: Radiology results as stated below per my review and the radiologist's interpretation: XR chest 1V portable CLINICAL HISTORY: weakness COMPARISON STUDY: 03/06/2018 FINDINGS: The cardiac and mediastinal contours remain stable. The patient is hyperinflated. There are chronic prominent nodular apical opacities. There is no failure. There is no acute parenchymal consolidation. There are no pleural effusions. A 4 mm density the right lung base, likely represents a postinflammatory nodule or summation[ IMPRESSION: No active disease in the chest. Electronically signed by: Art Rizzo M.D. 08/15/2018 9:[address] head/brain wo con CLINICAL HISTORY: Right-sided weakness. Possible acute stroke COMPARISON STUDY: 04/23/2018 TECHNIQUE: Axial CT of the brain is performed from the vertex to the skull base. IV contrast was not administered for this examination. A dose lowering technique was utilized adhering to the principles of ALARA. CT DOSE: 614.27 mGy.cm FINDINGS: No intra or extra-axial mass lesions are visualized. There is no CT evidence of acute cortical infarction. There is no evidence of midline shift. There is no acute hemorrhage. No calvarial fractures are visualized. There are extensive white matter hypodensities likely on a small vessel basis. There are scattered lacunar infarcts. There is an old left frontal cortical infarct There is no evidence of pathologic ventricular dilatation. There is no evidence of acute sinusitis. There is a focal area of right parietal scalp swelling, likely representing the sequela of the patient's prior scalp hematoma. IMPRESSION: 1. No acute intracranial findings 2. Old ischemic changes of extensive white matter disease likely on a small vessel ischemic basis. 3. If symptoms persist, an MRI could be obtained in follow-up to exclude an acute infarct which is not visible on CT scanning. Electronically signed by: Art Rizzo M.D. 08/15/2018 8:56 PM ECG Data Attestation: I personally reviewed and interpreted this ECG as follows: Indication: weakness Rate (beats per minute): 65 Rhythm: sinus rhythm Findings: + other (normal axis; normal intervals); no acute ischemic change and no ectopy Blood Pressure Blood Pressure Findings: Elevated blood pressure Blood Pressure Disposition: further management by hospitalist MDM Narrative Patient here after being made a stroke alert from the field. Patient sent immediately for CT imaging and then I immediately performed a bedside evaluation when she returned to the room and contacted [place] neurology. Patient's symptoms improving compared to initial contact made by EMS and initial call to 911 made by staff members. Patient here awake and alert, with only right lower extremity weakness remaining. Patient's initial NIH stroke score 3. Patient also anticoagulated. Patient with mild hypertension although otherwise hemodynamically stable. Initial CT head unremarkable, no ICH. Patient not a TPA candidate. Patient continued to improve while being monitored in the emergency room. Patient also found to be hyponatremic which she has had previously, although this appears worse compared to baseline. Patient continued to show improvement here, remained hemodynamically stable, and was made aware of all results in agreement with plan. Case discussed with hospitalist for additional inpatient evaluation and monitoring. Impression & Plan Stroke, Hypertension, Hyponatremia, Anemia Discharge Plan Visit Data *Final* Discharge Date/Time: 08/16/18 00:55 Chief Complaint: Stroke Alert ED Provider: Yulisa Mak Discharge Problem: Stroke, Hypertension, Hyponatremia, Anemia Patient Disposition: Admitted As Inpatient Condition: Good Discharge Instructions Interventions: ED Discharge Assessment Last Done: 08/16/18 00:55 The scribe's documentation has been prepared under my direction and personally reviewed by me in its entirety. I confirm that the note above accurately reflects all work, treatment, procedures, and medical decision making performed by me.
[2018-08-16] MEDS: APIXABAN 2.5 MG TAB PO SCH (20:02)
[2018-08-16] MEDS: PRAVASTATIN SOD 20 MG TAB PO SCH (20:02)
[2018-08-16] MEDS: GABAPENTIN 100 MG CAP PO SCH (20:03)
--- NOTE | 2018-08-16 23:15 | Hospitalist Progress Note ---
Date of Service August 16, 2018 Assessment & Plan (1) Stroke: Patient presents with stroke like symptoms, has history of prior CVA. Neuro exam has improved since arrival -Admit to PCU -Neuro checks per protocol -Check MRI brain, CTA head and neck -Check 2D echocardiogram -Check lipids and AIC -Dysphagia screen, aspiration precautions -Hold Carvedilol to allow for permissive hypertension -Change ASA to Plavix 75mg po daily -Neurology Consultation - appreciate assistance with this case (2) Hyponatremia: Zp=[id number], patient with history of prior SIADH -Monitor Na -Check urine Na, Cortisol -Hold PO K, mildly elevated at 5.5 (3) Hypertension: Blood pressure stable -Hold Carvedilol for permissive HTN (4) Arteriosclerotic heart disease: -Plavix -Check lipids (5) Paroxysmal atrial flutter: NSR at present -Continue Digoxin, check level -Holding Eliquis for now (6) Hypothyroid: Chronic. -Continue Synthroid Results & Data Vital Signs (Past 12 Hours) Vital Signs Temp Pulse Pulse Resp BP BP Pulse Ox 08/16/18 23:09 36.7 C 68 16 171/92 H 97 08/16/18 19:50 36.7 C 80 18 181/87 H 98 08/16/18 15:46 36.5 C 76 18 178/80 H 97 08/16/18 15:39 71 08/16/18 14:57 75 08/16/18 11:27 36.6 C 97 H 16 189/94 H 189/78 H 97 PG Care Time/CCT Total # of Minutes Spent Total Time Spent with Patient: Total time spent is greater than 50% in coordination of care (as documented) at patient's floor/unit and/or counseling patient: (1) Stroke CVA mechanism: unspecified Qualified Code(s): I63.9 - Cerebral infarction, unspecified (2) Hypertension Hypertension type: unspecified Qualified Code(s): I10 - Essential (primary) hypertension (3) Hypothyroid Hypothyroidism type: acquired Qualified Code(s): E03.9 - Hypothyroidism, unspecified
[2018-08-17] MEDS: LEVOTHYROXINE SODIUM 75 MCG TABLET PO SCH (05:08)
[2018-08-17 07:04] LABS: Estimated Average Glucose 120 mg/dl; Hemoglobin A1C 5.8 % (4.5-5.6)
[2018-08-17 07:05] LABS: BUN Creatinine Ratio 20.1 (10-20); Calcium 8.6 mg/dl (8.5-10.1); Creatinine Clr Calc Pharmacy 35.6 ml/min; Est GFR (African American) 74.5; Est GFR (Non-African American) 64.3; Potassium 4.2 mmol/L (3.5-5.1)
--- NOTE | 2018-08-17 08:09 | Ultrasound Report ---
CAROTID ARTERY ULTRASOUND CLINICAL HISTORY: tia/stroke COMPARISON STUDY: CTA of the neck December 25, 2017. TECHNIQUE: Real-time, grayscale, and color Doppler sonography of the carotid and vertebral arteries w as performed. Images were viewed in the transverse and longitudinal planes. FINDINGS: There is extensive atherosclerotic plaque. Velocity measurements are listed below. COMMON CAROTID PEAK SYSTOLIC VELOCITY (CM/S): RIGHT 59 LEFT 55 ICA PEAK SYSTOLIC VELOCITY (CM/S): RIGHT 116 LEFT 145 The systolic ratio between the left internal to common carotid artery is elevated at 2.7. Antegrade flow is seen in the vertebral arteries. The external carotid arteries are patent. Blood pressure was not obtained in this patient. IMPRESSION: 1. Findings suggestive of 50-69% stenosis of the proximal left internal carotid artery. 2. Approximate 50% stenosis of the proximal right internal carotid artery. Electronically signed by: Jerrell Mancia M.D. 08/17/2018 8:08 AM
[2018-08-17] MEDS: CYANOCOBALAMIN 500 MCG TABLET (VITAMIN B-12) PO SCH (08:30)
[2018-08-17] MEDS: CLOPIDOGREL BISULFATE 75 MG TAB PO SCH (08:30)
[2018-08-17] MEDS: CARVEDILOL 12.5 MG TAB PO SCH ×2 (08:30→20:24)
[2018-08-17] MEDS: FERROUS SULFATE 325 MG TAB PO SCH (08:30)
[2018-08-17] MEDS: APIXABAN 2.5 MG TAB PO SCH ×2 (08:30→20:23)
[2018-08-17] MEDS: ACETAMINOPHEN 500 MG TAB PO SCH ×3 (08:30→20:23)
[2018-08-17] MEDS: DIGOXIN 0.125 MG TAB PO SCH (15:38)
[2018-08-17] MEDS: PRAVASTATIN SOD 20 MG TAB PO SCH (20:24)
[2018-08-17] MEDS: GABAPENTIN 100 MG CAP PO SCH (20:24)
--- NOTE | 2018-08-17 22:54 | Hospitalist Progress Note ---
Date of Service August 17, 2018 Assessment & Plan (1) Stroke: Patient presents with stroke like symptoms, has history of prior CVA. Neuro exam has improved since arrival -Admit to PCU -Neuro checks per protocol -Check MRI brain,and ultrasounds of carotids. -Check 2D echocardiogram -Dysphagia screen, aspiration precautions -resumed Carvedilol -Change ASA to Plavix 75mg po daily -Neurology Consultation - appreciate assistance with this case Carotids findin. Findings suggestive of 50-69% stenosis of the proximal left internal carotid artery. 2. Approximate 50% stenosis of the proximal right internal carotid artery MRI showed: Subcentimeter acute lacunar infarction of the periventricular right parietal lobe with two additional tiny subcentimeter areas of acute infarction noted about the right cerebellar hemisphere. Will continue to treat medically. Patient has advanced dementia. does not want extensive or aggressive treatment. (2) Hyponatremia: Sodium 126: willl recommend rechking in AM. (3) Hypertension: Blood pressure stable resumed carvedilol (4) Arteriosclerotic heart disease: -Plavix -Check lipids (5) Paroxysmal atrial flutter: NSR at present -Continue Digoxin, check level: 0.8 Resumed. (6) Hypothyroid: Chronic. -Continue Synthroid Discharge on Monday to SNF. Subjective Patient is a poor historian. Patient does not provide more history at this time. Review of Systems Review of Systems: Unobtainable due to mental health condition Physical Exam Physical Exam: General: patient resting comfortably, NAD, non-toxic in appearance, AA&O to self and hospital Skin: warm, dry, intact, no rashes or lesions HEENT: NC/AT, PERRL, EOMI, anicteric sclera, conjunctiva without injection, external ear normal to inspection and nontender, nares patent, moist mucus membranes, no oropharyngeal lesions, neck supple, trachea midline, no LAD, no thyromegaly, no JVD Heart: +S1/S2, regular, no m/r/g Lungs: equal air entry bilaterally, no rales/rhonchi/wheezes Abd: +BS, soft, NT/ND, no masses/organomegaly/ascites Ext: warm, 2+ pulses in UE/LE bilaterally, no clubbing/cyanosis or edema Neuro: Patient AA&O x 2, speech clear and appropriate, CN II - XII grossly intact, sensation to light touch symmetric bilaterally, diminished sensation in bilateral legs equal, MS 5/5 in LUE and LLE, 4+/5 in RUE and 4+/5 in RLE. Gait not assessed Results & Data Vital Signs (Past 12 Hours) Vital Signs Temp Pulse Pulse Resp BP Pulse Ox 08/17/18 20:22 36.6 C 84 16 172/98 H 97 08/17/18 17:03 72 08/17/18 16:51 36.8 C 86 19 172/89 H 96 08/17/18 15:38 74 08/17/18 11:52 36.2 C L 70 16 169/95 H 99 08/17/18 11:09 96 PG Care Time/CCT Total # of Minutes Spent Total Time Spent with Patient: Total time spent is greater than 50% in coordination of care (as documented) at patient's floor/unit and/or counseling patient: (1) Hypothyroid Hypothyroidism type: acquired Qualified Code(s): E03.9 - Hypothyroidism, unspecified (2) Hypertension Hypertension type: unspecified Qualified Code(s): I10 - Essential (primary) hypertension (3) Stroke CVA mechanism: unspecified Qualified Code(s): I63.9 - Cerebral infarction, unspecified
[2018-08-18] MEDS: LEVOTHYROXINE SODIUM 75 MCG TABLET PO SCH (04:27)
[2018-08-18] MEDS: APIXABAN 2.5 MG TAB PO SCH ×2 (07:54→20:57)
[2018-08-18] MEDS: FERROUS SULFATE 325 MG TAB PO SCH (07:54)
[2018-08-18] MEDS: CYANOCOBALAMIN 500 MCG TABLET (VITAMIN B-12) PO SCH (07:55)
[2018-08-18] MEDS: CLOPIDOGREL BISULFATE 75 MG TAB PO SCH (07:55)
[2018-08-18] MEDS: ACETAMINOPHEN 500 MG TAB PO SCH ×3 (07:55→20:57)
[2018-08-18] MEDS: CARVEDILOL 12.5 MG TAB PO SCH (07:55)
[2018-08-18 10:02] LABS: BUN Creatinine Ratio 23.8 (10-20); Calcium 8.9 mg/dl (8.5-10.1); Creatinine Clr Calc Pharmacy 23.8 ml/min; Est GFR (African American) 45.9; Est GFR (Non-African American) 39.6; Potassium 4.6 mmol/L (3.5-5.1)
[2018-08-18] MEDS: DIGOXIN 0.125 MG TAB PO SCH (15:21)
--- NOTE | 2018-08-18 15:52 | Hospitalist Progress Note ---
Date of Service August 18, 2018 Assessment & Plan (1) Stroke: -Continue Plavix and blood pressure control as best as possible. -Discussed risks and benefits of a statin with the . Right now we will hold off due to risk of intracranial bleed, especially given that her dementia would likely make her higher risk than an average 85-year-old. - would prefer to hold off on any surgical evaluation for the carotids, we discussed that vigilance would be reasonable as well. Carotids findin. Findings suggestive of 50-69% stenosis of the proximal left internal carotid artery. 2. Approximate 50% stenosis of the proximal right internal carotid artery MRI showed: Subcentimeter acute lacunar infarction of the periventricular right parietal lobe with two additional tiny subcentimeter areas of acute infarction noted about the right cerebellar hemisphere. -Anticipate SNF with rehab emphasis tomorrow. 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 The notes this happens quite frequently at her personal care as well, leading to frequent ER evaluations. He notes by the time she is here she is fine. He notes he would like to not have her bounced back and forth to the hospital so often if at all possible. We discussed the probable etiology, they changed her Coreg to metoprolol to remove the alpha-carlyle that may lead to more precipitous drop in blood pressure. We also discussed that with this delicate balance, sometimes people have to run higher rather than causing them to go low, but with her just having had a stroke we would obviously prefer to keep blood pressures under control if possible. (4) Arteriosclerotic heart disease: -Plavix -Continue meds as above otherwise. (5) Paroxysmal atrial flutter: Rate controlled, anticoagulated with apixaban (6) Hypothyroid: Chronic. -Continue Synthroid (7) Autonomic dysfunction: See above (8) Discharge planning issues: Anticipate SNF tomorrow, rehab emphasis. Subjective Seen twice today. No meaningful HPI or review of systems obtainable. The first time this morning she was a "code purple" due to unresponsiveness. She was globally unresponsive with no new focal neuro deficits, as soon as she was late in bed she had stable vitals, and after couple of minutes she woke up spontaneously with no notable impairment. At that time she had no complaints, although her history is of questionable veracity. Later the was present and I revisited, she was sitting up eating lunch and feeling good. Updated to the best my ability and to the satisfaction. Review of Systems Review of Systems: Unobtainable due to cognitive status Physical Exam Physical Exam: General she is awake and alert pleasant no distress. This morning she was initially unresponsive but then fairly quickly woke up to verbal stim. HEENT normocephalic atraumatic mucous membranes moist. Cardio is regular without rubs murmurs or gallops. Lungs are clear to auscultation bilaterally no rales rhonchi or wheezes good effort. Abdomen is soft nondistended nontender no masses organomegaly. Extremities show no sinus clubbing or edema. Neuro shows no focal neurologic deficits. Pupils are equal and reactive. Skin shows no rashes no pallor or icterus. Results & Data Vital Signs (Past 12 Hours) Vital Signs Temp Pulse Pulse Resp BP Pulse Ox 08/18/18 15:21 82 08/18/18 15:07 83 08/18/18 14:59 36.7 C 76 19 118/61 90 08/18/18 12:12 36.4 C L 83 18 142/81 H 94 08/18/18 09:21 96 H 20 95 08/18/18 08:00 70 08/18/18 07:35 36.9 C 85 17 133/72 96 08/18/18 04:26 36.5 C 72 16 133/84 98 PG Care Time/CCT Total # of Minutes Spent Total Time Spent with Patient: Total time spent is greater than 50% in coordination of care (as documented) at patient's floor/unit and/or counseling patient: (1) Stroke CVA mechanism: unspecified Qualified Code(s): I63.9 - Cerebral infarction, unspecified (2) Hypertension Hypertension type: unspecified Qualified Code(s): I10 - Essential (primary) hypertension (3) Hypothyroid Hypothyroidism type: acquired Qualified Code(s): E03.9 - Hypothyroidism, unspecified
[2018-08-18] MEDS: GABAPENTIN 100 MG CAP PO SCH (20:57)
[2018-08-18] MEDS: METOPROLOL SUCC 25MG EXT REL TAB PO SCH (20:58)
[2018-08-18] MEDS: PRAVASTATIN SOD 20 MG TAB PO SCH (20:58)
[2018-08-19] MEDS: LEVOTHYROXINE SODIUM 75 MCG TABLET PO SCH (06:22)
[2018-08-19 07:36] LABS: Creatinine Clr Calc Pharmacy 29.3 ml/min; Est GFR (African American) 58.8; Est GFR (Non-African American) 50.7
[2018-08-19] MEDS: CLOPIDOGREL BISULFATE 75 MG TAB PO SCH (07:49)
[2018-08-19] MEDS: FERROUS SULFATE 325 MG TAB PO SCH (07:50)
[2018-08-19] MEDS: APIXABAN 2.5 MG TAB PO SCH ×2 (07:50→20:38)
[2018-08-19] MEDS: METOPROLOL SUCC 25MG EXT REL TAB PO SCH ×2 (07:50→20:34)
[2018-08-19] MEDS: CYANOCOBALAMIN 500 MCG TABLET (VITAMIN B-12) PO SCH (07:50)
[2018-08-19] MEDS: ACETAMINOPHEN 500 MG TAB PO SCH ×3 (07:50→20:38)
[2018-08-19] MEDS ORDERED: STROKE PATIENT DISCHARGE STA (13:07)
--- NOTE | 2018-08-19 13:11 | Discharge Summary ---
Date of Service August 19, 2018 Admission HPI Per Admitting Provider Dotkenzie Mace is an 83yo C female with history of AF on Eliquis, HTN, prior CVA presenting with stroke-like symptoms. Patient noted to have right sided weakness and left gaze preference on arrival. ER Course: NSS Principal Diagnosis stroke Discharge Exam General she is awake and alert pleasant no distress. HEENT normocephalic atraumatic mucous members moist. Breathing unlabored no accessory muscle use good effort. Skin shows no rashes no pallor or icterus. Neuro exam without any new deficits. Discharge Data Allergies Allergy/AdvReac Type Severity Reaction Status Date / Time amoxicillin Allergy Intermediate VERY SICK Verified 08/08/18 10:59 TO HER STOMACH atorvastatin Allergy Intermediate RASH Verified 08/08/18 10:59 clavulanic acid Allergy Intermediate VERY SICK Verified 08/08/18 10:59 TO HER STOMACH tetracycline Allergy Intermediate ARMS Verified 08/08/18 10:59 SWELLED UP tramadol Allergy Intermediate MAKES HER Verified 08/08/18 10:59 DIZZY AND CRAZEY SHANTEL Inhibitors Allergy Mild NOT SURE Verified 08/08/18 10:59 OF REACTIONS erythromycin base Allergy Unknown UPSET Verified 08/08/18 10:59 STOMACH rivaroxaban Allergy Unknown RASH Verified 08/08/18 10:59 zolpidem Allergy Unknown Unknown Verified 08/08/18 10:59 simvastatin Allergy Verified 08/08/18 10:59 Tetracyclines Allergy Verified 08/08/18 10:59 gabapentin AdvReac Unknown Verified 08/08/18 10:59 Consultations 08/15/18 23:16 ED Decision to Admit Stat 08/16/18 01:38 Consult Case Management - Discharge Planning Routine Consult Neurology Routine Ordered Studies 08/15/18 20:46 CT head/brain wo con Stat 08/16/18 01:38 MR brain wo/w con Routine MR brain wo/w con HISTORY: 83 years-old Female ?CVA acute strokelike symptoms CT head 08/15/2018 COMPARISON: , Brain MRI 12/25/2017 TECHNIQUE: Multiplanar multisequence MRI of the brain was obtained both with and without the use of 5 mL Gadavist FINDINGS: Embroidery Patternmaker localizer images demonstrate no gross extracranial abnormality. 6 mm focus of resected diffusion about the periventricular right parietal lobe with 2 additional subcentimeter foci of restricted diffusion about the medial aspect of the right mid cerebellar hemisphere. No acute intracranial hemorrhage, midline shift, abnormal extra-axial collection, hydrocephalus or intra-axial mass. Age- related involutional changes with ex vacuo ventriculomegaly. Extensive patchy and confluence T2/FLAIR hyperintensities suggest chronic microvascular ischemic disease. Areas of multiple remote lacunar infarctions. No abnormal intra-axial or extra-axial enhancement identified. Degenerative changes noted about the imaged cervical spine. T1 and T2 hyperintense subcutaneous lesion of the right scalp, 10 mm likely benign. Moderate bilateral mastoid effusions. Patent vessels. Bilateral cataract repair. The mastoid air cells. Skull and soft tissues are otherwise unremarkable. IMPRESSION: 1. Subcentimeter acute lacunar infarction of the periventricular right parietal lobe with two additional tiny subcentimeter areas of acute infarction noted about the right cerebellar hemisphere. Posterior circulation embolic cause should be considered. 2. No acute intracranial hemorrhage, midline shift or abnormal extra-axial collection. 3. Age-related involutional changes with ex vacuo ventriculomegaly and extensive chronic microvascular ischemic disease. 4. No abnormal enhancement. The above report was generated using voice recognition software. It may contain grammatical, syntax or spelling errors. Electronically signed by: Ed Canales M.D. 08/17/18 10:45 US carotid doppler BI Routine CAROTID ARTERY ULTRASOUND CLINICAL HISTORY: tia/stroke COMPARISON STUDY: CTA of the neck December 25, 2017. TECHNIQUE: Real-time, grayscale, and color Doppler sonography of the carotid and vertebral arteries was performed. Images were viewed in the transverse and longitudinal planes. FINDINGS: There is extensive atherosclerotic plaque. Velocity measurements are listed below. COMMON CAROTID PEAK SYSTOLIC VELOCITY (CM/S): RIGHT 59 LEFT 55 ICA PEAK SYSTOLIC VELOCITY (CM/S): RIGHT 116 LEFT 145 The systolic ratio between the left internal to common carotid artery is elevated at 2.7. Antegrade flow is seen in the vertebral arteries. The external carotid arteries are patent. Blood pressure was not obtained in this patient. IMPRESSION: 1. Findings suggestive of 50-69% stenosis of the proximal left internal carotid artery. 2. Approximate 50% stenosis of the proximal right internal carotid artery. Electronically signed by: Jerrell Mancia M.D. 08/17/2018 8:08 AM XR chest 1V portable CLINICAL HISTORY: weakness COMPARISON STUDY: 03/06/2018 FINDINGS: The cardiac and mediastinal contours remain stable. The patient is hyperinflated. There are chronic prominent nodular apical opacities. There is no failure. There is no acute parenchymal consolidation. There are no pleural effusions. A 4 mm density the right lung base, likely represents a postinflammatory nodule or summation[ IMPRESSION: No active disease in the chest. Electronically signed by: Art Rizzo M.D. 08/15/2018 9:15 PM Hospital Course (1) Stroke: -Continue Plavix and blood pressure control as best as possible, in the context of her "spells" appearing to be hypotensive episodes. -Discussed risks and benefits of a statin with the . Right now we will hold off due to risk of intracranial bleed, especially given that her dementia would likely make her higher risk than an average 85-year-old. - would prefer to hold off on any surgical evaluation for the carotids, we discussed that vigilance would be reasonable as well. -Stable for discharge to SNF with ongoing PT and OT eval and treat to maximize her functional status, blood pressure control as best as her risks and benefits with her hypotensive events will allow Carotids findin. Findings suggestive of 50-69% stenosis of the proximal left internal carotid artery. 2. Approximate 50% stenosis of the proximal right internal carotid artery MRI showed: Subcentimeter acute lacunar infarction of the periventricular right parietal lobe with two additional tiny subcentimeter areas of acute infarction noted about the right cerebellar hemisphere. -Anticipate SNF with rehab emphasis tomorrow. 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 Would have a gentle fluid restriction in the neighborhood of 2 to maybe 2-1/2 L a day. (3) Hypertension: I suspect her episodes are a degree of autonomic instability causing transient hypotension. The notes this happens quite frequently at her personal care as well, leading to frequent ER evaluations. He notes by the time she is here she is fine. He notes he would like to not have her bounced back and forth to the hospital so often if at all possible. We discussed the probable etiology, and changed her Coreg to metoprolol to remove the alpha- carlyle that may lead to more precipitous drop in blood pressure. We also d iscussed that with this delicate balance, sometimes people have to run higher rather than causing them to go low, but with her just having had a stroke we would obviously prefer to keep blood pressures under control if possible. (4) Arteriosclerotic heart disease: -Plavix -Continue meds as above otherwise. (5) Paroxysmal atrial flutter: Rate controlled, anticoagulated with apixaban (6) Hypothyroid: Chronic. -Continue Synthroid (7) Autonomic dysfunction: See above (8) Discharge planning issues: Stable to go to SNF, rehab emphasis Total Time Total Time Spent Total Time Spent (In Minutes): Greater than 30 Discharge Plan Discharge Items Patient Disposition: Transfer [facility] Reason For Visit: TIA/CVA Discharge Diagnosis: CVA Condition: Good Discharge Goals: Therapeutic intervention Activity: Resume your previous activity Non-emergency contact: Primary Care Provider and Neurologist Call non-emergency contact if: you have any medication questions and your symptoms worsen Follow-up/Referrals: Love Arias at [facility] [Primary Care Provider] - Diet: Heart Healthy Addtl Provider Instructions: stroke -medication management, secondary risk reduction are goals: -aspirin changed to plavix -follow BP (see below) -carotids could warrant follow up but opts for conservative management given dementia/age -gave consideration to statin, but with age/dementia, anticoagulation, and "raw" lipid values, significant concern that risk of ICH could outweigh benefit of plaque stabilization (discussed with ) -PT/OT eval and treat ongoing to maximize functional status blood pressure -pt apparently has had repeated spells of unresponsiveness; had one such episode in the AM of 08/18/18 - while vitals were not obtained until she was back in bed, the entirety of the episode appeared consistent with a drop in BP (vagal or neurodepressor type response) -adjusted BP medications - stopped coreg in favor of toprol to reduce vasodilation effects -should she continue to have episodes, may need to titrate down on toprol; may have to allow more permissive hypertension than would be desired post-stroke to protect against hypotensive episodes - noted to me that he would prefer a period of observation at SNF should she have such spells and vitals appear stable rather than immediate return to ER Prescriptions: New clopidogrel 75 mg Tablet 75 mg PO QAM Qty: 30 RF: 0 metoprolol succinate 25 mg Tablet Extended Release 24 Hr 25 mg PO BID Qty: 60 RF: 0 Continued CeraVe cream 1 appln TOP BID RF: 0 cyanocobalamin (vitamin B-12) 500 mcg tablet 1,000 mcg PO DAILY RF: 0 potassium chloride 10 mEq Capsule, Extended Release 10 meq PO QAM RF: 0 polyethylene glycol 3350 [Miralax] 17 gram Powder In Packet 17 g PO Q24H PRN (Reason: Constipation) RF: 0 acetaminophen [Tylenol Extra Strength] 500 mg Tablet 1,000 mg PO TID MDD 3 gms APAP/24 hrs RF: 0 levothyroxine 75 mcg Tablet 75 mcg PO QAM RF: 0 gabapentin 100 mg Capsule 100 mg PO HS RF: 0 ferrous sulfate 325 mg (65 mg iron) Tablet,Delayed Release (Dr/Ec) 325 mg PO QAM RF: 0 Eliquis 2.5 mg Tablet 2.5 mg PO BID Qty: 2 RF: 0 digoxin 125 mcg tablet 125 mcg PO DAILY RF: 0 Discontinued aspirin [Adult Low Dose Aspirin] 81 mg tablet,delayed release (DR/EC) 81 mg PO QAM RF: 0 carvedilol 12.5 mg tablet 12.5 mg PO BID RF: 0 Stand-Alone Forms: [facility] Discharge Orders: Discharge Order (Routine); Ordered 08/19/18 Ordered By: Kelvin Avila Skilled Items Patient informed of condition?: Yes DNR: Yes Discharge Level of Care: Skilled Communicable Disease: No Discharge Prognosis: Stable Admission Data Admit Date/Time: 08/16/18 00:33 Attending Provider: Kelvin Avila Admit Provider: Apoorva Douglas Primary Care Provider: Love Arias [facility] Other Providers: Apoorva Douglas ; Ervin Olson ; Jason Booker III ; Rea Hernandez ; Gaudencio Chadwick George A Service: Telemetry
[2018-08-19] MEDS: DIGOXIN 0.125 MG TAB PO SCH (16:52)
[2018-08-19] MEDS: PRAVASTATIN SOD 20 MG TAB PO SCH (20:38)
[2018-08-19] MEDS: GABAPENTIN 100 MG CAP PO SCH (20:39)
[2018-08-20] MEDS: LEVOTHYROXINE SODIUM 75 MCG TABLET PO SCH (06:06)
[2018-08-20] MEDS: FERROUS SULFATE 325 MG TAB PO SCH (08:50)
[2018-08-20] MEDS: APIXABAN 2.5 MG TAB PO SCH (08:50)
[2018-08-20] MEDS: ACETAMINOPHEN 500 MG TAB PO SCH (08:51)
[2018-08-20] MEDS: CLOPIDOGREL BISULFATE 75 MG TAB PO SCH (08:52)
[2018-08-20] MEDS: METOPROLOL SUCC 25MG EXT REL TAB PO SCH (08:52)
[2018-08-20] MEDS: CYANOCOBALAMIN 500 MCG TABLET (VITAMIN B-12) PO SCH (08:52)
--- NOTE | 2018-08-20 17:00 | Hospitalist Progress Note ---
Date of Service August 20, 2018 Assessment & Plan (1) Stroke: -Continue Plavix and blood pressure control as best as possible, in the context of her "spells" appearing to be hypotensive episodes. -previously discussed risks and benefits of a statin with the . Right now we will hold off due to risk of intracranial bleed, especially given that her dementia would likely make her higher risk than an average 85-year-old. - would prefer to hold off on any surgical evaluation for the carotids, we discussed that vigilance would be reasonable as well. -today d/c to SNF with ongoing PT and OT eval and treat to maximize her functional status, blood pressure control as best as her risks and benefits with her hypotensive events will allow Carotids findin. Findings suggestive of 50-69% stenosis of the proximal left internal carotid artery. 2. Approximate 50% stenosis of the proximal right internal carotid artery MRI showed: Subcentimeter acute lacunar infarction of the periventricular right parietal lobe with two additional tiny subcentimeter areas of acute infarction noted about the right cerebellar hemisphere. -Anticipate SNF with rehab emphasis tomorrow. 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 Would have a gentle fluid restriction in the neighborhood of 2 to maybe 2-1/2 L a day. (3) Hypertension: I suspect her unresponsive episodes are a degree of autonomic instability causing transient hypotension. The notes this happens quite frequently at her personal care as well, leading to frequent ER evaluations. He notes by the time she is here she is fine. He notes he would like to not have her bounced back and forth to the hospital so often if at all possible. We discussed the probable etiology, and changed her Coreg to metoprolol to remove the alpha-carlyle that may lead to more precipitous drop in blood pressure. We also discussed that with this delicate balance, sometimes people have to run higher rather than causing them to go low, but with her just having had a stroke we would obviously prefer to keep blood pressures under control if possible. (4) Arteriosclerotic heart disease: -Plavix -Continue meds as above otherwise. (5) Paroxysmal atrial flutter: Rate controlled, anticoagulated with apixaban (6) Hypothyroid: Chronic. -Continue Synthroid (7) Autonomic dysfunction: See above (8) Discharge planning issues: Stable to go to SNF, rehab emphasis Subjective feeling OK. no new sx. discharge delayed due to SNF not being able to accept her yesterday afternoon. Review of Systems Review of Systems: overall negative Physical Exam Physical Exam: gen - pleasant nad. heent nc at mmm breathing unlabored no accessory muscles good effort skin no rashes no pallor or icterus. Results & Data Vital Signs (Past 12 Hours) Vital Signs Temp Pulse Resp BP BP Pulse Ox 08/20/18 10:36 36.4 C L 72 17 122/69 159/81 H 95 08/20/18 07:07 36.4 C L 72 17 159/81 H 95 08/20/18 06:22 76 16 122/69 92 PG Care Time/CCT Total # of Minutes Spent Total Time Spent with Patient: Total time spent is greater than 50% in coordination of care (as documented) at patient's floor/unit and/or counseling patient: (1) Stroke CVA mechanism: unspecified Qualified Code(s): I63.9 - Cerebral infarction, unspecified (2) Hypertension Hypertension type: unspecified Qualified Code(s): I10 - Essential (primary) hypertension (3) Hypothyroid Hypothyroidism type: acquired Qualified Code(s): E03.9 - Hypothyroidism, unspecified
== END 2018-08-20 11:23 | DRG 65 ==
LOC: ED 20:45 → 2E 08-16 00:33 → SUATTDRO 08-16 00:33 → 2E 08-16 00:55 → 2N 08-19 15:00

== ENCOUNTER 2019-09-12 10:46 | Inpatient (IN) ==
[2019-09-12] MEDS ORDERED: OPTIRAY 320 125ml IV PRN (10:47)
--- NOTE | 2019-09-12 10:57 | CT Scan Report ---
CT head/brain wo con CLINICAL HISTORY: Stroke evaluation COMPARISON STUDY: 12/05/2018 TECHNIQUE: Axial CT of the brain is performed from the vertex to the skull base. IV contrast was not administered for this examination. A dose lowering technique was utilized adhering to the principles of ALARA. CT DOSE: FINDINGS: No intra or extra-axial mass lesions are visualized. There is no CT evidence of acute cortical infarc tion. There is no evidence of midline shift. There is no acute hemorrhage. No calvarial fractures ar e visualized. There are moderately extensive white matter hypodensities likely on a small vessel basis. There is an old left frontal cortical infarct. There is an area of encephalomalacia in the region of the prior r ight frontal hemorrhage. There is mild ventricular dilatation which is felt to be secondary to volume loss There is no evidence of acute sinusitis IMPRESSION: No acute intracranial findings ACT 112: Negative or not required by law. Electronically signed by: Art Rizzo M.D. 09/12/2019 10:55 AM
[2019-09-12] MEDS ORDERED: TPA for Stroke IV STA (11:08)
--- NOTE | 2019-09-12 11:09 | CT Scan Report ---
CTA ANGIOGRAPHY OF THE HEAD CLINICAL HISTORY: Stroke evaluation. Recent fall. COMPARISON STUDY: CT a of the head December 25, 2017. MRI of the brain August 16, 2018. Head CT December 05, 2018. TECHNIQUE: Helical axial images of the head were obtained following uneventful intravenous administr ation of 120 cc of Optiray 320. Sagittal and coronal reconstructions were viewed as well as maximal i ntensity projections on an independent 3-D workstation. Automated exposure control was utilized for the study. A dose lowering technique was utilized adhering to the principles of ALARA. CT DOSE: 1023.61 mGy.cm FINDINGS: No acute intracranial hemorrhage, midline shift or mass effect is present. Mild ventricular dilatation is due to atrophy. There is extensive small vessel disease. Old left frontal lobe infarct is unchanged since head CT of December 05, 2018. The bilateral M1, M2, A1 and A2 segments are patent. There is no intraluminal thrombus or abrupt vessel cut off. Posterior circulation is also intact. Th ere is mild plaque within the bilateral cavernous carotids. Left vertebral artery is dominant. No int racranial aneurysm is identified. IMPRESSION: Mild atheromatous plaque. Unremarkable CTA of the head. ACT 112: Negative or not required by law. Electronically signed by: Jerrell Mancia M.D. 09/12/2019 11:08 AM
--- NOTE | 2019-09-12 11:13 | Emergency Department Note ---
Impression & Plan Weakness, Right arm weakness, Acute alteration in mental status ED Provider Note NAME: BALBIR MOTLEY AGE: 84 SEX: F : 1935 ARRIVES VIA: Ambulance INFORMANT: Patient, ED PROVIDER(S): Cody Amaro DO CHIEF COMPLAINT: Weakness HPI: The patient is an 84-year-old female who presented to the emergency department for stroke alert. I was notified about this patient prior to arrival and she was made a stroke alert prior to arrival. The patient has a history of atrial fibrillation. Looking at her history she also has a history of an intracranial hemorrhage in November 2018 from a fall. The patient was in her normal state of health until 9:00 today. Her last known well time is 9 AM. The patient started initially with some confusion. Staff noted she was not able to move her right upper extremity. The patient was noted to have right upper and right lower extremity prior to arrival. She is also answering questions and appropriately. Her blood sugar is 100. She was not noted to be on any blood thinners prior to arrival. The patient does have a history of atrial fibrillation. Her symptoms are severe at this time. The patient is having some difficulty communicating but does not communicate any chest pain or difficulty breathing. There was a history of recent falls but no head injury according to the prehospital notification. ROS: See above HPI for pertinent positives & negatives. A total of 10 systems reviewed and were otherwise negative. PAST MEDICAL HISTORY: See Below PAST SURGICAL HISTORY: See Below FAMILY HISTORY: See Below SOCIAL HISTORY: See Below HOME MEDICATIONS: See Below ALLERGIES: See Below VITALS: See Below PHYSICAL EXAMINATION: GENERAL: The patient is awake and alert. She is somewhat anxious appearing. EYES: The conjunctivae are clear. The pupils are round and reactive. The patient has a right-sided neglect and appears to have difficulty looking to the right side of her body. EARS, NOSE, MOUTH AND THROAT: The nose is without any evidence of any deformity. Mucous membranes are moist. Tongue is midline. NECK: The neck is nontender and supple. RESPIRATORY: Normal respiratory effort is noted there is no evidence of wheezing rhonchi or rales CARDIOVASCULAR: Tachycardic and irregular rhythm was noted to auscultation. There is no definite murmur. GASTROINTESTINAL: The abdomen is soft. Abdomen is nontender. MUSCULOSKELETAL/EXTREMITIES: There is no evidence of gross deformity full range of motion is noted in the hips and shoulders. SKIN: There is no obvious evidence of any rash. There are no petechiae, pallor or cyanosis noted. NEUROLOGIC: The patient answers questions intermittently. She is able to say her name. She does not appear to be oriented to situation. She does recognize her . Industrial Technology Education Teacher strength is absent in the right upper extremity. Industrial Technology Education Teacher strength is present and appropriate in the left upper extremity. Patient is able to hold the left leg off the bed but for less than 5 seconds. She is unable to hold the right leg off the bed for any period of time. MEDICAL DECISION MAKING: The patient is an 84-year-old female with a history of atrial fibrillation who currently does not take oral anticoagulation because of frequent falls who presented to the emergency department for an evaluation of altered mental status and right-sided weakness. The patient was made a stroke alert prior to arrival. Her symptoms slowly improved while she was in the emergency department. Initially we thought she could be a stroke given her presenting symptoms. TPA was mixed and brought to the bedside. The patient was evaluated by the [facility] stroke neurologist. She was not felt to be a good candidate for TPA with her rapidly improving symptoms. The patient was reevaluated multiple times. I discussed the patient's laboratory and radiographic studies with her a nd her . I discussed this case with the on-call [facility] hospitalist. They have agreed to evaluate the patient in the emergency department further management and disposition. Triage Nursing notes reviewed. Prior medical records reviewed Vital Signs: reviewed and remarkable for elevated blood pressure. Differential diagnosis: Infection, dehydration, metabolic abnormality, hypo/hyperglycemia, electrolyte disturbance, anemia, hypoxia, cardiac sources, intracerebral event, toxicologic, neurologic, as well as other pathologies. ER treatment provided: See below Diagnostics interpreted by me: ECG: EKG was obtained in the emergency department. My interpretation is atrial fibrillation at [address] segment abnormalities were noted. There is no ectopy. Cardiac Monitoring: An order was placed for continuous cardiac monitoring. The monitor shows a rate of 110 with atrial fibrillation rhythm. Laboratory studies: As stated above and show below. Imaging studies: See below Consultation(s): 1105: I discussed this case with Dr. George with [facility] stroke team. She will evaluate the patient utilizing the stroke cart 1200: I discussed this case with Dr. Honeycutt who is on-call for the [facility] hospitalist group. She will evaluate the patient in the emergency department for further management disposition. ED COURSE: Procedures: none PDMP:reviewed and no issues Critical Care: I have personally spent greater than 45 minutes of critical care time in the direct management of this patient. This includes bedside care, interpretation of diagnostic studies, and testing, discussion with consultants, patient, and family members, and other required patient management activities. This 45 minutes is in excess of all separately billable procedures. Past Med/Surg History Medical History Abnormal electrocardiogram (Resolved) Acute electrocardiogram changes (Resolved) GI bleed (Resolved) Hypertension (Chronic) Hypokalemia (Chronic) Intracranial hematoma (Inactive) Right-sided lacunar stroke (Chronic) Stroke (Inactive) Stroke-like episode (Resolved) Symptomatic anemia (Chronic) Syncope (Resolved) TIA (transient ischemic attack) (Resolved) UTI (urinary tract infection) (Resolved) Weight loss (Inactive) Surgical History History of appendectomy History of breast surgery puncture aspiiration of cyst History of colonoscopy History of hysterectomy History of lumbar laminectomy Family History Unknown Migraine headache Arteriosclerotic cardiovascular disease (ASCVD) Colon cancer Father Acute myocardial infarction Mother Hypertension Cardiac disorder Social History Smoking Status: Former smoker Second Hand Exposure: No; Hx Alcohol Use: No Hx Substance Use: No Preferred Language: Greek Communication Ability: Effective Visual Impairment: No Limitations Hearing Ability: Normal Shear Operator Required: No Beliefs That Will Affect Care: None marital status: Current Living Situation: Prison Current Living Situation Comment: [facility] current occupational status: retired Feels Safe at Home: Yes Childhood Exposure to Second-Hand Smoke: Yes caffeine: Yes Dental Care, Regularly: Yes Physical Activity Frequency: Does not Exercise Seatbelt Use: always Sunscreen Use: No Allergies Allergies Allergy/AdvReac Type Severity Reaction Status Date / Time amoxicillin Allergy Intermediate VERY SICK Verified 01/31/19 11:22 TO HER STOMACH atorvastatin Allergy Intermediate RASH Verified 01/31/19 11:22 clavulanic acid Allergy Intermediate VERY SICK Verified 01/31/19 11:22 TO HER STOMACH tetracycline Allergy Intermediate ARMS Verified 01/31/19 11:22 SWELLED UP tramadol Allergy Intermediate MAKES HER Verified 01/31/19 11:22 DIZZY AND CRAZEY SHANTEL Inhibitors Allergy Mild NOT SURE Verified 01/31/19 11:22 OF REACTIONS erythromycin base Allergy Unknown UPSET Verified 01/31/19 11:22 STOMACH rivaroxaban Allergy Unknown RASH Verified 01/31/19 11:22 zolpidem Allergy Unknown Unknown Verified 01/31/19 11:22 simvastatin Allergy Unknown Verified 01/31/19 11:22 Tetracyclines Allergy Unknown Verified 01/31/19 11:22 gabapentin AdvReac Unknown Unknown Verified 01/31/19 11:22 Home Meds Home Medications Medication Instructions Recorded Confirmed acetaminophen [Tylenol Extra 1,000 mg PO TID MDD 3 gms APAP12/25/17 01/31/19 Strength] hrs ferrous sulfate 325 mg PO QAM 12/25/17 01/31/19 cyanocobalamin (vitamin B-12) 500 1,000 mcg PO DAILY tab 08/01/18 01/31/19 mcg tablet aspirin 81 mg tablet,delayed 81 mg PO DAILY 01/02/19 01/31/19 release Previous Rx's Medication Instructions Recorded levothyroxine 75 mcg tablet 75 mcg PO QAM #90 tab 12/17/18 hydrocortisone 1 % topical cream 1 appln TOP BID PRN #42 gm 01/03/19 metoprolol succinate 25 mg 25 mg PO DAILY #90 tab 03/04/19 tablet,extended release 24 hr digoxin 125 mcg (0.125 mg) tablet 125 mcg PO DAILY #90 tab 03/12/19 amlodipine 2.5 mg tablet 2.5 mg PO DAILY #90 tab 07/25/19 Results & Data (ED) Vital Signs Vital Signs - 24 hr 09/12/19 11:01 09/12/19 11:04 09/12/19 11:22 Temperature 36.5 C Temperature Source Oral Pulse Rate 98 H Pulse Rate [Apical] 93 H Respiratory Rate 18 18 Respiratory Effort / Characteristics Non-Labored Non-Labored Respiratory Depth Normal Normal Blood Pressure 160/82 H Blood Pressure [Left Arm] 160/82 H Blood Pressure Mean 108 Blood Pressure Mean [Left Arm] 108 Pulse Oximetry 93 95 Oxygen Delivery Method Room Air Room Air Room Air Sepsis Recent Fever Within 48 Hours No Sepsis New/Unexplained Change in Mental Status Yes Sepsis Action Taken by Nursing No Action Required 09/12/19 11:28 Temperature Temperature Source Pulse Rate Pulse Rate [Apical] 89 Respiratory Rate 18 Respiratory Effort / Characteristics Non-Labored Respiratory Depth Normal Blood Pressure Blood Pressure [Left Arm] 158/80 H Blood Pressure Mean Blood Pressure Mean [Left Arm] 106 Pulse Oximetry 95 Oxygen Delivery Method Room Air Sepsis Recent Fever Within 48 Hours Sepsis New/Unexplained Change in Mental Status Sepsis Action Taken by Prison Medications Current Medication List: was personally reviewed by me Laboratory Data Attestation: I reviewed the patient's lab results. Result diagrams: 09/12/19 11:01 09/12/19 11:01 Lab Results 09/12/19 09/12/19 09/12/19 Range/Units 11:01 11:01 11:01 WBC 8.36 (4.8-10.8) K/uL RBC 4.32 (4.2-5.4) M/uL Hgb 13.5 (12.0-16.0) g/dL Hct 39.2 (37-47) % MCV 90.7 (80-100) fL MCH 31.3 (25-34) pg MCHC 34.4 (32-36) g/dL RDW Std Deviation 41.6 (36.4-46.3) fL RDW Coeff of Misael 12.5 (11.5-14.5) % Plt Count 277 (130-400) K/uL MPV 8.6 (7.4-10.4) fL Immature Gran % (Auto) 0.2 % Neut % (Auto) 73.5 % Lymph % (Auto) 16.7 % Lagrange % (Auto) 7.4 % Eos % (Auto) 2.0 % Baso % (Auto) 0.2 % Neut # (Auto) 6.13 (1.4-6.5) K/uL Lymph # (Auto) 1.40 (1.2-3.4) K/uL Lagrange # (Auto) 0.62 H (0.11-0.59) K/uL Eos # (Auto) 0.17 (0-0.5) K/uL Baso # (Auto) 0.02 (0-0.2) K/uL Immature Gran # (Auto) 0.02 (0.00-0.02) K/uL PT 10.3 (9.0-12.0) Seconds INR 1.0 (0.9-1.1) APTT 25.6 (21.0-31.0) Seconds PTT Ratio 0.9 Sodium 131 L (136-145) mmol/L Potassium (3.5-5.1) mmol/L Chloride 101 (98-107) mmol/L Carbon Dioxide 26 (21-32) mmol/L Anion Gap 4.0 (3-11) BUN 20 H (7-18) mg/dl Creatinine 0.96 (0.6-1.2) mg/dl Est Cr Clr Drug Dosing 36.3 ml/min Est GFR ( Amer) 62.1 Est GFR (Non-Af Amer) 53.6 BUN/Creatinine Ratio 21.1 H (10-20) Glucose 99 (70-99) mg/dl POC Glucose (70-99) mg/dl Calcium 8.9 (8.5-10.1) mg/dl Magnesium (1.8-2.4) mg/dl Total Bilirubin 0.8 (0.2-1) mg/dl AST (15-37) U/L ALT 22 (12-78) U/L Alkaline Phosphatase 58 (45-117) U/L Troponin I < 0.015 (0-0.045) ng/ml Total Protein 8.4 H (6.4-8.2) gm/dl Albumin 3.6 (3.4-5.0) gm/dl Globulin 4.8 H (2.5-4.0) gm/dl Albumin/Globulin Ratio 0.7 L (0.9-2) Digoxin (0.8-2.0) ng/ml 09/12/19 09/12/19 Range/Units 11:01 11:18 WBC (4.8-10.8) K/uL RBC (4.2-5.4) M/uL Hgb (12.0-16.0) g/dL Hct (37-47) % MCV (80-100) fL MCH (25-34) pg MCHC (32-36) g/dL RDW Std Deviation (36.4-46.3) fL RDW Coeff of Misael (11.5-14.5) % Plt Count (130-400) K/uL MPV (7.4-10.4) fL Immature Gran % (Auto) % Neut % (Auto) % Lymph % (Auto) % Lagrange % (Auto) % Eos % (Auto) % Baso % (Auto) % Neut # (Auto) (1.4-6.5) K/uL Lymph # (Auto) (1.2-3.4) K/uL [place] # (Auto) (0.11-0.59) K/uL Eos # (Auto) (0-0.5) K/uL Baso # (Auto) (0-0.2) K/uL Immature Gran # (Auto) (0.00-0.02) K/uL PT (9.0-12.0) Seconds INR (0.9-1.1) APTT (21.0-31.0) Seconds PTT Ratio Sodium (136-145) mmol/L Potassium (3.5-5.1) mmol/L Chloride (98-107) mmol/L Carbon Dioxide (21-32) mmol/L Anion Gap (3-11) BUN (7-18) mg/dl Creatinine (0.6-1.2) mg/dl Est Cr Clr Drug Dosing ml/min Est GFR ( Amer) Est GFR (Non-Af Amer) BUN/Creatinine Ratio (10-20) Glucose (70-99) mg/dl POC Glucose 105 H (70-99) mg/dl Calcium (8.5-10.1) mg/dl Magnesium (1.8-2.4) mg/dl Total Bilirubin (0.2-1) mg/dl AST (15-37) U/L ALT (12-78) U/L Alkaline Phosphatase (45-117) U/L Troponin I (0-0.045) ng/ml Total Protein (6.4-8.2) gm/dl Albumin (3.4-5.0) gm/dl Globulin (2.5-4.0) gm/dl Albumin/Globulin Ratio (0.9-2) Digoxin 0.9 (0.8-2.0) ng/ml Administered Medications Ioversol (Optiray 320 125ml) 120 ml IV ONCE PRN PRN Reason: Interaction Checking Stop: 09/16/19 10:46 Last Admin: 09/12/19 10:47 Dose: 120 ml Documented by: [id number] Discontinued Medications Alteplase, Recombinant (Activase For Stroke) 1 ea IV NOW STA; Protocol Stop: 09/12/19 11:09 Last Admin: 09/12/19 11:47 Dose: Not Given Documented by: [id number] Alteplase, Recombinant 5.2 mg/ (Syringe) 5.2 mls @ 5.2 mls/min IV ONCE ONE Stop: 09/12/19 11:19 Last Admin: 09/12/19 11:47 Dose: Not Given Documented by: [id number] Alteplase, Recombinant 47 mg/ (EMPTY BAG) 47 mls @ 47 mls/hr IV ONCE ONE Stop: 09/12/19 11:20 Last Admin: 09/12/19 11:47 Dose: Not Given Documented by: [id number] Imaging Data Radiologist's Impression: XR chest 1V portable HISTORY: 84 years-old Female weak acute weakness with strokelike symptoms COMPARISON: Chest radiograph 08/15/2018 TECHNIQUE: Portable AP view of the chest FINDINGS: Cardiomediastinal and hilar silhouettes are within normal limits. Chronic interstitial coarsening. Calcified plaque of the thoracic aortic arch. Medial lung apices are partially obscured by the patient's chin. No pneumothorax, large pleural effusion, overt pulmonary edema or airspace consolidation typical for pneumonia. Degenerative changes of the shoulders and spine. IMPRESSION: No acute process. ACT 112: Negative or not required by law. The above report was generated using voice recognition software. It may contain grammatical, syntax or spelling errors. Electronically signed by: Ed Canales M.D. 09/12/2019 11:20 AM Dictated: 09/12/19 1119 Transcribed: 09/12/[address] angio neck with con CLINICAL HISTORY: Stroke evaluation COMPARISON STUDY: Carotid ultrasound study dated 08/17/2018, CT angiography of the neck dated 08/24/2017 TECHNIQUE: CT angiography was performed from the aortic arch to the skull base. MIP imaging was performed. The patient was scanned in a dynamic helical fashion during intravenous administration of 120 cc of Optiray 320. A dose lowering technique was utilized adhering to the principles of ALARA. CT DOSE: Technique: CT angiogram of the carotid and vertebral arteries was obtained using intravenous contrast and 3-D reconstruction. NASCET criteria was utilized. Findings: There is calcified atheromatous plaque at the right carotid bifurcation and within the proximal right internal carotid artery. This results in a less than 30% diameter stenosis. There is no occlusion. There is no dissection. There is less than 50% % diameter stenosis of the left common carotid origin. There is extensive atheromatous plaque involving the left carotid bulb. This results in a less than 50% diameter stenosis. There is a dominant left vertebral artery. There is extensive plaque at the right vertebral artery origin and a stenosis is suspected. There is multifocal occlusion of of the high cervical right internal carotid with reconstitution at the C2 level. There is a persistent high-grade stenosis of the right subclavian takeoff. IMPRESSION: 1. Bilateral internal carotid artery and bulb plaque without evidence of a hemodynamically significant stenosis. 2. 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 There is occlusion of the high cervical right vertebral with distal reconstitution 3. High-grade stenosis of the right subclavian takeoff. ACT 112: Negative or not required by law. Electronically signed by: Art Rizzo M.D. 09/12/2019 11:15 AM CTA ANGIOGRAPHY OF THE HEAD CLINICAL HISTORY: Stroke evaluation. Recent fall. COMPARISON STUDY: CT a of the head December 25, 2017. MRI of the brain August 16, 2018. Head CT December 05, 2018. TECHNIQUE: Helical axial images of the head were obtained following uneventful intravenous administration of 120 cc of Optiray 320. Sagittal and coronal reconstructions were viewed as well as maximal intensity projections on an independent 3-D workstation. Automated exposure control was utilized for the study. A dose lowering technique was utilized adhering to the principles of ALARA. CT DOSE: 1023.61 mGy.cm FINDINGS: No acute intracranial hemorrhage, midline shift or mass effect is present. Mild ventricular dilatation is due to atrophy. There is extensive small vessel disease. Old left frontal lobe infarct is unchanged since head CT of December 05, 2018. The bilateral M1, M2, A1 and A2 segments are patent. There is no intraluminal thrombus or abrupt vessel cut off. Posterior circulation is also intact. There is mild plaque within the bilateral cavernous carotids. Left vertebral artery is dominant. No intracranial aneurysm is identified. IMPRESSION: Mild atheromatous plaque. Unremarkable CTA of the head. ACT 112: Negative or not required by law. Electronically signed by: Jerrell Mancia M.D. 09/12/2019 11:08 AM Dictated: 09/12/19 1103 Transcribed: 09/12/[address] head/brain wo con CLINICAL HISTORY: Stroke evaluation COMPARISON STUDY: 12/05/2018 TECHNIQUE: Axial CT of the brain is performed from the vertex to the skull base. IV contrast was not administered for this examination. A dose lowering technique was utilized adhering to the principles of ALARA. CT DOSE: FINDINGS: No intra or extra-axial mass lesions are visualized. There is no CT evidence of acute cortical infarction. There is no evidence of midline shift. There is no acute hemorrhage. No calvarial fractures are visualized. There are moderately extensive white matter hypodensities likely on a small vessel basis. There is an old left frontal cortical infarct. There is an area of encephalomalacia in the region of the prior right frontal hemorrhage. There is mild ventricular dilatation which is felt to be secondary to volume loss There is no evidence of acute sinusitis IMPRESSION: No acute intracranial findings ACT 112: Negative or not required by law. Electronically signed by: Art Rizzo M.D. 09/12/2019 10:55 AM Dictated: 09/12/19 1053 Transcribed: 09/12/191052 Blood Pressure Blood Pressure Findings: Elevated blood pressure Blood Pressure Disposition: further management by hospitalist Discharge Plan Visit Data Chief Complaint: Stroke Alert ED Provider: Cody Amaro Discharge Problem: Weakness, Right arm weakness, Acute alteration in mental status Patient Disposition: Being Evaluated by Hospitalist Condition: Good Forms Stand Alone Forms: My [facility] [place] Prescriptions Prescriptions: No Action levothyroxine 75 mcg tablet 75 mcg PO QAM Qty: 90 RF: 2 hydrocortisone [Anti-Itch (HC)] 1 % cream 1 appln TOP BID PRN (Reason: skin irritation) Qty: 42 RF: 2 metoprolol succinate 25 mg tablet extended release 24 hr 25 mg PO DAILY Qty: 90 RF: 3 digoxin 125 mcg (0.125 mg) tablet 125 mcg PO DAILY Qty: 90 RF: 3 amlodipine 2.5 mg tablet 2.5 mg PO DAILY Qty: 90 RF: 3 cyanocobalamin (vitamin B-12) 500 mcg tablet 1,000 mcg PO DAILY RF: 0 aspirin [Adult Aspirin Regimen] 81 mg tablet,delayed release (DR/EC) 81 mg PO DAILY RF: 0 acetaminophen [Tylenol Extra Strength] 500 mg Tablet 1,000 mg PO TID MDD 3 gms APAP/24 hrs RF: 0 ferrous sulfate 325 mg (65 mg iron) Tablet,Delayed Release (Dr/Ec) 325 mg PO QAM RF: 0 Referrals Referrals: Aleksandar Beckman MD [Primary Care Provider] -
--- NOTE | 2019-09-12 11:16 | CT Scan Report ---
CT angio neck with con CLINICAL HISTORY: Stroke evaluation COMPARISON STUDY: Carotid ultrasound study dated 08/17/2018, CT angiography of the neck dated 8 TECHNIQUE: CT angiography was performed from the aortic arch to the skull base. MIP imaging was perfo rmed. The patient was scanned in a dynamic helical fashion during intravenous administration of 120 c c of Optiray 320. A dose lowering technique was utilized adhering to the principles of ALARA. CT DOSE: Technique: CT angiogram of the carotid and vertebral arteries was obtained using intravenous contrast and 3-D reconstruction. NASCET criteria was utilized. Findings: There is calcified atheromatous plaque at the right carotid bifurcation and within the proximal right internal carotid artery. This results in a less than 30% diameter stenosis. There is no occlusion. T here is no dissection. There is less than 50% % diameter stenosis of the left common carotid origin. There is extensive athe romatous plaque involving the left carotid bulb. This results in a less than 50% diameter stenosis. There is a dominant left vertebral artery. There is extensive plaque at the right vertebral artery or igin and a stenosis is suspected. There is multifocal occlusion of of the high cervical right interna l carotid with reconstitution at the C2 level. There is a persistent high-grade stenosis of the right subclavian takeoff. IMPRESSION: 1. Bilateral internal carotid artery and bulb plaque without evidence of a hemodynamically significan t stenosis. 2. 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 There is occlusion of the high cervical right vertebral with distal reconstitution 3. High-grade stenosis of the right subclavian takeoff. ACT 112: Negative or not required by law. Electronically signed by: Art Rizzo M.D. 09/12/2019 11:15 AM
[2019-09-12] MEDS ORDERED: ALTEPLASE BOLUS IV ONE (11:18)
[2019-09-12] MEDS ORDERED: ALTEPLASE IV ONE (11:19)
[2019-09-12] MEDS ORDERED: PRIMARY PLUMSET, PE LINED TUBING, 113 IN, NON-DEHP (2260-0500) IV ONE (11:19)
[2019-09-12] MEDS ORDERED: RECOMBINANT IV ONE (11:19)
--- NOTE | 2019-09-12 11:21 | XRay Report ---
XR chest 1V portable HISTORY: 84 years-old Female weak acute weakness with strokelike symptoms COMPARISON: Chest radiograph 08/15/2018 TECHNIQUE: Portable AP view of the chest FINDINGS: Cardiomediastinal and hilar silhouettes are within normal limits. Chronic interstitial coarsening. Ca lcified plaque of the thoracic aortic arch. Medial lung apices are partially obscured by the patient' s chin. No pneumothorax, large pleural effusion, overt pulmonary edema or airspace consolidation typi nancy for pneumonia. Degenerative changes of the shoulders and spine. IMPRESSION: No acute process. ACT 112: Negative or not required by law. The above report was generated using voice recognition software. It may contain grammatical, syntax o r spelling errors. Electronically signed by: Ed Canales M.D. 09/12/2019 11:20 AM
[2019-09-12 11:23] LABS: Basophils # (auto) 0.02 K/uL (0-0.2); Basophils % (auto) 0.2 %; Eosinophils # (auto) 0.17 K/uL (0-0.5); Hematocrit (blood only) 39.2 % (37-47); Hemoglobin 13.5 g/dL (12.0-16.0); Immature Granulocytes # (auto) 0.02 K/uL (0.00-0.02); Immature Granulocytes % (auto) 0.2 %; Lymphocytes % (auto) 16.7 %; Mean Corpuscular Hemoglobin 31.3 pg (25-34); Mean Corpuscular Hgb Conc 34.4 g/dL (32-36); Mean Corpuscular Volume 90.7 fL (80-100); Mean Platelet Volume 8.6 fL (7.4-10.4); Monocytes # (auto) 0.62 K/uL (0.11-0.59); Monocytes % (auto) 7.4 %; Neutrophils # (auto) 6.13 K/uL (1.4-6.5); Neutrophils % (auto) 73.5 %; Platelet Count 277 K/uL (130-400); RDW Coefficient of Variation 12.5 % (11.5-14.5); RDW Standard Deviation 41.6 fL (36.4-46.3); Red Blood Count 4.32 M/uL (4.2-5.4); White Blood Count 8.36 K/uL (4.8-10.8)
[2019-09-12 11:35] LABS: Partial Thromboplastin Ratio 0.9; Partial Thromboplastin Time 25.6 Seconds (21.0-31.0); Prothrombin Time 10.3 Seconds (9.0-12.0)
[2019-09-12 11:49] LABS: Alanine Aminotransferase 22 U/L (12-78); Albumin Globulin Ratio 0.7 (0.9-2); Albumin Level 3.6 gm/dl (3.4-5.0); Alkaline Phosphatase 58 U/L (45-117); BUN Creatinine Ratio 21.1 (10-20); Bilirubin,Total 0.8 mg/dl (0.2-1); Blood Urea Nitrogen 20 mg/dl (7-18); Calcium 8.9 mg/dl (8.5-10.1); Carbon Dioxide 26 mmol/L (21-32); Chloride 101 mmol/L (98-107); Creatinine Clr Calc Pharmacy 36.3 ml/min; Est GFR (African American) 62.1; Est GFR (Non-African American) 53.6; Globulin 4.8 gm/dl (2.5-4.0); Glucose 99 mg/dl (70-99); Sodium 131 mmol/L (136-145); Total Protein 8.4 gm/dl (6.4-8.2); Troponin I < 0.015 ng/ml (0-0.045)
[2019-09-12 12:31] LABS: Potassium 3.8 mmol/L (3.5-5.1)
[2019-09-12 12:37] LABS: Magnesium 2.3 mg/dl (1.8-2.4)
--- NOTE | 2019-09-12 12:53 | History & Physical Report ---
Date of Service September 12, 2019 Assessment & Plan (1) Right arm weakness: Here for stroke work-up for right upper extremity and possibly right lower extremity weakness along with altered mental status and expressive aphasia. She has a history of paroxysmal atrial fibrillation is no longer on anticoagulation due to recurrent falls with resultant traumatic intracranial hemorrhage -Admit to PCU -Check MRI of the brain -Check echocardiogram -Admit to telemetry for cardiac arrhythmia monitoring-she has a known history of atrial fibrillation -Neurology consultation -Continue home aspirin for now but if found stroke, consider adding on Plavix versus converting back to Eliquis as before -Permissive hypertension-we will hold home amlodipine and metoprolol -Check lipid panel in the morning and start high intensity statin if indicated -Check hemoglobin A1c in the morning PT/OT/speech therapy consultations -Continue neuro checks every 2 hours -Check TSH in the morning (2) Acute alteration in mental status: Possibly due to stroke versus seizure as she has no memory of the event. reports she is back to her baseline at the time of admission She does have encephalomalacia on CT from previous intracranial hemorrhage and perhaps this puts her at risk for seizure -Telemetry stroke consult from [facility] recommended checking EEG -Ordered EEG --Stroke work-up as above -Check urinalysis for UTI, otherwise no evidence of infection -Check TSH 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 Sodium here is mildly low at 131 which is around her baseline -Check BMP in the morning (6) Afib: With a history of paroxysmal atrial fibrillation no longer on anticoagulation as above for history of recurrent falls with traumatic intracranial hemorrhage In normal sinus rhythm at the time of admission -Monitor on telemetry -Holding metoprolol for permissive hypertension but watch for rapid atrial fibrillation -If has stroke, consider restarting apixaban and consultation with cardiology and neurology and in discussion with patient and her regarding risk of recurrent intracranial hemorrhage in the setting of recurrent falls history (7) Hypothyroid: Check TSH in the morning -Continue home levothyroxine (8) History of intracranial hemorrhage: As noted above (9) Overactive bladder: Noted in the chart but not on medication for this (10) DVT prophylaxis: SCDs Disposition-admit to PCU History of Present Illness Chief Complaint: Right-sided weakness Primary Care Provider: Aleksandar Beckman MD This patient is an 84-year-old female who is a long-term resident of [facility] with a history of CVA, traumatic intracranial hemorrhage, CAD, HTN, AARTI, GI bleed, dementia, hypothyroidism, SIADH, atrial fibrillation no longer on anticoagulation due to multiple recurrent falls with ICH, hypotension/autonomic dysfunction, overactive bladder, lumbar spinal stenosis with chronic pain, and syncope who presents to the ER with right-sided weakness and confusion with difficulty speaking. She was slightly agitated upon arrival but her right-sided weakness is improved throughout her ER course and she was not given TPA. A tele-stroke consult was performed with [facility] and they suspected that there was a possibility of a seizure given that the patient had no memory of the events. Patient still was slow to respond but was able to converse with me when I saw her. Her weakness was completely resolved for the most part on the right side, and her noted that she was back to her baseline mental status at that point. She told me that she remembered eating breakfast that morning and then remembered that she asked for help as she felt something was wrong. The next and she remembers is being in the emergency room. She was not noted to lose consciousness. CT of the head in the ER was without acute issue, CT angiogram of the head and neck showed mild atheromatous plaque of the head and high-grade stenosis of the right vertebral artery origin and occlusion of the high cervical right vertebral artery with distal reconstitution as well as high-grade stenosis of the right subclavian takeoff. She will be admitted for further work-up for stroke and possible seizure. Allergies Allergy/AdvReac Type Severity Reaction Status Date / Time amoxicillin Allergy Intermediate VERY SICK Verified 09/12/19 12:04 TO HER STOMACH atorvastatin Allergy Intermediate RASH Verified 09/12/19 12:04 clavulanic acid Allergy Intermediate VERY SICK Verified 09/12/19 12:04 TO HER STOMACH tetracycline Allergy Intermediate ARMS Verified 09/12/19 12:04 SWELLED UP tramadol Allergy Intermediate MAKES HER Verified 09/12/19 12:04 DIZZY AND CRAZEY SHANTEL Inhibitors Allergy Mild NOT SURE Verified 09/12/19 12:04 OF REACTIONS erythromycin base Allergy Unknown UPSET Verified 09/12/19 12:04 STOMACH rivaroxaban Allergy Unknown RASH Verified 09/12/19 12:04 zolpidem Allergy Unknown Unknown Verified 09/12/19 12:04 simvastatin Allergy Unknown Verified 09/12/19 12:04 Tetracyclines Allergy Unknown Verified 09/12/19 12:04 gabapentin AdvReac Unknown Unknown Verified 09/12/19 12:04 Home Medications Home Medications Medication Instructions Recorded Confirmed Type acetaminophen [Tylenol Extra 1,000 mg PO TID MDD 3 gms APAP/24 12/25/17 09/12/19 History Strength] hrs ferrous sulfate 325 mg PO QAM 12/25/17 09/12/19 History cyanocobalamin (vitamin B-12) 500 1,000 mcg PO DAILY tab 08/01/18 09/12/19 History mcg tablet levothyroxine 75 mcg tablet 75 mcg PO QAM #90 tab 12/17/18 09/12/19 Rx aspirin 81 mg tablet,delayed 81 mg PO DAILY 01/02/19 09/12/19 History release hydrocortisone 1 % topical cream 1 appln TOP BID PRN #42 gm 01/03/19 09/12/19 Rx metoprolol succinate 25 mg 25 mg PO DAILY #90 tab 03/04/19 09/12/19 Rx tablet,extended release 24 hr digoxin 125 mcg (0.125 mg) tablet 125 mcg PO DAILY #90 tab 03/12/19 09/12/19 Rx amlodipine 2.5 mg tablet 2.5 mg PO DAILY #90 tab 07/25/19 09/12/19 Rx Past Med/Surg History Medical History Abnormal electrocardiogram (Resolved) Acute electrocardiogram changes (Resolved) Afib (Chronic) Antidiuretic hormone, inappropriate secretion (Chronic) GI bleed (Resolved) History of intracranial hemorrhage Hypokalemia (Chronic) Hypothyroid (Chronic) Intracranial hematoma (Inactive) Lumbar spinal stenosis (Chronic) Mild cognitive impairment (Chronic) Overactive bladder Paroxysmal atrial flutter (Chronic) Right-sided lacunar stroke (Chronic) Stroke (Inactive) Stroke-like episode (Resolved) Symptomatic anemia (Chronic) Syncope (Resolved) TIA (transient ischemic attack) (Resolved) UTI (urinary tract infection) (Resolved) Weight loss (Inactive) Surgical History History of appendectomy History of breast surgery puncture aspiiration of cyst History of colonoscopy History of hysterectomy History of lumbar laminectomy Family History Unknown Migraine headache Arteriosclerotic cardiovascular disease (ASCVD) Colon cancer Father Acute myocardial infarction Mother Hypertension Cardiac disorder Social History Smoking Status: Former smoker Second Hand Exposure: No; Hx Alcohol Use: No Hx Substance Use: No Preferred Language: Malay Communication Ability: Effective Visual Impairment: No Limitations Hearing Ability: Normal [place] [employer] Required: No Beliefs That Will Affect Care: None marital status: Current Living Situation: Alf Current Living Situation Comment: [facility] current occupational status: retired Other Information That Helps Us Care for You: No Feels Safe at Home: Yes Safety Concerns: Feels Safe At This Time Childhood Exposure to Second-Hand Smoke: Yes caffeine: Yes Dental Care, Regularly: Yes Physical Activity Frequency: Does not Exercise Seatbelt Use: always Sunscreen Use: No Review of Systems Review of Systems: All systems reviewed & are unremarkable except as noted in HPI & below Denies fevers or chills, denies chest pain or shortness of breath, no nausea or vomiting, no abdominal pain. She cannot remember when her last bowel movement was. Denies headache or vision changes Physical Exam Constitutional: + thin and cooperative; no acute distress, not ill appearing and not lethargic Eyes: PERRL, conjunctivae normal, anicteric sclerae ENMT: external ear and nose normal, oropharynx normal Neck: trachea midline, no thyromegaly Respiratory: normal respiratory effort, lungs clear to auscultation Cardiovascular: RRR, no murmur, no edema Chest (Breasts): Chest: normal inspection of chest Gastrointestinal (Abdomen): normal bowel sounds, soft, nontender, no hepatosplenomegaly Musculoskeletal: Extremities: extremities normal to inspection; no cyanosis and no clubbing Skin: no rashes, warm and dry Neurologic: CN's II-XI intact bilaterally, + focal motor deficit (4+/5 strength throughout right upper extremity, but overall generalized weakness 5- /5), awake and + confused (Mild, did not remember how she got here and could not tell me where she lived) Motor/Sensory: no tremor, no pronator drift and no sensory deficit (Sensation intact to light touch throughout upper and lower extremities bilaterally) Coordination: + abnormal rapid alternating movements (Bilateral, had trouble following complex commands) Psychiatric: Orientation: alert, oriented to person, oriented to place and cooperative Eye Contact: + fair eye contact Speech: + abnormal rate/rhythm/volume of speech (Slow speech) Affect: + flat affect Lymphatic: no lymphedema Results & Data Results & Data ([facility]) Vital Signs (Past 12 Hours) Vital Signs Temp Pulse Pulse Resp BP BP Pulse Ox 09/12/19 12:18 86 18 144/89 H 95 09/12/19 12:05 89 16 144/86 H 95 09/12/19 11:53 86 18 167/84 H 96 09/12/19 11:28 89 18 158/80 H 95 09/12/19 11:04 93 H 18 160/82 H 95 09/12/19 11:01 36.5 C 98 H 18 160/82 H 93 Laboratory Results 09/12/19 09/12/19 09/12/19 Range/Units 16:00 12:12 11:18 WBC (4.8-10.8) K/uL RBC (4.2-5.4) M/uL Hgb (12.0-16.0) g/dL Hct (37-47) % MCV (80-100) fL MCH (25-34) pg MCHC (32-36) g/dL RDW Std Deviation (36.4-46.3) fL RDW Coeff of Misael (11.5-14.5) % Plt Count (130-400) K/uL MPV (7.4-10.4) fL Immature Gran % (Auto) % Neut % (Auto) % Lymph % (Auto) % [place] % (Auto) % Eos % (Auto) % Baso % (Auto) % Neut # (Auto) (1.4-6.5) K/uL Lymph # (Auto) (1.2-3.4) K/uL [place] # (Auto) (0.11-0.59) K/uL Eos # (Auto) (0-0.5) K/uL Baso # (Auto) (0-0.2) K/uL Immature Gran # (Auto) (0.00-0.02) K/uL PT (9.0-12.0) Seconds INR (0.9-1.1) APTT (21.0-31.0) Seconds PTT Ratio Sodium (136-145) mmol/L Potassium 3.8 (3.5-5.1) mmol/L Chloride (98-107) mmol/L Carbon Dioxide (21-32) mmol/L Anion Gap (3-11) BUN (7-18) mg/dl Creatinine (0.6-1.2) mg/dl Est Cr Clr Drug Dosing ml/min Est GFR ( Amer) Est GFR (Non-Af Amer) BUN/Creatinine Ratio (10-20) Glucose (70-99) mg/dl POC Glucose 105 H (70-99) mg/dl Calcium (8.5-10.1) mg/dl Magnesium 2.3 (1.8-2.4) mg/dl Total Bilirubin (0.2-1) mg/dl AST 20 (15-37) U/L ALT (12-78) U/L Alkaline Phosphatase (45-117) U/L Troponin I (0-0.045) ng/ml Total Protein (6.4-8.2) gm/dl Albumin (3.4-5.0) gm/dl Globulin (2.5-4.0) gm/dl Albumin/Globulin Ratio (0.9-2) Nasal Screen MRSA (PCR) Negative (Negative) Digoxin (0.8-2.0) ng/ml Blood Type Antibody Screen 09/12/19 09/12/19 09/12/19 Range/Units 11:01 11:01 11:01 WBC (4.8-10.8) K/uL RBC (4.2-5.4) M/uL Hgb (12.0-16.0) g/dL Hct (37-47) % MCV (80-100) fL MCH (25-34) pg MCHC (32-36) g/dL RDW Std Deviation (36.4-46.3) fL RDW Coeff of Misael (11.5-14.5) % Plt Count (130-400) K/uL MPV (7.4-10.4) fL Immature Gran % (Auto) % Neut % (Auto) % Lymph % (Auto) % [place] % (Auto) % Eos % (Auto) % Baso % (Auto) % Neut # (Auto) (1.4-6.5) K/uL Lymph # (Auto) (1.2-3.4) K/uL [place] # (Auto) (0.11-0.59) K/uL Eos # (Auto) (0-0.5) K/uL Baso # (Auto) (0-0.2) K/uL Immature Gran # (Auto) (0.00-0.02) K/uL PT 10.3 (9.0-12.0) Seconds INR 1.0 (0.9-1.1) APTT 25.6 (21.0-31.0) Seconds PTT Ratio 0.9 Sodium 131 L (136-145) mmol/L Potassium (3.5-5.1) mmol/L Chloride 101 (98-107) mmol/L Carbon Dioxide 26 (21-32) mmol/L Anion Gap 4.0 (3-11) BUN 20 H (7-18) mg/dl Creatinine 0.96 (0.6-1.2) mg/dl Est Cr Clr Drug Dosing 36.3 ml/min Est GFR ( Amer) 62.1 Est GFR (Non-Af Amer) 53.6 BUN/Creatinine Ratio 21.1 H (10-20) Glucose 99 (70-99) mg/dl POC Glucose (70-99) mg/dl Calcium 8.9 (8.5-10.1) mg/dl Magnesium (1.8-2.4) mg/dl Total Bilirubin 0.8 (0.2-1) mg/dl AST (15-37) U/L ALT 22 (12-78) U/L Alkaline Phosphatase 58 (45-117) U/L Troponin I < 0.015 (0-0.045) ng/ml Total Protein 8.4 H (6.4-8.2) gm/dl Albumin 3.6 (3.4-5.0) gm/dl Globulin 4.8 H (2.5-4.0) gm/dl Albumin/Globulin Ratio 0.7 L (0.9-2) Nasal Screen MRSA (PCR) (Negative) Digoxin 0.9 (0.8-2.0) ng/ml Blood Type Antibody Screen 09/12/19 09/12/19 Range/Units 11:01 11:01 WBC 8.36 (4.8-10.8) K/uL RBC 4.32 (4.2-5.4) M/uL Hgb 13.5 (12.0-16.0) g/dL Hct 39.2 (37-47) % MCV 90.7 (80-100) fL MCH 31.3 (25-34) pg MCHC 34.4 (32-36) g/dL RDW Std Deviation 41.6 (36.4-46.3) fL RDW Coeff of Misael 12.5 (11.5-14.5) % Plt Count 277 (130-400) K/uL MPV 8.6 (7.4-10.4) fL Immature Gran % (Auto) 0.2 % Neut % (Auto) 73.5 % Lymph % (Auto) 16.7 % [place] % (Auto) 7.4 % Eos % (Auto) 2.0 % Baso % (Auto) 0.2 % Neut # (Auto) 6.13 (1.4-6.5) K/uL Lymph # (Auto) 1.40 (1.2-3.4) K/uL [place] # (Auto) 0.62 H (0.11-0.59) K/uL Eos # (Auto) 0.17 (0-0.5) K/uL Baso # (Auto) 0.02 (0-0.2) K/uL Immature Gran # (Auto) 0.02 (0.00-0.02) K/uL PT (9.0-12.0) Seconds INR (0.9-1.1) APTT (21.0-31.0) Seconds PTT Ratio Sodium (136-145) mmol/L Potassium (3.5-5.1) mmol/L Chloride (98-107) mmol/L Carbon Dioxide (21-32) mmol/L Anion Gap (3-11) BUN (7-18) mg/dl Creatinine (0.6-1.2) mg/dl Est Cr Clr Drug Dosing ml/min Est GFR ( Amer) Est GFR (Non-Af Amer) BUN/Creatinine Ratio (10-20) Glucose (70-99) mg/dl POC Glucose (70-99) mg/dl Calcium (8.5-10.1) mg/dl Magnesium (1.8-2.4) mg/dl Total Bilirubin (0.2-1) mg/dl AST (15-37) U/L ALT (12-78) U/L Alkaline Phosphatase (45-117) U/L Troponin I (0-0.045) ng/ml Total Protein (6.4-8.2) gm/dl Albumin (3.4-5.0) gm/dl Globulin (2.5-4.0) gm/dl Albumin/Globulin Ratio (0.9-2) Nasal Screen MRSA (PCR) (Negative) Digoxin (0.8-2.0) ng/ml Blood Type O Positive Antibody Screen NEGATIVE Diagnostic Findings CT head noncontrast: FINDINGS: No intra or extra-axial mass lesions are visualized. There is no CT evidence of acute cortical infarction. There is no evidence of midline shift. There is no acute hemorrhage. No calvarial fractures are visualized. There are moderately extensive white matter hypodensities likely on a small vessel basis. There is an old left frontal cortical infarct. There is an area of encephalomalacia in the region of the prior right frontal hemorrhage. There is mild ventricular dilatation which is felt to be secondary to volume loss There is no evidence of acute sinusitis IMPRESSION: No acute intracranial findings CT angiogram head: FINDINGS: No acute intracranial hemorrhage, midline shift or mass effect is present. Mild ventricular dilatation is due to atrophy. There is extensive small vessel disease. Old left frontal lobe infarct is unchanged since head CT of December 05, 2018. The bilateral M1, M2, A1 and A2 segments are patent. There is no intraluminal thrombus or abrupt vessel cut off. Posterior circulation is also intact. There is mild plaque within the bilateral cavernous carotids. Left vertebral artery is dominant. No intracranial aneurysm is identified. IMPRESSION: Mild atheromatous plaque. Unremarkable CTA of the head. CT angiogram neck: Findings: There is calcified atheromatous plaque at the right carotid bifurcation and within the proximal right internal carotid artery. This results in a less than 30% diameter stenosis. There is no occlusion. There is no dissection. There is less than 50% % diameter stenosis of the left common carotid origin. There is extensive atheromatous plaque involving the left carotid bulb. This results in a less than 50% diameter stenosis. There is a dominant left vertebral artery. There is extensive plaque at the right vertebral artery origin and a stenosis is suspected. There is multifocal occlusion of of the high cervical right internal carotid with reconstitution at the C2 level. There is a persistent high-grade stenosis of the right subclavian takeoff. IMPRESSION: 1. Bilateral internal carotid artery and bulb plaque without evidence of a hemodynamically significant stenosis. 2. 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 There is occlusion of the high cervical right vertebral with distal reconstitution 3. High-grade stenosis of the right subclavian takeoff. Chest x-ray XR chest 1V portable HISTORY: 84 years-old Female weak acute weakness with strokelike symptoms COMPARISON: Chest radiograph 08/15/2018 TECHNIQUE: Portable AP view of the chest FINDINGS: Cardiomediastinal and hilar silhouettes are within normal limits. Chronic interstitial coarsening. Calcified plaque of the thoracic aortic arch. Medial lung apices are partially obscured by the patient's chin. No pneumothorax, large pleural effusion, overt pulmonary edema or airspace consolidation typical for pneumonia. Degenerative changes of the shoulders and spine. IMPRESSION: No acute process. ECG Additional Comments: ECG on 09/12/2019 at 1131 with normal sinus rhythm, old septal infarct, diffuse nonspecific ST abnormality, no change from previous Code Status & VTE Plan Code Status Full code VTE Prophylaxis Plan VTE Prophylaxis will be ordered: Yes PG Care Time/CCT Total # of Minutes Spent Total Time Spent with Patient: Total time spent is greater than 50% in coordination of care (as documented) at patient's floor/unit and/or counseling patient: Coding Level of Care Code 11788 Initial Inpt Care Lvl 3 Diagnoses Right arm weakness R29.898 Acute alteration in mental status R41.82 Mild cognitive impairment G31.84 Hypertension I10 Hypertension type: unspecified Antidiuretic hormone, inappropriate secretion E22.2 Afib I48.0 Atrial fibrillation type: paroxysmal Hypothyroid E03.9 Hypothyroidism type: acquired History of intracranial hemorrhage Z86.79 Overactive bladder N32.81 DVT prophylaxis Z29.9 (1) Hypertension Hypertension type: unspecified Qualified Code(s): I10 - Essential (primary) hypertension (2) Afib Atrial fibrillation type: paroxysmal Qualified Code(s): I48.0 - Paroxysmal atrial fibrillation (3) Hypothyroid Hypothyroidism type: acquired Qualified Code(s): E03.9 - Hypothyroidism, unspecified
[2019-09-12] MEDS ORDERED: PHARMACIST DISCHARGE MED REC CONSULT PRN (15:18)
--- NOTE | 2019-09-12 15:47 | XCELERA ---
[id number]
[2019-09-12] MEDS: ACETAMINOPHEN 500 MG TAB PO SCH ×2 (16:08→21:21)
--- NOTE | 2019-09-12 16:22 | Electrocardiogram Report ---
Test Reason : Blood Pressure : / mmHG Vent. Rate : 093 BPM Atrial Rate : 093 BPM P-R Int : 150 ms QRS Dur : 078 ms QT Int : 356 ms P-R-T Axes : 000 052 081 degrees QTc Int : 442 ms Normal sinus rhythm Old Septal infarct (cited on or before 02-NOV-2017) Diffuse Nonspecific ST abnormality Abnormal ECG When compared with ECG of 05-DEC-2018 20:04, No significant change Confirmed by Fly Cao ([id number]) on 09/12/2019 4:21:37 PM Referred By: REFERRED SELF Confirmed By:Fly Cao
[2019-09-12] MEDS ORDERED: GADOBUTROL 65ML VIAL IV ONE (19:48)
--- NOTE | 2019-09-12 19:56 | Magnetic Resonance Report ---
MR brain wo/w con CLINICAL HISTORY: stroke symptoms COMPARISON STUDY: 08/16/2018 TECHNIQUE: Utilizing a 1.5 Mildred magnet and dedicated coil, multiplanar, multiecho imaging of the br ain was performed pre and postcontrast administration. IV administration of 10.0 mL of Gadavist cont rast was uneventful. FINDINGS: Diffusion images show several small acute infarcts over the left and to a lesser extent rig ht parietal convexity. These measure up to 1 cm maximum dimension. Mid and lower aspects of the brain show no additional focus of acute ischemic change. The findings of focal acute ischemic change in the prior study are no longer identified. There are findings of age-related chronic small vessel change as well as atrophy. Postcontrast images are considered negative for enhancing lesion. The sella and parasellar regions are unremarkable. IMPRESSION: 1. Several small acute infarcts of the left and to a lesser extent right parietal convexities. 2. These are most consistent with that of small embolic or watershed type infarct. 3. Stable findings of atrophy and age-related chronic small vessel change. 4. No abnormal postcontrast enhancement. ACT 112: Negative or not required by law. The above report was generated using voice recognition software. It may contain grammatical, syntax or spelling errors. Electronically signed by: Kavon Bains M.D. 09/12/2019 7:55 PM
[2019-09-12] MEDS ORDERED: HydrALAZINE HCL 20 MG/ML VIAL IV PRN (21:12)
[2019-09-13] MEDS: LEVOTHYROXINE SODIUM 75 MCG TABLET PO SCH (06:18)
[2019-09-13 07:13] LABS: Basophils # (auto) 0.02 K/uL (0-0.2); Basophils % (auto) 0.3 %; Eosinophils % (auto) 3.4 %; Hemoglobin 13.1 g/dL (12.0-16.0); Immature Granulocytes # (auto) 0.01 K/uL (0.00-0.02); Immature Granulocytes % (auto) 0.2 %; Lymphocytes # (auto) 1.32 K/uL (1.2-3.4); Lymphocytes % (auto) 22.5 %; Mean Corpuscular Hemoglobin 31.5 pg (25-34); Mean Corpuscular Hgb Conc 34.5 g/dL (32-36); Mean Corpuscular Volume 91.3 fL (80-100); Mean Platelet Volume 8.7 fL (7.4-10.4); Monocytes # (auto) 0.56 K/uL (0.11-0.59); Monocytes % (auto) 9.6 %; Neutrophils # (auto) 3.75 K/uL (1.4-6.5); Platelet Count 260 K/uL (130-400); RDW Coefficient of Variation 12.7 % (11.5-14.5); RDW Standard Deviation 42.2 fL (36.4-46.3); Red Blood Count 4.16 M/uL (4.2-5.4); White Blood Count 5.86 K/uL (4.8-10.8)
[2019-09-13 07:42] LABS: BUN Creatinine Ratio 28.4 (10-20); Calcium 9.1 mg/dl (8.5-10.1); Creatinine Clr Calc Pharmacy 36.2 ml/min; Est GFR (Non-African American) 58.7; Potassium 3.6 mmol/L (3.5-5.1)
[2019-09-13 07:53] LABS: Thyroid Stimulating Hormone 1.87 uIu/ml (0.300-4.500)
[2019-09-13 08:06] LABS: Estimated Average Glucose 108 mg/dl; Hemoglobin A1C 5.4 % (4.5-5.6)
[2019-09-13] MEDS: ACETAMINOPHEN 500 MG TAB PO SCH ×3 (08:24→20:36)
[2019-09-13] MEDS: FERROUS SULFATE 325 MG TAB PO SCH (08:24)
[2019-09-13] MEDS: CYANOCOBALAMIN 500 MCG TABLET (VITAMIN B-12) PO SCH (08:24)
[2019-09-13] MEDS: DIGOXIN 0.125 MG TAB PO SCH (08:24)
[2019-09-13] MEDS: ASPIRIN 81 MG ECTAB PO SCH (08:24)
--- NOTE | 2019-09-13 08:54 | Neurology Consultation ---
Date of Consultation September 13, 2019 Assessment & Plan (1) Acute CVA (cerebrovascular accident): (2) Acute alteration in mental status: (3) Acute right hemiparesis: (4) Mild cognitive impairment: (5) Carotid stenosis: (6) Chronic cerebral ischemia: (7) Afib: this patient had the acute onset of altered mental status, speech issues, and right-sided weakness September 11. Currently, she has weakness in general although the right side is worse without obvious speech issues. Her mental status currently is more consistent with dementia than a delirium. She has an underlying dementia with marked cerebral atrophy and small vessel ischemic disease by MRI. 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 She has no history of observed seizures. EEG today showed no focal abnormalities or potentially epileptogenic discharges (only mildly slow consistent with her mental status ). She has a history of lacunar infarcts in the past and a small right-sided intraparenchymal cerebral hemorrhage after a fall back in November of 2018. she has not been on any anticoagulant or antiplatelet medication except 81 milligram aspirin tablet daily. MRI of the brain shows multiple infarcts hi hi in the parietal head region on the left including some subcortical and cortical spots. There is 1 acute infarct in the subcortical white matter of the high right parietal head region. I reviewed these films with Dr. Mancia and I believe these are more consistent with embolic phenomenon than with watershed infarct. Echocardiogram did not show any source of embolus and she has been in normal sinus rhythm throughout her hospital stay. Patient has a history of left carotid stenosis by ultrasound back in the summer. CT angiography of the head and neck were remarkable for a right vertebral stenosis both at the origin and high in the cervical region. There was no significant stenosis present in the carotid arteries although there was considerable plaque and slow flow. Again I reviewed these with Dr. Mancia. Recommendations: 1. control blood pressure as you are doing , aiming for a mean arterial pressure of 100. 2. the patient has elevated lipids. She is not a high dose statin candidate and lieu of her age and history of intercerebral hemorrhage. She would be a candidate for low to normal doses of statin however. 3. normally, I would initiate an anticoagulant in this patient in lieu of her multiple embolic strokes. However, with her history of GI bleeding and intra cerebral hemorrhage (post fall) I am hesitant to initiate an anticoagulant. She is still falling as recently as 2 days ago injuring her right foot. therefore, she is a treatment dilemma 4. She has considerable small vessel ischemic disease and is an antiplatelet candidate. I would switch her aspirin to 75 milligrams clopidogrel daily. 5. Increase activity as able and obtain physical, occupational, and speech therapy consults. Overall, I spent a total of 100 minutes with this case including review of records, review of MRI and CT angiography films, direct evaluation the patient at bedside, and discussing the case with the patient and RN at bedside, Dr. Mancia, and Dr. Olivares, including differential diagnosis and treatment options. History of Present Illness Reason for Consultation: Patient is an 84 year old, who I was asked to see at the request of Dr. Del Real, for neurologic consultation regarding stroke Requesting Physician: Dr. Del Real Attending Physician: Antwan Olivares History of Present Illness this patient has a history of atrial fibrillation and GI bleed in the past. She has hypertension and hypothyroidism. She also carries a diagnosis of SIADH. In August of 2018 she had a right parietal ( +2 smaller right cerebellar strokes ) CVA resulting in right jacob paresis. She saw Dr. Olson and she was discharged on Plavix. At the time a left internal carotid stenosis of 50-69 percent was noted. In November of 2018 she had a fall and a CT scan in the emergency room showed a small right frontal intraparenchymal hemorrhage. She was transferred and this resolved. Currently, she is on 81 milligram aspirin tablet, amlodipine, digoxin, levothyroxine, and metoprolol. She currently resides at [facility]. At approximately 0900 September 11 she was noted to have confusion and then speech problems. Right arm and leg were noted to be weak. She arrived to the emergency room September 11 at 1101 with a temperature 36.5, pulse 98 and regular, respiratory rate 18, blood pressure 180/82, and O2 saturation 93 percent. On exam she was anxious and had a gaze preference to the left neglect of the right and weakness in the right arm and leg. CBC was unremarkable. Chem profile with a sodium of 131 and digitoxin level of 0.9. Chest x-ray was unremarkable. CT scan of the head showed no acute changes. CT angiography of the head was unremarkable. CT angiography of the neck showed significant plaque without stenosis in the carotid arteries. There was high-grade stenosis distally in the right vertebral and right subclavian. MRI of the brain showed multiple small infarcts high in the left parietal head region. This was considered to be a watershed infarct. Was 1 infarct high in the left parietal head region. Embolic phenomena could not be excluded. Overall, there is marked generalized cerebral atrophy and old small vessel ischemic changes. There have been no reports of seizure activity in the emergency room or since admission. This morning CBC and Chem profile were unremarkable. Triglycerides were elevated at 158 and total cholesterol at 232. Hemoglobin A1c was normal at 5.4. The patient herself has no complaint of pain or dizziness. She has no headache but feels very tired and weak. Allergies Allergy/AdvReac Type Severity Reaction Status Date / Time amoxicillin Allergy Intermediate VERY SICK Verified 09/12/19 12:04 TO HER STOMACH atorvastatin Allergy Intermediate RASH Verified 09/12/19 12:04 clavulanic acid Allergy Intermediate VERY SICK Verified 09/12/19 12:04 TO HER STOMACH tetracycline Allergy Intermediate ARMS Verified 09/12/19 12:04 SWELLED UP tramadol Allergy Intermediate MAKES HER Verified 09/12/19 12:04 DIZZY AND CRAZEY SHANTEL Inhibitors Allergy Mild NOT SURE Verified 09/12/19 12:04 OF REACTIONS erythromycin base Allergy Unknown UPSET Verified 09/12/19 12:04 STOMACH rivaroxaban Allergy Unknown RASH Verified 09/12/19 12:04 zolpidem Allergy Unknown Unknown Verified 09/12/19 12:04 simvastatin Allergy Unknown Verified 09/12/19 12:04 Tetracyclines Allergy Unknown Verified 09/12/19 12:04 gabapentin AdvReac Unknown Unknown Verified 09/12/19 12:04 Home Medications Home Medications Medication Instructions Recorded Confirmed Type acetaminophen [Tylenol Extra 1,000 mg PO TID MDD 3 gms APAP/24 12/25/17 09/12/19 History Strength] hrs ferrous sulfate 325 mg PO QAM 12/25/17 09/12/19 History cyanocobalamin (vitamin B-12) 500 1,000 mcg PO DAILY tab 08/01/18 09/12/19 History mcg tablet levothyroxine 75 mcg tablet 75 mcg PO QAM #90 tab 12/17/18 09/12/19 Rx aspirin 81 mg tablet,delayed 81 mg PO DAILY 01/02/19 09/12/19 History release hydrocortisone 1 % topical cream 1 appln TOP BID PRN #42 gm 11/21/19 07/30/20 Rx metoprolol succinate 25 mg 25 mg PO DAILY #90 tab 03/04/19 09/12/19 Rx tablet,extended release 24 hr digoxin 125 mcg (0.125 mg) tablet 125 mcg PO DAILY #90 tab 03/12/19 09/12/19 Rx amlodipine 2.5 mg tablet 2.5 mg PO DAILY #90 tab 07/25/19 09/12/19 Rx Patient History Medical History Abnormal electrocardiogram (Resolved) Acute electrocardiogram changes (Resolved) Afib (Chronic) Antidiuretic hormone, inappropriate secretion (Chronic) GI bleed (Resolved) History of intracranial hemorrhage Hypokalemia (Chronic) Hypothyroid (Chronic) Intracranial hematoma (Inactive) Lumbar spinal stenosis (Chronic) Mild cognitive impairment (Chronic) Overactive bladder Paroxysmal atrial flutter (Chronic) Right-sided lacunar stroke (Chronic) Stroke (Inactive) Stroke-like episode (Resolved) Symptomatic anemia (Chronic) Syncope (Resolved) TIA (transient ischemic attack) (Resolved) UTI (urinary tract infection) (Resolved) Weight loss (Inactive) Surgical History History of appendectomy History of breast surgery puncture aspiiration of cyst History of colonoscopy History of hysterectomy History of lumbar laminectomy Family History Unknown Migraine headache Arteriosclerotic cardiovascular disease (ASCVD) Colon cancer Father Acute myocardial infarction Mother Hypertension Cardiac disorder Social History Smoking Status: Former smoker Second Hand Exposure: No; Hx Alcohol Use: No Hx Substance Use: No Preferred Language: [place] Communication Ability: Effective Visual Impairment: No Limitations Hearing Ability: Normal Author'S Agent Required: No Beliefs That Will Affect Care: None marital status: Current Living Situation: Retirement Current Living Situation Comment: [facility] current occupational status: retired current occupation: She used to work in an office Other Information That Helps Us Care for You: No Feels Safe at Home: Yes Safety Concerns: Feels Safe At This Time Childhood Exposure to Second-Hand Smoke: Yes caffeine: Yes Dental Care, Regularly: Yes Physical Activity Frequency: Does not Exercise Seatbelt Use: always Sunscreen Use: No Review of Systems Review of Systems: patient has a limited review of systems because of her cognitive status. Constitutional: no fatigue and no weakness Eyes: no diplopia, no eye pain and no worsening vision Ear, Nose, Mouth, Throat: no ear pain, no tinnitus, no hearing loss and no dizziness Respiratory: no cough and no dyspnea Cardiovascular: no chest pain and no palpitations Gastrointestinal: no abdominal pain, no nausea and no vomiting Genitourinary: no dysuria and no hematuria Musculoskeletal: no back pain, no neck pain, no radicular pain, no joint pain and no myalgia Integumentary: no rash and no lesions Neurologic: + localized weakness and + memory loss; no gait abnormality, no generalized weakness, no tingling, no numbness, no tremor(s), no abnormal movements, no headache(s), no abnormal speech and no confusion Psychiatric: no depression, no anxiety and no confusion Endocrine: + fatigue; no flushing Hematologic / Lymphatic: no easy bleeding and no easy bruising Allergy / Immunological: no urticaria and no problem reported Exam (Neuro) Physical Exam: The patient is right-handed. The patient is Very sleepy/ lethargic but wakes up with voice. We can keep her attentive as long as we continue to talk to. Speech is soft but otherwise without any aphasia or dysarthria. She can name objects and repeat phrases. Mentation and thought processes are slow. Mood is reasonable and affect is mildly flat. She is oriented to her name and what town she lives in. She did not know her age the month, the year or where she lived ( [facility] She would follow one-step commands although she was slow. She new left from right. She could not tell me where she grew up or where she went to high school. She did know that she worked in an office but could not name the office or tell me when she retired. The discs are sharp with positive venous pulsations bilaterally. There are no exudates, hemorrhages, or blood vessel changes seen. Pupils are 3 mm bilaterally and reactive to light. Extraocular eye muscles are intact , horizontally, without nystagmus. she has decreased vertical gaze. Visual acuity and visual aguilar seem normal grossly to confrontation. I note no obvious visual field deficits. There are no deficits to sensation in the face in all 3 distributions of the fifth cranial nerve bilaterally. Corneal reflexes are positive bilaterally. Facial strength and symmetry was reasonable bilaterally. Hearing seems normal to whisper and finger rub bilaterally. Palate moves well without asymmetry. There is normal sternocleidomastoid and trapezius (shoulder shrug) strength bilaterally. Tongue is midline but she does not want to move it in either direction. Neck has a full range of motion without discomfort. There are no cervical bruits bilaterally. There are no cranial or ocular bruits. Heart is without murmur. There is a regular rhythm and rate. Cervical, thoracic, and lumbar spine are nontender to palpation. Gait is Is not tested and stance sitting up is poor With outstretched arms there is mild drift on the right. There are no resting, postural, or action tremors. There is no obvious ataxia in the arms or legs. There is decreased facility right greater than left hand. No other abnormal involuntary movements are noted. Motor strength is 4/5 diffusely in the deltoid, biceps, triceps, animal eviscerator and hand muscles bilaterally however the right is weaker than the left. The legs are 4/5 proximally and 2 to 3/5 distally again right weaker than left. The limbs have good tone without rigidity or spasticity. There is no focalatrophy noted in the muscles. Sensory examination is intact to touch and pin throughout all 4 limbs diffusely. however, she neglects the left leg with double simultaneous stimulation (not the arm and not the right side). Reflexes are 2/4 in the biceps, triceps, brachioradialis, and quadriceps tendons bilaterally. Achilles tendon reflexes are 1/4 bilaterally. There is no clonus bilaterally. Toes are equivocal to downgoing with plantar stimulation bilaterally. Peripheral pulses are present and of normal quality distally in all 4 limbs. There is no peripheral edema noted in the limbs. Results & Data ([facility]) Vital Signs (Past 12 Hours) Vital Signs Temp Pulse Resp BP Pulse Ox 09/13/19 07:12 36.4 C L 78 18 176/79 H 98 09/13/19 07:09 36.7 C 75 19 180/74 H 97 09/13/19 03:43 36.4 C L 82 16 145/74 H 97 09/12/19 23:14 36.5 C 78 14 113/67 95 09/12/19 21:42 36.6 C 86 18 119/72 95 Diagnostic Findings MR brain wo/w con CLINICAL HISTORY: stroke symptoms COMPARISON STUDY: 08/16/2018 TECHNIQUE: Utilizing a 1.5 Mildred magnet and dedicated coil, multiplanar, multiecho imaging of the brain was performed pre and postcontrast administration. IV administration of 10.0 mL of Gadavist contrast was uneventful. FINDINGS: Diffusion images show several small acute infarcts over the left and to a lesser extent right parietal convexity. These measure up to 1 cm maximum d imension. Mid and lower aspects of the brain show no additional focus of acute ischemic change. The findings of focal acute ischemic change in the prior study are no longer identified. There are findings of age-related chronic small vessel change as well as atrophy. Postcontrast images are considered negative for enhancing lesion. The sella and parasellar regions are unremarkable. IMPRESSION: 1. Several small acute infarcts of the left and to a lesser extent right parietal convexities. 2. These are most consistent with that of small embolic or watershed type infarct. 3. Stable findings of atrophy and age-related chronic small vessel change. 4. No abnormal postcontrast enhancement. ACT 112: Negative or not required by law. The above report was generated using voice recognition software. It may contain grammatical, syntax or spelling errors. Electronically signed by: Kavon Bains M.D. 09/12/2019 7:55 PM PG Care Time/CCT Total # of Minutes Spent Total Time Spent with Patient: Total time spent is greater than 50% in coordination of care (as documented) at patient's floor/unit and/or counseling patient: Coding Level of Care Code 32337 Initial Inpt Care Lvl 3 Diagnoses Acute CVA (cerebrovascular accident) I63.9 Acute alteration in mental status R41.82 Acute right hemiparesis G81.91 Mild cognitive impairment G31.84 Carotid stenosis I65.29 Chronic cerebral ischemia I67.82 Afib I48.0 Atrial fibrillation type: paroxysmal Time Spent (min) 100 Comment Add [id number] to the [id number] (1) Afib Atrial fibrillation type: paroxysmal Qualified Code(s): I48.0 - Paroxysmal atrial fibrillation
[2019-09-13] MEDS ORDERED: AMLODIPINE BESYLATE 5 MG TAB PO SCH (09:00)
[2019-09-13] MEDS ORDERED: METOPROLOL SUCC 25MG EXT REL TAB PO SCH (09:00)
--- NOTE | 2019-09-13 09:08 | Electroencephalogram ---
EEG Procedure Note Date of Service September 13, 2019 Start / End Times Start Time: 0835 End Time: [address] Del Real History 84-year-old with history of acute confusion questions seizure activity. Home Medication List Home Medications Medication Instructions Recorded Confirmed Type acetaminophen [Tylenol Extra 1,000 mg PO TID MDD 3 gms APAP/24 12/25/17 09/12/19 History Strength] hrs ferrous sulfate 325 mg PO QAM 12/25/17 09/12/19 History cyanocobalamin (vitamin B-12) 500 1,000 mcg PO DAILY tab 08/01/18 09/12/19 History mcg tablet levothyroxine 75 mcg tablet 75 mcg PO QAM #90 tab 12/17/18 09/12/19 Rx aspirin 81 mg tablet,delayed 81 mg PO DAILY 01/02/19 09/12/19 History release hydrocortisone 1 % topical cream 1 appln TOP BID PRN #42 gm 01/03/19 09/12/19 Rx metoprolol succinate 25 mg 25 mg PO DAILY #90 tab 03/04/19 09/12/19 Rx tablet,extended release 24 hr digoxin 125 mcg (0.125 mg) tablet 125 mcg PO DAILY #90 tab 03/12/19 09/12/19 Rx amlodipine 2.5 mg tablet 2.5 mg PO DAILY #90 tab 07/25/19 09/12/19 Rx Inpatient Medication List Acetaminophen (Tylenol) 1,000 mg PO TID [facility] Stop: 10/12/19 15:17 Last Admin: 09/13/19 08:24 Dose: 1,000 mg Documented by: [id number] Admin: 09/12/19 21:21 Dose: 1,000 mg Documented by: [id number] Admin: 09/12/19 16:08 Dose: 1,000 mg Documented by: [id number] Aspirin (Ecotrin Ectab) 81 mg PO DAILY [facility] Stop: 10/13/19 08:59 Last Admin: 09/13/19 08:24 Dose: 81 mg Documented by: [id number] Cyanocobalamin (Vitamin B-12) 1,000 mcg PO DAILY [facility] Stop: 10/13/19 08:59 Last Admin: 09/13/19 08:24 Dose: 1,000 mcg Documented by: [id number] Digoxin (Lanoxin) 0.125 mg PO DAILY [facility] Stop: 10/13/19 08:59 Last Admin: 09/13/19 08:24 Dose: 0.125 mg Documented by: [id number] Ferrous Sulfate (Feosol) 325 mg PO QAM [facility] Stop: 10/13/19 08:59 Last Admin: 09/13/19 08:24 Dose: 325 mg Documented by: [id number] Ioversol (Optiray 320 125ml) 120 ml IV ONCE PRN PRN Reason: Interaction Checking Stop: 09/16/19 10:46 Last Admin: 09/12/19 10:47 Dose: 120 ml Documented by: [id number] Levothyroxine Sodium (Synthroid) 75 mcg PO DAILYBB [facility] Stop: 10/13/19 06:29 Last Admin: 09/13/19 06:18 Dose: 75 mcg Documented by: [id number] Discontinued Medications Alteplase, Recombinant (Activase For Stroke) 1 ea IV NOW STA; Protocol Stop: 09/12/19 11:09 Last Admin: 09/12/19 11:47 Dose: Not Given Documented by: [id number] Gadobutrol (Gadavist 65ml) 5.7 ml IV ONCE ONE Stop: 09/12/19 19:49 Last Admin: 09/12/19 19:48 Dose: 5.7 ml Documented by: [id number] Alteplase, Recombinant 5.2 mg/ (Syringe) 5.2 mls @ 5.2 mls/min IV ONCE ONE Stop: 09/12/19 11:19 Last Admin: 09/12/19 11:47 Dose: Not Given Documented by: [id number] Alteplase, Recombinant 47 mg/ (EMPTY BAG) 47 mls @ 47 mls/hr IV ONCE ONE Stop: 09/12/19 11:20 Last Admin: 09/12/19 11:47 Dose: Not Given Documented by: [id number] Description This is a 21 electrode EEG with a single channel dedicated to limited EKG. The electrodes were placed in accordance with the International 10-20 system. Interpretation The predominant background activity consists of Irregular 7Hz activity, of up to 40 mV in amplitude, seen symmetrically distributed over the posterior head regions bilaterally. This activity attenuates some with eye-opening and other alerting procedures. admixed with the background activity was some low amplitude irregular 6-7 Hertz seen diffusely in all head regions throughout the recording. Photic stimulation was performed and elicited no change in the background activity and no abnormal responses were seen. Hyperventilation was not performed. A mild amount of muscle and movement artifact activity contaminated the recording , but did not hinder interpretation to any significant degree. Throughout the recording, no focal abnormalities or potentially epileptogenic di scharges are seen. In summary, this EEG was Mildly abnormal during wakefulness, as noted by some mild irregular slowing in general. No focal abnormalities or potentially epileptogenic discharges were seen. Clinical Correlation The abscence of potentially epileptogenic activity does not exclude a seizure disorder, since interictally, EEGs can be normal. Clinical correlation is required. The mild slowing seen on this EEG is consistent with a mild encephalopathy which could be due to a wide variety of causes. again, clinical correlation is re quired [id number] EEG Procedure Codes Indication for Procedure (1) Acute CVA (cerebrovascular accident): (2) Mild cognitive impairment: (3) Acute alteration in mental status: Neurology Neurology: [id number] EEG include record awake & drowsy
--- NOTE | 2019-09-13 21:49 | Cardiology Consultation ---
Date of Consultation September 13, 2019 Assessment & Plan (1) Acute CVA (cerebrovascular accident): She presents with an acute CVA, she has recovered limb movement however she appears confused and does not speak very clearly by do not know how much of that is new. Although this could be due to her cerebrovascular disease it is likely that it came from her atrial fibrillation although she is in sinus rhythm. It is difficult to determine how to treat it. If it is due to cerebrovascular disease than platelet inhibitors are the best option, if it is due to atrial fibrillation she should be on anticoagulant but she has also had a traumatic intracerebral bleed from falling while on an anticoagulant. This is a difficult situation, and as far as I know she continues having loss of consciousness and falling. It may be to greater risk to consider anticoagulation. (2) Afib: She has atrial fibrillation, it is paroxysmal and on presentation here she is in sinus rhythm. There is no way of knowing whether the atrial fibrillation was a contributor to this stroke. We could consider YUDITH to see if she has left atrial clot, but that would not tell you whether that caused a stroke or not and she does have other possibilities for it. It is a difficult situation. I would recommend continued platelet inhibitors. History of Present Illness Reason for Consultation: Stroke, atrial fibrillation Attending Physician: Antwan Olivares History of Present Illness This is a 84-year-old woman who has a history of hypertension, paroxysmal atrial fibrillation, unresponsive spells for which no clear etiology has been identified. She had a loop recorder implanted January 20, 2017 and on February 06, 2017 she had syncope and while on telemetry had another episode with no change in rhythm and that one was documented be due to transient hypotension. She was treated with Florinef with little change in symptoms. Loop recorder was explanted June 23, 2017 when it was clear that the symptoms were not related to an arrhythmia. She has had hospitalizations for hypertensive urgency and she does have cerebrovascular disease including return renal artery stenosis as well as subclavian artery stenosis. She had difficulty with falls, her atrial fibrillation was infrequent but she had a high risk of stroke and she was on low-dose Eliquis. She had a fall and had an intracranial hemorrhage secondary to it. She is therefore not on anticoagulation. She resides at [facility] and presents now with syncope and right-sided weakness with confusion and dysarthria. Her right-sided weakness did improve in the emergency room. At the time of my evaluation she was clearly confused, she did not seem to be oriented even to person, not being able to tell me her name. She was however alert and conversant. She had no complaints but could not provide history. Allergies Allergy/AdvReac Type Severity Reaction Status Date / Time amoxicillin Allergy Intermediate VERY SICK Verified 09/12/19 12:04 TO HER STOMACH atorvastatin Allergy Intermediate RASH Verified 09/12/19 12:04 clavulanic acid Allergy Intermediate VERY SICK Verified 09/12/19 12:04 TO HER STOMACH tetracycline Allergy Intermediate ARMS Verified 09/12/19 12:04 SWELLED UP tramadol Allergy Intermediate MAKES HER Verified 09/12/19 12:04 DIZZY AND CRAZEY SHANTEL Inhibitors Allergy Mild NOT SURE Verified 09/12/19 12:04 OF REACTIONS erythromycin base Allergy Unknown UPSET Verified 09/12/19 12:04 STOMACH rivaroxaban Allergy Unknown RASH Verified 09/12/19 12:04 zolpidem Allergy Unknown Unknown Verified 09/12/19 12:04 simvastatin Allergy Unknown Verified 09/12/19 12:04 Tetracyclines Allergy Unknown Verified 09/12/19 12:04 gabapentin AdvReac Unknown Unknown Verified 09/12/19 12:04 Home Medications Home Medications Medication Instructions Recorded Confirmed Type acetaminophen [Tylenol Extra 1,000 mg PO TID MDD 3 gms APAP/12/25/17 09/12/19 History Strength] hrs ferrous sulfate 325 mg PO QAM 12/25/17 09/12/19 History cyanocobalamin (vitamin B-12) 500 1,000 mcg PO DAILY tab 08/01/18 09/12/19 History mcg tablet levothyroxine 75 mcg tablet 75 mcg PO QAM #90 tab 12/17/18 09/12/19 Rx aspirin 81 mg tablet,delayed 81 mg PO DAILY 01/02/19 09/12/19 History release hydrocortisone 1 % topical cream 1 appln TOP BID PRN #42 gm 01/03/19 09/12/19 Rx metoprolol succinate 25 mg 25 mg PO DAILY #90 tab 03/04/19 09/12/19 Rx tablet,extended release 24 hr digoxin 125 mcg (0.125 mg) tablet 125 mcg PO DAILY #90 tab 03/12/19 09/12/19 Rx amlodipine 2.5 mg tablet 2.5 mg PO DAILY #90 tab 07/25/19 09/12/19 Rx Patient History Medical History Abnormal electrocardiogram (Resolved) Acute electrocardiogram changes (Resolved) Afib (Chronic) Antidiuretic hormone, inappropriate secretion (Chronic) GI bleed (Resolved) History of intracranial hemorrhage Hypokalemia (Chronic) Hypothyroid (Chronic) Intracranial hematoma (Inactive) Lumbar spinal stenosis (Chronic) Mild cognitive impairment (Chronic) Overactive bladder Paroxysmal atrial flutter (Chronic) Right-sided lacunar stroke (Chronic) Stroke (Inactive) Stroke-like episode (Resolved) Symptomatic anemia (Chronic) Syncope (Resolved) TIA (transient ischemic attack) (Resolved) UTI (urinary tract infection) (Resolved) Weight loss (Inactive) Surgical History History of appendectomy History of breast surgery puncture aspiiration of cyst History of colonoscopy History of hysterectomy History of lumbar laminectomy Family History Unknown Migraine headache Arteriosclerotic cardiovascular disease (ASCVD) Colon cancer Father Acute myocardial infarction Mother Hypertension Cardiac disorder Social History Smoking Status: Former smoker Second Hand Exposure: No; Hx Alcohol Use: No Hx Substance Use: No Preferred Language: [place] Leonean Communication Ability: Impaired Visual Impairment: No Limitations Hearing Ability: Normal Wind Commissioning Technician Required: No Beliefs That Will Affect Care: None marital status: Current Living Situation: [facility] current occupational status: retired current occupation: She used to work in an office Other Information That Helps Us Care for You: No Feels Safe at Home: Yes Safety Concerns: Feels Safe At This Time Childhood Exposure to Second-Hand Smoke: Yes caffeine: Yes Dental Care, Regularly: Yes Physical Activity Frequency: Does not Exercise Seatbelt Use: always Sunscreen Use: No Physical Exam Physical Exam: Constitutional: Alert and in no distress. HEENT: Unremarkable Neck: No jugular venous distention, carotid pulses are normal and equal bilaterally without bruits. Pulmonary: Clear to auscultation bilaterally. Cardiac: Irregular rhythm with no murmur, gallop or rub. Abdomen: Soft, nontender with normal bowel sounds. Extremities: No edema. Distal pulses intact. Neurologic: No focal findings. Gait was not tested. Skin: No rash, ecchymoses or petechiae. Results & Data ([facility]) Vital Signs (Past 12 Hours) Vital Signs Temp Pulse Pulse Resp BP Pulse Ox 09/13/19 15:28 36.4 C L 86 20 147/81 H 95 09/13/19 12:56 98 09/13/19 11:00 36.6 C 93 H 18 97/61 L 94 09/13/19 08:24 85 09/13/19 07:12 36.4 C L 78 18 176/79 H 98 Laboratory Results Lipids 09/13/19 Range/Units 06:45 Triglycerides 158 H (0-150) mg/dl Cholesterol 232 H (0-200) mg/dl HDL Cholesterol 47 mg/dl Cholesterol/HDL Ratio 5 CBC 09/13/19 Range/Units 06:45 WBC 5.86 (4.8-10.8) K/uL RBC 4.16 L (4.2-5.4) M/uL Hgb 13.1 (12.0-16.0) g/dL Hct 38.0 (37-47) % Plt Count 260 (130-400) K/uL Neut # (Auto) 3.75 (1.4-6.5) K/uL Lymph # (Auto) 1.32 (1.2-3.4) K/uL Bennett # (Auto) 0.56 (0.11-0.59) K/uL Eos # (Auto) 0.20 (0-0.5) K/uL Baso # (Auto) 0.02 (0-0.2) K/uL Comprehensive Metabolic Panel 09/13/19 Range/Units 06:45 Sodium 137 (136-145) mmol/L Potassium 3.6 (3.5-5.1) mmol/L Chloride 106 (98-107) mmol/L Carbon Dioxide 24 (21-32) mmol/L BUN 25 H (7-18) mg/dl Creatinine 0.89 (0.6-1.2) mg/dl Glucose 93 (70-99) mg/dl Calcium 9.1 (8.5-10.1) mg/dl Intake and Output 09/13/19 09/13/19 09/13/19 06:59 14:59 22:59 Intake Total 240 / 240 Balance 240 / 240 Intake: Oral 240 / 240 Other: # Unmeasured Voids 1 Weight 50.6 kg Diagnostic Findings Her presenting electrocardiogram shows sinus rhythm at 93 bpm with an old anteroseptal infarct, left ventricular hypertrophy and ST-T abnormalities. Her echocardiogram done September 12, 2019 showed normal left ventricular size with hyperdynamic left ventricular function, moderate concentric left ventricular hypertrophy. There was a dynamic outflow tract gradient with Valsalva. Similar to a year ago. PG Care Time/CCT Total # of Minutes Spent Total Time Spent with Patient: Total time spent is greater than 50% in coordination of care (as documented) at patient's floor/unit and/or counseling patient: Coding Level of Care Code 06125 Initial Inpt Care Lvl 2 Diagnoses Acute CVA (cerebrovascular accident) I63.9 Afib I48.0 Atrial fibrillation type: paroxysmal (1) Afib Atrial fibrillation type: paroxysmal Qualified Code(s): I48.0 - Paroxysmal atrial fibrillation
--- NOTE | 2019-09-13 22:31 | Hospitalist Progress Note ---
Date of Service September 13, 2019 Assessment & Plan (1) Right arm weakness: Acute ischemic stroke. MRI showed the following: IMPRESSION: 1. Several small acute infarcts of the left and to a lesser extent right parietal convexities. 2. These are most consistent with that of small embolic or watershed type infarct. 3. Stable findings of atrophy and age-related chronic small vessel change. 4. No abnormal postcontrast enhancement. Here for stroke work-up for right upper extremity and possibly right lower extremity weakness along with altered mental status and expressive aphasia. She has a history of paroxysmal atrial fibrillation is no longer on anticoagulation due to recurrent falls with resultant traumatic intracranial hemorrhage She is a difficult patient to treat given her recent falls, and hemorrahge due to falls. She would be a canddiate for anticoagulation but due to her falls, the risks may outweigh the benefits. Will switch her aspirin to plavix. Patient has an allergy to statins: will place on gemfibrozil prior to discharge. (2) Acute alteration in mental status: Possibly due to stroke versus seizure as she has no memory of the event. reports she is back to her baseline at the time of admission She does have encephalomalacia on CT from previous intracranial hemorrhage and perhaps this puts her at risk for seizure Stroke is the cause. 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 Sodium here is mildly low at 131 which is around her baseline -Check BMP in the morning (6) Afib: With a history of paroxysmal atrial fibrillation no longer on anticoagulation as above for history of recurrent falls with traumatic intracranial hemorrhage In normal sinus rhythm at the time of admission -Monitor on telemetry After discussion with neuro and cardio, will hold anticoagulation (7) Hypothyroid: Check TSH in the morning -Continue home levothyroxine (8) History of intracranial hemorrhage: As noted above (9) Overactive bladder: Noted in the chart but not on medication for this (10) DVT prophylaxis: SCDs Disposition-admit to PCU Admission and Anticipated Discharge Date Admission Date: September 12, 2019 Subjective Patient is a poor historian. She is still confused. Review of Systems Review of Systems: Denies fevers or chills, denies chest pain or shortness of breath, no nausea or vomiting, no abdominal pain. She cannot remember when her last bowel movement was. Denies headache or vision changes Physical Exam Physical Exam: Constitutional: + thin and cooperative; no acute distress, not ill appearing and not lethargic Eyes: PERRL, conjunctivae normal, anicteric sclerae ENMT: external ear and nose normal, oropharynx normal Neck: trachea midline, no thyromegaly Respiratory: normal respiratory effort, lungs clear to auscultation Cardiovascular: RRR, no murmur, no edema Chest (Breasts): Chest: normal inspection of chest Gastrointestinal (Abdomen): normal bowel sounds, soft, nontender, no hepatosplenomegaly Musculoskeletal: Extremities: extremities normal to inspection; no cyanosis and no clubbing Skin: no rashes, warm and dry Neurologic: CN's II-XI intact bilaterally, + focal motor deficit (4+/5 strength throughout right upper extremity, but overall generalized weakness 5- /5), awake and + confused (Mild, did not know where she lived, or that she was in an hospital) Motor/Sensory: no tremor, no pronator drift and no sensory deficit (Sensation intact to light touch throughout upper and lower extremities bilaterally) Coordination: + abnormal rapid alternating movements (Bilateral, had trouble following complex commands) Psychiatric: Orientation: alert, oriented to person, oriented to place and cooperative Eye Contact: + fair eye contact Speech: + abnormal rate/rhythm/volume of speech (Slow speech) Affect: + flat affect Lymphatic: no lymphedema Results & Data Results & Data ([facility]) Vital Signs (Past 12 Hours) Vital Signs Temp Pulse Resp BP Pulse Ox 09/13/19 20:00 36.7 C 90 18 132/81 94 09/13/19 15:28 36.4 C L 86 20 147/81 H 95 09/13/19 12:56 98 09/13/19 11:00 36.6 C 93 H 18 97/61 L 94 PG Care Time/CCT Total # of Minutes Spent Total Time Spent with Patient: Total time spent is greater than 50% in coordination of care (as documented) at patient's floor/unit and/or counseling patient: Coding Level of Care Code 96793 Subseq Hosp Care Lvl 3 Diagnoses Right arm weakness R29.898 Acute alteration in mental status R41.82 Mild cognitive impairment G31.84 Hypertension I10 Hypertension type: unspecified Antidiuretic hormone, inappropriate secretion E22.2 Afib I48.0 Atrial fibrillation type: paroxysmal Hypothyroid E03.9 Hypothyroidism type: acquired History of intracranial hemorrhage Z86.79 Overactive bladder N32.81 DVT prophylaxis Z29.9 Time Spent (min) 35 (1) Afib Atrial fibrillation type: paroxysmal Qualified Code(s): I48.0 - Paroxysmal atrial fibrillation (2) Hypothyroid Hypothyroidism type: acquired Qualified Code(s): E03.9 - Hypothyroidism, unspecified (3) Hypertension Hypertension type: unspecified Qualified Code(s): I10 - Essential (primary) hypertension
[2019-09-14] MEDS: LEVOTHYROXINE SODIUM 75 MCG TABLET PO SCH (05:54)
[2019-09-14 06:04] LABS: Basophils # (auto) 0.04 K/uL (0-0.2); Basophils % (auto) 0.6 %; Eosinophils % (auto) 3.2 %; Hematocrit (blood only) 39.2 % (37-47); Hemoglobin 13.2 g/dL (12.0-16.0); Immature Granulocytes # (auto) 0.02 K/uL (0.00-0.02); Immature Granulocytes % (auto) 0.3 %; Lymphocytes # (auto) 1.86 K/uL (1.2-3.4); Mean Corpuscular Hgb Conc 33.7 g/dL (32-36); Mean Platelet Volume 8.7 fL (7.4-10.4); Monocytes # (auto) 0.56 K/uL (0.11-0.59); Neutrophils # (auto) 3.53 K/uL (1.4-6.5); Neutrophils % (auto) 56.9 %; Platelet Count 264 K/uL (130-400); RDW Coefficient of Variation 12.8 % (11.5-14.5); RDW Standard Deviation 43.1 fL (36.4-46.3); Red Blood Count 4.26 M/uL (4.2-5.4); White Blood Count 6.21 K/uL (4.8-10.8)
[2019-09-14 06:36] LABS: BUN Creatinine Ratio 34.3 (10-20); Calcium 8.9 mg/dl (8.5-10.1); Creatinine Clr Calc Pharmacy 32.5 ml/min; Est GFR (African American) 58.4; Est GFR (Non-African American) 50.4; Potassium 3.8 mmol/L (3.5-5.1)
[2019-09-14] MEDS: DIGOXIN 0.125 MG TAB PO SCH (08:13)
[2019-09-14] MEDS: ASPIRIN 81 MG ECTAB PO SCH (08:13)
[2019-09-14] MEDS: ACETAMINOPHEN 500 MG TAB PO SCH (08:13)
[2019-09-14] MEDS: FERROUS SULFATE 325 MG TAB PO SCH (08:13)
[2019-09-14] MEDS: CYANOCOBALAMIN 500 MCG TABLET (VITAMIN B-12) PO SCH (08:13)
[2019-09-14] MEDS ORDERED: PHARMACIST DISCHARGE MED REC CONSULT PRN (10:50)
[2019-09-14] MEDS ORDERED: gemfibroziL 600 MG TAB PO SCH (11:00)
[2019-09-14] MEDS ORDERED: CLOPIDOGREL BISULFATE 75 MG TAB PO ONE (11:00)
[2019-09-14] MEDS ORDERED: STROKE PATIENT DISCHARGE STA (11:06)
--- NOTE | 2019-09-22 22:40 | Discharge Summary ---
Date of Service September 14, 2019 Admission HPI Per Admitting Provider This patient is an 84-year-old female who is a long-term resident of [facility] with a history of CVA, traumatic intracranial hemorrhage, CAD, HTN, AARTI, GI bleed, dementia, hypothyroidism, SIADH, atrial fibrillation no longer on anticoagulation due to multiple recurrent falls with ICH, hypotension/autonomic dysfunction, overactive bladder, lumbar spinal stenosis with chronic pain, and syncope who presents to the ER with right-sided weakness and confusion with difficulty speaking. She was slightly agitated upon arrival but her right-sided weakness is improved throughout her ER course and she was not given TPA. A tele-stroke consult was performed with [facility] and they suspected that there was a possibility of a seizure given that the patient had no memory of the events. Patient still was slow to respond but was able to converse with me when I saw her. Her weakness was completely resolved for the most part on the right side, and her noted that she was back to her base line mental status at that point. She told me that she remembered eating breakfast that morning and then remembered that she asked for help as she felt something was wrong. The next and she remembers is being in the emergency room. She was not noted to lose consciousness. CT of the head in the ER was without acute issue, CT angiogram of the head and neck showed mild atheromatous plaque of the head and high-grade stenosis of the right vertebral artery origin and occlusion of the high cervical right vertebral artery with distal reconstitution as well as high-grade stenosis of the right subclavian takeoff. She will be admitted for further work-up for stroke and possible seizure. Principal Diagnosis Acute ischemic stroke Discharge Exam Constitutional: + thin and cooperative; no acute distress, not ill appearing and not lethargic Eyes: PERRL, conjunctivae normal, anicteric sclerae ENMT: external ear and nose normal, oropharynx normal Neck: trachea midline, no thyromegaly Respiratory: normal respiratory effort, lungs clear to auscultation Cardiovascular: RRR, no murmur, no edema Chest (Breasts): Chest: normal inspection of chest Gastrointestinal (Abdomen): normal bowel sounds, soft, nontender, no hepatosplenomegaly Musculoskeletal: Extremities: extremities normal to inspection; no cyanosis and no clubbing Skin: no rashes, warm and dry Neurologic: CN's II-XI intact bilaterally, + focal motor deficit (4+/5 strength throughout right upper extremity, but overall generalized weakness 5- /5), awake and + confused (Mild, did not know where she lived, or that she was in an hospital) Motor/Sensory: no tremor, no pronator drift and no sensory deficit (Sensation intact to light touch throughout upper and lower extremities bilaterally) Coordination: + abnormal rapid alternating movements (Bilateral, had trouble following complex commands) Psychiatric: Orientation: alert, oriented to person, oriented to place and cooperative Eye Contact: + fair eye contact Speech: + abnormal rate/rhythm/volume of speech (Slow speech) Affect: + flat affect Lymphatic: no lymphedema Discharge Data Allergies Allergy/AdvReac Type Severity Reaction Status Date / Time amoxicillin Allergy Intermediate VERY SICK Verified 09/12/19 12:04 TO HER STOMACH atorvastatin Allergy Intermediate RASH Verified 09/12/19 12:04 clavulanic acid Allergy Intermediate VERY SICK Verified 09/12/19 12:04 TO HER STOMACH tetracycline Allergy Intermediate ARMS Verified 09/12/19 12:04 SWELLED UP tramadol Allergy Intermediate MAKES HER Verified 09/12/19 12:04 DIZZY AND CRAZEY SHANTEL Inhibitors Allergy Mild NOT SURE Verified 09/12/19 12:04 OF REACTIONS erythromycin base Allergy Unknown UPSET Verified 09/12/19 12:04 STOMACH rivaroxaban Allergy Unknown RASH Verified 09/12/19 12:04 zolpidem Allergy Unknown Unknown Verified 09/12/19 12:04 simvastatin Allergy Unknown Verified 09/12/19 12:04 Tetracyclines Allergy Unknown Verified 09/12/19 12:04 gabapentin AdvReac Unknown Unknown Verified 09/12/19 12:04 Consultations 09/12/19 11:58 ED Decision to Admit Stat 09/12/19 13:47 Consult Neurology Routine 09/12/19 15:18 Consult Case Management - Discharge Planning Routine Consult Case Management - Discharge Planning Routine 09/12/19 20:27 Consult Cardiology Routine Ordered Studies 09/12/19 10:44 CT angio head w con Stat CT angio neck with con Stat CT head/brain wo con Stat 09/12/19 15:18 MR brain wo/w con Routine Hospital Course (1) Right arm weakness: Acute ischemic stroke. MRI showed the following: IMPRESSION: 1. Several small acute infarcts of the left and to a lesser extent right parietal convexities. 2. These are most consistent with that of small embolic or watershed type infarct. 3. Stable findings of atrophy and age-related chronic small vessel change. 4. No abnormal postcontrast enhancement. Here for stroke work-up for right upper extremity and possibly right lower extremity weakness along with altered mental status and expressive aphasia. She has a history of paroxysmal atrial fibrillation is no longer on anticoagulation due to recurrent falls with resultant traumatic intracranial hemorrhage She is a difficult patient to treat given her recent falls, and hemorrahge due to falls. She would be a canddiate for anticoagulation but due to her falls, the risks may outweigh the benefits. Will switch her aspirin to plavix. Patient has an allergy to statins: will place on gemfibrozil prior to discharge. (2) Acute alteration in mental status: Possibly due to stroke versus seizure as she has no memory of the event. reports she is back to her baseline at the time of admission She does have encephalomalacia on CT from previous intracranial hemorrhage and perhaps this puts her at risk for seizure Stroke is the cause. 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 Sodium here is mildly low at 131 which is around her baseline -Check BMP in the morning (6) Afib: With a history of paroxysmal atrial fibrillation no longer on anticoagulation as above for history of recurrent falls with traumatic intracranial hemorrhage In normal sinus rhythm at the time of admission -Monitor on telemetry After discussion with neuro and cardio, will hold anticoagulation (7) Hypothyroid: Check TSH in the morning -Continue home levothyroxine (8) History of intracranial hemorrhage: As noted above (9) Overactive bladder: Noted in the chart but not on medication for this (10) DVT prophylaxis: SCDs Total Time Total Time Spent Total Time Spent (In Minutes): 32 Total Time Includes: Examination of the Patient, Discharge Planning and Medication Reconciliation Discharge Plan Discharge Items Patient Disposition: Transfer Inpatient Rehab Fac Reason For Visit: POSSIBLE CVA/TIA Discharge Diagnosis: Acute CVA Condition on Discharge: Good Activity: Resume your previous activity Non-emergency contact: Primary Care Provider Call non-emergency contact if: you have any medication questions Follow-up/Referrals: Aleksandar Beckman MD [Primary Care Provider] - Diet: Heart Healthy Addtl Attending Provider Instructions: Will need repeat speech eval after discharge at nursing facility. Risk Factors for Stroke: You can reduce your chances of stroke by working with your medical provider to adopt a healthy lifestyle. Some specific ways to lower your chance of stroke are: * If you are a smoker, now is the time to stop smoking cigarettes * If you are diabetic, improve the control of your blood sugars * Avoid excessive amounts of alcohol * Control high blood pressure * Lose weight if you are overweight * Be sure to lead an active lifestyle * Eat a healthy diet low in salt, cholesterol and fat You should know about other risk factors for stroke that you are unable to control. These include: * Age 55 years or older * Male gender * Certain racial groups: , or / * Family History of Stroke, Mini stroke or Heart Attack * Sickle Cell Disease Follow Up: It is important for you to keep your follow up appointments with your medical provider. Who to Call and When: Medical Emergencies: Call 911 immediately if you experience any of the following warning signs and symptoms of Stroke: * Sudden numbness or weakness of the face, arm or leg, especially on one side of the body * Sudden confusion, trouble speaking or understanding * Sudden trouble seeing in one or both eyes * Sudden trouble walking, dizziness, loss of balance or coordination * Sudden severe headache with no cause Do not delay calling 911 if you experience any warning signs or symptoms of a stroke. Delay in seeking medical attention may affect what treatments can be given to you. . Pending Studies at Discharge: No Stand-Alone Forms: My [employer], Smoking Cessation Skilled Items Patient informed of condition?: No DNR: No Discharge Level of Care: Skilled Communicable Disease: No Discharge Prognosis: Stable Lines: None Urinary Catheter: No Medications and DC Order Prescriptions: New gemfibrozil 600 mg Tablet 600 mg PO BID Qty: 60 RF: 0 clopidogrel 75 mg tablet 75 mg PO DAILY Qty: 30 RF: 0 Continued levothyroxine 75 mcg tablet 75 mcg PO QAM Qty: 90 RF: 2 hydrocortisone [Anti-Itch (HC)] 1 % cream 1 appln TOP BID PRN (Reason: skin irritation) Qty: 42 RF: 2 metoprolol succinate 25 mg tablet extended release 24 hr 25 mg PO DAILY Qty: 90 RF: 3 digoxin 125 mcg (0.125 mg) tablet 125 mcg PO DAILY Qty: 90 RF: 3 amlodipine 2.5 mg tablet 2.5 mg PO DAILY Qty: 90 RF: 3 cyanocobalamin (vitamin B-12) 500 mcg tablet 1,000 mcg PO DAILY RF: 0 acetaminophen [Tylenol Extra Strength] 500 mg Tablet 1,000 mg PO TID MDD 3 gms APAP/24 hrs RF: 0 ferrous sulfate 325 mg (65 mg iron) Tablet,Delayed Release (Dr/Ec) 325 mg PO QAM RF: 0 Discontinued aspirin [Adult Aspirin Regimen] 81 mg tablet,delayed release (DR/EC) 81 mg PO DAILY RF: 0 Discharge Orders: Discharge Order (Routine); Ordered 09/14/19 Ordered By: Antwan Olivares Admission Data Admit Date/Time: 09/12/19 13:47 Attending Provider: Antwan Olivares Admit Provider: Penny Del Real Primary Care Provider: Aleksandar Beckman Other Providers: Jason Booker ; Ronny Tyson Other Interventions: Discharge Summary Assessment (RN) Last Done: 09/14/19 11:24 DC Date/Time DO NOT enter until pt leaves facility: 09/14/19 12:32 Coding Level of Care Code D/C Day Management >30 mins Diagnoses Right arm weakness R29.898 Acute alteration in mental status R41.82 Mild cognitive impairment G31.84 Hypertension I10 Hypertension type: unspecified Antidiuretic hormone, inappropriate secretion E22.2 Afib I48.0 Atrial fibrillation type: paroxysmal Hypothyroid E03.9 Hypothyroidism type: acquired History of intracranial hemorrhage Z86.79 Overactive bladder N32.81 DVT prophylaxis Z29.9
== END 2019-09-14 12:32 | DRG 65 ==
LOC: ED 10:46 → 2S 13:47 → SUATTDRO 13:47 → 2S 14:26

== ENCOUNTER 2019-10-10 02:07 | Observation (INO) ==
[2019-10-10] MEDS ORDERED: HYDROmorphone INJ 0.5 MG/0.5 ML SYR ONE (02:31)
[2019-10-10] MEDS ORDERED: ONDANSETRON INJ 2 MG/ML 2 ML VIAL ONE (02:32)
[2019-10-10 03:31] LABS: Carbon Dioxide 19 mmol/L (21-32); Chloride 110 mmol/L (98-107); Hematocrit (blood only) 30.6 % (37-47); Hemoglobin 10.3 g/dL (12.0-16.0); Mean Corpuscular Hemoglobin 30.6 pg (25-34); Mean Corpuscular Hgb Conc 33.7 g/dL (32-36); Mean Corpuscular Volume 90.8 fL (80-100); Mean Platelet Volume 8.3 fL (7.4-10.4); Platelet Count 306 K/uL (130-400); Potassium 3.7 mmol/L (3.5-5.1); RDW Coefficient of Variation 12.6 % (11.5-14.5); RDW Standard Deviation 41.8 fL (36.4-46.3); Red Blood Count 3.37 M/uL (4.2-5.4); Sodium 138 mmol/L (136-145); White Blood Count 5.85 K/uL (4.8-10.8)
[2019-10-10 03:32] LABS: Anion Gap 9 (3-11); BUN Creatinine Ratio 37.5 (10-20); Blood Urea Nitrogen 38 mg/dl (7-18); Est GFR (African American) 59.1; Glucose 92 mg/dl (70-99)
--- NOTE | 2019-10-10 05:14 | History & Physical Report ---
Date of Service October 10, 2019 Assessment & Plan (1) Recurrent falls: Dot Mace is a 84 y/o female with past medical hx of dementia, falls, hypothyroid, afib, intracranial hemorrhage, right side hemiparesis, TIA, generalized weakness, gait dysfunction among numerous other diagnosis, presented from [facility] for 2 falls. - She was unable to get transferred back to [facility] they cannot care for her. She was unable to get into [facility] and ended up with admission. - Case management consulted for placement. - No acute treatments needed for hospitalization, worked up appropriately in the ED with negative imaging and unremarkable labs. - Will continue home meds. - Fall precautions ordered. - 1:1 PRN. FENGI: Heart healthy Code: Defer to Full Code, no advance directive/code status found DVT ppx: SCDs, noted to not be candidate for anti-coagulation of intracranial hemmorhage, also falls alot. Dipso: Obs, Med/surg (2) History of intracranial hemorrhage: avoid anticoagulation c/w Plavix 75mg daily (3) Hypothyroid: c/w home synthroid 75mcg po qam (4) Paroxysmal atrial flutter: appears regular rate while at bedside c/w metoprolol succinate 50mg ER c/w Digoxin 125mcg PO daily (5) Weakness: PT/OT ordered sure she will need these for placement (6) Hypertension: c/w home amlodipine 5mg daily beta carlyle as above (7) Dementia: 1:1 ordered PRN (8) Cerebrovascular accident, old: Referenced from Dr. Beckman's note from PCP visit: Admitted to [facility] 09/12/2019 with stroke-like symptomatology. He presented with right arm and possible right leg weakness, expressive aphasia. Tele stroke consult performed. Not felt to be acute stroke intervention due to prior history of intracranial hemorrhage and only minor deficits compared to baseline. She was evaluated by [facility] neurology and I reviewed that consult with them. MRI of the brain shows multiple infarcts hi hi in the parietal head region on the left including some subcortical and cortical spots. One acute infarct in the subcortical white matter of the high right parietal head region. also noted marked cerebral atrophy and small vessel ischemic disease. It was felt that she had an embolic stroke. Echocardiogram revealed no specific source of embolus. Telemetry revealed sinus rhythm throughout her stay. EEG revealed mild slowing consistent with mild encephalopathy. She was evaluated by Cardiology. Paroxysmal atrial fibrillation was noted however in view of her history it was felt that continued anti-platelet therapy would be best course of action. (9) Chronic cerebral ischemia: as noted in hx History of Present Illness Chief Complaint: Falls Primary Care Provider: Aleksandar Beckman MD Caveat: History Limited by Dementia. Dot Mace is a 84 y/o female with past medical hx of dementia, falls, hypothyroid, afib, intracranial hemorrhage, right side hemiparesis, TIA, generalized weakness, gait dysfunction among numerous other diagnosis, presented from [facility] for 2 falls. Patient cannot provide any history as cannot remember events. She had a R femur xray, pelvis xray, cxr, pelvis CT that were all negative for fracture, head CT that was negative for bleed. She complains of no pain at time of visit at bedside. Dot requested to be sent back to [facility]. [facility] refused to take patient back as she was beyond the level of care they could provide. ED tried to get patient into [facility] but case management was unable to get approval. She was determined to need admission until appropriate [facility] care can be arranged. Lab work in ED was unremarkable, vitals stable. She was recently admitted and discharged 09/12/2019 with stroke-like symptoms. MRI of the brain shows multiple infarcts hi hi in the parietal head region on the left including some subcortical and cortical spots. One acute infarct in the subcortical white matter of the high right parietal head region. Also noted marked cerebral atrophy and small vessel ischemic disease. Not a candidate for anti-coagulation. She was transferred to [facility] 09/14/19. Transferred back to [facility] on 09/30/19. Allergies Allergy/AdvReac Type Severity Reaction Status Date / Time amoxicillin Allergy Intermediate VERY SICK Verified 10/10/19 03:53 TO HER STOMACH atorvastatin Allergy Intermediate RASH Verified 10/10/19 03:53 clavulanic acid Allergy Intermediate VERY SICK Verified 10/10/19 03:53 TO HER STOMACH tetracycline Allergy Intermediate ARMS Verified 10/10/19 03:53 SWELLED UP tramadol Allergy Intermediate MAKES HER Verified 10/10/19 03:53 DIZZY AND CRAZEY SHANTEL Inhibitors Allergy Mild NOT SURE Verified 10/10/19 03:53 OF REACTIONS erythromycin base Allergy Unknown UPSET Verified 10/10/19 03:53 STOMACH rivaroxaban Allergy Unknown RASH Verified 10/10/19 03:53 zolpidem Allergy Unknown Unknown Verified 10/10/19 03:53 simvastatin Allergy Unknown Verified 10/10/19 03:53 Tetracyclines Allergy Unknown Verified 10/10/19 03:53 gabapentin AdvReac Unknown Unknown Verified 10/10/19 03:53 Home Medications Home Medications Medication Instructions Recorded Confirmed Type acetaminophen [Tylenol Extra 1,000 mg PO TID MDD 3 gms APAP/12/25/17 10/10/19 History Strength] hrs ferrous sulfate 325 mg PO QAM 12/25/17 10/10/19 History cyanocobalamin (vitamin B-12) 500 1,000 mcg PO DAILY tab 08/01/18 10/10/19 History mcg tablet levothyroxine 75 mcg tablet 75 mcg PO QAM #90 tab 12/17/18 10/10/19 Rx hydrocortisone 1 % topical cream 1 appln TOP BID PRN #42 gm 01/03/19 10/10/19 Rx digoxin 125 mcg (0.125 mg) tablet 125 mcg PO DAILY #90 tab 03/12/19 10/10/19 Rx clopidogrel 75 mg PO DAILY #30 tab 09/14/19 10/10/19 Rx amlodipine 5 mg tablet 5 mg PO DAILY 10/03/19 10/10/19 History docusate sodium 100 mg capsule 100 mg PO BID 10/03/19 10/10/19 History gemfibrozil 600 mg tablet 600 mg PO BID tab 10/03/19 10/10/19 History metoprolol succinate 50 mg 50 mg PO DAILY 10/03/19 10/10/19 History tablet,extended release 24 hr Past Med/Surg History Medical History Abnormal electrocardiogram Acute alteration in mental status Acute electrocardiogram changes Acute right hemiparesis Afib Antidiuretic hormone, inappropriate secretion GI bleed History of intracranial hemorrhage Hypokalemia Hypothyroid Intracranial hematoma Lumbar spinal stenosis Mild cognitive impairment Overactive bladder Paroxysmal atrial flutter Right-sided lacunar stroke Stroke Stroke-like episode Symptomatic anemia Syncope TIA (transient ischemic attack) UTI (urinary tract infection) Weight loss Surgical History History of appendectomy History of breast surgery puncture aspiiration of cyst History of colonoscopy History of hysterectomy History of lumbar laminectomy Family History Unknown Migraine headache Arteriosclerotic cardiovascular disease (ASCVD) Colon cancer Father Acute myocardial infarction Mother Hypertension Cardiac disorder Social History Smoking Status: Former smoker Second Hand Exposure: No; Hx Alcohol Use: No Hx Substance Use: No Preferred Language: Irish Communication Ability: Impaired Visual Impairment: No Limitations Hearing Ability: Normal Pivot Maker Required: No Beliefs That Will Affect Care: None marital status: Current Living Situation: [facility] Current Living Situation Comment: [facility] current occupational status: retired current occupation: She used to work in an office Feels Safe at Home: Yes Childhood Exposure to Second-Hand Smoke: Yes caffeine: Yes Dental Care, Regularly: Yes Physical Activity Frequency: Does not Exercise Seatbelt Use: always Sunscreen Use: No Review of Systems Review of Systems: Limited by dementia Constitutional: no fever and no chills Respiratory: no cough and no dyspnea Cardiovascular: no chest pain and no edema Physical Exam Constitutional: WD/WN, vitals as above comfortable; no acute distress Caveat: History Limited by Dementia Eyes: PERRL, conjunctivae normal, anicteric sclerae ENMT: external ear and nose normal, oropharynx normal Neck: normal visual inspection and trachea midline Respiratory: normal respiratory effort, lungs clear to auscultation Cardiovascular: Rate/Rhythm: regular rate and regular rhythm Extremities: no edema Gastrointestinal (Abdomen): Percussion/Palpation: abdomen soft; abdomen nontender, no guarding and abdomen not rigid Musculoskeletal: Head/Neck/Chest: normocephalic and head atraumatic Extremities: extremities normal to inspection Shoulder: no joint line tenderness Hip: no joint line tenderness Knee: no joint line tenderness Ankle: no joint line tenderness (ankle) Skin: no rashes, warm and dry Neurologic: moves all extremities and awake Psychiatric: Orientation: alert, oriented to person and oriented to place ([facility]..gets credit); + not oriented to time (cannot name year, but knew Radha was president) Eye Contact: good eye contact Affect: + anxious affect Mood: + anxious mood Results & Data Results & Data ([facility]) Vital Signs (Past 12 Hours) Vital Signs Pulse Resp BP Pulse Ox 10/10/19 03:39 72 14 151/86 H 98 Laboratory Results Laboratory Results - last 24 hr 10/10/19 10/10/19 02:27 02:27 WBC 5.85 RBC 3.37 L Hgb 10.3 L Hct 30.6 L MCV 90.8 MCH 30.6 MCHC 33.7 RDW Std Deviation 41.8 RDW Coeff of Misael 12.6 Plt Count 306 MPV 8.3 Sodium 138 Potassium 3.7 Chloride 110 H Carbon Dioxide 19 L Anion Gap 9 BUN 38 H Creatinine 1.00 Est Cr Clr Drug Dosing Not Reportable Est GFR ( Amer) 59.1 Est GFR (Non-Af Amer) 51.0 BUN/Creatinine Ratio 37.5 H Glucose 92 Calcium 9.0 Code Status & VTE Plan Code Status No advance directives listed on chart or in prior EMR review, last hospitalization was full code, will defer to that for now VTE Prophylaxis Plan VTE Prophylaxis will be ordered: Yes Reason for no VTE drug order: Contraindicated Supervising Physician Co-Signing Physician Notes Patient seen and examined, chart reviewed, case discussed with Dr. Rees and I agree with assessment and plan as documented above. Briefly, patient is an 84-year-old female presenting from [facility] with recurrent falls, rehab placement desired. On physical exam patient is afebrile, hemodynamically stable, no acute distress, awake alert and oriented to self and location Skinno rash HEENTnormocephalic/atraumatic, pupils equal and reacting, neck supple, moist mucous membranes, dentures in place Heart+ S1, S2, regular, no murmur/rub/gallops LungsCTA Abdomensoft, nontender, nondistended Labs and images reviewed Assessment/[id number] female presenting with frequent falls, requesting rehab placement Observation to medical floor Fall precautions Case management assistance appreciated with placement PT/OT Resident Activity Tracking Resident Involvement: Resident Care Provided Care Provided: Adult Hospital Medicine (1) Hypothyroid Hypothyroidism type: acquired Qualified Code(s): E03.9 - Hypothyroidism, unspecified (2) Hypertension Hypertension type: unspecified Qualified Code(s): I10 - Essential (primary) hypertension
[2019-10-10] MEDS ORDERED: ALUMINUM/MAGNESIUM SUSP 30 ML UDC PO PRN (06:35)
[2019-10-10] MEDS ORDERED: MAGNESIUM HYDROXIDE SUSP 30 ML UDC PO PRN (06:35)
[2019-10-10] MEDS ORDERED: MELATONIN 3 MG TAB PO PRN (06:35)
--- NOTE | 2019-10-10 06:49 | CT Scan Report ---
CT head/brain wo con CLINICAL HISTORY: Head pain status post trauma COMPARISON STUDY: MRI the brain dated 09/12/2019 TECHNIQUE: Axial CT of the brain is performed from the vertex to the skull base. IV contrast was not administered for this examination. A dose lowering technique was utilized adhering to the principles of ALARA. CT DOSE: FINDINGS: No intra or extra-axial mass lesions are visualized. There is no CT evidence of acute cortical infarc tion. There is no evidence of midline shift. There is no acute hemorrhage. No calvarial fractures ar e visualized. There are moderate white matter hypodensities likely on a small vessel basis. There are scattered old lacunar infarcts. There is an old small left frontal cortical infarct. There is mild ventricular dilatation which is felt to be secondary to volume loss. There is no evidence of acute sinusitis IMPRESSION: No acute intracranial findings ACT 112: Negative or not required by law. Electronically signed by: Art Rizzo M.D. 10/10/2019 6:47 AM
[2019-10-10] MEDS: AMLODIPINE BESYLATE 5 MG TAB PO SCH (07:43)
[2019-10-10] MEDS: LEVOTHYROXINE SODIUM 75 MCG TABLET PO SCH (07:43)
[2019-10-10] MEDS: METOPROLOL SUCC 50MG EXT REL TAB PO SCH (07:43)
--- NOTE | 2019-10-10 07:48 | XRay Report ---
XR chest 1V portable CLINICAL HISTORY: Pain. Trauma. COMPARISON STUDY: 09/12/2019 FINDINGS: The heart is normal in size. The patient is mildly hyperinflated. There is no failure. Ther e is no focal pulmonary consolidation. There is no pneumothorax. There is minor chronic blunting of t he left lateral costophrenic angle.[ IMPRESSION: No active disease in the chest. ACT 112: Negative or not required by law. Electronically signed by: Art Rizzo M.D. 10/10/2019 7:47 AM
--- NOTE | 2019-10-10 07:49 | XRay Report ---
XR pelvis 1-2V routine CLINICAL HISTORY: Pain status post trauma COMPARISON: None. DISCUSSION: The bones are osteopenic. No acute fractures or dislocations are visualized. Postsurgical changes are present within the lumbar spine. There are vascular calcifications present. IMPRESSION: No acute fractures or dislocations identified. ACT 112: Negative or not required by law. Electronically signed by: Art Rizzo M.D. 10/10/2019 7:48 AM
--- NOTE | 2019-10-10 08:06 | XRay Report ---
XR femur RT 2V routine CLINICAL HISTORY: FALL, RT LEG PAIN COMPARISON: Pelvis radiograph December 05, 2018. FINDINGS: Alignment of the right hip and right knee is anatomic. There is no acute fracture within t he right femur. Extensive vascular calcification is noted. There is chondrocalcinosis within the meni sci of the right knee. Moderate right hip and right knee osteoarthritis is present. No fracture is id entified within visualized portions of the pelvis. IMPRESSION: No acute fracture within the right femur. ACT 112: Negative or not required by law. Electronically signed by: Jerrell Mancia M.D. 10/10/2019 8:05 AM
--- NOTE | 2019-10-10 08:06 | CT Scan Report ---
CT pelvis wo con CLINICAL HISTORY: FALL, PELVIS PAIN COMPARISON STUDY: CT of the abdomen and pelvis June 23, 2017. Pelvis radiograph December 05, 2018. TECHNIQUE: Axial images of the pelvis and hips were obtained without IV contrast. Sagittal and weber l reconstructions were viewed. Automated exposure control was utilized for the study. A dose lowerin g technique was utilized adhering to the principles of ALARA. FINDINGS: Sacroiliac joints and symphysis pubis are intact. There is no acute fracture within the pel vis or hips. No osseous lesion is noted. An old fracture the S4-S5 level is noted. This is low. Lumbo sacral fusion hardware is partially imaged. No pelvic hematoma is identified. There is no pelvic lymp hadenopathy. IMPRESSION: 1. No acute fracture within the pelvis or hips. 2. Old S4-S5 fracture. ACT 112: Negative or not required by law. Electronically signed by: Jerrell Mancia M.D. 10/10/2019 8:04 AM
[2019-10-10] MEDS: DOCUSATE SODIUM 100 MG CAP PO SCH ×2 (09:30→20:34)
[2019-10-10] MEDS: ACETAMINOPHEN 500 MG TAB PO SCH ×3 (09:30→20:34)
[2019-10-10] MEDS: FERROUS SULFATE 325 MG TAB PO SCH (09:30)
[2019-10-10] MEDS: gemfibroziL 600 MG TAB PO SCH ×2 (09:30→20:34)
[2019-10-10] MEDS: CLOPIDOGREL BISULFATE 75 MG TAB PO SCH (09:30)
[2019-10-10] MEDS: CYANOCOBALAMIN 500 MCG TABLET (VITAMIN B-12) PO SCH (09:30)
[2019-10-10] MEDS ORDERED: DIGOXIN 0.125 MG TAB PO SCH (16:00)
--- NOTE | 2019-10-10 17:11 | Hospitalist Progress Note ---
Date of Service October 10, 2019 Assessment & Plan (1) Recurrent falls: Dot Mace is an 84 y/o female with past medical hx of dementia, falls, hypothyroid, afib, intracranial hemorrhage, right side hemiparesis, TIA, generalized weakness, gait dysfunction among numerous other diagnosis, presented from [facility] for 2 falls. Current prison unable to care for her--case management working to find placement. Falls - Head & Pelvis CT/Chest, Pelvis, Femur XR all negative - Falls mechanical sec to right side hemiparesis/deconditioning. - Fall precautions - PT/OT: SNF placement--case management consulted Dementia - Patient oriented only to person, not place/time/situation - 1:1 PRN H/O intracranial hemorrhage - Avoid anticoagulation - c/w home plavix 75mg daily Hypothyroidism - c/w levothyroxine 75 mcg PO qAM Atrial fibrillation/paroxysmal atrial flutter - RRR on exam - c/w home metoprolol succinate 50mg PO daily - c/w home digoxin 125 mcg PO daily HTN - c/w home home amlodipine 5mg PO daily FENGI: Heart healthy Code: Defer to Full Code, no advance directive/code status found DVT prophylaxis: SCDs Dispo: Obs, Med/surg (2) History of intracranial hemorrhage: (3) Hypothyroid: (4) Paroxysmal atrial flutter: (5) Weakness: (6) Hypertension: (7) Dementia: (8) Cerebrovascular accident, old: (9) Chronic cerebral ischemia: Admission and Anticipated Discharge Date Admission Date: October 10, 2019 Supervising Physician Co-Signing Physician Notes Resident Physician Supervision Note: I independently interviewed and examined the patient and verified the webb history and physical, reviewed labs and image studies, discussed the case with the resident Dr. [place] and agree with the findings and care plan. Review of Systems Constitutional: no fever, no chills and no fatigue Respiratory: no cough, no chest congestion and no dyspnea Cardiovascular: no chest pain, no palpitations, no syncope and no edema Gastrointestinal: no abdominal pain, no nausea, no vomiting, no constipation and no diarrhea/loose stools Genitourinary: no dysuria, no difficulty urinating and no urinary urgency Physical Exam Constitutional: WD/WN, vitals as above comfortable; no acute distress Respiratory: normal respiratory effort, lungs clear to auscultation Cardiovascular: Rate/Rhythm: regular rate and regular rhythm Extremities: no edema Skin: no rashes, warm and dry Psychiatric: Orientation: alert and oriented to person; + not oriented to place and + not oriented to time Results & Data Results & Data ([facility]) Vital Signs (Past 12 Hours) Vital Signs Temp Pulse Pulse Pulse Resp BP BP 10/10/19 14:59 36.6 C 72 16 154/83 H 10/10/19 07:41 36.3 C L 68 16 165/79 H 10/10/19 06:15 36.5 C 69 16 169/85 H 10/10/19 05:47 73 18 135/81 Pulse Ox 10/10/19 14:59 98 10/10/19 07:41 99 10/10/19 06:15 98 10/10/19 05:47 98 Resident Activity Tracking Resident Involvement: Resident Care Provided Care Provided: Adult Hospital Medicine (1) Hypothyroid Hypothyroidism type: acquired Qualified Code(s): E03.9 - Hypothyroidism, unspecified (2) Hypertension Hypertension type: unspecified Qualified Code(s): I10 - Essential (primary) hypertension
--- NOTE | 2019-10-10 20:48 | Billing Data ---
Date of Service October 10, 2019 Coding Level of Care Code 02881 OBS Care - Level 3
--- NOTE | 2019-10-10 23:58 | Emergency Department Note ---
History of Present Illness General Chief complaint: Leg Injury/Pain Source: patient, EMS, RN notes reviewed and old records reviewed Mode of arrival: EMS Limitations: no limitations History of Present Illness Provider complaint: Rt leg pain Onset (ago): hour(s) 10 Location: pelvis, lower extremity and right Radiation: non-radiation Severity: moderate Pain Consistency: + intermittent Current Pain Intensity: 5 Quality: + aching Relieved By: + immobilization Exacerbated By: + movement Associated symptoms: + denies other symptoms; no confusion, no chest pain, no cough, no fever/chills, no headaches and no nausea/vomiting Treatments prior to arrival: none This is an 84-year-old female who presents emergency department complaining of right leg pain. Per the snf the patient is normally ambulatory however has been unable to get out of bed due to pain to the right leg. There is some concern that the patient may have fallen. The patient herself has no complaints however she is struggling to move the right leg due to pain in the right hip. Home Medications Home Medications Medication Instructions Recorded Confirmed Type acetaminophen [Tylenol Extra 1,000 mg PO TID MDD 3 gms APAP/12/25/17 10/10/19 History Strength] hrs ferrous sulfate 325 mg PO QAM 12/25/17 10/10/19 History cyanocobalamin (vitamin B-12) 500 1,000 mcg PO DAILY tab 08/01/18 10/10/19 History mcg tablet levothyroxine 75 mcg tablet 75 mcg PO QAM #90 tab 12/17/18 10/10/19 Rx hydrocortisone 1 % topical cream 1 appln TOP BID PRN #42 gm 01/03/19 10/10/19 Rx digoxin 125 mcg (0.125 mg) tablet 125 mcg PO DAILY #90 tab 03/12/19 10/10/19 Rx clopidogrel 75 mg PO DAILY #30 tab 09/14/19 10/10/19 Rx amlodipine 5 mg tablet 5 mg PO DAILY 10/03/19 10/10/19 History docusate sodium 100 mg capsule 100 mg PO BID 10/03/19 10/10/19 History gemfibrozil 600 mg tablet 600 mg PO BID tab 10/03/19 10/10/19 History metoprolol succinate 50 mg 50 mg PO DAILY 10/03/19 10/10/19 History tablet,extended release 24 hr Allergies Allergy/AdvReac Type Severity Reaction Status Date / Time amoxicillin Allergy Intermediate VERY SICK Verified 10/10/19 03:53 TO HER STOMACH atorvastatin Allergy Intermediate RASH Verified 10/10/19 03:53 clavulanic acid Allergy Intermediate VERY SICK Verified 10/10/19 03:53 TO HER STOMACH tetracycline Allergy Intermediate ARMS Verified 10/10/19 03:53 SWELLED UP tramadol Allergy Intermediate MAKES HER Verified 10/10/19 03:53 DIZZY AND CRAZEY SHANTEL Inhibitors Allergy Mild NOT SURE Verified 10/10/19 03:53 OF REACTIONS erythromycin base Allergy Unknown UPSET Verified 10/10/19 03:53 STOMACH rivaroxaban Allergy Unknown RASH Verified 10/10/19 03:53 zolpidem Allergy Unknown Unknown Verified 10/10/19 03:53 simvastatin Allergy Unknown Verified 10/10/19 03:53 Tetracyclines Allergy Unknown Verified 10/10/19 03:53 gabapentin AdvReac Unknown Unknown Verified 10/10/19 03:53 Past Med/Surg History Medical History Abnormal electrocardiogram Acute alteration in mental status Acute electrocardiogram changes Acute right hemiparesis Afib Antidiuretic hormone, inappropriate secretion GI bleed History of intracranial hemorrhage Hypokalemia Hypothyroid Intracranial hematoma Lumbar spinal stenosis Mild cognitive impairment Overactive bladder Paroxysmal atrial flutter Right-sided lacunar stroke Stroke Stroke-like episode Symptomatic anemia Syncope TIA (transient ischemic attack) UTI (urinary tract infection) Weight loss Surgical History History of appendectomy History of breast surgery puncture aspiiration of cyst History of colonoscopy History of hysterectomy History of lumbar laminectomy Family History Unknown Migraine headache Arteriosclerotic cardiovascular disease (ASCVD) Colon cancer Father Acute myocardial infarction Mother Hypertension Cardiac disorder Social History Smoking Status: Former smoker Second Hand Exposure: No; Hx Alcohol Use: No Hx Substance Use: No Preferred Language: Yakut Communication Ability: Impaired Visual Impairment: No Limitations Hearing Ability: Normal Hyperbaric Tech Required: No Beliefs That Will Affect Care: None marital status: Current Living Situation: Care Home Current Living Situation Comment: [facility] current occupational status: retired current occupation: She used to work in an office Feels Safe at Home: Yes Childhood Exposure to Second-Hand Smoke: Yes caffeine: Yes Dental Care, Regularly: Yes Physical Activity Frequency: Does not Exercise Seatbelt Use: always Sunscreen Use: No Review of Systems A total of 10 systems reviewed and were otherwise negative Physical Exam Vital Signs Vital Signs - 24 hr 10/10/19 03:39 10/10/19 05:47 10/10/19 06:15 Temperature 36.5 C Temperature Source Oral Pulse Rate 73 Pulse Rate [Apical] 72 69 Pulse Rate [Left Finger] Respiratory Rate 14 18 16 Blood Pressure 135/81 Blood Pressure [Right Arm] 151/86 H 169/85 H Blood Pressure Mean [Right Arm] 107 113 Blood Pressure Position [Right Arm] Pulse Oximetry 98 98 98 Oxygen Delivery Method Room Air Room Air Room Air 10/10/19 07:41 Temperature 36.3 C L Temperature Source Oral Pulse Rate Pulse Rate [Apical] Pulse Rate [Left Finger] 68 Respiratory Rate 16 Blood Pressure Blood Pressure [Right Arm] 165/79 H Blood Pressure Mean [Right Arm] 107 Blood Pressure Position [Right Arm] Lying Pulse Oximetry 99 Oxygen Delivery Method VITAL SIGNS - Vital signs and nursing notes were reviewed. GENERAL - 84-year-old female appearing stated age who is in no acute distress. Communicates well with provider and answers questions appropriately. SKIN - Without rashes. HEAD - NC/AT. EYES - PERRL with EOMI bilaterally. Sclera anicteric. Palpebral conjunctiva pink and moist with no injection noted. EARS - No deformities of external structures noted on gross examination bilaterally. No pain elicited with palpation of the tragus bilaterally. External auditory canals without discharge or otorrhea. Tympanic membranes pearly jean without retraction or bulging. No fluid or purulent material visualized behind the TM. Handle of malleus, umbo, cone of light, pars tensa/flaccid all easily visualized. NOSE - Midline and without cyanosis. No epistaxis or purulent drainage noted. Septum midline without deviation or septal hematoma noted. MOUTH/OROPHARYNX - Without perioral cyanosis. Buccal mucosa pink and moist and without leukoplakia. Tongue midline with equal elevation of palate bilaterally. No tonsillar hypertrophy, erythema, or exudates noted. dentition noted. NECK - Neck with FROM. Supple to palpation. lymphadenopathy noted. No nuchal rigidity. LUNGS - Chest wall symmetric without accessory muscle use, intercostals retractions, or central cyanosis. Normal vesicular breath sounds CTA B/L. No wheezes, rales, or rhonchi appreciated. CARDIAC - RRR with S1/S2. No murmur, rubs, or gallops appreciated. ABDOMEN - Abdominal contour without pulsations or visible masses. BS normoactive all four quadrants. No tenderness, palpable masses, hepatosplenomegaly, or ascites noted. EXTREMITIES - No clubbing or peripheral cyanosis. No pretibial edema present. +3/5 radial, posterior tibial, and dorsalis pedis pulses palpated throughout. +5/5 strength noted in UE/LE bilaterally. NEUROLOGIC - Cranial nerves II through XII grossly intact. Sensory intact to light touch throughout. Patellar reflexes +2/4. PSYCH - A&Ox3 and cooperates fully with examiner. Pt is very pleasant and interacts well with examiner. Course Administered Medications Acetaminophen (Acetaminophen 500 Mg Tab) 1,000 mg PO TID FILEMON Stop: 11/09/19 08:59 Last Admin: 10/10/19 20:34 Dose: 1,000 mg Documented by: [id number] Admin: 10/10/19 15:13 Dose: Not Given Documented by: [id number] Admin: 10/10/19 09:30 Dose: 1,000 mg Documented by: [id number] Amlodipine Besylate (Amlodipine Besylate 5 Mg Tab) 5 mg PO DAILY FILEMON Stop: 11/09/19 08:59 Last Admin: 10/10/19 07:43 Dose: 5 mg Documented by: [id number] Clopidogrel Bisulfate (Clopidogrel Bisulfate 75 Mg Tab) 75 mg PO DAILY FILEMON Stop: 11/09/19 08:59 Last Admin: 10/10/19 09:30 Dose: 75 mg Documented by: [id number] Cyanocobalamin (Cyanocobalamin 500 Mcg Tablet (Vitamin B-12)) 1,000 mcg PO DAILY FILEMON Stop: 11/09/19 08:59 Last Admin: 10/10/19 09:30 Dose: 1,000 mcg Documented by: [id number] Digoxin (Digoxin 0.125 Mg Tab) 0.125 mg PO DAILY@1600 FILEMON Stop: 11/09/19 15:59 Last Admin: 10/10/19 17:58 Dose: 0.125 mg Documented by: [id number] Docusate Sodium (Docusate Sodium 100 Mg Cap) 100 mg PO BID [facility] Stop: 11/09/19 08:59 Last Admin: 10/10/19 20:34 Dose: 100 mg Documented by: [id number] Admin: 10/10/19 09:30 Dose: 100 mg Documented by: [id number] Ferrous Sulfate (Ferrous Sulfate 325 Mg Tab) 325 mg PO QAM [facility] Stop: 11/09/19 08:59 Last Admin: 10/10/19 09:30 Dose: 325 mg Documented by: [id number] Gemfibrozil (Gemfibrozil 600 Mg Tab) 600 mg PO BID [facility] Stop: 11/09/19 08:59 Last Admin: 10/10/19 20:34 Dose: 600 mg Documented by: [id number] Admin: 10/10/19 09:30 Dose: 600 mg Documented by: [id number] Levothyroxine Sodium (Levothyroxine Sodium 75 Mcg Tablet) 75 mcg PO DAILYBB [facility] Stop: 11/09/19 06:59 Last Admin: 10/10/19 07:43 Dose: 75 mcg Documented by: [id number] Metoprolol Succinate (Metoprolol Succ 50mg Ext Rel Tab) 50 mg PO DAILY [facility] Stop: 11/09/19 08:59 Last Admin: 10/10/19 07:43 Dose: 50 mg Documented by: [id number] Discontinued Medications Hydromorphone HCl (Hydromorphone Inj 0.5 Mg/0.5 Ml Syr) Confirm Administered Dose 0.5 mg .ROUTE .STK-MED ONE Stop: 10/10/19 02:32 Last Admin: 10/10/19 15:13 Dose: Not Given Documented by: [id number] Ondansetron HCl (Ondansetron Inj 2 Mg/Ml 2 Ml Vial) Confirm Administered Dose 4 mg .ROUTE .STK-MED ONE Stop: 10/10/19 02:33 Last Admin: 10/10/19 15:13 Dose: Not Given Documented by: [id number] Medical Decision Making Differential Diagnosis Fracture, subluxation, dislocation, contusion, ligamentous injury, neurovascular, compartment syndrome, rhabdomyolysis, as well as other pathologies. Medical Records Attestation: I reviewed the patient's medical records. Home Medications Current Medication List: was personally reviewed by me Laboratory Data Attestation: I reviewed the patient's lab results. Result diagrams: 10/10/19 02:27 10/10/19 02:27 Lab Results 10/10/19 10/10/19 10/10/19 Range/Units 02:27 02:27 07:30 WBC 5.85 (4.8-10.8) K/uL RBC 3.37 L (4.2-5.4) M/uL Hgb 10.3 L (12.0-16.0) g/dL Hct 30.6 L (37-47) % MCV 90.8 (80-100) fL MCH 30.6 (25-34) pg MCHC 33.7 (32-36) g/dL RDW Std Deviation 41.8 (36.4-46.3) fL RDW Coeff of Misael 12.6 (11.5-14.5) % Plt Count 306 (130-400) K/uL MPV 8.3 (7.4-10.4) fL Sodium 138 (136-145) mmol/L Potassium 3.7 (3.5-5.1) mmol/L Chloride 110 H (98-107) mmol/L Carbon Dioxide 19 L (21-32) mmol/L Anion Gap 9 (3-11) BUN 38 H (7-18) mg/dl Creatinine 1.00 (0.6-1.2) mg/dl Est Cr Clr Drug Dosing Not Reportable Est GFR ( Amer) 59.1 Est GFR (Non-Af Amer) 51.0 BUN/Creatinine Ratio 37.5 H (10-20) Glucose 92 (70-99) mg/dl Calcium 9.0 (8.5-10.1) mg/dl Nasal Screen MRSA (PCR) Negative (Negative) Imaging Data Radiologist's Impression: [place], [place] [phone] XRay Report Patient: BALBIR MOTLEY JAdmit Date: 10/10/19 MR#: [id number]: [address] Acct ID:[id number]: Date: 4City Zip: [place] [address] Age: 84Location: 3E Sex: FRoom/Bed: [facility] Att Phy: Chayito Hoyos MDDiagnosis: FALLS Kaleigh Phy: Aleksandar Beckman MDService Date: 10/10/19 Fam Phy:Interpreting Phy: Jerrell Mancia MD Admit Phy: Carter Hugo DO Ordering Phy: aHim Salas MD cc: ~ XR femur RT 2V routine CLINICAL HISTORY: FALL, RT LEG PAIN COMPARISON: Pelvis radiograph December 05, 2018. FINDINGS: Alignment of the right hip and right knee is anatomic. There is no acute fracture within the right femur. Extensive vascular calcification is noted. There is chondrocalcinosis within the menisci of the right knee. Moderate right hip and right knee osteoarthritis is present. No fracture is identified within visualized portions of the pelvis. IMPRESSION: No acute fracture within the right femur. ACT 112: Negative or not required by law. Electronically signed by: Jerrell Mancia M.D. 10/10/2019 8:05 AM Dictated: 10/10/19 0804 Transcribed: 10/10/1904 [place], [place] [phone] XRay Report Patient: BALBIR MOTLEY Date: 10/10/19 MR#: [id number]: [address] Acct ID:[id number]: Date: 1935[facility] Zip: [place] [address] Age: 84Location: 3E Sex: FRoom/Bed: [facility] Att Phy: Apoorva Douglas D.O.Diagnosis: FALLS Kaleigh Phy: Aleksandar Beckman MDService Date: 10/10/19 [facility] Phy:Interpreting Phy: Art Rizzo MD Admit Phy: Carter Hugo DO Ordering Phy: Haim Salas MD cc: ~ XR pelvis 1-2V routine CLINICAL HISTORY: Pain status post trauma COMPARISON: None. DISCUSSION: The bones are osteopenic. No acute fractures or dislocations are visualized. Postsurgical changes are present within the lumbar spine. There are vascular calcifications present. IMPRESSION: No acute fractures or dislocations identified. ACT 112: Negative or not required by law. Electronically signed by: Art Rizzo M.D. 10/10/2019 7:48 AM Dictated: 10/10/19 0748 Transcribed: 10/10/19 0748 [place], [place] [phone] XRay Report Patient: BALBIR MOTLEY Date: 10/10/19 MR#: [id number]: 132 [facility] Acct ID:[id number]: Date: [address] [place] [address] Zip: [place] [address] Age: 84Location: 3E Sex: FRoom/Bed: E305-1 Att Phy: Apoorva Douglas D.O.Diagnosis: FALLS Kaleigh Phy: Evangelistmik Aleksandar MDService Date: 10/10/19 Fam Phy:Interpreting Phy: Art Rizzo MD Admit Phy: Carter Hugo DO Ordering Phy: Haim Salas MD cc: ~ XR chest 1V portable CLINICAL HISTORY: Pain. Trauma. COMPARISON STUDY: 09/12/2019 FINDINGS: The heart is normal in size. The patient is mildly hyperinflated. There is no failure. There is no focal pulmonary consolidation. There is no pneumothorax. There is minor chronic blunting of the left lateral costophrenic angle.[ IMPRESSION: No active disease in the chest. ACT 112: Negative or not required by law. Electronically signed by: Art Rizzo M.D. 10/10/2019 7:47 AM Dictated: 10/10/19 0746 Transcribed: 10/10/19 0746 [place], [place] [phone] CT Scan Report Patient: BALBIR MOTLEY Date: 10/10/19 MR#: [id number]: 132 [facility] Acct ID:[id number]: Date: [address] [place] [address] Zip: [place] [address] Age: 84Location: 3E Sex: FRoom/Bed: E305-1 Att Phy: Chayito Hoyos MDDiagnosis: FALLS Kaleigh Phy: Aleksandar Beckman MDService Date: 10/10/19 Fam Phy:Interpreting Phy: Jerrell Mancia MD Admit Phy: Carter Hugo DO Ordering Phy: Haim Salas MD cc: ~ CT pelvis wo con CLINICAL HISTORY: FALL, PELVIS PAIN COMPARISON STUDY: CT of the abdomen and pelvis June 23, 2017. Pelvis radiograph December 05, 2018. TECHNIQUE: Axial images of the pelvis and hips were obtained without IV con trast. Sagittal and coronal reconstructions were viewed. Automated exposure control was utilized for the study. A dose lowering technique was utilized adhering to the principles of ALARA. FINDINGS: Sacroiliac joints and symphysis pubis are intact. There is no acute fracture within the pelvis or hips. No osseous lesion is noted. An old fracture the S4-S5 level is noted. This is low. Lumbosacral fusion hardware is partially imaged. No pelvic hematoma is identified. There is no pelvic lymphadenopathy. IMPRESSION: 1. No acute fracture within the pelvis or hips. 2. Old S4-S5 fracture. ACT 112: Negative or not required by law. Electronically signed by: Jerrell Mancia M.D. 10/10/2019 8:04 AM Dictated: 10/10/19 0757 Transcribed: 10/10/19 0758 [place], [place] [phone] CT Scan Report Patient: BALBIR MOTLEY Date: 10/10/19 MR#: [id number]: [address] Acct ID:[id number]: [facility] Zip: [place] [address] Age: 84Location: 3E Sex: FRoom/Bed: E3[facility] Att Phy: Apoorva Douglas D.O.Diagnosis: FALLS Kaleigh Phy: Aleksandar Beckman MDService Date: 10/10/19 Fam Phy:Interpreting Phy: Art Rizzo MD Admit Phy: Carter Hugo DO Ordering Phy: Haim Salas MD cc: ~ CT head/brain wo con CLINICAL HISTORY: Head pain status post trauma COMPARISON STUDY: MRI the brain dated 09/12/2019 TECHNIQUE: Axial CT of the brain is performed from the vertex to the skull base. IV contrast was not administered for this examination. A dose lowering technique was utilized adhering to the principles of ALARA. CT DOSE: FINDINGS: No intra or extra-axial mass lesions are visualized. There is no CT evidence of acute cortical infarction. There is no evidence of midline shift. There is no acute hemorrhage. No calvarial fractures are visualized. There are moderate white matter hypodensities likely on a small vessel basis. There are scattered old lacunar infarcts. There is an old small left frontal cortical infarct. There is mild ventricular dilatation which is felt to be secondary to volume loss. There is no evidence of acute sinusitis IMPRESSION: No acute intracranial findings ACT 112: Negative or not required by law. Electronically signed by: Art Rizzo M.D. 10/10/2019 6:47 AM Dictated: 10/10/19645 Transcribed: 10/10/19645 [facility] Narrative This is a [facility] chart Patient was seen and evaluated as above in room C10. Review was performed of nursing notes and vital signs. I did review pertinent previous visits and patient history. After obtaining a thorough history and physical examination the above work up was performed. This is an 84-year-old female who presents the emergency department during a period of high-volume high acuity during [facility] over concerns of the patient was unable to walk at her snf today. She is unable to get out of bed. Patient was sent for x-rays of her femur as well as her pelvis which does not show any acute process. Because the patient continued to have pain she was then sent for a CAT scan of her pelvis and head. This also did not show any acute process. She does not have an elevation in her white blood cell count. I did discuss the patient's presentation with case management as the patient is unable to ambulate due to pain. She was given Dilaudid here in the emergency department for her pain. Case management is asking of the patient be admitted. While in the department, I personally reevaluated the patient several times and each time the patient was found to be resting comfortably. The patient was educated upon management, educated upon todays findings/results, educated upon importance of follow up from today's visit, educated upon symptoms in which to return, had questions answered prior to discharge, verbalized understanding, and was discharged home in good condition. An order was placed for continuous cardiac monitoring. The monitor shows a rate of 71 with Normal SInus rhythm. The patient was evaluated during the global COVID-19 pandemic, and that diagnosis was suspected/considered upon their initial presentation. Their evaluation, treatment and testing was consistent with current guidelines for patients who present with complaints or symptoms that may be related to COVID- 19. Impression & Plan Weakness, Acute pain of right lower extremity Discharge Plan Visit Data Chief Complaint: Leg Injury/Pain ED Provider: Haim Salas Discharge Problem: Weakness, Acute pain of right lower extremity Patient Disposition: Admitted As Inpatient Discharge Instructions Interventions: ED Discharge Assessment Last Done: 10/10/19 05:47
[2019-10-11] MEDS: LEVOTHYROXINE SODIUM 75 MCG TABLET PO SCH (05:49)
[2019-10-11 06:01] LABS: BUN Creatinine Ratio 29.5 (10-20); Creatinine Clr Calc Pharmacy 34.5 ml/min; Est GFR (African American) 63.7; Est GFR (Non-African American) 54.9; Potassium 3.9 mmol/L (3.5-5.1)
[2019-10-11] MEDS: CYANOCOBALAMIN 500 MCG TABLET (VITAMIN B-12) PO SCH (08:37)
[2019-10-11] MEDS: gemfibroziL 600 MG TAB PO SCH (08:37)
[2019-10-11] MEDS: METOPROLOL SUCC 50MG EXT REL TAB PO SCH (08:37)
[2019-10-11] MEDS: AMLODIPINE BESYLATE 5 MG TAB PO SCH (08:37)
[2019-10-11] MEDS: FERROUS SULFATE 325 MG TAB PO SCH (08:37)
[2019-10-11] MEDS: DOCUSATE SODIUM 100 MG CAP PO SCH (08:37)
[2019-10-11] MEDS: CLOPIDOGREL BISULFATE 75 MG TAB PO SCH (08:37)
[2019-10-11] MEDS: ACETAMINOPHEN 500 MG TAB PO SCH ×2 (08:37→14:24)
--- NOTE | 2019-10-11 11:48 | Discharge Summary ---
Date of Service October 11, 2019 Admission HPI Per Admitting Provider Caveat: History Limited by Dementia. Dot Mace is a 84 y/o female with past medical hx of dementia, falls, hypothyroid, afib, intracranial hemorrhage, right side hemiparesis, TIA, generalized weakness, gait dysfunction among numerous other diagnosis, presented from [facility] for 2 falls. Patient cannot provide any history as cannot remember events. She had a R femur xray, pelvis xray, cxr, pelvis CT that were all negative for fracture, head CT that was negative for bleed. She complains of no pain at time of visit at bedside. Dot requested to be sent back to [facility]. [facility] refused to take patient back as she was beyond the level of care they could provide. ED tried to get patient into [facility] but case management was unable to get approval. 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 Lab work in ED was unremarkable, vitals stable. She was recently admitted and discharged 09/12/2019 with stroke-like symptoms. MRI of the brain shows multiple infarcts hi hi in the parietal head region on the left including some subcortical and cortical spots. One acute infarct in the subcortical white matter of the high right parietal head region. Also noted marked cerebral atrophy and small vessel ischemic disease. Not a candidate for anti-coagulation. She was transferred to [facility] 09/14/19. Transferred back to [facility] on 09/30/19. Admission Exam Per Admitting Provider Constitutional: WD/WN, vitals as above comfortable; no acute distress Caveat: History Limited by Dementia Eyes: PERRL, conjunctivae normal, anicteric sclerae ENMT: external ear and nose normal, oropharynx normal Neck: normal visual inspection and trachea midline Respiratory: normal respiratory effort, lungs clear to auscultation Cardiovascular: Rate/Rhythm: regular rate and regular rhythm Extremities: no edema Gastrointestinal (Abdomen): Percussion/Palpation: abdomen soft; abdomen nontender, no guarding and abdomen not rigid Musculoskeletal: Head/Neck/Chest: normocephalic and head atraumatic Extremities: extremities normal to inspection Shoulder: no joint line tenderness Hip: no joint line tenderness Knee: no joint line tenderness Ankle: no joint line tenderness (ankle) Skin: no rashes, warm and dry Neurologic: moves all extremities and awake Psychiatric: Orientation: alert, oriented to person and oriented to place ([place] [facility]..gets credit); + not oriented to time (cannot name year, but knew Radha was president) Eye Contact: good eye contact Affect: + anxious affect Mood: + anxious mood Principal Diagnosis Falls Discharge Exam Constitutional WD/WN, vitals as above no acute distress Respiratory normal respiratory effort, lungs clear to auscultation no respiratory distress Auscultation: no crackles, no rales, no rhonchi and no wheezes Cardiovascular RRR, no murmur, no edema Heart Sounds: normal S1 and normal S2 Gastrointestinal (Abdomen) normal bowel sounds, soft, nontender, no hepatosplenomegaly Musculoskeletal no cyanosis or clubbing, extremities motor strength 5/5 Discharge Data Allergies Allergy/AdvReac Type Severity Reaction Status Date / Time amoxicillin Allergy Intermediate VERY SICK Verified 10/10/19 03:53 TO HER STOMACH atorvastatin Allergy Intermediate RASH Verified 10/10/19 03:53 clavulanic acid Allergy Intermediate VERY SICK Verified 10/10/19 03:53 TO HER STOMACH tetracycline Allergy Intermediate ARMS Verified 10/10/19 03:53 SWELLED UP tramadol Allergy Intermediate MAKES HER Verified 10/10/19 03:53 DIZZY AND CRAZEY SHANTEL Inhibitors Allergy Mild NOT SURE Verified 10/10/19 03:53 OF REACTIONS erythromycin base Allergy Unknown UPSET Verified 10/10/19 03:53 STOMACH rivaroxaban Allergy Unknown RASH Verified 10/10/19 03:53 zolpidem Allergy Unknown Unknown Verified 10/10/19 03:53 simvastatin Allergy Unknown Verified 10/10/19 03:53 Tetracyclines Allergy Unknown Verified 10/10/19 03:53 gabapentin AdvReac Unknown Unknown Verified 10/10/19 03:53 Consultations 10/10/19 04:08 ED Decision to Admit Stat 10/10/19 06:35 Consult Case Management - Discharge Planning Routine By CMS guidelines, a determination that the admission or continued stay is not medically necessary has been made by a member of the UR committee and a physician for this hospital stay, therefore a Code 44 will be completed and the Inpatient admission will be changed to outpatient. Ordered Studies 10/10/19 CT head/brain wo con Urgent CT pelvis wo con Urgent Hospital Course (1) Recurrent falls: The patient presented from [facility] for 2 falls. Extensive workup done for stroke and weakness, found to be negative (Head & Pelvis CTs, Chest, Pelvis, Femur XR, and appropriate blood work). Falls found to be secondary to deconditioning in setting of underlying right side hemiparesis. Case management found placement at [facility] for her. (2) Cerebrovascular accident, old: (3) Chronic cerebral ischemia: (4) History of intracranial hemorrhage: (5) Hypothyroid: (6) Afib: (7) Paroxysmal atrial flutter: (8) Weakness: (9) Dementia: (10) Hypertension: Total Time Total Time Spent Total Time Spent (In Minutes): see Attending attestation Discharge Plan Discharge Items Patient Disposition: Transfer [facility] Reason For Visit: FALLS Discharge Diagnosis: Fall Activity: Per Instructions section Non-emergency contact: Primary Care Provider Call non-emergency contact if: your symptoms worsen Follow-up/Referrals: Aleksandar Beckman MD [Primary Care Provider] - Diet: Heart Healthy Addtl Attending Provider Instructions: Dot Mace is an 84 y/o female with past medical hx of dementia, falls, hypothyroid, afib, intracranial hemorrhage, right side hemiparesis, TIA, generalized weakness, gait dysfunction among numerous other diagnosis, presented from [facility] for 2 falls. Current alf unable to care for her--case management working to find placement. Falls - Head & Pelvis CT/Chest, Pelvis, Femur XR all negative - Falls mechanical sec to right side hemiparesis/deconditioning. - Fall precautions - PT/OT: SNF placement--case management consulted Dementia - Patient oriented only to person, not place/time/situation - 1:1 PRN H/O intracranial hemorrhage - Avoid anticoagulation - c/w home plavix 75mg daily Hypothyroidism - c/w levothyroxine 75 mcg PO qAM Atrial fibrillation/paroxysmal atrial flutter - RRR on exam - c/w home metoprolol succinate 50mg PO daily - c/w home digoxin 125 mcg PO daily HTN - c/w home home amlodipine 5mg PO daily FENGI: Heart healthy Code: Defer to Full Code, no advance directive/code status found DVT prophylaxis: SCDs Dispo: Obs, Med/surg Pending Studies at Discharge: No Stand-Alone Forms: [facility] Skilled Items Patient informed of condition?: Yes DNR: No Discharge Level of Care: Skilled Communicable Disease: No Discharge Prognosis: Stable Lines: None Urinary Catheter: No Medications and DC Order Prescriptions: Continued levothyroxine 75 mcg tablet 75 mcg PO QAM Qty: 90 RF: 2 hydrocortisone [Anti-Itch (HC)] 1 % cream 1 appln TOP BID PRN (Reason: skin irritation) Qty: 42 RF: 2 digoxin 125 mcg (0.125 mg) tablet 125 mcg PO DAILY Qty: 90 RF: 3 amlodipine 5 mg tablet 5 mg PO DAILY RF: 0 metoprolol succinate 50 mg tablet extended release 24 hr 50 mg PO DAILY RF: 0 docusate sodium 100 mg capsule 100 mg PO BID RF: 0 cyanocobalamin (vitamin B-12) 500 mcg tablet 1,000 mcg PO DAILY RF: 0 gemfibrozil 600 mg tablet 600 mg PO BID RF: 0 acetaminophen [Tylenol Extra Strength] 500 mg Tablet 1,000 mg PO TID MDD 3 gms APAP/24 hrs RF: 0 ferrous sulfate 325 mg (65 mg iron) Tablet,Delayed Release (Dr/Ec) 325 mg PO QAM RF: 0 clopidogrel 75 mg tablet 75 mg PO DAILY Qty: 30 RF: 0 Discharge Orders: Discharge Order (Routine); Ordered 10/11/19 Ordered By: Aashish Cleveland Admission Data Admit Date/Time: 10/10/19 13:26 Attending Provider: Chayito Hoyos Admit Provider: Carter Hugo Primary Care Provider: Aleksandar Beckman Other Providers: Apoorva [place] [facility] ; [facility] Other Interventions: Discharge Summary Assessment (RN) Last Done: 10/11/19 13:10 Supervising Physician Co-Signing Physician Notes Resident Physician Supervision Note: I independently interviewed and examined the patient and verified the webb history and physical, reviewed labs and image studies, discussed the case with the resident Dr. Cleveland and agree with the findings and care plan. Resident Activity Tracking Resident Involvement: Resident Care Provided Care Provided: Adult Hospital Medicine
--- NOTE | 2019-10-11 13:08 | Communication Note ---
Date of Service: October 11, 2019 By CMS guidelines, a determination that the admission or continued stay is not medically necessary has been made by a member of the UR committee and a ph ysician for this hospital stay, therefore a Code 44 will be completed and the Inpatient admission will be changed to outpatient. Miki Hubbard MD
== END 2019-10-11 14:44 | DRG 92 ==
LOC: ED 03:01 → 3E 03:01 → SUATTDRO 05:04 → 3E 05:47

== ENCOUNTER 2022-01-17 12:19 | Inpatient (IN) ==
[2022-01-17] MEDS ORDERED: SODIUM CHLORIDE 0.9% 1000ML 250 ML IV ONE (13:11)
[2022-01-17] MEDS ORDERED: SODIUM CHLORIDE 0.9% 1000ML 1,000 ML IV STA (13:11)
[2022-01-17 13:14] LABS: Basophils # (auto) 0.03 K/uL (0-0.2); Basophils % (auto) 0.5 %; Hematocrit (blood only) 36.7 % (34.1-44.9); Hemoglobin 12.1 g/dl (12.0-16.0); Immature Granulocytes # (auto) 0.01 K/uL (0.00-0.02); Immature Granulocytes % (auto) 0.2 %; Lymphocytes # (auto) 0.61 K/uL (1.2-3.4); Lymphocytes % (auto) 10.4 %; Mean Corpuscular Volume 90.8 fL (80.0-100.0); Mean Platelet Volume 9.1 fL (9.4-12.3); Monocytes # (auto) 0.43 K/uL (0.24-0.82); Monocytes % (auto) 7.3 %; Neutrophils % (auto) 81.6 %; Platelet Count 264 K/uL (130-400); RDW Coefficient of Variation 12.6 % (11.5-14.5); RDW Standard Deviation 41.7 fL (36.4-46.3); Red Blood Count 4.04 M/uL (3.93-5.22); White Blood Count 5.88 K/ul (4.8-10.8)
--- NOTE | 2022-01-17 13:41 | XRay Report ---
XR chest 1V portable HISTORY: 86 years-old Female weakness acute weakness COMPARISON: 10/14/2019 TECHNIQUE: AP view of the chest FINDINGS: Cardiomediastinal and hilar silhouettes are within normal limits. Atherosclerosis of the aorta. No pn eumothorax, pleural effusion, airspace consolidation or overt pulmonary edema. Chronic pleural thicke inderjit of the lung apices. Left shoulder rotator cuff calcific tendinosis. Degenerative changes of the shoulders and spine. IMPRESSION: No acute process. ACT 112: Negative or not required by law. The above report was generated using voice recognition software. It may contain grammatical, syntax o r spelling errors. Electronically signed by: Vernon Canales M.D. 01/17/2022 1:40 PM
[2022-01-17 13:51] LABS: Albumin Globulin Ratio 1.1 (0.9-2); Albumin Level 4.2 gm/dl (3.4-5.0); BUN Creatinine Ratio 31.8 (10-20); Bilirubin,Total 0.4 mg/dl (0.2-1.0); Calcium 9.7 mg/dl (8.5-10.1); Est GFR (African American) 35.4 ml/min; Est GFR (Non-African American) 30.5 ml/min; Globulin 3.7 gm/dl (2.5-4.0); Magnesium 2.5 mg/dl (1.7-2.4); Potassium 4.4 mmol/L (3.5-5.1); Total Protein 7.9 gm/dl (6.0-8.3); Troponin I High Sensitivity 30.1 pg/ml (0-14)
[2022-01-17 13:58] LABS: Thyroid Stimulating Hormone 6.803 uIu/ml (0.300-4.500)
[2022-01-17 14:33] LABS: T4 Free Thyroxine 1.32 ng/dl (0.61-1.60)
[2022-01-17 14:37] LABS: Appearance Urine Cloudy (Clear); Bilirubin Urine Negative (Negative); Blood Urine 1+ (Negative); Color Urine Yellow; Epithelial Cell Urine Auto >30 /lpf (0-5); Glucose Urine UA Negative (Negative); Ketones Urine Trace (Negative); Leukocyte Esterase Urine 2+ (Negative); Nitrite Urine Negative (Negative); Protein Urine 3+ (Negative); RBC Urine Automated 0-4 /hpf (0-4); Specific Gravity Urine 1.021 (1.000-1.030); Urobilinogen Urine Negative (Negative); WBC Urine Automated >30 /hpf (0-5)
[2022-01-17 14:47] LABS: Bacteria Urine Automated 1+ (Negative); Renal Epithelial Cells Urine 0-5 /lpf (0-5)
[2022-01-17] MEDS ORDERED: cefTRIAXone SODIUM 1,000 MG in DEXTROSE 5% AD-VAN 50 ML IV STA (14:57)
--- NOTE | 2022-01-17 15:23 | CT Scan Report ---
CT head/brain wo con CLINICAL HISTORY: 86 years-old Female with AMS. Acutely altered mental status TECHNIQUE: Multiple axial CT images of the head were obtained without contrast. A dose lowering tech nique was utilized adhering to the principles of ALARA. CT DOSE: 1305.31 mGy.cm COMPARISON: 10/14/2019 FINDINGS: No acute intracranial hemorrhage, midline shift, intracranial mass, hydrocephalus, territorial ischem ia or abnormal extra-axial collection. Age-related involutional changes with ex vacuo ventriculomegal y. White matter hypodensities suggestive of chronic microvascular ischemic disease. Chronic left fron fadi lobe infarct. 3.6 cm area of ill-defined attenuation within the periventricular left parietal lob e on image 22 series 4 is new from prior. Chronic left thalamic lacunar infarct. Subcentimeter calcif ication either adjacent to or involving the left frontal lobe on image 23 series 4 with not identifie d on the prior study. Cerebral vascular calcifications. The calvarium is intact. Paranasal sinuses are clear. Trace right mastoid effusion. Left mastoid air cells are clear. Prior bilateral lens repair. IMPRESSION: 1. No acute intracranial hemorrhage or midline shift. 2. Likely subacute or chronic infarct within the periventricular left parietal lobe is new from 2019. 3. Involutional changes with chronic microvascular ischemic disease. 4. Chronic left frontal lobe infarct. ACT 112: Negative or not required by law. The above report was generated using voice recognition software. It may contain grammatical, syntax o r spelling errors. Electronically signed by: Vernon Canales M.D. 01/17/2022 3:22 PM
--- NOTE | 2022-01-17 17:13 | Electrocardiogram Report ---
Test Reason : Blood Pressure : / mmHG Vent. Rate : 064 BPM Atrial Rate : 064 BPM P-R Int : 144 ms QRS Dur : 078 ms QT Int : 380 ms P-R-T Axes : 072 076 088 degrees QTc Int : 392 ms Poor data quality, interpretation may be adversely affected Normal sinus rhythm Left ventricular hypertrophy with repolarization abnormality Anteroseptal infarct (cited on or before 02-NOV-2017) Abnormal ECG When compared with ECG of 14-OCT-2019 16:22, Non-specific change in ST segment in Inferior leads Nonspecific T wave abnormality has replaced inverted T waves in Inferior leads Confirmed by Cody Chanel ([id number]) on 01/17/2022 5:13:04 PM Referred By: REFERRED SELF Confirmed By:Cody Chanel
[2022-01-17] MEDS ORDERED: SODIUM CHLORIDE 0.9% 1000ML 1,000 ML IV SCH (17:24)
--- NOTE | 2022-01-17 18:19 | History & Physical Report ---
Date of Service January 17, 2022 Assessment & Plan (1) Altered mental status: Plan: 86-year-old female with history of stroke, paroxysmal atrial fibrillation, hypertension, CKD stage III, vascular dementia, hypothyroidism Presenting with altered mental status. Altered mental status, possible etiologies: Metabolic encephalopathy Rule out acute CVA History of CVA CT head showing possible subacute infarct periventricular left lower lobe Check brain MRI: Neurochecks every 4 hours Continue Plavix UTI Outpatient records showing urine culture from December 30, 2021: Positive for E. coli, sensitive to ceftriaxone Repeat urine culture Check blood cultures Ceftriaxone 2 g IV daily COVID-19 infection Not hypoxic, O2 sats more than 93% Chest x-ray: No pneumonia Allow for remdesivir to patient given advanced age and comorbidities, high risk for disease progression Spirometry, flutter valve DVT prophylaxis Acute renal failure on CKD stage III Baseline creatinine 0.9, currently 1.5 IV NSS started Mild troponin elevation EKG: No signs of acute ischemia No chest pain or cardiac symptoms Trend troponins Paroxysmal atrial fibrillation Currently in sinus rhythm Continue Plavix, digoxin, metoprolol Hypertension Continue metoprolol History of carotid stenosis On Plavix Hypothyroidism TSH elevated, free T4 normal Vascular dementia Disposition Anticipate return to [facility] facility when medically stable Admission and Anticipated Discharge Date Admission Date: January 17, 2022 History of Present Illness Chief Complaint: Altered mental status Primary Care Provider: Precious Abreu MD 86-year-old female with history of stroke, paroxysmal atrial fibrillation, hypertension, CKD stage III, vascular dementia, hypothyroidism Presenting with altered mental status. Patient brought to the ER from [facility] today for altered mental status. At the ER, patient's blood pressure 141/70, heart rate 67, respiratory rate 15, saturating 98% on room air. CT head: 1. No acute intracranial hemorrhage or midline shift. 2. Likely subacute or chronic infarct within the periventricular left parietal lobe is new from 10/14/2019. 3. Involutional changes with chronic microvascular ischemic disease. 4. Chronic left frontal lobe infarct. Found to be COVID-positive Chest x-ray: No signs of pneumonia Urinalysis showing possible UTI. Patient given IV NSS and started with ceftriaxone 2 g IV. Allergies Allergy/AdvReac Type Severity Reaction Status Date / Time atorvastatin Allergy Intermediate RASH Verified 01/17/22 15:17 tetracycline Allergy Intermediate ARMS Verified 01/17/22 15:17 SWELLED UP SHANTEL Inhibitors Allergy Mild NOT SURE Verified 01/17/22 15:17 OF REACTIONS rivaroxaban Allergy Unknown RASH Verified 01/17/22 15:17 zolpidem Allergy Unknown Unknown Verified 01/17/22 15:17 simvastatin Allergy Unknown Verified 01/17/22 15:17 Tetracyclines Allergy Unknown Verified 12/15/21 11:28 amoxicillin AdvReac Intermediate VERY SICK Verified 01/18/22 11:39 TO HER STOMACH clavulanic acid AdvReac Intermediate VERY SICK Verified 01/18/22 11:39 TO HER STOMACH tramadol AdvReac Intermediate MAKES HER Verified 01/18/22 11:39 DIZZY AND CRAZEY erythromycin base AdvReac Unknown UPSET Verified 01/18/22 11:39 STOMACH gabapentin AdvReac Unknown Unknown Verified 12/15/21 11:28 Home Medications Medication Instructions Recorded Confirmed Type ferrous sulfate 325 mg (65 mg 325 mg PO QAM 12/25/17 01/17/22 History iron) tablet,delayed release cyanocobalamin (vitamin B-12) 500 1,000 mcg PO QAM 08/01/18 01/17/22 History mcg tablet levothyroxine 75 mcg tablet 75 mcg PO QAM #90 tabs 12/17/18 01/17/22 Rx amlodipine 5 mg tablet 5 mg PO QAM 10/03/19 01/17/22 History acetaminophen 325 mg tablet 650 mg PO Q4H PRN Fever Or Pain 10/14/19 01/17/22 History (Tylenol) clopidogrel 75 mg tablet 75 mg PO QAM 10/14/19 01/17/22 History digoxin 125 mcg (0.125 mg) tablet 125 mcg PO QAM 10/14/19 01/17/22 History acetaminophen 325 mg tablet 650 mg PO QAM 01/17/22 01/17/22 History (Tylenol) docusate sodium 100 mg tablet 100 mg PO BID 01/17/22 01/17/22 History metoprolol tartrate 25 mg tablet 25 mg PO BID 01/17/22 01/17/22 History mirtazapine 30 mg tablet 30 mg PO HS 01/17/22 01/17/22 History polyvinyl alcohol 1.4 % eye drops 1 drp OPB TID PRN Eye Irritation 01/17/22 01/17/22 History (Artificial Tears (polyvinyl alcohol)) Past Med/Surg History Medical History Abnormal electrocardiogram Acute alteration in mental status Acute electrocardiogram changes Acute pain of right lower extremity Acute right hemiparesis Afib Antidiuretic hormone, inappropriate secretion Autonomic dysfunction Carotid stenosis Chronic cerebral ischemia Dementia GI bleed Hypertension Hypokalemia Hypothyroid Intracranial hematoma Lumbar spinal stenosis Mild cognitive impairment Overactive bladder Paroxysmal atrial flutter Right-sided lacunar stroke Stroke Stroke-like episode Symptomatic anemia Syncope TIA (transient ischemic attack) UTI (urinary tract infection) Weight loss Surgical History History of appendectomy History of breast surgery puncture aspiiration of cyst History of colonoscopy History of hysterectomy History of lumbar laminectomy Family History Unknown Migraine headache Arteriosclerotic cardiovascular disease (ASCVD) Colon cancer Father Acute myocardial infarction Mother Hypertension Cardiac disorder Social History Smoking Status: Former smoker Second Hand Exposure: No; Hx Alcohol Use: No Hx Substance Use: No Preferred Language: Vietnamese Communication Ability: Effective Visual Impairment: No Limitations Hearing Ability: Normal Bibliographic Services Specialist Required: No Beliefs That Will Affect Care: None marital status: Current Living Situation: Prison Current Living Situation Comment: [facility] current occupational status: retired current occupation: She used to work in an office Other Information That Helps Us Care for You: No Feels Safe at Home: Declines to Answer Childhood Exposure to Second-Hand Smoke: Yes caffeine: Yes Dental Care, Regularly: Yes Physical Activity Frequency: Does not Exercise Seatbelt Use: always Sunscreen Use: No Assistive Devices: None Review of Systems Review of Systems: all noted and negative except for above Results & Data Results & Data ([facility]) Vital Signs (Past 12 Hours) Vital Signs Temp Pulse Resp BP Pulse Ox O2 Del Method 01/17/22 16:30 74 21 97 01/17/22 16:30 161/126 H 01/17/22 16:00 71 13 99 01/17/22 15:36 71 14 99 01/17/22 15:36 129/74 01/17/22 15:30 66 12 96 01/17/22 15:01 72 18 98 01/17/22 15:01 156/60 H 01/17/22 15:00 65 19 96 01/17/22 14:30 65 17 01/17/22 14:30 99/66 L 01/17/22 14:00 67 15 98 01/17/22 14:00 141/70 H 01/17/22 13:30 65 14 01/17/22 13:30 104/45 L 01/17/22 13:02 68 12 97 01/17/22 15:03 98 Room Air 01/17/22 13:40 96 01/17/22 12:24 36.7 C 72 18 100 Room Air Code Status & VTE Plan VTE Prophylaxis Plan VTE Prophylaxis will be ordered: No
[2022-01-17] MEDS: SODIUM CHLORIDE 0.9% 1000ML 1,000 ML IV SCH (19:39)
--- NOTE | 2022-01-17 20:07 | Emergency Department Note ---
Impression & Plan COVID-19, Acute UTI, H/O: CVA (cerebrovascular accident), Lethargy ED Provider Note CHIEF COMPLAINT: weakness, AMS HISTORY OF PRESENT ILLNESS: This 86-year-old female patient presents to the [facility] department with complaints of lethargy, weakness. Patient has had upper respiratory tract symptoms for the last several days. She does reside at [facility]. At about 1115 today, she became more somnolent than usual. Son is at the bedside and states he does not have much more history than that. There is no report of falls. The patient is able to wake up and answer questions but does fall asleep quickly. He states normally she is very active but in a wheelchair. She does scoot herself around the nursing facility. History is somewhat limited due to the patient's mental status. REVIEW OF SYSTEMS: Unable to obtain a full review of systems secondary to the patient's mental status ALLERGIES: see below MEDICATIONS: see below PMH: see below SOCIAL HISTORY: see below DDx:Infection, dehydration, metabolic abnormality, hypo/hyperglycemia, electrolyte disturbance, anemia, hypoxia, cardiac sources, intracerebral event, toxicologic, neurologic, as well as other pathologies. PHYSICAL EXAM: Vital signs reviewed. Hypertension General: Elderly, somewhat ill-appearing 86-year-old female, in no distress. HEENT: No scleral icterus, PERRLA, neck supple. Dry mucous membranes. Cardiovascular: Regular rate and rhythm, no extra sounds. Pulmonary: Clear to auscultation bilaterally, normal work of breathing. Abdomen: Soft, nontender, nondistended, positive bowel sounds. Musculoskeletal: Atraumatic, no peripheral edema. Neurologic: Patient somnolent but arousable, does not answer some questions appropriately. Aware of current place and month. Falls asleep quickly Skin: Warm, dry, no rash EMERGENCY DEPARTMENT COURSE/MDM: This patient was evaluated and appeared to be in no distress. IV access was obtained and laboratory work was drawn. Patient was placed on the campus monitor and noted to be in a normal sinus rhythm. Patient has tested COVID positive. She is noted to have a UTI. Chest x-ray was obtained and is clear. She was medicated with 1 g of IV ceftriaxone and did receive IV normal saline solution for hydration. Case was discussed with the hospitalist service will evaluate the patient for admission and further management. Son was made aware of the plan and agreed. MONITORING: An order for cardiac monitoring was placed and the patient is noted to be in a normal sinus rhythm at 80 beats per minute. RADIOLOGY: See below EKG: Normal sinus rhythm at 64 bpm. LVH with repolarization abnormality. Previous septal infarct. QTC of 392. No PVC, no PAC. Poor quality baseline for interpretation. DISPOSITION: Admission Past Med/Surg History Medical History Abnormal electrocardiogram Acute alteration in mental status Acute electrocardiogram changes Acute pain of right lower extremity Acute right hemiparesis Afib Antidiuretic hormone, inappropriate secretion Autonomic dysfunction Carotid stenosis Chronic cerebral ischemia Dementia GI bleed Hypertension Hypokalemia Hypothyroid Intracranial hematoma Lumbar spinal stenosis Mild cognitive impairment Overactive bladder Paroxysmal atrial flutter Right-sided lacunar stroke Stroke Stroke-like episode Symptomatic anemia Syncope TIA (transient ischemic attack) UTI (urinary tract infection) Weight loss Surgical History History of appendectomy History of breast surgery puncture aspiiration of cyst History of colonoscopy History of hysterectomy History of lumbar laminectomy Family History Unknown Migraine headache Arteriosclerotic cardiovascular disease (ASCVD) Colon cancer Father Acute myocardial infarction Mother Hypertension Cardiac disorder Social History Smoking Status: Never smoker Second Hand Exposure: No; Hx Alcohol Use: No Hx Substance Use: No Preferred Language: Yakut Communication Ability: Impaired Visual Impairment: No Limitations Hearing Ability: Normal Seasonal Customer Service Associate Required: No Beliefs That Will Affect Care: None marital status: Current Living Situation: [facility] Current Living Situation Comment: [facility] current occupational status: retired current occupation: She used to work in an office Feels Safe at Home: Yes Childhood Exposure to Second-Hand Smoke: Yes caffeine: Yes Dental Care, Regularly: Yes Physical Activity Frequency: Does not Exercise Seatbelt Use: always Sunscreen Use: No Assistive Devices: None Allergies Allergies Allergy/AdvReac Type Severity Reaction Status Date / Time amoxicillin Allergy Intermediate VERY SICK Verified 01/17/22 15:17 TO HER STOMACH atorvastatin Allergy Intermediate RASH Verified 01/17/22 15:17 clavulanic acid Allergy Intermediate VERY SICK Verified 01/17/22 15:17 TO HER STOMACH tetracycline Allergy Intermediate ARMS Verified 01/17/22 15:17 SWELLED UP tramadol Allergy Intermediate MAKES HER Verified 01/17/22 15:17 DIZZY AND CRAZEY SHANTEL Inhibitors Allergy Mild NOT SURE Verified 01/17/22 15:17 OF REACTIONS erythromycin base Allergy Unknown UPSET Verified 01/17/22 15:17 STOMACH rivaroxaban Allergy Unknown RASH Verified 01/17/22 15:17 zolpidem Allergy Unknown Unknown Verified 01/17/22 15:17 simvastatin Allergy Unknown Verified 01/17/22 15:17 Tetracyclines Allergy Unknown Verified 12/15/21 11:28 gabapentin AdvReac Unknown Unknown Verified 12/15/21 11:28 Home Meds Home Medications Medication Instructions Recorded Confirmed ferrous sulfate 325 mg (65 mg 325 mg PO QAM 12/25/17 01/17/22 iron) tablet,delayed release cyanocobalamin (vitamin B-12) 500 1,000 mcg PO QAM 08/01/18 01/17/22 mcg tablet amlodipine 5 mg tablet 5 mg PO QAM 10/03/19 01/17/22 acetaminophen 325 mg tablet 650 mg PO Q4H PRN Fever Or Pain 10/14/19 01/17/22 (Tylenol) clopidogrel 75 mg tablet 75 mg PO QAM 10/14/19 01/17/22 digoxin 125 mcg (0.125 mg) tablet 125 mcg PO QAM 10/14/19 01/17/22 acetaminophen 325 mg tablet 650 mg PO QAM 01/17/22 01/17/22 (Tylenol) docusate sodium 100 mg tablet 100 mg PO BID 01/17/22 01/17/22 metoprolol tartrate 25 mg tablet 25 mg PO BID 01/17/22 01/17/22 mirtazapine 30 mg tablet 30 mg PO HS 01/17/22 01/17/22 polyvinyl alcohol 1.4 % eye drops 1 drp OPB TID PRN Eye Irritation 01/17/22 01/17/22 (Artificial Tears (polyvinyl alcohol)) Previous Rx's Medication Instructions Recorded levothyroxine 75 mcg tablet 75 mcg PO QAM #90 tabs 12/17/18 Results & Data (ED) Vital Signs Vital Signs - 24 hr 01/17/22 12:24 01/17/22 13:40 01/17/22 15:03 Temperature 36.7 C Temperature Source Oral Pulse Rate 72 Pulse Rate from SpO2 Sensor Respiratory Rate 18 Respiratory Effort / Characteristics Non-Labored Spontaneous Respiratory Depth Normal Respiratory Pattern Regular Blood Pressure Blood Pressure Mean Pulse Oximetry 100 96 98 Oxygen Delivery Method Room Air Room Air Sepsis Recent Fever Within 48 Hours No Sepsis New/Unexplained Change in Mental Status No Sepsis Action Taken by Nursing No Action Required 01/17/22 13:02 01/17/22 13:30 01/17/22 13:30 Temperature Temperature Source Pulse Rate 68 65 Pulse Rate from SpO2 Sensor 67 Respiratory Rate 12 14 Respiratory Effort / Characteristics Respiratory Depth Respiratory Pattern Blood Pressure 104/45 L Blood Pressure Mean 64 Pulse Oximetry 97 Oxygen Delivery Method Sepsis Recent Fever Within 48 Hours Sepsis New/Unexplained Change in Mental Status Sepsis Action Taken by Nursing 01/17/22 14:00 01/17/22 14:00 01/17/22 14:30 Temperature Temperature Source Pulse Rate 67 Pulse Rate from SpO2 Sensor 67 Respiratory Rate 15 Respiratory Effort / Characteristics Respiratory Depth Respiratory Pattern Blood Pressure 141/70 H 99/66 L Blood Pressure Mean 93 77 Pulse Oximetry 98 Oxygen Delivery Method Sepsis Recent Fever Within 48 Hours Sepsis New/Unexplained Change in Mental Status Sepsis Action Taken by Nursing 01/17/22 14:30 01/17/22 15:00 01/17/22 15:01 Temperature Temperature Source Pulse Rate 65 65 Pulse Rate from SpO2 Sensor 67 Respiratory Rate 17 19 Respiratory Effort / Characteristics Respiratory Depth Respiratory Pattern Blood Pressure 156/60 H Blood Pressure Mean 92 Pulse Oximetry 96 Oxygen Delivery Method Sepsis Recent Fever Within 48 Hours Sepsis New/Unexplained Change in Mental Status Sepsis Action Taken by Nursing 01/17/22 15:01 01/17/22 15:30 01/17/22 15:36 Temperature Temperature Source Pulse Rate 72 66 Pulse Rate from SpO2 Sensor 70 67 Respiratory Rate 18 12 Respiratory Effort / Characteristics Respiratory Depth Respiratory Pattern Blood Pressure 129/74 Blood Pressure Mean 92 Pulse Oximetry 98 96 Oxygen Delivery Method Sepsis Recent Fever Within 48 Hours Sepsis New/Unexplained Change in Mental Status Sepsis Action Taken by Nursing 01/17/22 15:36 01/17/22 16:00 01/17/22 16:30 Temperature Temperature Source Pulse Rate 71 71 Pulse Rate from SpO2 Sensor 74 72 Respiratory Rate 14 13 Respiratory Effort / Characteristics Respiratory Depth Respiratory Pattern Blood Pressure 161/126 H Blood Pressure Mean 137 Pulse Oximetry 99 99 Oxygen Delivery Method Sepsis Recent Fever Within 48 Hours Sepsis New/Unexplained Change in Mental Status Sepsis Action Taken by Nursing 01/17/22 16:30 Temperature Temperature Source Pulse Rate 74 Pulse Rate from SpO2 Sensor 75 Respiratory Rate 21 Respiratory Effort / Characteristics Respiratory Depth Respiratory Pattern Blood Pressure Blood Pressure Mean Pulse Oximetry 97 Oxygen Delivery Method Sepsis Recent Fever Within 48 Hours Sepsis New/Unexplained Change in Mental Status Sepsis Action Taken by [facility] Medications Current Medication List: was personally reviewed by me Laboratory Data Attestation: I reviewed the patient's lab results. Result diagrams: 01/17/22 12:35 01/17/22 12:35 Lab Results 01/17/22 01/17/22 01/17/22 Range/Units 12:35 12:35 12:35 WBC 5.88 (4.8-10.8) K/ul RBC 4.04 (3.93-5.22) M/uL Hgb 12.1 (12.0-16.0) g/dl Hct 36.7 (34.1-44.9) % MCV 90.8 (80.0-100.0) fL MCH 30.0 (25.0-34.0) pg MCHC 33.0 (32.0-36.0) g/dL RDW Std Deviation 41.7 (36.4-46.3) fL RDW Coeff of Misael 12.6 (11.5-14.5) % Plt Count 264 (130-400) K/uL MPV 9.1 L (9.4-12.3) fL Immature Gran % (Auto) 0.2 % Neut % (Auto) 81.6 % Lymph % (Auto) 10.4 % [place] % (Auto) 7.3 % Eos % (Auto) 0.0 % Baso % (Auto) 0.5 % Neut # (Auto) 4.80 (1.4-6.5) K/uL Lymph # (Auto) 0.61 L (1.2-3.4) K/uL [place] # (Auto) 0.43 (0.24-0.82) K/uL Eos # (Auto) 0.00 (0-0.50) K/uL Baso # (Auto) 0.03 (0-0.2) K/uL Immature Gran # (Auto) 0.01 (0.00-0.02) K/uL Sodium 138 (136-145) mmol/L Potassium 4.4 (3.5-5.1) mmol/L Chloride 105 (98-107) mmol/L Carbon Dioxide 24 (21-32) mmol/L Anion Gap 9 (3-11) BUN 48 H (6-23) mg/dl Creatinine 1.51 H (0.6-1.2) mg/dl Est Cr Clr Drug Dosing 17.0 ml/min Est GFR ( Amer) 35.4 ml/min Est GFR (Non-Af Amer) 30.5 ml/min BUN/Creatinine Ratio 31.8 H (10-20) Glucose 120 H (70-99(Fasting)) mg/dl Calcium 9.7 (8.5-10.1) mg/dl Magnesium 2.5 H (1.7-2.4) mg/dl Total Bilirubin 0.4 (0.2-1.0) mg/dl AST 20 (13-39) U/L ALT 20 (7-52) U/L Alkaline Phosphatase 72 (34-104) U/L Troponin I High Sens 30.1 H (0-14) pg/ml Total Protein 7.9 (6.0-8.3) gm/dl Albumin 4.2 (3.4-5.0) gm/dl Globulin 3.7 (2.5-4.0) gm/dl Albumin/Globulin Ratio 1.1 (0.9-2) TSH 6.803 H (0.300-4.500) uIu/ml Free T4 1.32 (0.61-1.60) ng/dl Urine Color Urine Appearance (Clear) Urine pH (4.5-7.5) Ur Specific [place] (1.000-1.030) Urine Protein (Negative) Urine Glucose (UA) (Negative) Urine Ketones (Negative) Urine Blood (Negative) Urine Nitrite (Negative) Urine Bilirubin (Negative) Urine Urobilinogen (Negative) Ur Leukocyte Esterase (Negative) Urine WBC (Auto) (0-5) /hpf Urine RBC (Auto) (0-4) /hpf U Hyaline Cast (Auto) (0-5) /lpf U Epithel Cells (Auto) (0-5) /lpf Urine Bacteria (Auto) (Negative) Ur Renal Epithelial Cell (0-5) /lpf SARS-CoV-2 (PCR) (Negative) 01/17/22 01/17/22 Range/Units 14:00 14:02 WBC (4.8-10.8) K/ul RBC (3.93-5.22) M/uL Hgb (12.0-16.0) g/dl Hct (34.1-44.9) % MCV (80.0-100.0) fL MCH (25.0-34.0) pg MCHC (32.0-36.0) g/dL RDW Std Deviation (36.4-46.3) fL RDW Coeff of Misael (11.5-14.5) % Plt Count (130-400) K/uL MPV (9.4-12.3) fL Immature Gran % (Auto) % Neut % (Auto) % Lymph % (Auto) % [place] % (Auto) % Eos % (Auto) % Baso % (Auto) % Neut # (Auto) (1.4-6.5) K/uL Lymph # (Auto) (1.2-3.4) K/uL [place] # (Auto) (0.24-0.82) K/uL Eos # (Auto) (0-0.50) K/uL Baso # (Auto) (0-0.2) K/uL Immature Gran # (Auto) (0.00-0.02) K/uL Sodium (136-145) mmol/L Potassium (3.5-5.1) mmol/L Chloride (98-107) mmol/L Carbon Dioxide (21-32) mmol/L Anion Gap (3-11) BUN (6-23) mg/dl Creatinine (0.6-1.2) mg/dl Est Cr Clr Drug Dosing ml/min Est GFR ( Amer) ml/min Est GFR (Non-Af Amer) ml/min BUN/Creatinine Ratio (10-20) Glucose (70-99(Fasting)) mg/dl Calcium (8.5-10.1) mg/dl Magnesium (1.7-2.4) mg/dl Total Bilirubin (0.2-1.0) mg/dl AST (13-39) U/L ALT (7-52) U/L Alkaline Phosphatase (34-104) U/L Troponin I High Sens (0-14) pg/ml Total Protein (6.0-8.3) gm/dl Albumin (3.4-5.0) gm/dl Globulin (2.5-4.0) gm/dl Albumin/Globulin Ratio (0.9-2) TSH (0.300-4.500) uIu/ml Free T4 (0.61-1.60) ng/dl Urine Color Yellow Urine Appearance Cloudy A (Clear) Urine pH 5.0 (4.5-7.5) Ur Specific [place] 1.021 (1.000-1.030) Urine Protein 3+ H (Negative) Urine Glucose (UA) Negative (Negative) Urine Ketones Trace H (Negative) Urine Blood 1+ H (Negative) Urine Nitrite Negative (Negative) Urine Bilirubin Negative (Negative) Urine Urobilinogen Negative (Negative) Ur Leukocyte Esterase 2+ H (Negative) Urine WBC (Auto) >30 H (0-5) /hpf Urine RBC (Auto) 0-4 (0-4) /hpf U Hyaline Cast (Auto) 1-5 (0-5) /lpf U Epithel Cells (Auto) >30 H (0-5) /lpf Urine Bacteria (Auto) 1+ H (Negative) Ur Renal Epithelial Cell 0-5 (0-5) /lpf SARS-CoV-2 (PCR) POSITIVE A* (Negative) Administered Medications Sodium Chloride (Nss 1000ml) 1,000 mls @ 75 mls/hr IV .[id number] FILEMON Stop: 02/16/22 18:14 Last Admin: 01/17/22 19:39 Dose: 75 mls/hr Documented By: ED Discontinued Medications Sodium Chloride (Nss 1000ml) 250 mls @ 999 mls/hr IV .Q16M ONE Stop: 01/17/22 13:26 Last Infusion: 01/17/22 14:36 Dose: 0 mls/hr Documented By: Admin: 01/17/22 14:04 Dose: 999 mls/hr Documented By: Sodium Chloride (Nss 1000ml) 1,000 mls @ 100 mls/hr IV .Q10H STA Stop: 01/17/22 23:10 Last Admin: 01/17/22 14:03 Dose: 100 mls/hr Documented By: Ceftriaxone Sodium 1,000 mg/ (Dextrose) 50 mls @ 100 mls/hr IV NOW STA Stop: 01/17/22 15:26 Last Infusion: 12/05/22 16:40 Dose: 0 mls/hr Documented By: Admin: 01/17/22 15:57 Dose: 100 mls/hr Documented By: AARTI Imaging Data Radiologist's Impression: Chest X-Ray 01/17/22 13:00 XR chest 1V portable HISTORY: 86 years-old Female weakness acute weakness COMPARISON: 10/14/2019 TECHNIQUE: AP view of the chest FINDINGS: Cardiomediastinal and hilar silhouettes are within normal limits. Ath erosclerosis of the aorta. No pneumothorax, pleural effusion, airspace consolidation or overt pulmonary edema. Chronic pleural thickening of the lung apices. Left shoulder rotator cuff calcific tendinosis. Degenerative changes of the shoulders and spine. IMPRESSION: No acute process. ACT 112: Negative or not required by law. The above report was generated using voice recognition software. It may contain grammatical, syntax or spelling errors. Electronically signed by: Vernon Canales M.D. 01/17/2022 1:[address] 01/17/22 14:58 CT head/brain wo con CLINICAL HISTORY: 86 years-old Female with AMS. Acutely altered mental status TECHNIQUE: Multiple axial CT images of the head were obtained without contrast. A dose lowering technique was utilized adhering to the principles of ALARA. CT DOSE: 1305.31 mGy.cm COMPARISON: 10/14/2019 FINDINGS: No acute intracranial hemorrhage, midline shift, intracranial mass, hydrocep halus, territorial ischemia or abnormal extra-axial collection. Age-related involutional changes with ex vacuo ventriculomegaly. White matter hypodensities suggestive of chronic microvascular ischemic disease. Chronic left frontal lobe infarct. 3.6 cm area of ill-defined attenuation within the periventricular left parietal lobe on image 22 series 4 is new from prior. Chronic left thalamic lacunar infarct. Subcentimeter calcification either adjacent to or involving the left frontal lobe on image 23 series 4 with not identified on the prior study. Cerebral vascular calcifications. The calvarium is intact. Paranasal sinuses are clear. Trace right mastoid effusion. Left mastoid air cells are clear. Prior bilateral lens repair. IMPRESSION: 1. No acute intracranial hemorrhage or midline shift. 2. Likely subacute or chronic infarct within the periventricular left parietal lobe is new from 10/14/2019. 3. Involutional changes with chronic microvascular ischemic disease. 4. Chronic left frontal lobe infarct. ACT 112: Negative or not required by law. The above report was generated using voice recognition software. It may contain grammatical, syntax or spelling errors. Electronically signed by: Vernon Canales M.D. 01/17/2022 3:22 PM Blood Pressure Blood Pressure Findings: Elevated blood pressure Blood Pressure Disposition: Referred to patients primary care provider Discharge Plan Visit Data Chief Complaint: Altered Mental Status Stated Complaint: CVA SX ED Provider: Lillie Arriaga Discharge Problem: COVID-19, Acute UTI, H/O: CVA (cerebrovascular accident), Lethargy Patient Disposition: Admitted As Inpatient Discharge Instructions Interventions: ED Discharge Assessment Last Done: 01/17/22 17:00
[2022-01-18] MEDS: SODIUM CHLORIDE 0.9% 1000ML 1,000 ML IV SCH ×2 (04:47→18:03)
[2022-01-18 10:42] LABS: Basophils # (auto) 0.04 K/uL (0-0.2); Basophils % (auto) 0.6 %; Eosinophils # (auto) 0.06 K/uL (0-0.50); Eosinophils % (auto) 0.9 %; Hematocrit (blood only) 30.9 % (34.1-44.9); Hemoglobin 10.2 g/dl (12.0-16.0); Immature Granulocytes # (auto) 0.02 K/uL (0.00-0.02); Immature Granulocytes % (auto) 0.3 %; Lymphocytes # (auto) 1.28 K/uL (1.2-3.4); Lymphocytes % (auto) 19.2 %; Mean Corpuscular Hemoglobin 30.1 pg (25.0-34.0); Mean Corpuscular Volume 91.2 fL (80.0-100.0); Mean Platelet Volume 8.8 fL (9.4-12.3); Monocytes # (auto) 0.73 K/uL (0.24-0.82); Monocytes % (auto) 10.9 %; Neutrophils # (auto) 4.55 K/uL (1.4-6.5); Neutrophils % (auto) 68.1 %; Platelet Count 230 K/uL (130-400); RDW Standard Deviation 43.1 fL (36.4-46.3); Red Blood Count 3.39 M/uL (3.93-5.22); White Blood Count 6.68 K/ul (4.8-10.8)
[2022-01-18 11:43] LABS: Albumin Globulin Ratio 1.2 (0.9-2); Albumin Level 3.6 gm/dl (3.4-5.0); BUN Creatinine Ratio 45.8 (10-20); Bilirubin,Total 0.5 mg/dl (0.2-1.0); Calcium 8.7 mg/dl (8.5-10.1); Creatinine Clr Calc Pharmacy 35.7 ml/min; Globulin 3.1 gm/dl (2.5-4.0); Potassium 3.8 mmol/L (3.5-5.1); Total Protein 6.7 gm/dl (6.0-8.3)
[2022-01-18] MEDS: traMADol HCL 50 MG TABLET PO PRN ×2 (12:26→21:19)
--- NOTE | 2022-01-18 13:05 | CT Scan Report ---
CT head/brain wo con CLINICAL HISTORY: altered mental status, r/o acute cva Technique: Contiguous axial CT images of the head were acquired from the base of the skull to the keisha bob without intravenous contrast administration. Images were viewed in brain, subdural and bone windo ws. Automated dose lowering techniques and/or adjustment according to patient size were utilized for this exam. Comparison: Comparison is made to CT head 01/18/2020 Findings: Areas of decreased attenuation are present in the periventricular and subcortical white matter bilate rally consistent with small vessel ischemic disease. Generalized cerebral atrophy with commensurate e nlargement of the ventricles, sulci, and cisterns is also present. There is no acute intracranial hem orrhage or evidence of acute territorial infarction. No shift of the midline structures, mass effect, or extra-axial abnormalities are shown. Atherosclerotic calcifications are present in the intracran ial segments of the internal carotid arteries. Stable left encephalomalacia is seen. Imaged portions of the paranasal sinuses and mastoid air cells are clear. The orbits appear normal. There are no acute fractures of the calvaria or scalp swelling. Impression: No acute intracranial hemorrhage, no evidence of acute territorial infarction or other acute intracra nial disease process. ACT 112: Negative or not required by law. Electronically signed by: Kirill eCballos M.D. 01/18/2022 1:03 PM
[2022-01-18] MEDS: cefTRIAXone SODIUM 2,000 MG in DEXTROSE 5% 50 ML IV SCH (14:35)
[2022-01-18] MEDS: ACETAMINOPHEN 325 MG TAB PO PRN ×2 (18:02→23:13)
--- NOTE | 2022-01-18 19:46 | Hospitalist Progress Note ---
Date of Service January 18, 2022 Assessment & Plan (1) Altered mental status: Plan: 86-year-old female with history of stroke, paroxysmal atrial fibrillation, hypertension, CKD stage III, vascular dementia, hypothyroidism Presenting with altered mental status. Altered mental status, Metabolic encephalopathy possible etiologies: UTI, gram-negative bacilli Outpatient records showing urine culture from December 30, 2021: Positive for E. coli, sensitive to ceftriaxone Urine culture: Gram-negative bacilli Blood cultures: Negative so far Ceftriaxone 2 g IV daily day #2 COVID-19 infection Not hypoxic, O2 sats more than 93% Chest x-ray: No pneumonia Allow for remdesivir to patient given advanced age and comorbidities, high risk for disease progression Spirometry, flutter valve DVT prophylaxis Acute CVA unlikely History of CVA --Patient presenting with acute confusion, but no focal neurologic deficits CT head on admission: 1. No acute intracranial hemorrhage or midline shift. 2. Likely subacute or chronic infarct within the periventricular left parietal lobe is new from 10/14/2019. 3. Involutional changes with chronic microvascular ischemic disease. 4. Chronic left frontal lobe infarct. Not tolerating brain MRI Repeat CT head today: No acute intracranial hemorrhage, no evidence of acute territorial infarction or other acute intracranial disease process. Continue Plavix Acute renal failure on CKD stage III Baseline creatinine 0.9, on admission 1.5 IV NSS started Creatinine today 0.8, on gentle IV fluids Mild troponin elevation Likely secondary to acute renal failure on CKD stage III EKG: No signs of acute ischemia No chest pain or cardiac symptoms Troponin 30, 99, 91 Echocardiogram ordered Paroxysmal atrial fibrillation Currently in sinus rhythm Continue Plavix, digoxin, metoprolol Hypertension Continue metoprolol History of carotid stenosis On Plavix Hypothyroidism TSH elevated, free T4 normal Vascular dementia Disposition Anticipate return to [facility] facility when medically stable Admission and Anticipated Discharge Date Admission Date: January 17, 2022 Subjective Follow-up for metabolic encephalopathy, UTI, COVID infection, etc. Seen resting in bed, sleeping but easily awakened States she feels better compared to yesterday Oriented x2, answers most questions appropriately Denies cough, shortness of breath, chest pain, leg pain Denies focal weakness or numbness No other new symptom Review of Systems Review of Systems: all noted and negative except for above Physical Exam Physical Exam: General- oriented x 2, not in distress, speaks in sentences with no effort or accessory muscle use Eyes- anicteric Neck- no JVD Lungs- clear breath sounds bilaterally, no crackles or wheezing Heart- normal rate, regular rhythm; no murmurs Abdomen- normal bowel sounds, nondistended, soft, no tenderness Extremities- no pretibial edema, no calf tenderness Neuro- alert, oriented x 3; no gross focal neurologic deficits Skin- warm & dry Results & Data Results & Data ([facility]) Vital Signs (Past 12 Hours) Vital Signs Temp Pulse Pulse Resp BP Pulse Ox Pulse Ox 01/18/22 18:50 37 C 79 18 148/62 H 94 01/18/22 16:12 36.8 C 68 18 142/70 H 94 01/18/22 17:24 95 01/18/22 16:11 73 01/18/22 14:11 01/18/22 11:45 36.8 C 65 18 152/68 H 95 01/18/22 07:41 36.6 C 75 18 154/66 H 96 O2 Del Method O2 Del Method 01/18/22 18:50 Room Air 01/18/22 16:12 Room Air 01/18/22 17:24 Room Air 01/18/22 16:11 01/18/22 14:11 Room Air 01/18/22 11:45 Room Air 01/18/22 07:41 Room Air all noted and reviewed including below
[2022-01-18] MEDS ORDERED: REMDESIVIR 200 MG in SODIUM CHLORIDE 0.9% 210 ML IV STA (20:34)
[2022-01-18] MEDS ORDERED: POTASSIUM CHLORIDE PWD 20 MEQ PACK PO STA (22:46)
[2022-01-18] MEDS ORDERED: LACTATED RINGER'S 1,000 ML IV ONE (22:46)
[2022-01-18] MEDS ORDERED: METOPROLOL TARTRATE 25 MG TAB PO STA (22:47)
[2022-01-19] MEDS: LEVOTHYROXINE SODIUM 75 MCG TABLET PO SCH ×2 (06:29→06:34)
[2022-01-19] MEDS: METOPROLOL SUCC 25MG EXT REL TAB PO SCH ×2 (07:52→16:27)
[2022-01-19] MEDS: CLOPIDOGREL BISULFATE 75 MG TAB PO SCH (07:52)
[2022-01-19] MEDS: FERROUS SULFATE 325 MG TAB PO SCH (07:52)
--- NOTE | 2022-01-19 08:00 | Hospitalist Progress Note ---
Date of Service January 19, 2022 Assessment & Plan (1) Altered mental status: Plan 86-year-old female with history of stroke, paroxysmal atrial fibrillation, hypertension, CKD stage III, vascular dementia, hypothyroidism Presenting with altered mental status. Altered mental status, Metabolic encephalopathy possible etiologies: UTI, E.coli Outpatient records showing urine culture from December 30, 2021: Positive for E. coli, sensitive to ceftriaxone Urine culture: E.coli Blood cultures: Negative so far Ceftriaxone 2 g IV daily day #2 Pt now refusing IV and was switched to PO COVID-19 infection Not hypoxic, O2 sats more than 93% Chest x-ray: No pneumonia Allow for remdesivir to patient given advanced age and comorbidities, high risk for disease progression Pt now not interested in remdesivir She breathing comfortably on RA Spirometry, flutter valve DVT prophylaxis Acute CVA unlikely History of CVA --Patient presenting with acute confusion, but no focal neurologic deficits CT head on admission: 1. No acute intracranial hemorrhage or midline shift. 2. Likely subacute or chronic infarct within the periventricular left parietal lobe is new from 10/14/2019. 3. Involutional changes with chronic microvascular ischemic disease. 4. Chronic left frontal lobe infarct. Not tolerating brain MRI Repeat CT head: No acute intracranial hemorrhage, no evidence of acute territorial infarction or other acute intracranial disease process. Continue Plavix Acute renal failure on CKD stage III - Resolved Baseline creatinine 0.9, on admission 1.5 IV NSS started Creatinine improved 0.7, received gentle IV fluids Mild troponin elevation Likely secondary to acute renal failure on CKD stage III EKG: No signs of acute ischemia No chest pain or cardiac symptoms Troponin 30, 99, 91 Echocardiogram obtained - LV cavity is small. There is a borderline concentric LVH. The basal septum is thickened and angulated consistent with sigmoid septum. LV wall motion is normal. LV systolic function is normal. EF 65 to 70%. There is late peaking outflow tract/mid ventricle velocity gradient consistent with hyperdynamic LV function. Aortic valve sclerosis moderate, without significant aortic valvular stenosis. Grade 1 diastolic dysfunction. Paroxysmal atrial fibrillation Currently in sinus rhythm Continue Plavix, digoxin, metoprolol Hypertension Continue metoprolol History of carotid stenosis On Plavix Hypothyroidism TSH elevated, free T4 normal Vascular dementia [facility] Admission and Anticipated Discharge Date Admission Date: January 17, 2022 Subjective Pt seen in follow-up of metabolic encephalopathy, UTI, COVID infection, etc. Seen resting in bed, in NAD Earlier pt refused PO meds per RN, also refused IV line- switched meds to PO Later pt was ok to take some of her PO meds Reports that she feels great Not sure if she is aware that she is in the hospital Says she doesn't believe she has covid Denies any fever, chills, cough, shortness of breath, chest pain, abd. pain, n/v Denies focal weakness or numbness No other new symptom Review of Systems Review of Systems: All systems reviewed & are unremarkable except as noted in Subjective Physical Exam Physical Exam: General- oriented x 2, not in distress, speaks in sentences with no effort or accessory muscle use Eyes- anicteric Neck- no JVD Lungs- clear breath sounds bilaterally, no crackles or wheezing Heart- normal rate, regular rhythm; no murmurs Abdomen- normal bowel sounds, nondistended, soft, no tenderness Extremities- no pretibial edema, no calf tenderness Neuro- alert, oriented x 3; no gross focal neurologic deficits Skin- warm & dry Results & Data Results & Data ([facility]) Vital Signs (Past 12 Hours) Vital Signs Temp Pulse Pulse Resp BP Pulse Ox O2 Del Method 01/19/22 07:03 76 01/19/22 03:59 36.5 C 68 18 143/65 H 96 Room Air 01/18/22 22:38 37.0 C 96 H 18 109/65 96 Room Air 01/18/22 20:25 Room Air 01/18/22 20:25 80 17 97 Room Air Laboratory Results 01/18/22 01/18/22 01/18/22 Range/Units 10:15 10:15 10:15 WBC 6.68 (4.8-10.8) K/ul RBC 3.39 L (3.93-5.22) M/uL Hgb 10.2 L (12.0-16.0) g/dl Hct 30.9 L (34.1-44.9) % MCV 91.2 (80.0-100.0) fL MCH 30.1 (25.0-34.0) pg MCHC 33.0 (32.0-36.0) g/dL RDW Std Deviation 43.1 (36.4-46.3) fL RDW Coeff of Misael 13.0 (11.5-14.5) % Plt Count 230 (130-400) K/uL MPV 8.8 L (9.4-12.3) fL Immature Gran % (Auto) 0.3 % Neut % (Auto) 68.1 % Lymph % (Auto) 19.2 % [place] % (Auto) 10.9 % Eos % (Auto) 0.9 % Baso % (Auto) 0.6 % Neut # (Auto) 4.55 (1.4-6.5) K/uL Lymph # (Auto) 1.28 (1.2-3.4) K/uL [place] # (Auto) 0.73 (0.24-0.82) K/uL Eos # (Auto) 0.06 (0-0.50) K/uL Baso # (Auto) 0.04 (0-0.2) K/uL Immature Gran # (Auto) 0.02 (0.00-0.02) K/uL Sodium 142 (136-145) mmol/L Potassium 3.8 (3.5-5.1) mmol/L Chloride 110 H (98-107) mmol/L Carbon Dioxide 24 (21-32) mmol/L Anion Gap 8 (3-11) BUN 38 H (6-23) mg/dl Creatinine 0.83 D (0.6-1.2) mg/dl Est Cr Clr Drug Dosing 35.7 ml/min Est GFR ( Amer) 73.0 ml/min Est GFR (Non-Af Amer) 63.0 ml/min BUN/Creatinine Ratio 45.8 H (10-20) Glucose 89 (70-99(Fasting)) mg/dl Calcium 8.7 (8.5-10.1) mg/dl Magnesium 2.1 (1.7-2.4) mg/dl Total Bilirubin 0.5 (0.2-1.0) mg/dl AST 20 (13-39) U/L ALT 18 (7-52) U/L Alkaline Phosphatase 57 (34-104) U/L Total Protein 6.7 (6.0-8.3) gm/dl Albumin 3.6 (3.4-5.0) gm/dl Globulin 3.1 (2.5-4.0) gm/dl Albumin/Globulin Ratio 1.2 (0.9-2) Medications Administered Current Inpatient Medications Acetaminophen (Acetaminophen 325 Mg Tab) 650 mg PO Q4H PRN PRN Reason: Pain or Fever Stop: 02/16/22 17:23 Last Admin: 01/18/22 23:13 Dose: 650 mg Clopidogrel Bisulfate (Clopidogrel Bisulfate 75 Mg Tab) 75 mg PO [facility] Stop: 02/18/22 08:59 Last Admin: 01/19/22 07:52 Dose: Not Given Digoxin (Digoxin 0.125 Mg Tab) 0.125 mg PO DAILY@1600 [facility] Stop: 02/18/22 15:59 Ferrous Sulfate (Ferrous Sulfate 325 Mg Tab) 325 mg PO [facility] Stop: 02/18/22 08:59 Last Admin: 01/19/22 07:52 Dose: Not Given Ceftriaxone Sodium 2,000 mg/ (Dextrose) 70 mls @ 100 mls/hr IV Q24H [facility]; Protocol Stop: 01/22/22 14:59 Last Infusion: 01/18/22 15:30 Dose: Infused Remdesivir 100 mg/ Sodium (Chloride) 250 mls @ 250 mls/hr IV Q24H [facility] Stop: 01/22/22 20:59 Lactated Ringer's (Lr) 1,000 mls @ 75 mls/hr IV .[id number] Stop: 01/19/22 12:05 Last Admin: 01/18/22 23:22 Dose: 75 mls/hr Levothyroxine Sodium (Levothyroxine Sodium 75 Mcg Tablet) [facility] Stop: 02/18/22 06:29 Last Admin: 01/19/22 06:34 Dose: Not Given Metoprolol Succinate (Metoprolol Succ 25mg Ext Rel Tab) 25 mg PO [facility] Stop: 02/18/22 08:59 Last Admin: 01/19/22 07:52 Dose: Not Given Tramadol HCl (Tramadol Hcl 50 Mg Tablet) 50 mg PO BID PRN PRN Reason: moderate to severe pain Stop: 02/17/22 11:29 Last Admin: 01/18/22 21:19 Dose: 50 mg
[2022-01-19 10:54] LABS: Albumin Globulin Ratio 1.1 (0.9-2); BUN Creatinine Ratio 32.8 (10-20); Bilirubin,Total 0.8 mg/dl (0.2-1.0); Calcium 9.4 mg/dl (8.5-10.1); Creatinine Clr Calc Pharmacy 44.1 ml/min; Est GFR (Non-African American) 78.5 ml/min; Globulin 3.7 gm/dl (2.5-4.0); Magnesium 1.8 mg/dl (1.7-2.4); Phosphorus 2.6 mg/dl (2.5-4.9); Potassium 3.7 mmol/L (3.5-5.1); Total Protein 7.7 gm/dl (6.0-8.3)
[2022-01-19] MEDS: cefTRIAXone SODIUM 2,000 MG in DEXTROSE 5% 50 ML IV SCH (15:01)
[2022-01-19] MEDS: DIGOXIN 0.125 MG TAB PO SCH (16:19)
[2022-01-19] MEDS: CEFDINIR 300 MG CAP PO SCH (16:55)
[2022-01-19] MEDS ORDERED: REMDESIVIR 100 MG in SODIUM CHLORIDE 0.9% 230 ML IV SCH (20:00)
[2022-01-19] MEDS ORDERED: CEFDINIR 300 MG CAP PO SCH (21:00)
[2022-01-20] MEDS: ACETAMINOPHEN 325 MG TAB PO PRN (00:28)
[2022-01-20] MEDS: CEFDINIR 300 MG CAP PO SCH (05:27)
[2022-01-20] MEDS: LEVOTHYROXINE SODIUM 75 MCG TABLET PO SCH (05:28)
[2022-01-20 08:48] LABS: Hematocrit (blood only) 31.3 % (34.1-44.9); Hemoglobin 10.6 g/dl (12.0-16.0); Mean Corpuscular Hemoglobin 29.6 pg (25.0-34.0); Mean Corpuscular Hgb Conc 33.9 g/dL (32.0-36.0); Mean Corpuscular Volume 87.4 fL (80.0-100.0); Mean Platelet Volume 9.5 fL (9.4-12.3); Platelet Count 237 K/uL (130-400); RDW Coefficient of Variation 12.6 % (11.5-14.5); RDW Standard Deviation 40.3 fL (36.4-46.3); Red Blood Count 3.58 M/uL (3.93-5.22); White Blood Count 7.26 K/ul (4.8-10.8)
[2022-01-20] MEDS: FERROUS SULFATE 325 MG TAB PO SCH (09:27)
[2022-01-20] MEDS: CLOPIDOGREL BISULFATE 75 MG TAB PO SCH (09:27)
[2022-01-20] MEDS: METOPROLOL SUCC 25MG EXT REL TAB PO SCH (09:27)
[2022-01-20 09:28] LABS: Albumin Globulin Ratio 1.1 (0.9-2); Albumin Level 3.5 gm/dl (3.4-5.0); BUN Creatinine Ratio 30.4 (10-20); Bilirubin,Total 0.6 mg/dl (0.2-1.0); Calcium 8.8 mg/dl (8.5-10.1); Creatinine Clr Calc Pharmacy 26.4 ml/min; Est GFR (African American) 50.8 ml/min; Est GFR (Non-African American) 43.8 ml/min; Globulin 3.1 gm/dl (2.5-4.0); Magnesium 1.9 mg/dl (1.7-2.4); Phosphorus 3.3 mg/dl (2.5-4.9); Potassium 3.7 mmol/L (3.5-5.1); Total Protein 6.6 gm/dl (6.0-8.3)
--- NOTE | 2022-01-20 09:46 | Hospitalist Progress Note ---
Date of Service January 20, 2022 Assessment & Plan (1) Altered mental status: Plan 86-year-old female with history of stroke, paroxysmal atrial fibrillation, hypertension, CKD stage III, vascular dementia, hypothyroidism Presenting with altered mental status. Altered mental status, Metabolic encephalopathy possible etiologies: UTI, E.coli Outpatient records showing urine culture from December 30, 2021: Positive for E. coli, sensitive to ceftriaxone Urine culture: E.coli Blood cultures: Negative so far Ceftriaxone 2 g IV daily received x2 Pt was refusing IV yesterday and was switched to PO COVID-19 infection Not hypoxic, O2 sats more than 93% Chest x-ray: No pneumonia Allowed for remdesivir to patient given advanced age and comorbidities, high risk for disease progression Pt now not interested in remdesivir She is breathing comfortably on RA Spirometry, flutter valve DVT prophylaxis Acute CVA unlikely History of CVA --Patient presenting with acute confusion, but no focal neurologic deficits CT head on admission: 1. No acute intracranial hemorrhage or midline shift. 2. Likely subacute or chronic infarct within the periventricular left parietal lobe is new from 10/14/2019. 3. Involutional changes with chronic microvascular ischemic disease. 4. Chronic left frontal lobe infarct. Not tolerating brain MRI Repeat CT head: No acute intracranial hemorrhage, no evidence of acute territorial infarction or other acute intracranial disease process. Continue Plavix Acute renal failure on CKD stage III - Resolved Baseline creatinine 0.9, on admission 1.5 IV NSS started Creatinine improved 0.7, received gentle IV fluids Mild troponin elevation Likely secondary to acute renal failure on CKD stage III EKG: No signs of acute ischemia No chest pain or cardiac symptoms Troponin 30, 99, 91 Echocardiogram obtained - LV cavity is small. There is a borderline concentric LVH. The basal septum is thickened and angulated consistent with sigmoid septum. LV wall motion is normal. LV systolic function is normal. EF 65 to 70%. There is late peaking outflow tract/mid ventricle velocity gradient consistent with hyperdynamic LV function. Aortic valve sclerosis moderate, without significant aortic valvular stenosis. Grade 1 diastolic dysfunction. Paroxysmal atrial fibrillation Currently in sinus rhythm Continue Plavix, digoxin, metoprolol Hypertension Continue metoprolol History of carotid stenosis On Plavix Hypothyroidism TSH elevated, free T4 normal Vascular dementia Disposition Anticipate return to custodial facility Admission and Anticipated Discharge Date Admission Date: January 17, 2022 Subjective Pt seen in follow-up of metabolic encephalopathy, UTI, COVID infection, etc. Seen resting in bed, in NAD Reports that she feels well, and inquiring about discharge Denies any fever, chills, cough, shortness of breath, chest pain, abd. pain, n/v Denies focal weakness or numbness No other new symptoms Contacted over the phone and updated. He talked to her over the phone yesterday and felt that she was back to baseline. Appreciative about the update from me. Review of Systems Review of Systems: All systems reviewed & are unremarkable except as noted in Subjective Physical Exam Physical Exam: General- oriented x 2, not in distress, speaks in sentences with no effort or accessory muscle use Eyes- anicteric Neck- no JVD Lungs- clear breath sounds bilaterally, no crackles or wheezing Heart- normal rate, regular rhythm; no murmurs Abdomen- normal bowel sounds, nondistended, soft, no tenderness Extremities- no pretibial edema, no calf tenderness Neuro- alert, oriented x 3; no gross focal neurologic deficits Skin- warm & dry Results & Data Results & Data ([facility]) Vital Signs (Past 12 Hours) Vital Signs Temp Pulse Pulse Resp BP Pulse Ox O2 Del Method 01/20/22 07:58 36.7 C 74 20 110/66 97 Room Air 01/20/22 07:26 86 01/20/22 00:10 92 H 18 122/63 95 Room Air 01/19/22 23:27 37 C 83 18 147/69 H 96 Room Air 01/19/22 21:59 78 Laboratory Results 01/20/22 01/20/22 01/19/22 Range/Units 08:13 08:13 10:09 WBC 7.26 (4.8-10.8) K/ul RBC 3.58 L (3.93-5.22) M/uL Hgb 10.6 L (12.0-16.0) g/dl Hct 31.3 L (34.1-44.9) % MCV 87.4 (80.0-100.0) fL MCH 29.6 (25.0-34.0) pg MCHC 33.9 (32.0-36.0) g/dL RDW Std Deviation 40.3 (36.4-46.3) fL RDW Coeff of Misael 12.6 (11.5-14.5) % Plt Count 237 (130-400) K/uL MPV 9.5 (9.4-12.3) fL Sodium 136 (136-145) mmol/L Potassium 3.7 (3.5-5.1) mmol/L Chloride 105 (98-107) mmol/L Carbon Dioxide 24 (21-32) mmol/L Anion Gap 7 (3-11) BUN 34 H (6-23) mg/dl Creatinine 1.12 D (0.6-1.2) mg/dl Est Cr Clr Drug Dosing 26.4 ml/min Est GFR ( Amer) 50.8 ml/min Est GFR (Non-Af Amer) 43.8 ml/min BUN/Creatinine Ratio 30.4 H (10-20) Glucose 91 (70-99(Fasting)) mg/dl Calcium 8.8 (8.5-10.1) mg/dl Phosphorus 3.3 Cancelled (2.5-4.9) mg/dl Magnesium 1.9 Cancelled (1.7-2.4) mg/dl Total Bilirubin 0.6 (0.2-1.0) mg/dl AST 27 (13-39) U/L ALT 24 (7-52) U/L Alkaline Phosphatase 66 (34-104) U/L Total Protein 6.6 (6.0-8.3) gm/dl Albumin 3.5 (3.4-5.0) gm/dl Globulin 3.1 (2.5-4.0) gm/dl Albumin/Globulin Ratio 1.1 (0.9-2) 01/19/22 Range/Units 10:09 WBC (4.8-10.8) K/ul RBC (3.93-5.22) M/uL Hgb (12.0-16.0) g/dl Hct (34.1-44.9) % MCV (80.0-100.0) fL MCH (25.0-34.0) pg MCHC (32.0-36.0) g/dL RDW Std Deviation (36.4-46.3) fL RDW Coeff of Misael (11.5-14.5) % Plt Count (130-400) K/uL MPV (9.4-12.3) fL Sodium 139 (136-145) mmol/L Potassium 3.7 (3.5-5.1) mmol/L Chloride 104 (98-107) mmol/L Carbon Dioxide 25 (21-32) mmol/L Anion Gap 10 (3-11) BUN 22 (6-23) mg/dl Creatinine 0.67 (0.6-1.2) mg/dl Est Cr Clr Drug Dosing 44.1 ml/min Est GFR ( Amer) 91.0 ml/min Est GFR (Non-Af Amer) 78.5 ml/min BUN/Creatinine Ratio 32.8 H (10-20) Glucose 93 (70-99(Fasting)) mg/dl Calcium 9.4 (8.5-10.1) mg/dl Phosphorus 2.6 (2.5-4.9) mg/dl Magnesium 1.8 (1.7-2.4) mg/dl Total Bilirubin 0.8 (0.2-1.0) mg/dl AST 26 (13-39) U/L ALT 23 (7-52) U/L Alkaline Phosphatase 77 (34-104) U/L Total Protein 7.7 (6.0-8.3) gm/dl Albumin 4.0 (3.4-5.0) gm/dl Globulin 3.7 (2.5-4.0) gm/dl Albumin/Globulin Ratio 1.1 (0.9-2) Medications Administered Current Inpatient Medications Acetaminophen (Acetaminophen 325 Mg Tab) 650 mg PO Q4H PRN PRN Reason: Pain or Fever Stop: 02/16/22 17:23 Last Admin: 01/20/22 00:28 Dose: 650 mg Cefdinir (Cefdinir 300 Mg Cap) 300 mg PO Q12H [facility] Stop: 01/24/22 16:44 Last Admin: 01/20/22 05:27 Dose: 300 mg Clopidogrel Bisulfate (Clopidogrel Bisulfate 75 Mg Tab) 75 mg PO QAM [facility] Stop: 02/18/22 08:59 Last Admin: 01/20/22 09:27 Dose: 75 mg Digoxin (Digoxin 0.125 Mg Tab) 0.125 mg PO DAILY@1600 [facility] Stop: 02/18/22 15:59 Last Admin: 01/19/22 16:19 Dose: 0.125 mg Ferrous Sulfate (Ferrous Sulfate 325 Mg Tab) [facility] Stop: 02/18/22 08:59 Last Admin: 01/20/22 09:27 Dose: 325 mg Ceftriaxone Sodium 2,000 mg/ (Dextrose) 70 mls @ 100 mls/hr IV Q24H [facility]; Protocol Stop: 01/22/22 14:59 Last Admin: 01/19/22 15:01 Dose: Not Given Levothyroxine Sodium (Levothyroxine Sodium 75 Mcg Tablet) 75 mcg PO DAILYBB [facility] Stop: 02/18/22 06:29 Last Admin: 01/20/22 05:28 Dose: 75 mcg Metoprolol Succinate (Metoprolol Succ 25mg Ext Rel Tab) 25 mg PO QAM [facility] Stop: 02/18/22 08:59 Last Admin: 01/20/22 09:27 Dose: 25 mg Tramadol HCl (Tramadol Hcl 50 Mg Tablet) 50 mg PO BID PRN PRN Reason: moderate to severe pain Stop: 02/17/22 11:29 Last Admin: 01/18/22 21:19 Dose: 50 mg
[2022-01-20] MEDS: DIGOXIN 0.125 MG TAB PO SCH (15:33)
[2022-01-21] MEDS: LEVOTHYROXINE SODIUM 75 MCG TABLET PO SCH (06:45)
--- NOTE | 2022-01-21 07:07 | Hospitalist Progress Note ---
Date of Service January 21, 2022 Assessment & Plan (1) Altered mental status: Plan 86-year-old female with history of stroke, paroxysmal atrial fibrillation, hypertension, CKD stage III, vascular dementia, hypothyroidism Presenting with altered mental status. Altered mental status, Metabolic encephalopathy possible etiologies: UTI, E.coli Outpatient records showing urine culture from December 30, 2021: Positive for E. coli, sensitive to ceftriaxone Urine culture: E.coli Blood cultures: Negative so far Ceftriaxone 2 g IV daily received x2 Pt was refusing IV and was switched to PO - finished abx course today COVID-19 infection Not hypoxic, O2 sats more than 93% Chest x-ray: No pneumonia Allowed for remdesivir to patient given advanced age and comorbidities, high risk for disease progression Pt now not interested in remdesivir She is breathing comfortably on RA Spirometry, flutter valve DVT prophylaxis Acute CVA unlikely History of CVA --Patient presenting with acute confusion, but no focal neurologic deficits CT head on admission: 1. No acute intracranial hemorrhage or midline shift. 2. Likely subacute or chronic infarct within the periventricular left parietal lobe is new from 10/14/2019. 3. Involutional changes with chronic microvascular ischemic disease. 4. Chronic left frontal lobe infarct. Not tolerating brain MRI Repeat CT head: No acute intracranial hemorrhage, no evidence of acute territorial infarction or other acute intracranial disease process. Continue Plavix Acute renal failure on CKD stage III - Resolved Baseline creatinine 0.9, on admission 1.5 IV NSS started Creatinine improved,received gentle IV fluids recommend pt stays well hydrated Mild troponin elevation Likely secondary to acute renal failure on CKD stage III EKG: No signs of acute ischemia No chest pain or cardiac symptoms Troponin 30, 99, 91 Echocardiogram obtained - LV cavity is small. There is a borderline concentric LVH. The basal septum is thickened and angulated consistent with sigmoid septum. LV wall motion is normal. LV systolic function is normal. EF 65 to 70%. There is late peaking outflow tract/mid ventricle velocity gradient consistent with hyperdynamic LV function. Aortic valve sclerosis moderate, without significant aortic valvular stenosis. Grade 1 diastolic dysfunction. Paroxysmal atrial fibrillation Currently in sinus rhythm Continue Plavix, digoxin, metoprolol Hypertension Continue home meds, monitor BP History of carotid stenosis On Plavix Hypothyroidism TSH elevated, free T4 normal Vascular dementia Disposition Anticipate return to [place] [facility] Admission and Anticipated Discharge Date Admission Date: January 17, 2022 Subjective Pt seen in follow-up of metabolic encephalopathy, UTI, COVID infection, etc. Seen resting in bed, in NAD Reports that she feels well, and inquiring about discharge Denies any fever, chills, cough, shortness of breath, chest pain, abd. pain, n/v No other new symptoms Contacted over the phone yesterday and updated. He talked to her over the phone and felt that she was back to baseline. Appreciative about the update from me. Plan to DC today. Review of Systems Review of Systems: All systems reviewed & are unremarkable except as noted in Subjective Physical Exam Physical Exam: General- oriented x 2, not in distress, speaks in sentences with no effort or accessory muscle use Eyes- anicteric Neck- no JVD Lungs- clear breath sounds bilaterally, no crackles or wheezing Heart- normal rate, regular rhythm; no murmurs Abdomen- normal bowel sounds, nondistended, soft, no tenderness Extremities- no pretibial edema, no calf tenderness Neuro- alert, oriented x 3; no gross focal neurologic deficits Skin- warm & dry Results & Data Results & Data ([facility]) Vital Signs (Past 12 Hours) Vital Signs Temp Pulse Pulse Resp BP Pulse Ox O2 Del Method 01/21/22 03:24 36.5 C 68 18 122/62 96 Room Air 01/20/22 22:01 63 01/20/22 21:56 Room Air 01/20/22 20:59 36.7 C 72 16 124/50 L 97 Room Air Laboratory Results 01/20/22 01/20/22 01/20/22 Range/Units 20:52 08:13 08:13 WBC 7.26 (4.8-10.8) K/ul RBC 3.58 L (3.93-5.22) M/uL Hgb 10.6 L (12.0-16.0) g/dl Hct 31.3 L (34.1-44.9) % MCV 87.4 (80.0-100.0) fL MCH 29.6 (25.0-34.0) pg MCHC 33.9 (32.0-36.0) g/dL RDW Std Deviation 40.3 (36.4-46.3) fL RDW Coeff of Misael 12.6 (11.5-14.5) % Plt Count 237 (130-400) K/uL MPV 9.5 (9.4-12.3) fL Sodium 136 (136-145) mmol/L Potassium 3.7 (3.5-5.1) mmol/L Chloride 105 (98-107) mmol/L Carbon Dioxide 24 (21-32) mmol/L Anion Gap 7 (3-11) BUN 34 H (6-23) mg/dl Creatinine 1.12 D (0.6-1.2) mg/dl Est Cr Clr Drug Dosing 26.4 ml/min Est GFR ( Amer) 50.8 ml/min Est GFR (Non-Af Amer) 43.8 ml/min BUN/Creatinine Ratio 30.4 H (10-20) Glucose 91 (70-99(Fasting)) mg/dl POC Glucose 106 H (70-99) mg/dl Calcium 8.8 (8.5-10.1) mg/dl Phosphorus 3.3 (2.5-4.9) mg/dl Magnesium 1.9 (1.7-2.4) mg/dl Total Bilirubin 0.6 (0.2-1.0) mg/dl AST 27 (13-39) U/L ALT 24 (7-52) U/L Alkaline Phosphatase 66 (34-104) U/L Total Protein 6.6 (6.0-8.3) gm/dl Albumin 3.5 (3.4-5.0) gm/dl Globulin 3.1 (2.5-4.0) gm/dl Albumin/Globulin Ratio 1.1 (0.9-2) Medications Administered Current Inpatient Medications Acetaminophen (Acetaminophen 325 Mg Tab) 650 mg PO Q4H PRN PRN Reason: Pain or Fever Stop: 02/16/22 17:23 Last Admin: 01/20/22 00:28 Dose: 650 mg Cefdinir (Cefdinir 300 Mg Cap) 300 mg PO DAILY [facility]; Protocol Stop: 01/24/22 08:59 Clopidogrel Bisulfate (Clopidogrel Bisulfate 75 Mg Tab) 75 mg PO QAM [facility] Stop: 02/18/22 08:59 Last Admin: 01/20/22 09:27 Dose: 75 mg Digoxin (Digoxin 0.125 Mg Tab) 0.125 mg PO DAILY@1600 [facility] Stop: 02/18/22 15:59 Last Admin: 01/20/22 15:33 Dose: 0.125 mg Ferrous Sulfate (Ferrous Sulfate 325 Mg Tab) 325 mg PO [facility] Stop: 02/18/22 08:59 Last Admin: 01/20/22 09:27 Dose: 325 mg Ceftriaxone Sodium 2,000 mg/ (Dextrose) 70 mls @ 100 mls/hr IV Q24H [facility]; Protocol Stop: 01/22/22 14:59 Last Admin: 01/19/22 15:01 Dose: Not Given Levothyroxine Sodium (Levothyroxine Sodium 75 Mcg Tablet) [facility] Stop: 02/18/22 06:29 Last Admin: 01/21/22 06:45 Dose: 75 mcg Metoprolol Succinate (Metoprolol Succ 25mg Ext Rel Tab) 25 mg PO [facility] Stop: 02/18/22 08:59 Last Admin: 01/20/22 09:27 Dose: 25 mg Tramadol HCl (Tramadol Hcl 50 Mg Tablet) 50 mg PO BID PRN PRN Reason: moderate to severe pain Stop: 02/17/22 11:29 Last Admin: 01/18/22 21:19 Dose: 50 mg
[2022-01-21 08:34] LABS: Albumin Globulin Ratio 1.1 (0.9-2); Albumin Level 3.8 gm/dl (3.4-5.0); Bilirubin,Total 0.7 mg/dl (0.2-1.0); Calcium 9.2 mg/dl (8.5-10.1); Creatinine Clr Calc Pharmacy 18.9 ml/min; Est GFR (African American) 35.7 ml/min; Est GFR (Non-African American) 30.8 ml/min; Globulin 3.5 gm/dl (2.5-4.0); Potassium 3.5 mmol/L (3.5-5.1); Total Protein 7.3 gm/dl (6.0-8.3)
[2022-01-21] MEDS ORDERED: CEFDINIR 300 MG CAP PO SCH (09:00)
--- NOTE | 2022-01-21 09:17 | Discharge Summary ---
Date of Service January 21, 2022 Admission HPI Per Admitting Provider Altered mental status Primary Care Provider: Precious Abreu MD 86-year-old female with history of stroke, paroxysmal atrial fibrillation, hypertension, CKD stage III, vascular dementia, hypothyroidism Presenting with altered mental status. Patient brought to the ER from longterm facility today for altered mental status. At the ER, patient's blood pressure 141/70, heart rate 67, respiratory rate 15, saturating 98% on room air. CT head: 1. No acute intracranial hemorrhage or midline shift. 2. Likely subacute or chronic infarct within the periventricular left parietal lobe is new from 10/14/2019. 3. Involutional changes with chronic microvascular ischemic disease. 4. Chronic left frontal lobe infarct. Found to be COVID-positive Chest x-ray: No signs of pneumonia Urinalysis showing possible UTI. Patient given IV NSS and started with ceftriaxone 2 g IV. Admission Exam Per Admitting Provider Per ER provider: PHYSICAL EXAM: Vital signs reviewed. Hypertension General: Elderly, somewhat ill-appearing 86-year-old female, in no distress. HEENT: No scleral icterus, PERRLA, neck supple. Dry mucous membranes. Cardiovascular: Regular rate and rhythm, no extra sounds. Pulmonary: Clear to auscultation bilaterally, normal work of breathing. Abdomen: Soft, nontender, nondistended, positive bowel sounds. Musculoskeletal: Atraumatic, no peripheral edema. Neurologic: Patient somnolent but arousable, does not answer some questions appropriately. Aware of current place and month. Falls asleep quickly Skin: Warm, dry, no rash Principal Diagnosis Altered mental status, positive COVID-19, UTI hx of dementia Discharge Exam General- oriented x 2, not in distress, speaks in sentences with no effort or accessory muscle use Eyes- anicteric Neck- no JVD Lungs- clear breath sounds bilaterally, no crackles or wheezing Heart- normal rate, regular rhythm; no murmurs Abdomen- normal bowel sounds, nondistended, soft, no tenderness Extremities- no pretibial edema, no calf tenderness Neuro- alert, oriented x 3; no gross focal neurologic deficits Skin- warm & dry Discharge Data Allergies Allergy/AdvReac Type Severity Reaction Status Date / Time atorvastatin Allergy Intermediate RASH Verified 01/17/22 15:17 tetracycline Allergy Intermediate ARMS Verified 01/17/22 15:17 SWELLED UP SHANTEL Inhibitors Allergy Mild NOT SURE Verified 01/17/22 15:17 OF REACTIONS rivaroxaban Allergy Unknown RASH Verified 01/17/22 15:17 zolpidem Allergy Unknown Unknown Verified 01/17/22 15:17 simvastatin Allergy Unknown Verified 01/17/22 15:17 Tetracyclines Allergy Unknown Verified 12/15/21 11:28 amoxicillin AdvReac Intermediate VERY SICK Verified 01/18/22 11:39 TO HER STOMACH clavulanic acid AdvReac Intermediate VERY SICK Verified 01/18/22 11:39 TO HER STOMACH tramadol AdvReac Intermediate MAKES HER Verified 01/18/22 11:39 DIZZY AND CRAZEY erythromycin base AdvReac Unknown UPSET Verified 01/18/22 11:39 STOMACH gabapentin AdvReac Unknown Unknown Verified 12/15/21 11:28 Consultations 01/17/22 15:42 ED Decision to Admit Stat Ordered Studies 01/17/22 14:58 CT head/brain wo con Stat FINDINGS: No acute intracranial hemorrhage, midline shift, intracranial mass, hydrocephalus, territorial ischemia or abnormal extra-axial collection. Age- related involutional changes with ex vacuo ventriculomegaly. White matter hypodensities suggestive of chronic microvascular ischemic disease. Chronic left frontal lobe infarct. 3.6 cm area of ill-defined attenuation within the periventricular left parietal lobe on image 22 series 4 is new from prior. Chronic left thalamic lacunar infarct. Subcentimeter calcification either adjacent to or involving the left frontal lobe on image 23 series 4 with not identified on the prior study. Cerebral vascular calcifications. The calvarium is intact. Paranasal sinuses are clear. Trace right mastoid effusion. Left mastoid air cells are clear. Prior bilateral lens repair. IMPRESSION: 1. No acute intracranial hemorrhage or midline shift. 2. Likely subacute or chronic infarct within the periventricular left parietal lobe is new from 10/14/2019. 3. Involutional changes with chronic microvascular ischemic disease. 4. Chronic left frontal lobe infarct. 01/18/22 11:22 CT head/brain wo con Routine Findings: Areas of decreased attenuation are present in the periventricular and subcortical white matter bilaterally consistent with small vessel ischemic disease. Generalized cerebral atrophy with commensurate enlargement of the ventricles, sulci, and cisterns is also present. There is no acute intracranial hemorrhage or evidence of acute territorial infarction. No shift of the midline structures, mass effect, or extra-axial abnormalities are shown. Atherosclerotic calcifications are present in the intracranial segments of the internal carotid arteries. Stable left encephalomalacia is seen. Imaged portions of the paranasal sinuses and mastoid air cells are clear. The orbits appear normal. There are no acute fractures of the calvaria or scalp swelling. Impression: No acute intracranial hemorrhage, no evidence of acute territorial infarction or other acute intracranial disease process. Hospital Course (1) Altered mental status: Plan 86-year-old female with history of stroke, paroxysmal atrial fibrillation, hypertension, CKD stage III, vascular dementia, hypothyroidism Presenting with altered mental status. Altered mental status, Metabolic encephalopathy possible etiologies: UTI, E.coli Outpatient records showing urine culture from December 30, 2021: Positive for E. coli, sensitive to ceftriaxone Urine culture: E.coli Blood cultures: Negative so far Ceftriaxone 2 g IV daily received x2 Pt was refusing IV and was switched to PO - finished abx course today COVID-19 infection Not hypoxic, O2 sats more than 93% Chest x-ray: No pneumonia Allowed for remdesivir to patient given advanced age and comorbidities, high risk for disease progression Pt now not interested in remdesivir She is breathing comfortably on RA Spirometry, flutter valve DVT prophylaxis Acute CVA unlikely History of CVA --Patient presenting with acute confusion, but no focal neurologic deficits CT head on admission: 1. No acute intracranial hemorrhage or midline shift. 2. Likely subacute or chronic infarct within the periventricular left parietal lobe is new from 10/14/2019. 3. Involutional changes with chronic microvascular ischemic disease. 4. Chronic left frontal lobe infarct. Not tolerating brain MRI Repeat CT head: No acute intracranial hemorrhage, no evidence of acute territorial infarction or other acute intracranial disease process. Continue Plavix Acute renal failure on CKD stage III - Resolved Baseline creatinine 0.9, on admission 1.5 IV NSS started Creatinine improved,received gentle IV fluids recommend pt stays well hydrated Mild troponin elevation Likely secondary to acute renal failure on CKD stage III EKG: No signs of acute ischemia No chest pain or cardiac symptoms Troponin 30, 99, 91 Echocardiogram obtained - LV cavity is small. There is a borderline concentric LVH. The basal septum is thickened and angulated consistent with sigmoid septum. LV wall motion is normal. LV systolic function is normal. EF 65 to 70%. There is late peaking outflow tract/mid ventricle velocity gradient consistent with hyperdynamic LV function. Aortic valve sclerosis moderate, without significant aortic valvular stenosis. Grade 1 diastolic dysfunction. Paroxysmal atrial fibrillation Currently in sinus rhythm Continue Plavix, digoxin, metoprolol Hypertension Continue home meds, monitor BP History of carotid stenosis On Plavix Hypothyroidism TSH elevated, free T4 normal Vascular dementia Total Time Total Time Spent Total Time Spent (In Minutes): 40 Discharge Plan Discharge Items Patient Disposition: Transfer [facility] Reason For Visit: ENCEPHALOPATHY Discharge Diagnosis: Altered mental status, positive COVID-19, UTI hx of dementia Activity: Per Instructions section Non-emergency contact: Primary Care Provider Call non-emergency contact if: you have any medication questions and your symptoms worsen Follow-up/Referrals: Precious Abreu MD [Primary Care Provider] - Diet: Heart Healthy Diet Texture: Easy to Chew Addtl Attending Provider Instructions: Follow-up with your primary care doctor within 1 week. Make sure you stay well-hydrated. Continue your home medications as already prescribed. [employer] In[employer] Provider Instructions: Coronavirus disease 2019 (COVID-19) is a virus that causes a respiratory illness. It is caused by a coronavirus called 2019 novel coronavirus (2019-nCo V). There are many types of coronavirus. Coronaviruses are a very common cause of bronchitis. They may sometimes cause lung infection(pneumonia). Symptoms can range from mild to severe respiratory illness. These viruses are also foundin some animals. COVID-19 was first found in people in [facility], in late 2019. In 2020, several cases of COVID-19 have been confirmed in the [place] Public health officials are working to find the source. How the virus spreads is not yet fully known. It may be spread through droplets of fluid that a person coughs or sneezes into the air. It may be spread if you touch a surface with virus on it, such as a handle or object, and then touch your mouth. What are the symptoms of COVID-19? Some people have no symptoms or mild symptoms. Symptoms may appear 2 to 14 days after contact with the virus. Symptoms can include: Fever Coughing Trouble breathing What are possible complications from COVID-19? In many cases, this virus can cause infection (pneumonia) in both lungs. In some cases, this can cause . How is COVID-19 diagnosed? Your healthcare provider will ask about your symptoms. He or she will also ask about your recent travel and contact with sick people. Testing for the virus is only done through the CDC. If yourhealthcare provider thinks you may have COVID- 19, he or she will work with your local health department and the CDC on testing. Follow all instructions from your healthcare provider. COVID-19 is diagnosed by: Nasal and throat swab. A cotton-tipped swab is wiped inside your nose or throat. This is done to check for viruses in your nasal mucus. Sputum culture. A small sample of mucus coughed from your lungs (sputum) is collected if you have a cough. It is checked for the virus. How is COVID-19 treated? There is currently no medicine to treat the virus. Treatment is done to help your body while it fights the virus. This is known as supportive care. Supportive care may include: Pain medicine. These include acetaminophen and ibuprofen. They are used to help ease pain and reduce fever. Bed rest. This helps your body fight the illness. For severe illness, you may need to stay in the hospital. Care during severe illness may include: IV (intravenous) fluids.These are given through a vein to help keep your body hydrated. Oxygen. Supplemental oxygen or ventilation with a breathing machine (ventilator) may be given. This is done to keep enough oxygen in your body. Are you at risk for COVID-19? If youve been to a place where people have been sick with this virus, you are at risk for infection. You are at risk if you: Recently traveled to an affected area Had contact with a sick person who recently traveled to this area Had contact with a person who was diagnosed with COVID-19 How can COVID-19 be prevented? There is no vaccine yet. The best prevention is to not have contact with the virus. The CDC advises that people should not travel to areas where there are COVID-19 outbreaks right now for any reason that is not urgent. To help prevent spreading the infection, wash your hands often, or use an alcohol-basedhand optical coating technician. If you are in an area with COVID-19: Wash your hands often. Or use an alcohol-based hand optical coating technician often. Only touch your eyes, nose, or mouth with clean hands. Dont have contact with people who are sick. Follow local instructions about being in public. For example, you may be told to not use public transport for a period of time. Stay away from markets that have live or animals. Wash your hands after touching any animals. Don't touch animals that may be sick. Dont share eating or drinking tools with sick people. Dont kiss someone who is sick. Clean surfaces often with disinfectant. If you were in an area with COVID-19 in the last 14 days: Call your healthcare provider. He or she can talk with local health staff to see what action may be needed. Follow all instructions from your provider. Take your temperature every morning and evening for at least 14 days. This is to check for fever. Keep a record of the readings. Keep watch for symptoms of the virus. Tell your provider right away if you have symptoms. If you were in an area with COVID-19 and have a fever or other symptoms: Dont panic. Keep in mind that other illnesses can cause similar symptoms. Stay away from work, school, and public places. Limit physical contact with family members. Don't kiss anyone or share eating or drinking utensils. Clean surfaces you touch with disinfectant. This is to help prevent the virus from spreading. Call your healthcare provider. Explain that you have been exposed to COVID-19 and have symptoms. Do this before going to any hospital. Wait for instructions. Keep in mind that healthcare staff may wear protective equipment such as masks, gowns, gloves, and eye protection. You may be put in a separate room. This is to prevent the possible virus from spreading. Tell the healthcare staff about recent travel. This includes local travel on public transport. Staff may need to find other people you have been in contact with. Follow all instructions the healthcare staff give you. If you have been diagnosed with COVID-19 Follow all instructions from your healthcare provider. Dont leave your home, except to get medical care. Call your healthcare providers office before going. They can prepare and give you instructions. This will help prevent the virus from spreading. Dont go to work, school, or public areas. Dont use public transport or taxis. Stay away from other people in your home. Have them wear face masks around you. Dont share household items or food. Wear a face mask if you can. This includes at home or in a medical facility. Cover your face with a tissue when you cough or sneeze. Throw the tissue away. Wash your hands. Wash your hands often. Caregivers should: Follow all instructions from healthcare staff. Wear a face mask and protective clothing as advised. Wash hands often. Keep track of the sick persons symptoms. Clean surfaces, fabrics, and laundry thoroughly. Keep other people away from the sick person. When to call your healthcare provider Call your healthcare provider: If youve recently traveled and have symptoms If you have been diagnosed with COVID-19 and your symptoms are worse To learn more To find out more about COVID-19, visit the CDC website at www.cdc.gov/coronavirus/2019-ncov/index.html. [employer]. [address] [place], [place] [id number]. All rights reserved. This information is not intended as a substitute for professional medical care. Always follow your healthcare professional's instructions. This information has been adapted from [employer] Home Isolation COVID-19 Instructions The following information about Home Isolation is from the CDC Website: https://www.cdc.gov/coronavirus/2019-ncov/hcp/yfszgiis-qfxhppt-bfbluj.html Stay home except to get medical care People who are mildly ill with COVID-19 are able to isolate at home during their illness. You should restrict activities outside your home, except for getting medical care. Do not go to work, school, or public areas. Avoid using public transportation, ride-sharing, or taxis. Separate yourself from other people and animals in your home People: As much as possible, you should stay in a specific room and away from other people in your home. Also, you should use a separate bathroom, if available. Animals: You should restrict contact with pets and other animals while you are sick with COVID-19, just like you would around other people. Although there have not been reports of pets or other animals becoming sick with COVID-19, it is still recommended that people sick with COVID-19 limit contact with animals until more information is known about the virus. When possible, have another member of your household care for your animals while you are sick. If you are sick with COVID-19, avoid contact with your pet, including petting, snuggling, being kissed or licked, and sharing food. If you must care for your pet or be around animals while you are sick, wash your hands before and after you interact with pets and wear a face mask. Call ahead before visiting your doctor If you have a medical appointment, call the healthcare provider and tell them that you have or may have COVID-19. This will help the healthcare providers office take steps to keep other people from getting infected or exposed. Wear a face mask You should wear a face mask when you are around other people (e.g., sharing a room or vehicle) or pets and before you enter a healthcare providers office. If you are not able to wear a face mask (for example, because it causes trouble breathing), then people who live with you should not stay in the same room with you, or they should wear a face mask if they enter your room. Cover your coughs and sneezes Cover your mouth and nose with a tissue when you cough or sneeze. Throw used tissues in a lined trash can. Immediately wash your hands with soap and water for at least 20 seconds or, if soap and water are not available, clean your hands with an alcohol-based hand optical coating technician that contains at least 60% alcohol. Clean your hands often Wash your hands often with soap and water for at least 20 seconds, especially after blowing your nose, coughing, or sneezing; going to the bathroom; and before eating or preparing food. If soap and water are not readily available, use an alcohol-based hand optical coating technician with at least 60% alcohol, covering all surfaces of your hands and rubbing them together until they feel dry. Soap and water are the best option if hands are visibly dirty. Avoid touching your eyes, nose, and mouth with unwashed hands. Avoid sharing personal household items You should not share dishes, drinking glasses, cups, eating utensils, towels, or bedding with other people or pets in your home. After using these items, they should be washed thoroughly with soap and water. Clean all high-touch surfaces everyday High touch surfaces include counters, tabletops, doorknobs, bathroom fixtures, toilets, phones, keyboards, tablets, and bedside tables. Also, clean any surfaces that may have blood, stool, or body fluids on them. Use a household cleaning spray or wipe, according to the label instructions. Labels contain instructions for safe and effective use of the cleaning product including p recautions you should take when applying the product, such as wearing gloves and making sure you have good ventilation during use of the product. Monitor your symptoms Seek prompt medical attention if your illness is worsening (e.g., difficulty breathing).Beforeseeking care, call your healthcare provider and tell them that you have, or are being evaluated for, COVID-19. Put on a face mask before you enter the facility. These steps will help the healthcare providers office to keep other people in the office or waiting room from getting infected or exposed. Ask your healthcare provider to call the local or state health department. Persons who are placed under active monitoring or facilitated self- monitoring should follow instructions provided by their local health department or occupational health professionals, as appropriate. When working with your local health department check their available hours. If you have a medical emergency and need to call 911, notify the dispatch personnel that you have, or are being evaluated for COVID-19. If possible, put on a face mask before emergency medical services arrive. Discontinuing home isolation Patients with confirmed COVID-19 should remain under home isolation precautions until the risk of secondary transmission to others is thought to be low. The decision to discontinue home isolation precautions should be made on a [id number] basis, in consultation with healthcare providers and formerly [facility] and [facility] health departments. Pending Studies at Discharge: No Stand-Alone Forms: My [facility] Skilled Items Patient informed of condition?: Yes DNR: No Discharge Level of Care: Skilled Communicable Disease: No Discharge Prognosis: Stable Lines: None Urinary Catheter: No Medications and DC Order Prescriptions: Continued levothyroxine 75 mcg tablet 75 mcg PO QAM Qty: 90 2RF amlodipine 5 mg tablet 5 mg PO QAM cyanocobalamin (vitamin B-12) 500 mcg tablet 1,000 mcg PO QAM ferrous sulfate 325 mg (65 mg iron) Tablet,Delayed Release (Dr/Ec) 325 mg PO QAM Rx Instructions: TAKE THIS MEDICATION WITH FOOD acetaminophen [Tylenol] 325 mg Tablet 650 mg PO Q4H MDD 3G PRN (Reason: Fever Or Pain) Rx Instructions: TEMP >/= 100F clopidogrel 75 mg tablet 75 mg PO QAM digoxin 125 mcg (0.125 mg) tablet 125 mcg PO QAM docusate sodium 100 mg Tablet 100 mg PO BID metoprolol tartrate 25 mg tablet 25 mg PO BID Rx Instructions: HOLD FOR B/P < 100/50 mirtazapine 30 mg tablet 30 mg PO HS polyvinyl alcohol [Artificial Tears (polyvin alc)] 1.4 % Drops 1 drp OPB TID PRN (Reason: Eye Irritation) acetaminophen [Tylenol] 325 mg Tablet 650 mg PO QAM MDD 3G Discharge Orders: Discharge Order (Routine); Ordered 01/21/22 Ordered By: Huy Dove/Other Patient Handouts: 2019 Novel Coronavirus Admission Data Admit Date/Time: 01/17/22 16:40 Attending Provider: Huy Vieyra Admit Provider: Trey Dale Primary Care Provider: Precious Abreu Other Providers: Asia Henry ; Trey Dale ; Love Arias [place]
[2022-01-21] MEDS: CLOPIDOGREL BISULFATE 75 MG TAB PO SCH (09:19)
[2022-01-21] MEDS: METOPROLOL SUCC 25MG EXT REL TAB PO SCH (09:19)
== END 2022-01-21 10:55 | DRG 689 ==
LOC: ED 12:19 → EDINP 16:40 → SUATTDRO 16:40 → EDINP 17:00 → 2W 18:51

== ENCOUNTER 2022-07-04 07:52 | Inpatient (IN) ==
[2022-07-04] MEDS ORDERED: ONDANSETRON INJ 2 MG/ML 2 ML VIAL IV STA (08:02)
[2022-07-04] MEDS ORDERED: cefTRIAXone SODIUM 2,000 MG/70 ML BAG IV STA (08:02)
--- NOTE | 2022-07-04 08:07 | Emergency Department Note ---
Impression & Plan Cerebrovascular accident, hemorrhagic, Acute respiratory distress, Fever ED Provider Note NAME: BALBIR MOTLEY AGE: 87 SEX: F : 1935 ARRIVES VIA: Ambulance INFORMANT: EMS ED PROVIDER(S): Cody Amaro DO CHIEF COMPLAINT: Altered mental status HPI: The patient is an 87-year-old female who presented to the emergency department from a personal long term for an evaluation of altered mental status. The prehospital personnel give all of the history as the patient is obtunded and cannot answer questions. Apparently the patient has been experiencing fever over the weekend. Symptoms started to worsen and she was found in her bed this morning altered and having difficulty breathing. There was a question as to whether or not the patient aspirated. ROS: See above HPI for pertinent positives & negatives. A total of 10 systems reviewed and were otherwise negative. PAST MEDICAL HISTORY: See Below PAST SURGICAL HISTORY: See Below FAMILY HISTORY: See Below SOCIAL HISTORY: See Below HOME MEDICATIONS: See Below ALLERGIES: See Below VITALS: See Below PHYSICAL EXAMINATION: GENERAL: The patient is obtunded and not able to answer questions. EYES: The conjunctivae are clear. There is a right gaze preference. Pupils are constricted bilaterally. EARS, NOSE, MOUTH AND THROAT: The nose is without any evidence of any deformity. NECK: The neck is nontender and supple. RESPIRATORY: Sonorous respirations were noted with Rales and rhonchi throughout. CARDIOVASCULAR: Regular rate and rhythm noted there no murmurs rubs or gallops normal S1 normal S2. GASTROINTESTINAL: The abdomen is soft. Abdomen is nontender. MUSCULOSKELETAL/EXTREMITIES: There is no evidence of gross deformity full range of motion is noted in the hips and shoulders. SKIN: Skin is cool and dry. Pedal edema was noted bilaterally. NEUROLOGIC: Patient does not answer questions. I am unable to assess orientation. She does not follow commands. There is some muscle rigidity especially on the right upper extremity. MEDICAL DECISION MAKING: The patient is an 87-year-old female who presented to the emergency department with strokelike symptoms. The patient does have a long past medical history of dementia. She is a DNR. She has very limited interventions requested by the family as well as the patient when she was able to make these decisions. When the patient arrived I immediately called her . He was very adamant that she would not want aggressive measures such as intubation or CPR. When he arrived at the patient's bedside I explained the patient's CT with him including the signs of a large intracerebral hemorrhage. The patient would not of wanted to transfer or even evaluation by neurosurgery. He states that she likely would have been wanted to be comfortable. I discussed the patient's laboratory and radiographic studies with him. She was treated with IV fluids as well as IV antibiotics for a fever but no definite cause for this fever could be found. She was placed on supplemental oxygen. Discussed the patient's condition with the on-call [facility]. They have agreed to evaluate the patient in the emergency department. Triage Nursing notes reviewed. Prior medical records reviewed Vital Signs: reviewed and remarkable for hypertension fever and tachycardia. Differential diagnosis: Infection, hypoglycemia, electrolyte abnormalities, overdose, toxicologic, cardiac sources, intracerebral event, neurologic, trauma, as well as other p athologies. ER treatment provided: See below Diagnostics interpreted by me: ECG: EKG was obtained in the emergency department. My interpretation is sinus tachycardia 110 bpm. No PVCs were noted. There is LVH noted by voltage criteria. Widespread ST depressions were noted. This was compared to a tracing from January 17, 2022. The ST segment abnormalities are new compared to the previous tracing. Cardiac Monitoring: An order was placed for continuous cardiac monitoring. The monitor shows a rate of 101 bpm with sinus tachycardia. Laboratory studies: As stated above and show below. Imaging studies: See below. Radiographic imaging was reviewed by myself Consultation(s): I discussed this case with Ramona who is on for the [facility]. ED COURSE: Procedures: none Critical Care: I have personally spent greater than 35 minutes of critical care time in the direct management of this patient. This includes bedside care, interpretation of diagnostic studies, and testing, discussion with consultants, patient, and family members, and other required patient management activities. This 35 minutes is in excess of all separately billable procedures. Past Med/Surg History Medical History Abnormal electrocardiogram Acute alteration in mental status Acute electrocardiogram changes Acute pain of right lower extremity Acute right hemiparesis Afib Antidiuretic hormone, inappropriate secretion Autonomic dysfunction Carotid stenosis Cerebrovascular accident, old Chronic cerebral ischemia Dementia GI bleed History of intracranial hemorrhage Hypertension Hypokalemia Hypothyroid Intracranial hematoma Lumbar spinal stenosis Mild cognitive impairment Overactive bladder Paroxysmal atrial flutter Recurrent falls Right-sided lacunar stroke Stroke Stroke-like episode Symptomatic anemia Syncope TIA (transient ischemic attack) UTI (urinary tract infection) Weight loss Surgical History History of appendectomy History of breast surgery puncture aspiiration of cyst History of colonoscopy History of hysterectomy History of lumbar laminectomy Family History Unknown Migraine headache Arteriosclerotic cardiovascular disease (ASCVD) Colon cancer Father Acute myocardial infarction Mother Hypertension Cardiac disorder Social History Smoking Status: Unknown if ever smoked Second Hand Exposure: No; Do You Dip or Chew Tobacco: No; Hx Alcohol Use: No Hx Substance Use: No Preferred Language: [place] Citizen Communication Ability: Effective Visual Impairment: No Limitations Hearing Ability: Normal Habilitation Worker Required: No Beliefs That Will Affect Care: Lutheran marital status: Current Living Situation: [facility] Current Living Situation Comment: [facility] current occupational status: retired current occupation: She used to work in an office Feels Safe at Home: Yes Childhood Exposure to Second-Hand Smoke: Yes caffeine: Yes Dental Care, Regularly: Yes Physical Activity Frequency: Does not Exercise Seatbelt Use: always Sunscreen Use: No Assistive Devices: Wheelchair Allergies Allergies Allergy/AdvReac Type Severity Reaction Status Date / Time atorvastatin Allergy Intermediate RASH Verified 01/17/22 15:17 tetracycline Allergy Intermediate ARMS Verified 01/17/22 15:17 SWELLED UP SHANTEL Inhibitors Allergy Mild NOT SURE Verified 01/17/22 15:17 OF REACTIONS rivaroxaban Allergy Unknown RASH Verified 01/17/22 15:17 zolpidem Allergy Unknown Unknown Verified 01/17/22 15:17 simvastatin Allergy Unknown Verified 01/17/22 15:17 Tetracyclines Allergy Unknown Verified 12/15/21 11:28 amoxicillin AdvReac Intermediate VERY SICK Verified 01/18/22 11:39 TO HER STOMACH clavulanic acid AdvReac Intermediate VERY SICK Verified 01/18/22 11:39 TO HER STOMACH tramadol AdvReac Intermediate MAKES HER Verified 01/18/22 11:39 DIZZY AND CRAZEY erythromycin base AdvReac Unknown UPSET Verified 01/18/22 11:39 STOMACH gabapentin AdvReac Unknown Unknown Verified 12/15/21 11:28 Home Meds Home Medications Medication Instructions Recorded Confirmed ferrous sulfate 325 mg (65 mg 325 mg PO QAM 12/25/17 07/04/22 iron) tablet,delayed release cyanocobalamin (vitamin B-12) 500 1,000 mcg PO QAM 08/01/18 07/04/22 mcg tablet amlodipine 5 mg tablet 5 mg PO QAM 10/03/19 07/04/22 acetaminophen 325 mg tablet 650 mg PO Q4H PRN Fever Or Pain 10/14/19 07/04/22 (Tylenol) clopidogrel 75 mg tablet 75 mg PO QAM 10/14/19 07/04/22 digoxin 125 mcg (0.125 mg) tablet 125 mcg PO QAM 10/14/19 07/04/22 acetaminophen 325 mg tablet 650 mg PO QAM 01/17/22 07/04/22 (Tylenol) docusate sodium 100 mg tablet 200 mg PO BID 01/17/22 07/04/22 metoprolol tartrate 25 mg tablet 37.5 mg PO BID 01/17/22 07/04/22 mirtazapine 30 mg tablet 30 mg PO HS 01/17/22 07/04/22 polyvinyl alcohol 1.4 % eye drops 1 drp OPB TID PRN Eye Irritation 01/17/22 07/04/22 (Artificial Tears (polyvinyl alcohol)) cetirizine 5 mg tablet 5 mg PO HS 07/04/22 07/04/22 corn starch See Rx Instructions .Route .COMPLEX 07/04/22 07/04/22 corn starch See Rx Instructions .Route .COMPLEX 07/04/22 07/04/22 guaifenesin 100 mg/5 mL oral liquid 200 mg PO Q4H PRN Cough 07/04/22 07/04/22 menthol 0.44 %-zinc oxide 20.6 % See Rx Instructions .Route .COMPLEX 07/04/22 0 07/04/22 topical ointment (Calmoseptine) polyethylene glycol 3350 17 17 g PO Q OTHER DAY 07/04/22 07/04/22 gram/dose oral powder selenium sulfide 1 % shampoo See Rx Instructions .Route .COMPLEX 07/04/22 07/04/22 (Selsun Blue) sennosides 8.6 mg tablet (senna) 8.6 mg PO DAILY 07/04/22 07/04/22 Previous Rx's Medication Instructions Recorded levothyroxine 75 mcg tablet 75 mcg PO QAM #90 tabs 12/17/18 Results & Data (ED) Vital Signs Vital Signs - 24 hr 07/04/22 08:02 07/04/22 08:18 07/04/22 08:18 Temperature 38.2 C H Temperature Source Axillary Pulse Rate 110 H 100 H Pulse Rate [Apical] 125 H Pulse Rate from SpO2 Sensor Pulse Rhythm Regular Pulse Strength Normal Respiratory Rate 36 H 30 H Respiratory Effort / Characteristics Labored Respiratory Depth Shallow Blood Pressure 174/68 H Blood Pressure [Left Arm] 174/68 H Blood Pressure Mean 103 Blood Pressure Mean [Left Arm] 103 Blood Pressure Position Sitting Pulse Oximetry 94 100 100 Oxygen Delivery Method Non-rebreather Non-rebreather Non-rebreather Oxygen Flow Rate 15 Sepsis Recent Fever Within 48 Hours Yes Sepsis New/Unexplained Change in Mental Status No Sepsis Action Taken by Nursing Physician Notified 07/04/22 09:12 07/04/22 08:28 07/04/22 08:30 Temperature Temperature Source Pulse Rate 102 H 113 H 126 H Pulse Rate [Apical] Pulse Rate from SpO2 Sensor 102 H 101 H Pulse Rhythm Pulse Strength Respiratory Rate 25 H 27 H Respiratory Effort / Characteristics Respiratory Depth Blood Pressure 151/70 H 153/72 H Blood Pressure [Left Arm] Blood Pressure Mean 97 99 Blood Pressure Mean [Left Arm] Blood Pressure Position Pulse Oximetry 100 100 Oxygen Delivery Method Non-rebreather Non-rebreather Oxygen Flow Rate 15 15 Sepsis Recent Fever Within 48 Hours Sepsis New/Unexplained Change in Mental Status Sepsis Action Taken by Nursing 07/04/22 08:49 07/04/22 09:00 07/04/22 09:15 Temperature Temperature Source Pulse Rate 101 H 97 H 98 H Pulse Rate [Apical] Pulse Rate from SpO2 Sensor 101 H 97 H 94 H Pulse Rhythm Pulse Strength Respiratory Rate 28 H 27 H 27 H Respiratory Effort / Characteristics Respiratory Depth Blood Pressure 130/62 113/64 108/58 L Blood Pressure [Left Arm] Blood Pressure Mean 84 80 74 Blood Pressure Mean [Left Arm] Blood Pressure Position Pulse Oximetry 100 100 100 Oxygen Delivery Method Non-rebreather Non-rebreather Non-rebreather Oxygen Flow Rate 15 15 15 Sepsis Recent Fever Within 48 Hours Sepsis New/Unexplained Change in Mental Status Sepsis Action Taken by Nursing 07/04/22 09:30 07/04/22 09:40 07/04/22 10:00 Temperature Temperature Source Pulse Rate 98 H 97 H 103 H Pulse Rate [Apical] Pulse Rate from SpO2 Sensor 98 H 96 H 100 H Pulse Rhythm Pulse Strength Respiratory Rate 30 H 30 H 29 H Respiratory Effort / Characteristics Respiratory Depth Blood Pressure 93/49 L 119/58 L 150/69 H Blood Pressure [Left Arm] Blood Pressure Mean 63 78 96 Blood Pressure Mean [Left Arm] Blood Pressure Position Pulse Oximetry 89 L 90 100 Oxygen Delivery Method Non-rebreather Oxygen Flow Rate 15 Sepsis Recent Fever Within 48 Hours Sepsis New/Unexplained Change in Mental Status Sepsis Action Taken by Nursing 07/04/22 10:15 07/04/22 10:30 Temperature Temperature Source Pulse Rate 99 H 101 H Pulse Rate [Apical] Pulse Rate from SpO2 Sensor 99 H 100 H Pulse Rhythm Pulse Strength Respiratory Rate 26 H 29 H Respiratory Effort / Characteristics Respiratory Depth Blood Pressure 166/72 H 158/89 H Blood Pressure [Left Arm] Blood Pressure Mean 103 112 Blood Pressure Mean [Left Arm] Blood Pressure Position Pulse Oximetry 100 100 Oxygen Delivery Method Non-rebreather Oxygen Flow Rate 15 Sepsis Recent Fever Within 48 Hours Sepsis New/Unexplained Change in Mental Status Sepsis Action Taken by [facility] Medications Current Medication List: was personally reviewed by me Laboratory Data Attestation: I reviewed the patient's lab results. 07/04/22 08:09 07/04/22 08:09 Lab Results 07/04/22 07/04/22 07/04/22 Range/Units 08:09 08:09 08:09 WBC 11.95 H (4.8-10.8) K/ul RBC 3.80 L (4.20-5.40) M/uL Hgb 10.9 L (12.0-16.0) g/dl Hct 33.1 L (37.0-47.0) % MCV 87.1 (80.0-100.0) fL MCH 28.7 (25.0-34.0) pg MCHC 32.9 (32.0-36.0) g/dL RDW Std Deviation 41.1 (36.4-46.3) fL RDW Coeff of Misael 13.0 (11.5-14.5) % Plt Count 396 (130-400) K/uL MPV 8.6 L (9.4-12.4) fL Immature Gran % (Auto) 0.3 % Neut % (Auto) 89.8 % Lymph % (Auto) 5.8 % [place] % (Auto) 3.8 % Eos % (Auto) 0.0 % Baso % (Auto) 0.3 % Neut # (Auto) 10.74 H (1.40-6.50) K/uL Lymph # (Auto) 0.69 L (1.2-3.4) K/uL [place] # (Auto) 0.45 (0.11-0.59) K/uL Eos # (Auto) 0.00 (0-0.50) K/uL Baso # (Auto) 0.03 (0-0.2) K/uL Immature Gran # (Auto) 0.04 (0.01-0.20) K/uL PT 10.3 (9.0-12.0) Seconds INR 0.9 (0.9-1.1) APTT 22.9 (21.0-31.0) Seconds PTT Ratio 0.8 VBG pH (7.36-7.41) VBG pCO2 (38-50) mmHg VBG pO2 mmHg VBG HCO3 mmol/L VBG O2 Saturation % VBG Base Excess mEq/L Sodium 135 L (136-145) mmol/L Potassium 4.0 (3.5-5.1) mmol/L Chloride 103 (98-107) mmol/L Carbon Dioxide 21 (21-32) mmol/L Anion Gap 11 (3-11) BUN 38 H (6-23) mg/dl Creatinine 1.13 (0.6-1.2) mg/dl Est Cr Clr Drug Dosing Not Reportable Est GFR ( Amer) 49.9 ml/min Est GFR (Non-Af Amer) 43.1 ml/min BUN/Creatinine Ratio 33.6 H (10-20) Glucose 128 H (70-99(Fasting)) mg/dl Lactate (0.4-2.0) mmol/L Calcium 9.3 (8.6-10.3) mg/dl Magnesium 2.2 (1.7-2.4) mg/dl Total Bilirubin 0.6 (0.2-1.0) mg/dl Direct Bilirubin 0.1 (0-0.2) mg/dl AST 19 (13-39) U/L ALT 12 (7-52) U/L Alkaline Phosphatase 75 (34-104) U/L Troponin I High Sens 11.3 (0-14) pg/ml Total Protein 7.8 (6.0-8.3) gm/dl Albumin 4.0 (3.4-5.0) gm/dl Procalcitonin (0-0.5) ng/ml Digoxin (0.8-2.0) ng/ml 07/04/22 07/04/22 07/04/22 Range/Units 08:09 08:09 08:09 WBC (4.8-10.8) K/ul RBC (4.20-5.40) M/uL Hgb (12.0-16.0) g/dl Hct (37.0-47.0) % MCV (80.0-100.0) fL MCH (25.0-34.0) pg MCHC (32.0-36.0) g/dL RDW Std Deviation (36.4-46.3) fL RDW Coeff of Misael (11.5-14.5) % Plt Count (130-400) K/uL MPV (9.4-12.4) fL Immature Gran % (Auto) % Neut % (Auto) % Lymph % (Auto) % [place] % (Auto) % Eos % (Auto) % Baso % (Auto) % Neut # (Auto) (1.40-6.50) K/uL Lymph # (Auto) (1.2-3.4) K/uL [place] # (Auto) (0.11-0.59) K/uL Eos # (Auto) (0-0.50) K/uL Baso # (Auto) (0-0.2) K/uL Immature Gran # (Auto) (0.01-0.20) K/uL PT (9.0-12.0) Seconds INR (0.9-1.1) APTT (21.0-31.0) Seconds PTT Ratio VBG pH (7.36-7.41) VBG pCO2 (38-50) mmHg VBG pO2 mmHg VBG HCO3 mmol/L VBG O2 Saturation % VBG Base Excess mEq/L Sodium (136-145) mmol/L Potassium (3.5-5.1) mmol/L Chloride (98-107) mmol/L Carbon Dioxide (21-32) mmol/L Anion Gap (3-11) BUN (6-23) mg/dl Creatinine (0.6-1.2) mg/dl Est Cr Clr Drug Dosing Est GFR ( Amer) ml/min Est GFR (Non-Af Amer) ml/min BUN/Creatinine Ratio (10-20) Glucose (70-99(Fasting)) mg/dl Lactate 1.2 (0.4-2.0) mmol/L Calcium (8.6-10.3) mg/dl Magnesium (1.7-2.4) mg/dl Total Bilirubin (0.2-1.0) mg/dl Direct Bilirubin (0-0.2) mg/dl AST (13-39) U/L ALT (7-52) U/L Alkaline Phosphatase (34-104) U/L Troponin I High Sens (0-14) pg/ml Total Protein (6.0-8.3) gm/dl Albumin (3.4-5.0) gm/dl Procalcitonin 0.19 (0-0.5) ng/ml Digoxin 1.3 (0.8-2.0) ng/ml 07/04/22 Range/Units 10:16 WBC (4.8-10.8) K/ul RBC (4.20-5.40) M/uL Hgb (12.0-16.0) g/dl Hct (37.0-47.0) % MCV (80.0-100.0) fL MCH (25.0-34.0) pg MCHC (32.0-36.0) g/dL RDW Std Deviation (36.4-46.3) fL RDW Coeff of Misael (11.5-14.5) % Plt Count (130-400) K/uL MPV (9.4-12.4) fL Immature Gran % (Auto) % Neut % (Auto) % Lymph % (Auto) % [place] % (Auto) % Eos % (Auto) % Baso % (Auto) % Neut # (Auto) (1.40-6.50) K/uL Lymph # (Auto) (1.2-3.4) K/uL [place] # (Auto) (0.11-0.59) K/uL Eos # (Auto) (0-0.50) K/uL Baso # (Auto) (0-0.2) K/uL Immature Gran # (Auto) (0.01-0.20) K/uL PT (9.0-12.0) Seconds INR (0.9-1.1) APTT (21.0-31.0) Seconds PTT Ratio VBG pH 7.30 L (7.36-7.41) VBG pCO2 44 (38-50) mmHg VBG pO2 54 mmHg VBG HCO3 22 mmol/L VBG O2 Saturation 83.7 % VBG Base Excess -4.8 mEq/L Sodium (136-145) mmol/L Potassium (3.5-5.1) mmol/L Chloride (98-107) mmol/L Carbon Dioxide (21-32) mmol/L Anion Gap (3-11) BUN (6-23) mg/dl Creatinine (0.6-1.2) mg/dl Est Cr Clr Drug Dosing Est GFR ( Amer) ml/min Est GFR (Non-Af Amer) ml/min BUN/Creatinine Ratio (10-20) Glucose (70-99(Fasting)) mg/dl Lactate (0.4-2.0) mmol/L Calcium (8.6-10.3) mg/dl Magnesium (1.7-2.4) mg/dl Total Bilirubin (0.2-1.0) mg/dl Direct Bilirubin (0-0.2) mg/dl AST (13-39) U/L ALT (7-52) U/L Alkaline Phosphatase (34-104) U/L Troponin I High Sens (0-14) pg/ml Total Protein (6.0-8.3) gm/dl Albumin (3.4-5.0) gm/dl Procalcitonin (0-0.5) ng/ml Digoxin (0.8-2.0) ng/ml Administered Medications Sodium Chloride (Nss 1000ml) 1,000 mls @ 999 mls/hr IV .Q1H1M ONE Stop: 07/04/22 11:07 Last Admin: 07/04/22 10:40 Dose: 999 mls/hr Documented By: MNE Discontinued Medications Ceftriaxone Sodium (Rocephin) 2,000 mg in 70 mls @ 140 mls/hr IV NOW STA Stop: 07/04/22 08:31 Last Infusion: 07/04/22 09:47 Dose: 0 mls/hr Documented By: Admin: 07/04/22 08:21 Dose: 140 mls/hr Documented By: TRAY Ondansetron HCl (Ondansetron Inj 2 Mg/Ml 2 Ml Vial) 4 mg IV NOW STA Stop: 07/04/22 08:03 Last Admin: 07/04/22 08:21 Dose: 4 mg Documented By: TRAY Imaging Data Attestation: I personally reviewed and interpreted this imaging study as follows: My Impression: CT of the head without contrast was obtained in the emergency department. My interpretation is large intracerebral hemorrhage, there was mass effect, final report below. Radiologist's Impression: Chest X-Ray 07/04/22 08:02 XR chest 1V portable CLINICAL HISTORY: Sepsis COMPARISON STUDY: Chest radiograph January 17, 2022. FINDINGS: There is no pneumothorax or pleural effusion. There is slight blunting of the right costophrenic angle. Left lung is clear. No evidence for pulmonary edema. Cardiomediastinal silhouette is unremarkable. IMPRESSION: Possible trace right pleural effusion with minimal right basilar opacity that favors atelectasis. ACT 112: Negative or not required by law. Electronically signed by: Jerrell Mancia M.D. 07/04/2022 9:[address] 07/04/22 08:02 CT OF THE HEAD WITHOUT CONTRAST CLINICAL HISTORY: Altered mental status. COMPARISON STUDY: Head CT January 18, 2022. CT DOSE: 703.85 mGy.cm TECHNIQUE: Helical axial images of the head were obtained without IV contrast. Automated exposure control was utilized for the study. A dose lowering technique was utilized adhering to the principles of ALARA. FINDINGS: There is a large acute intraparenchymal hematoma centered within the right basal ganglia, measuring 7.8 x 4.7 cm. Intraventricular extension of hemorrhage is noted with moderate intraventricular hemorrhage. There is associat ed vasogenic edema. Small amount of associated acute subarachnoid hemorrhage is also present. There is significant mass effect with vasogenic edema, compression of the right lateral ventricle and 1 cm of leftward midline shift. There is subfalcine shift. By motion artifact. White matter hypodensities are again noted. There is a small old left frontal lobe infarct. No calvarial fractures are present. IMPRESSION: Large acute intraparenchymal hematoma, centered within the right basal ganglia with significant mass effect, including compression of the right lateral ventricle, 1 cm of leftward midline shift and subfalcine shift. Intraventricular extension of hemorrhage and a small amount of associated subarachnoid hemorrhage. This may reflect a hypertensive bleed. ACT 112: Negative or not required by law. Electronically signed by: Jerrell Mancia M.D. 07/04/2022 8:56 AM Discharge Plan Visit Data Chief Complaint: Unresponsive ED Provider: Cody Amaro Discharge Problem: Cerebrovascular accident, hemorrhagic, Acute respiratory distress, Fever Patient Disposition: Being Evaluated by Hospitalist Forms Stand Alone Forms: My [facility] Prescriptions Prescriptions: No Action levothyroxine 75 mcg tablet 75 mcg PO QAM Qty: 90 2RF amlodipine 5 mg tablet 5 mg PO QAM cyanocobalamin (vitamin B-12) 500 mcg tablet 1,000 mcg PO QAM ferrous sulfate 325 mg (65 mg iron) Tablet,Delayed Release (Dr/Ec) 325 mg PO QAM Rx Instructions: TAKE THIS MEDICATION WITH FOOD acetaminophen [Tylenol] 325 mg Tablet 650 mg PO Q4H MDD 3G PRN (Reason: Fever Or Pain) Rx Instructions: TEMP >/= 100F clopidogrel 75 mg tablet 75 mg PO QAM digoxin 125 mcg (0.125 mg) tablet 125 mcg PO QAM docusate sodium 100 mg Tablet 200 mg PO BID metoprolol tartrate 25 mg tablet 37.5 mg PO BID Rx Instructions: HOLD FOR B/P < 100/50 mirtazapine 30 mg tablet 30 mg PO HS polyvinyl alcohol [Artificial Tears (polyvin alc)] 1.4 % Drops 1 drp OPB TID PRN (Reason: Eye Irritation) acetaminophen [Tylenol] 325 mg Tablet 650 mg PO QAM MDD 3G cetirizine 5 mg tablet 5 mg PO HS Rx Instructions: for allergic rhinitis 10 days corn starch Powder See Rx Instructions .ROUTE .COMPLEX Rx Instructions: Apply to bilateral groin topically two times a day for excoriation menthol-zinc oxide [Calmoseptine] 0.44-20.6 % ointment See Rx Instructions .ROUTE .COMPLEX Rx Instructions: Apply to buttocks topically three times a day for reddened skin and as needed when briefs are changes sennosides [senna] 8.6 mg tablet 8.6 mg PO DAILY guaifenesin 100 mg/5 mL Liquid 200 mg PO Q4H PRN (Reason: Cough) polyethylene glycol 3350 17 gram/dose powder 17 g PO Q OTHER DAY Selsun Blue 1 % Shampoo See Rx Instructions .ROUTE .COMPLEX Rx Instructions: Apply to scalp topically every day shift every Mon, Sat for dry scalp. Twice weekly with shower, massage into scalp and rinse. corn starch Powder See Rx Instructions .ROUTE .COMPLEX Rx Instructions: Apply to below bilateral breasts topically two times a day for excoriation Referrals Referrals: Precious Abreu MD [Primary Care Provider] -
[2022-07-04 08:40] LABS: Basophils # (auto) 0.03 K/uL (0-0.2); Basophils % (auto) 0.3 %; Hematocrit (blood only) 33.1 % (37.0-47.0); Hemoglobin 10.9 g/dl (12.0-16.0); Immature Granulocytes # (auto) 0.04 K/uL (0.01-0.20); Immature Granulocytes % (auto) 0.3 %; Lymphocytes # (auto) 0.69 K/uL (1.2-3.4); Lymphocytes % (auto) 5.8 %; Mean Corpuscular Hemoglobin 28.7 pg (25.0-34.0); Mean Corpuscular Hgb Conc 32.9 g/dL (32.0-36.0); Mean Corpuscular Volume 87.1 fL (80.0-100.0); Mean Platelet Volume 8.6 fL (9.4-12.4); Monocytes # (auto) 0.45 K/uL (0.11-0.59); Monocytes % (auto) 3.8 %; Neutrophils # (auto) 10.74 K/uL (1.40-6.50); Neutrophils % (auto) 89.8 %; Platelet Count 396 K/uL (130-400); RDW Standard Deviation 41.1 fL (36.4-46.3); White Blood Count 11.95 K/ul (4.8-10.8)
--- NOTE | 2022-07-04 08:58 | CT Scan Report ---
CT OF THE HEAD WITHOUT CONTRAST CLINICAL HISTORY: Altered mental status. COMPARISON STUDY: Head CT January 18, 2022. CT DOSE: 703.85 mGy.cm TECHNIQUE: Helical axial images of the head were obtained without IV contrast. Automated exposure con trol was utilized for the study. A dose lowering technique was utilized adhering to the principles o f ALARA. FINDINGS: There is a large acute intraparenchymal hematoma centered within the right basal ganglia, m easuring 7.8 x 4.7 cm. Intraventricular extension of hemorrhage is noted with moderate intraventricul ar hemorrhage. There is associated vasogenic edema. Small amount of associated acute subarachnoid hem orrhage is also present. There is significant mass effect with vasogenic edema, compression of the ri ght lateral ventricle and 1 cm of leftward midline shift. There is subfalcine shift. By motion artifa ct. White matter hypodensities are again noted. There is a small old left frontal lobe infarct. No ca lvarial fractures are present. IMPRESSION: Large acute intraparenchymal hematoma, centered within the right basal ganglia with sign ificant mass effect, including compression of the right lateral ventricle, 1 cm of leftward midline s hift and subfalcine shift. Intraventricular extension of hemorrhage and a small amount of associated subarachnoid hemorrhage. This may reflect a hypertensive bleed. ACT 112: Negative or not required by law. Electronically signed by: Jerrell Mancia M.D. 07/04/2022 8:56 AM
[2022-07-04 09:02] LABS: INR 0.9 (0.9-1.1); Partial Thromboplastin Ratio 0.8; Partial Thromboplastin Time 22.9 Seconds (21.0-31.0); Prothrombin Time 10.3 Seconds (9.0-12.0)
[2022-07-04 09:06] LABS: Alanine Aminotransferase 12 U/L (7-52); Alkaline Phosphatase 75 U/L (34-104); Anion Gap 11 (3-11); Aspartate Aminotransferase 19 U/L (13-39); BUN Creatinine Ratio 33.6 (10-20); Bilirubin Direct 0.1 mg/dl (0-0.2); Bilirubin,Total 0.6 mg/dl (0.2-1.0); Blood Urea Nitrogen 38 mg/dl (6-23); Calcium 9.3 mg/dl (8.6-10.3); Carbon Dioxide 21 mmol/L (21-32); Chloride 103 mmol/L (98-107); Est GFR (African American) 49.9 ml/min; Est GFR (Non-African American) 43.1 ml/min; Glucose 128 mg/dl (70-99(Fasting)); Magnesium 2.2 mg/dl (1.7-2.4); Sodium 135 mmol/L (136-145); Total Protein 7.8 gm/dl (6.0-8.3)
[2022-07-04 09:10] LABS: Troponin I High Sensitivity 11.3 pg/ml (0-14)
--- NOTE | 2022-07-04 09:34 | History & Physical Report ---
Date of Service July 04, 2022 Assessment & Plan (1) Intracranial hemorrhage: Plan: No aggressive intervention Comfort measures only Consult CM to arrange hospice History of Present Illness Chief Complaint: confusion Primary Care Provider: Precious Abreu MD Ms Dot Mace is a 87 year old female with history significant for CVA, vascular dementia, paroxysmal A fib, carotid artery stenosis who is a resident of [facility] was sent to the ER today for confusion and was found to have a large intraparenchymal bleed with significant vasogenic edema and midline shift. After discussion with who is at bedside, it is requested that patient be admitted for comfort measures and coordination of hospice services. Of note, patient was well over the weekend and celebrated her 87th birthday on Monday with her and three daughters. Daughters live out of state and are making arrangements to return to see mom. ER course- ceftriaxone and zofran Allergies Allergy/AdvReac Type Severity Reaction Status Date / Time atorvastatin Allergy Intermediate RASH Verified 01/17/22 15:17 tetracycline Allergy Intermediate ARMS Verified 01/17/22 15:17 SWELLED UP SHANTEL Inhibitors Allergy Mild NOT SURE Verified 01/17/22 15:17 OF REACTIONS rivaroxaban Allergy Unknown RASH Verified 01/17/22 15:17 zolpidem Allergy Unknown Unknown Verified 01/17/22 15:17 simvastatin Allergy Unknown Verified 01/17/22 15:17 Tetracyclines Allergy Unknown Verified 12/15/21 11:28 amoxicillin AdvReac Intermediate VERY SICK Verified 01/18/22 11:39 TO HER STOMACH clavulanic acid AdvReac Intermediate VERY SICK Verified 01/18/22 11:39 TO HER STOMACH tramadol AdvReac Intermediate MAKES HER Verified 01/18/22 11:39 DIZZY AND CRAZEY erythromycin base AdvReac Unknown UPSET Verified 01/18/22 11:39 STOMACH gabapentin AdvReac Unknown Unknown Verified 12/15/21 11:28 Home Medications Medication Instructions Recorded Confirmed Type ferrous sulfate 325 mg (65 mg 325 mg PO QAM 12/25/17 01/17/22 History iron) tablet,delayed release cyanocobalamin (vitamin B-12) 500 1,000 mcg PO QAM 08/01/18 01/17/22 History mcg tablet levothyroxine 75 mcg tablet 75 mcg PO QAM #90 tabs 12/17/18 01/17/22 Rx amlodipine 5 mg tablet 5 mg PO QAM 10/03/19 07/04/22 History acetaminophen 325 mg tablet 650 mg PO Q4H PRN Fever Or Pain 10/14/19 07/04/22 History (Tylenol) clopidogrel 75 mg tablet 75 mg PO QAM 10/14/19 01/17/22 History digoxin 125 mcg (0.125 mg) tablet 125 mcg PO QAM 10/14/19 01/17/22 History acetaminophen 325 mg tablet 650 mg PO QAM 01/17/22 01/17/22 History (Tylenol) docusate sodium 100 mg tablet 100 mg PO BID 01/17/22 01/17/22 History metoprolol tartrate 25 mg tablet 25 mg PO BID 01/17/22 01/17/22 History mirtazapine 30 mg tablet 30 mg PO HS 01/17/22 01/17/22 History polyvinyl alcohol 1.4 % eye drops 1 drp OPB TID PRN Eye Irritation 01/17/22 01/17/22 History (Artificial Tears (polyvinyl alcohol)) cetirizine 5 mg tablet 5 mg PO HS 07/04/22 07/04/22 History corn starch See Rx Instructions .Route .COMPLEX 07/04/22 07/04/22 History menthol 0.44 %-zinc oxide 20.6 % See Rx Instructions .Route .COMPLEX 07/04/22 07/04/22 History topical ointment (Calmoseptine) polyvinyl alcohol 1.4 % eye drops 1 drp ophthalmic (eye) TID 07/04/22 07/04/22 History Past Med/Surg History Medical History Abnormal electrocardiogram Acute alteration in mental status Acute electrocardiogram changes Acute pain of right lower extremity Acute right hemiparesis Afib Antidiuretic hormone, inappropriate secretion Autonomic dysfunction Carotid stenosis Cerebrovascular accident, old Chronic cerebral ischemia Dementia GI bleed History of intracranial hemorrhage Hypertension Hypokalemia Hypothyroid Intracranial hematoma Lumbar spinal stenosis Mild cognitive impairment Overactive bladder Paroxysmal atrial flutter Recurrent falls Right-sided lacunar stroke Stroke Stroke-like episode Symptomatic anemia Syncope TIA (transient ischemic attack) UTI (urinary tract infection) Weight loss Surgical History History of appendectomy History of breast surgery puncture aspiiration of cyst History of colonoscopy History of hysterectomy History of lumbar laminectomy Family History Unknown Migraine headache Arteriosclerotic cardiovascular disease (ASCVD) Colon cancer Father Acute myocardial infarction Mother Hypertension Cardiac disorder Social History Smoking Status: Unknown if ever smoked Second Hand Exposure: No; Do You Dip or Chew Tobacco: No; Hx Alcohol Use: No Hx Substance Use: No Preferred Language: Italian Communication Ability: Effective Visual Impairment: No Limitations Hearing Ability: Normal Environmental Monitoring Technician Required: No Beliefs That Will Affect Care: Faith marital status: Current Living Situation: Snf Current Living Situation Comment: [facility] current occupational status: retired current occupation: She used to work in an office Feels Safe at Home: Yes Childhood Exposure to Second-Hand Smoke: Yes caffeine: Yes Dental Care, Regularly: Yes Physical Activity Frequency: Does not Exercise Seatbelt Use: always Sunscreen Use: No Assistive Devices: Wheelchair Review of Systems Review of Systems: No ROS due to mental status Physical Exam Physical Exam: Unarousable, obtunded, appears stated age Eyes: PERRL, pupillary reflex is slow ENMT: Mucous membrane dry, normocephalic Neck: trachea midline Respiratory: Tachypneic, open mouth breathing, no wheezing/stridor Cardiovascular: Regular rate and rhythm, no murmurs/rubs/gallops Gastrointestinal (Abdomen): soft, non tender, non distended Musculoskeletal: No edema, no cyanosis or clubbing Skin: No rash, no ulcers noted on exposed skin (sacral exam deferred), some redness on bilateral distal lower extremities Neurologic: Obtunded, unarousable, pupillary reflex slow Results & Data Results & Data Vital Signs (Past 12 Hours) Vital Signs Temp Pulse Pulse Resp BP BP Pulse Ox 07/04/22 09:12 102 H 07/04/22 08:18 100 H 100 07/04/22 08:18 125 H 30 H 174/68 H 100 07/04/22 08:02 38.2 C H 110 H 36 H 174/68 H 94 O2 Del Method O2 Flow Rate 07/04/22 09:12 07/04/22 08:18 Non-rebreather 15 07/04/22 08:18 Non-rebreather 07/04/22 08:02 Non-rebreather Code Status & VTE Plan Code Status DNR/DNI. Allow Natural
--- NOTE | 2022-07-04 09:46 | XRay Report ---
XR chest 1V portable CLINICAL HISTORY: Sepsis COMPARISON STUDY: Chest radiograph January 17, 2022. FINDINGS: There is no pneumothorax or pleural effusion. There is slight blunting of the right costoph renic angle. Left lung is clear. No evidence for pulmonary edema. Cardiomediastinal silhouette is unr emarkable. IMPRESSION: Possible trace right pleural effusion with minimal right basilar opacity that favors ate lectasis. ACT 112: Negative or not required by law. Electronically signed by: Jerrell Mancia M.D. 07/04/2022 9:45 AM
[2022-07-04] MEDS ORDERED: SODIUM CHLORIDE 0.9% 1000ML 1,000 ML IV ONE (10:07)
[2022-07-04 10:24] LABS: Base Excess VBG -4.8 mEq/L; HCO3 VBG 22 mmol/L; Oxygen Saturation VBG 83.7 %; PCO2 VBG 44 mmHg (38-50); PO2 VBG 54 mmHg
--- NOTE | 2022-07-04 12:01 | Electrocardiogram Report ---
Test Reason : Blood Pressure : / mmHG Vent. Rate : 110 BPM Atrial Rate : 110 BPM P-R Int : 136 ms QRS Dur : 082 ms QT Int : 342 ms P-R-T Axes : 092 046 -08 degrees QTc Int : 462 ms Sinus tachycardia Septal infarct (cited on or before 02-NOV-2017) Marked ST abnormality, possible inferolateral subendocardial injury Abnormal ECG When compared with ECG of 17-JAN-2022 14:05, Significant changes have occurred Confirmed by Cody Chanel ([id number]) on 07/04/2022 12:00:48 PM Referred By: Confirmed By:Cody Chanel
[2022-07-04] MEDS ORDERED: LORazepam 0.5 MG TAB PO PRN (14:31)
[2022-07-04] MEDS ORDERED: ONDANSETRON 4 MG OD TAB SL PRN (14:31)
[2022-07-04] MEDS ORDERED: MoRPHine SULFATE 2 MG/ML CARP IV PRN (14:31)
[2022-07-04] MEDS ORDERED: LORazepam 2 MG/1 ML VIAL IV PRN ×3 (14:31→17:14)
[2022-07-04] MEDS ORDERED: ONDANSETRON INJ 2 MG/ML 2 ML VIAL IV PRN (14:31)
[2022-07-04] MEDS: GLYCOPYRROLATE 0.2 MG/ML VIAL IV PRN (16:36)
[2022-07-04] MEDS: MoRPHine SULFATE 2 MG/ML CARP IV PRN ×2 (18:37→20:38)
[2022-07-05 00:03] LABS: A calco-baum cmplx NotReported Not Detected (NotDetected); Bact fragilis Not Reported Not Detected (NotDetected); C auris Not Reported Not Detected (NotDetected); Calbicans Not Reported Not Detected (NotDetected); Candida glabrata Not Reported Not Detected (NotDetected); Candida krusei Not Reported Not Detected (NotDetected); Cneoformans/gatti Not Reported Not Detected (NotDetected); Cparapsilosis Not Reported Not Detected (NotDetected); Ctropicalis Not Reported Not Detected (NotDetected); E cloacae compx Not Reported Not Detected (NotDetected); Efaecalis Not Reported Not Detected (NotDetected); Efaecium Not Reported Not Detected (NotDetected); Enterobacterales Not Reported Not Detected (NotDetected); Escherichia coli Not Reported Not Detected (NotDetected); H influenzae Not Reported Not Detected (NotDetected); K aerogenes Not Reported Not Detected (NotDetected); Koxytoca Not Reported Not Detected (NotDetected); Kpneumoniae grp Not Reported Not Detected (NotDetected); Lmonocyt Not Reported Not Detected (NotDetected); N meningitidis Not Reported Not Detected (NotDetected); P aeruginosa Not Reported Not Detected (NotDetected); Proteus spp Not Reported Not Detected (NotDetected); Salmonella spp Not Reported Not Detected (NotDetected); Smarcescens Not Reported Not Detected (NotDetected); Staph lugdunensis Not Reported Not Detected (NotDetected); Staph spp. Not Reported DETECTED (NotDetected); Staphaureus Not Reported Not Detected (NotDetected); Staphepi Not Reported DETECTED (NotDetected); Staphylococcus spp. DETECTED (NotDetected); Stenmaltophilia Not Reported Not Detected (NotDetected); Strep agal(GrpB) Not Reported Not Detected (NotDetected); Strep pneum Not Reported Not Detected (NotDetected); Strep pyog (GrpA) Not Reported Not Detected (NotDetected); Strep spp Not Reported Not Detected (NotDetected); mecAC Resistant Gene DETECTED (NotDetected)
[2022-07-05 00:10] LABS: Staphylococcus epidermidis DETECTED (NotDetected)
[2022-07-05] MEDS: MoRPHine SULFATE 2 MG/ML CARP IV PRN ×3 (09:47→21:52)
--- NOTE | 2022-07-05 12:37 | Hospitalist Progress Note ---
Date of Service July 05, 2022 Assessment & Plan (1) Intracranial hemorrhage: Plan: No aggressive intervention Comfort measures only CM to assist w/ DC plan Admission and Anticipated Discharge Date Admission Date: July 04, 2022 Subjective Patient seen and examined at bedside for follow-up of comfort measures only status sedated intracranial hemorrhage. Patient's family/multiple members were present in the room. Patient was seen and examined, pupils constricted, patient on Oxy Mask at 9 L, having deep rapid breathing, not arousable. Patient appeared comfortable. Spoke with family members and answered all the questions to their full understanding/satisfaction. Review of Systems 2 Review of Systems: No ROS due to mental status Physical Exam Physical Exam: Unarousable, obtunded, appears stated age Tachycardic tachypneic cachectic appearing Dry oral mucosa, oxygen max with 9 L, constricted pupils Bilateral crackles, no BLE edema.
[2022-07-05] MEDS: GLYCOPYRROLATE 0.2 MG/ML VIAL IV PRN (21:52)
[2022-07-06] MEDS: MoRPHine SULFATE 2 MG/ML CARP IV PRN ×2 (06:40→09:30)
[2022-07-06] MEDS ORDERED: oxyCODONE HCL SOLN 5 MG/5 ML UDC PO PRN (10:01)
[2022-07-06] MEDS ORDERED: ONDANSETRON 4 MG OD TAB PO PRN (10:04)
[2022-07-06] MEDS ORDERED: LORazepam 0.5 MG TAB SL PRN (10:04)
[2022-07-06] MEDS ORDERED: LORazepam 2 MG/1 ML VIAL IM PRN (10:06)
[2022-07-06] MEDS ORDERED: SCOPOLAMINE 1 MG TDSY TD SCH (10:30)
[2022-07-06] MEDS: MoRPHine SULFATE 10 MG/0.5 ML UDP PO PRN ×2 (14:14→20:15)
[2022-07-06] MEDS ORDERED: CHECK SCOPOLAMINE PATCH PLACEMENT SCH (16:00)
--- NOTE | 2022-07-06 17:23 | Hospitalist Progress Note ---
Date of Service July 06, 2022 Assessment & Plan (1) Intracranial hemorrhage: Plan: No aggressive intervention Comfort measures only CM to assist w/ DC plan Admission and Anticipated Discharge Date Admission Date: July 04, 2022 Subjective Remains comfortable. Family is present at bedside No issues overnight Remains on comfort measures only Review of Systems Review of Systems: Unable to review due to mental status Physical Exam Physical Exam: Obtunded, unarousable ENMT: tmeporal muscle wasting, mucous membrane dry Respiratory: Open mouth breathing, no wheezing, tachypnic Cardiovascular: tachycardic but regular Musculoskeletal: no edema Neurologic: Obtunded, unarousable Results & Data Results & Data Vital Signs (Past 12 Hours) Vital Signs O2 Del Method O2 Flow Rate 07/06/22 10:59 Oxymask 8
--- NOTE | 2022-07-07 16:57 | Discharge Summary ---
Date of Service July 06, 2022 Admission HPI Per Admitting Provider Ms Dot Mace is a 87 year old female with history significant for CVA, vascular dementia, paroxysmal A fib, carotid artery stenosis who is a resident of [facility] was sent to the ER today for confusion and was found to have a large intraparenchymal bleed with significant vasogenic edema and midline shift. After discussion with who is at bedside, it is requested that patient be admitted for comfort measures and coordination of hospice services. Of note, patient was well over the weekend and celebrated her 87th birthday on Monday with her and three daughters. Daughters live out of state and are making arrangements to return to see mom. ER course- ceftriaxone and zofran Principal Diagnosis Intraparenchymal Brain Hemorrhage Vasogenic Edema Comfort measures only Discharge Exam Please refer to Dr Erazo's note from 07/06 evening Discharge Data Allergies Allergy/AdvReac Type Severity Reaction Status Date / Time atorvastatin Allergy Intermediate RASH Verified 01/17/22 15:17 tetracycline Allergy Intermediate ARMS Verified 01/17/22 15:17 SWELLED UP SHANTEL Inhibitors Allergy Mild NOT SURE Verified 01/17/22 15:17 OF REACTIONS rivaroxaban Allergy Unknown RASH Verified 01/17/22 15:17 zolpidem Allergy Unknown Unknown Verified 01/17/22 15:17 simvastatin Allergy Unknown Verified 01/17/22 15:17 Tetracyclines Allergy Unknown Verified 12/15/21 11:28 amoxicillin AdvReac Intermediate VERY SICK Verified 01/18/22 11:39 TO HER STOMACH clavulanic acid AdvReac Intermediate VERY SICK Verified 01/18/22 11:39 TO HER STOMACH tramadol AdvReac Intermediate MAKES HER Verified 01/18/22 11:39 DIZZY AND CRAZEY erythromycin base AdvReac Unknown UPSET Verified 01/18/22 11:39 STOMACH gabapentin AdvReac Unknown Unknown Verified 12/15/21 11:28 Consultations 07/04/22 09:08 ED Decision to Admit Stat Ordered Studies 07/04/22 08:02 CT head/brain wo con Stat Hospital Course (1) Intracranial hemorrhage: Plan Ms Dot Mace is a 87 year old female with history significant for CVA, vascular dementia, paroxysmal A fib, carotid artery stenosis who is a resident of [facility] was noted to be confused in bed and sent to the ER 07/04/2022 for further evaluation. After arrival here, CT brain shows large intraparenchymal bleed with significant vasogenic edema and midline shift. After discussion with patient was admitted to the hospital for comfort measures. She remained on comfort measures for 2 days and surrounded by her family on the evening of 07/06/2022. Total Time Total Time Spent Total Time Spent (In Minutes): NA Discharge Plan Discharge Items Patient Disposition: Other Date/Time: 07/06/22 19:30
== END 2022-07-06 23:12 | disposition expired | DRG 64 ==
LOC: ED 07:52 → SUATTDRO 10:01 → EDINP 10:01 → 3E 15:58